=== PATIENT | male | born 1980 | race Caucasian/White ===

== ENCOUNTER 2017-07-23 09:06 | Inpatient (IN) | payer MEDICAID, OTHER ==
--- NOTE | 2017-07-23 09:44 | ED ---
Psych HPI - General Chief Complaint: Psychiatric Symptoms Stated Complaint: Mental Health Time Seen by Provider: 07/23/17 09:31 Source: patient, RN notes reviewed, old records reviewed Mode of arrival: ambulatory - History of Present Illness Initial Comments: Is a 36-year-old male presenting to the emergency department presenting for psychiatric disorder. He has been taking his medications however according to his feeling is been having weird behavior. Apparently he packed up all of his things in his room and grocery bags, as well as the kitchen. Patient is denying any physical complaints. Patient reports he has no suicidal or homicidal thoughts. Patient is very slow to respond when answering questions. - Related Data Home Medications Medication Instructions Recorded Confirmed Divalproex ER [Depakote ER] 1,500 mg PO HS 02/25/17 07/23/17 QUEtiapine [SEROquel] 100 mg PO HS 02/25/17 07/23/17 Terbinafine [LamISIL] 250 mg PO DAILY 02/25/17 07/23/17 Paliperidone IM [Invega Sustenna] 234 mg IM Q30D 07/23/17 07/23/17 Allergies Allergy/AdvReac Type Severity Reaction Status Date / Time No Known Allergies Allergy Verified 02/25/17 15:34 Review of Systems ROS Statement: Those systems with pertinent positive or pertinent negative responses have been documented in the HPI. ROS Other: All systems not noted in ROS Statement are negative. Past Medical History Additional Past Medical History / Comment(s): cyst foot, insomnia, possible COPD History of Any Multi-Drug Resistant Organisms: None Reported Additional Past Surgical History / Comment(s): ORIF of the ankle Past Psychological History: Anxiety, Bipolar, Depression, Schizophrenia Smoking Status: Current every day smoker Past Alcohol Use History: None Reported, Rare Past Drug Use History: Marijuana - Past Family History Father Family Medical History: Unable to Obtain (Father is 70 years old and is currently in rehab following surgery.) Mother Family Medical History: No Reported History (Mother is 57 years old and healthy. ) Additional Family Medical History / Comment(s): Patient has 3 brothers and one sister with no major medical problems. General Exam - General Exam Comments Initial Comments: 37-year-old male. Patient does not appear to be in any acute distress. Limitations: no limitations General appearance: alert, in no apparent distress Head exam: Present: atraumatic, normocephalic, normal inspection Eye exam: Present: normal appearance, PERRL, EOMI. Absent: scleral icterus, conjunctival injection, periorbital swelling ENT exam: Present: normal exam Neck exam: Present: normal inspection. Absent: tenderness, meningismus, lymphadenopathy Respiratory exam: Present: normal lung sounds bilaterally. Absent: respiratory distress, wheezes, rales, rhonchi, stridor Cardiovascular Exam: Present: regular rate, normal rhythm, normal heart sounds. Absent: systolic murmur, diastolic murmur, rubs, gallop, clicks GI/Abdominal exam: Present: soft, normal bowel sounds. Absent: distended, tenderness, guarding, rebound, rigid Extremities exam: Present: normal inspection, full ROM, normal capillary refill. Absent: tenderness, pedal edema, joint swelling, calf tenderness Back exam: Present: normal inspection Neurological exam: Present: alert, oriented X3, CN II-XII intact Psychiatric exam: Present: normal affect, normal mood, flat affect (Patient has a flat affect. Patient is slow to respond when answering questions. Patient's mother reports is typical of a schizophrenic episode for him.), other Skin exam: Present: warm, dry, intact, normal color. Absent: rash Course Vital Signs 07/23/17 09:12 Temperature 99.0 F Pulse Rate 119 H Respiratory 18 Rate Blood Pressure 109/69 O2 Sat by Pulse 97 Oximetry Medical Decision Making - Medical Decision Making 37-year-old male chief complaint of abnormal behaviors at home, per the mother. Patient packed up all of his belongings in garbage bags. He denies any persecutory thoughts, or suicidal or homicidal ideation. Mother reports has not been taking his psychiatric medication. He denies any suicidal or homicidal thoughts. Patient is very slow to respond and seems to be somewhat catatonic. Very flat affect. Patient is medically cleared to evaluate a be by EPS eczema. [facility] EPS evaluation patient stated they want him to go home. Patient psychiatrist appointment is going to be on the sixth. [facility] will go to his house and give him his medications eat tonight. Patient mother informed of this. Return parameters were discussed. Disposition Clinical Impression: Schizophrenia Disposition: HOME SELF-CARE Condition: Good Instructions: Schizophrenia (ED) Additional Instructions: CM will come to your house to ensure that you takes medications each night. Follow-up with her psychiatrist on the 6th. Return to the emergency department if any alarming signs or symptoms occur. Referrals: Lefty Lowe DO [Primary Care Provider] - 1-2 days Time of Disposition: 14:45
--- NOTE | 2017-07-23 16:55 | ED ---
Medical Decision Making - Medical Decision Making We EPS at [facility] should call his previous caseworkers he still uses usually the beginning of how he acts when he has a severe manic episode. In the past he has had episodes were he is bringing knives to public places including [facility]. He is also reportedly cut the head off of the live tick in. When the front of his history they felt that the patient actually does need to be admitted. I agree with this. Patient does agree to sign in. - Lab Data Lab Results 07/23/17 Range/Units 14:13 Urine Opiates Screen Not Detected (NotDetected) Ur Oxycodone Screen Not Detected (NotDetected) Urine Methadone Screen Not Detected (NotDetected) Ur Propoxyphene Screen Not Detected (NotDetected) Ur Barbiturates Screen Not Detected (NotDetected) U Tricyclic Antidepress Not Detected (NotDetected) Ur Phencyclidine Scrn Not Detected (NotDetected) Ur Amphetamines Screen Not Detected (NotDetected) U Methamphetamines Scrn Not Detected (NotDetected) U Benzodiazepines Scrn Not Detected (NotDetected) Urine Cocaine Screen Not Detected (NotDetected) U Marijuana (THC) Screen Not Detected (NotDetected) Disposition Clinical Impression: Schizophrenia Disposition: ADMITTED IP TO THIS HOSP Condition: Good
[2017-07-23] MEDS ORDERED: MAG HYDROX/AL HYDROX/SIMETH 30 ML CUP PO PRN (17:25)
[2017-07-23] MEDS ORDERED: LORazepam 1 MG TAB PO PRN (17:25)
[2017-07-23] MEDS ORDERED: MAGNESIUM HYDROXIDE 2,400 MG/10 ML CUP PO PRN (17:25)
[2017-07-23] MEDS ORDERED: ZIPRASIDONE 20 MG VIAL IM PRN (17:25)
[2017-07-23] MEDS ORDERED: ACETAMINOPHEN TAB 325 MG TAB PO PRN (17:25)
[2017-07-23] MEDS ORDERED: LORazepam 2 MG/ML SYRINGE IM PRN (17:37)
[2017-07-23] MEDS: DIVALPROEX ER 500 MG TAB.ER.24H PO SCH (21:22)
[2017-07-24 08:42] LABS: Basophils # (A) 0.1 k/uL (0-0.2); Basophils % (A) 1 %; CH 34.1; CHCM 33.1; Eosinophils # (A) 0.1 k/uL (0-0.7); Eosinophils % (A) 1 %; HCT 50.7 % (39.0-53.0); HDW 2.12; HGB 16.4 gm/dL (13.0-17.5); Luc % (Auto) 1; Lymphocytes # (A) 2.4 k/uL (1.0-4.8); Lymphocytes % (A) 26 %; MCH 33.5 pg (25.0-35.0); MCHC 32.4 g/dL (31.0-37.0); MCV 103.3 fL (80.0-100.0); Macrocytosis Slight; Mean Platelet Volume 7.6; Monocytes # (A) 0.4 k/uL (0-1.0); Monocytes % (A) 5 %; Neutrophils # (A) 6.1 k/uL (1.3-7.7); Neutrophils % (A) 67 %; RBC 4.91 m/uL (4.30-5.90); RDW 14.1 % (11.5-15.5); WBC 9.1 k/uL (3.8-10.6); WBC (Perox) 8.52
[2017-07-24 09:02] LABS: ALT 41 U/L (21-72); AST 19 U/L (17-59); Alkaline Phosphatase 69 U/L (38-126); Anion Gap 9 mmol/L; Blood Urea Nitrogen 13 mg/dL (9-20); Calcium 9.5 mg/dL (8.4-10.2); Carbon Dioxide 24 mmol/L (22-30); Chloride 107 mmol/L (98-107); Glucose 95 mg/dL (74-99); Non-African American GFR(MDRD) >60 (>60 ml/min/1.73 sqM); Potassium 4.8 mmol/L (3.5-5.1); Sodium 140 mmol/L (137-145); Total Bilirubin 0.4 mg/dL (0.2-1.3); Total Protein 6.7 g/dL (6.3-8.2)
[2017-07-24] MEDS ORDERED: diphenhydrAMINE 25 MG CAP PO PRN (13:21)
--- NOTE | 2017-07-24 13:23 | P.HP ---
Psychiatric H&P - . History & Physical: Allergies Allergy/AdvReac Type Severity Reaction Status Date / Time No Known Allergies Allergy Verified 02/25/17 15:34 Vital Signs Temp 98.2 F 07/24/17 06:47 Pulse 78 07/24/17 06:47 Resp 16 07/24/17 06:47 BP 131/60 07/24/17 06:47 Pulse Ox 97 07/23/17 16:58 Intake & Output 07/23/17 07/24/17 07/24/17 18:59 06:59 18:59 Weight 98.566 kg Laboratory Last Values WBC 9.1 k/uL (3.8-10.6) 07/24/17 08:14 RBC 4.91 m/uL (4.30-5.90) 07/24/17 08:14 Hgb 16.4 gm/dL (13.0-17.5) 07/24/17 08:14 Hct 50.7 % (39.0-53.0) 07/24/17 08:14 MCV 103.3 fL (80.0-100.0) H 07/24/17 08:14 MCH 33.5 pg (25.0-35.0) 07/24/17 08:14 MCHC 32.4 g/dL (31.0-37.0) 07/24/17 08:14 RDW 14.1 % (11.5-15.5) 07/24/17 08:14 Plt Count 246 k/uL (150-450) 07/24/17 08:14 Neutrophils % 67 % 07/24/17 08:14 Lymphocytes % 26 % 07/24/17 08:14 Monocytes % 5 % 07/24/17 08:14 Eosinophils % 1 % 07/24/17 08:14 Basophils % 1 % 07/24/17 08:14 Neutrophils # 6.1 k/uL (1.3-7.7) 07/24/17 08:14 Lymphocytes # 2.4 k/uL (1.0-4.8) 07/24/17 08:14 Monocytes # 0.4 k/uL (0-1.0) 07/24/17 08:14 Eosinophils # 0.1 k/uL (0-0.7) 07/24/17 08:14 Basophils # 0.1 k/uL (0-0.2) 07/24/17 08:14 Macrocytosis Slight 07/24/17 08:14 Sodium 140 mmol/L (137-145) 07/24/17 08:14 Potassium 4.8 mmol/L (3.5-5.1) 07/24/17 08:14 Chloride 107 mmol/L (98-107) 07/24/17 08:14 Carbon Dioxide 24 mmol/L (22-30) 07/24/17 08:14 Anion Gap 9 mmol/L 07/24/17 08:14 BUN 13 mg/dL (9-20) 07/24/17 08:14 Creatinine 0.90 mg/dL (0.66-1.25) 07/24/17 08:14 Est GFR (MDRD) Af Amer >60 (>60 ml/min/1.73 sqM) 07/24/17 08:14 Est GFR (MDRD) Non-Af >60 (>60 ml/min/1.73 sqM) 07/24/17 08:14 Glucose 95 mg/dL (74-99) 07/24/17 08:14 Calcium 9.5 mg/dL (8.4-10.2) 07/24/17 08:14 Total Bilirubin 0.4 mg/dL (0.2-1.3) 07/24/17 08:14 AST 19 U/L (17-59) 07/24/17 08:14 ALT 41 U/L (21-72) 07/24/17 08:14 Alkaline Phosphatase 69 U/L (38-126) 07/24/17 08:14 Total Protein 6.7 g/dL (6.3-8.2) 07/24/17 08:14 Albumin 4.0 g/dL (3.5-5.0) 07/24/17 08:14 TSH 2.680 mIU/L (0.465-4.680) 07/24/17 08:14 Urine Opiates Screen Not Detected (NotDetected) 07/23/17 14:13 Ur Oxycodone Screen Not Detected (NotDetected) 07/23/17 14:13 Urine Methadone Screen Not Detected (NotDetected) 07/23/17 14:13 Ur Propoxyphene Screen Not Detected (NotDetected) 07/23/17 14:13 Ur Barbiturates Screen Not Detected (NotDetected) 07/23/17 14:13 Valproic Acid 53.3 ug/mL 07/24/17 08:14 U Tricyclic Antidepress Not Detected (NotDetected) 07/23/17 14:13 Ur Phencyclidine Scrn Not Detected (NotDetected) 07/23/17 14:13 Ur Amphetamines Screen Not Detected (NotDetected) 07/23/17 14:13 U Methamphetamines Scrn Not Detected (NotDetected) 07/23/17 14:13 U Benzodiazepines Scrn Not Detected (NotDetected) 07/23/17 14:13 Urine Cocaine Screen Not Detected (NotDetected) 07/23/17 14:13 U Marijuana (THC) Screen Not Detected (NotDetected) 07/23/17 14:13 Identifying Information: Mr. Abraham Patricia is 37 year-old unemployed, never male, lives with his mother, with past psychiatric history of Schizophrenia. Chief complaint: "I don't know why I am here, but I was up all the night and hearing voices " History of Present Illness: The patient is not good historian and he presented today distant, not engaged. Patient has been brought to ED by his mother after he was up all night for 2 days straight and has been acting in bizarre way. According to assessment at time he came to the hospital the patient packed up all of his things in his room and grocery bags, as well as the kitchen. Today, patient admitted to the above behavior and reports he was cleaning the house. The patient admitted to hearing voices but he couldn't elaborate more about the voices and stated "I don 't remember." Patient reports still hearing the voices and only as family members talking to him. The patient reports feeling paranoid that somebody is after him but he feels safe in the hospital. Patient admitted for sometimes sees shadows but denies any other visual hallucinations. No delusions could be elicited but the patient was very distant and disengaged. The patient minimized feeling depressed and denies having suicidal or homicidal thoughts. He denies anxiety symptoms. Patient reports has very poor sleep and has been up for last 2 nights before coming to the hospital. He reports poor appetite but is relatively "getting better". He reports poor concentration. Patient was not fully oriented to time and place but was able to report correct time and place with some help. Past Psychiatric History: Hospitalizations: Patient has multiple prior psychiatric admissions. Last time at the same unit 01/2017. He had about 6-7 prior psychiatric admissions Medications Trials: Patient has been followed by [facility] and he is currently on Depakote 1500mg HS and Invega Sustaina 234mg / month with last injection given 2 days ago. Prior Suicidal attempts/ Thoughts: Denies Prior Self injurious behavior: He reports tried to cut himself 2 years ago by "just scratching" Substance use history: Alcohol: He reports continued to use alcohol and marijuana on regular basis about once weekly but couldn't give any more details. Opioid: History of heroin use, reports last time was November 2016. Cocaine: History of cocaine and methamphetamine use with last time November 2016. Nicotine: 1-2 PPD for past 10 years Prior SUDs Treatment including: Reports multiple prior [facility] in [place] and according to prior records patient has prior [facility] treatment in [place] Family history: Patient couldn't give information "I am not sure" Social History: Current living situation: Lives with his mother Employment: unemployed on SSD Education: 12th grade Recreational interest: watching movies Yazdanism/ spiritual orientation: not practicing orthodox Legal history: denies Past history of trauma (physical/psychological/sexual): Patient denies history of abuse, or any psychological trauma. Past medical history: Denies but prior records indicates history of COPD Allergies: Denies Mental status examination: Appearance: The patient appears older than his stated age, poorly groomed and disheveled, no specific features. Gait/posture: Normal arm was swinging: No abnormal movements. Attitude and behavior: Not engaged, not cooperative, poor eye contact. Motor activity: Increased psychomotor agitation Speech: Slow, not spontaneous Mood: "Fine" Affect: Blunted Thought form: thought blocking. Impoverished Thought content: denies suicidal thoughts, denies homicidal thoughts, denies intentions or plans. Paranoid ideation. Probably RIS Perception: Reports auditory hallucinations Attention: No obvious impairment. but not able to perform any testing Orientation: Patient was not fully oriented to time place person and situation. Insight: Patient has limited insight about his psychiatric disorder. Judgment: Patient has limited judgment about his psychiatric treatment. History of Violence to self/others:Patient denies any history of violence or aggression toward self or others in the past 6 months. Patient strengths: Housing Family support Patient weaknesses: Poor coping skills Limited social support Poor compliance with treatment [id number] formulation: Patient may have familial, and possibly genetic, predisposition to his mental illness. Predisposing psychological factors includes: Passive or dependent traits. Social predisposing factors include: poor compliance with treatment. Current biological precipitating factors include disruption of brain neurotransmitters and lack of mood stabilizing effect/ antidepressant effect, beside recent exposure to drugs. Precipitating psychological factors are depressive/ anxiety/ manic/ psychotic symptoms. Precipitating social factors include exposure to drugs. Assessment: Schizoaffective disorder, bipolar type. Cannabis use disorder Alcohol use disorder Treatment/ plan: Patient has been admitted to inpatient psychiatric level of care Check: as per unit routine Diet: Regular Lab ordered on admission: CMP, CBC, TSH - ordered and reviewed UDS on admission- ordered and reviewed Obtain Depakote level PSYCHIATRIC MEDICATIONS Continue Invega Sustaina 234mg im/ 4 weeks for psychotic symptoms Continue Depakote ER 1500mg at bedtime as mood stabilizer PRN medications: Benadryl PRN for insomnia Non-psychiatric medications: None Psychoeducation about: Nature of psychiatric illnesses Adherence to treatment Participation in groups/ individual therapy, and other activities Consent obtained to start new medication 07/24/17 12:44
--- NOTE | 2017-07-24 16:24 | P.CONS ---
History of Present Illness - Reason for Consult Consult date: 07/24/17 Advice regarding polysubstance abuse and other multiple medical issues - History of Present Illness This 37-year-old gentleman with a past medical history of psych care medical problems including schizoaffective disorder polysubstance abuse being followed by Dr. Lowe in the outpatient setting was admitted for psych evaluation. There is no history of shortness of breath chest pain palpitations the patient had history of ORIF of the ankle. Review of Systems REVIEW OF SYSTEMS: ENT: No diminished vision or hearing. CARDIOVASCULAR: Mentioned earlier. RESPIRATORY: As mentioned earlier. GI: No nauscea, vomiting or diarrhea. : No dysuria or retention. NERVOUS SYSTEM: No numbness or weakness. ALLERGY/IMMUNOLOGY: No asthma or hay fever. MUSCULOSKELETAL: As mentioned earlier. HEMATOLOGY/ONCOLOGY: No history of anemia. ENDOCRINE: No history of diabetes or hypothyroidism. CONSTITUTIONAL: As mentioned earlier. DERMATOLOGY: Negative. PSYCHIATRY: Mentioned earlier. RHEUMATOLOGY: Negative. Past Medical History Additional Past Medical History / Comment(s): cyst foot, insomnia, possible COPD History of Any Multi-Drug Resistant Organisms: None Reported Additional Past Surgical History / Comment(s): ORIF of the ankle Past Psychological History: Anxiety, Bipolar, Depression, Schizophrenia Smoking Status: Current every day smoker Past Alcohol Use History: None Reported, Rare Past Drug Use History: Marijuana - Past Family History Father Family Medical History: Unable to Obtain (Father is 70 years old and is currently in rehab following surgery.) Mother Family Medical History: No Reported History (Mother is 57 years old and healthy. ) Additional Family Medical History / Comment(s): Patient has 3 brothers and one sister with no major medical problems. Medications and Allergies Home Medications Medication Instructions Recorded Confirmed Type Divalproex ER [Depakote ER] 1,500 mg PO HS 02/25/17 07/23/17 History QUEtiapine [SEROquel] 100 mg PO HS 02/25/17 07/23/17 History Terbinafine [LamISIL] 250 mg PO DAILY 02/25/17 07/23/17 History Paliperidone IM [Invega Sustenna] 234 mg IM Q30D 07/23/17 07/23/17 History Allergies Allergy/AdvReac Type Severity Reaction Status Date / Time No Known Allergies Allergy Verified 02/25/17 15:34 Physical Exam Vitals: Vital Signs Temp Pulse Pulse Resp BP BP Pulse Ox 07/24/17 06:47 98.2 F 78 16 131/60 07/23/17 16:58 99.0 F 104 H 16 99/52 97 On exam, alert and oriented x3. HEENT: Conjunctivae normal. eyes normal. NECK: No JVD. No thyroid enlargement. No LNs CARDIOVASCULAR: S1, S2 muffled. No murmur RESPIRATION: Breath sounds diminished in the bases. No rhonchi or crackles. No bronchial breathing. ABDOMEN: Soft, nontender . No guarding. no masses palpable. No ascites, No hepatosplenomegaly.Bowel sounds heard. LEGS: No edema. no swelling NERVOUS SYSTEM: Cranial N 2-12 grossly normal. Moves all 4 limbs. No focal deficits. No sensory deficit. No signs of cerebellar dysfucntion. Skin: no ulcer no rash Joints: No active swelling. No inflammation. Lymphatic system. No LN neck axilla or groin. Results CBC & Chem 7: 07/24/17 08:14 07/24/17 08:14 Labs: Abnormal Lab Results - Last 24 Hours (Table) 07/24/17 Range/Units 08:14 MCV 103.3 H (80.0-100.0) fL Assessment and Plan Plan: Assessment 1. Schizoaffective disorder. 2. Polysubstance abuse 3. History of ankle ORIF Plan In this 37-year-old gentleman who was admitted with the psychiatric problems at this time the patient is medically stable. I would recommend to continue the home medications. Continue with the symptomatic treatment. Continue with the substance abuse counseling. Patient may be asked to follow-up with Dr. Lowe in the preceding. We'll follow the patient closely with you. Thank you for letting us participate in the care of this patient.
[2017-07-24] MEDS: NICOTINE 21MG/24HR PATCH TRANSDERM SCH (16:53)
[2017-07-24] MEDS: DIVALPROEX ER 500 MG TAB.ER.24H PO SCH (21:04)
[2017-07-25] MEDS: NICOTINE 21MG/24HR PATCH TRANSDERM SCH ×2 (09:42)
--- NOTE | 2017-07-25 10:38 | P.PN ---
Progress Note - Text Date of service: 07/25/2017 Chief complaint: "I am feeling OK" Subjective: The patient has been seen today as follow-up, chart reviewed, case discussed with the treatment team. Patient slept about 8 hours last night. Patient has been going to some groups and other unit activities. Patient reports good appetite problems. The patient minimized AH and attributed that to taking his medications. He minimized feeling paranoid. He reports his depression is much better and denies feeling hopeless or suicidal. Patient denies feeling agitation or having mood swings. Patient was very superficial and prompted to speak. The patient is compliant with his medications and denies any adverse reactions. Review of other systems: Patient denies any physical symptoms besides what has been mentioned above. No breathing problems, no chest pain reported today. Objective: Vitals has been reviewed. Mental status examination: Appearance: The patient appears older than his stated age, better groomed toady but still partially disheveled, no specific features. Gait/posture: Normal arm was swinging: No abnormal movements. Attitude and behavior: Not engaged, not cooperative, poor eye contact. Motor activity: no psychomotor agitation Speech: Slow, not spontaneous Mood: "OK" Affect: Blunted Thought form: thought blocking. Impoverished Thought content: denies suicidal thoughts, denies homicidal thoughts, denies intentions or plans. Paranoid ideation. Probably RIS Perception: Reports auditory hallucinations Attention: No obvious impairment. but not able to perform any testing Orientation: Patient was not fully oriented to time place person and situation. Insight: Patient has limited insight about his psychiatric disorder. Judgment: Patient has limited judgment about his psychiatric treatment. Assessment: Schizoaffective disorder, bipolar type. Cannabis use disorder Alcohol use disorder Plan: Continue with inpatient psychiatric hospitalization for monitoring and continue treatment. Continue group therapy and other unit activities. Continue psychiatric medications: Continue Invega Sustaina 234mg im/ 4 weeks for psychotic symptoms Continue Depakote ER 1500mg at bedtime as mood stabilizer Continue follow up
[2017-07-25] MEDS: DIVALPROEX ER 500 MG TAB.ER.24H PO SCH (20:34)
--- NOTE | 2017-07-26 20:14 | PN ---
DATE OF SERVICE: 07/26/2017 CHIEF COMPLAINT: The patient was admitted due to increasing problems with auditory hallucinations. He reported not sleeping for two days straight. He had paranoid thinking, believing someone was after him and he was not safe. INTERVAL HISTORY: The patient has been doing fair. He has attended groups sporadically though mostly did not get to groups. He slept well last night. He slept about six hours today. He has been up and about. When I reviewed history with the patient, it was difficult to get a clear picture of things. He gave vague information even to the point of my asking him who he lives with. He kept saying he does not know. I asked the question in a number of ways. I know each time he did not seem to understand the import of the question. Eventually he was able to indicate that at his home is his mother, cousin and an uncle. He was vague about the course of his current symptoms. He does say that he has been taking his medications regularly. He has not had change in his general health. He tolerates psychotropic medications. MENTAL STATUS: The patient gave fair eye contact. Psychomotor activity was a little restless. Speech was clear though he did not say a lot. He was not too spontaneous or interactive. His affect was somewhat anxious, his mood reserved. Difficult to say if he was significantly distress. ASSESSMENT: I will continue the current diagnosis and treatment plan. We will continue to engage the patient in individual and group therapeutic activities. I strongly encourage the patient to keep up with groups as an important intervention to help him deal with some of the issues that have caused him distress. He will continue on Invega Sustenna as reported in the history that he would have received his last injection approximately July 20 or of 234 mg IM. In addition, he will continue Depakote ER 1500 mg daily. His Depakote level on admission was 53. I will look for input from [facility] as far as any further medication adjustments. I did discuss with the patient that one option might be to increase his Depakote. At this point, we will continue to evaluate how he does. He does appear to have some degree of intellectual deficit in terms of recent and remote memory whether this relates to intellectual disability, I will look for guidance from [facility]. We will continue to focus on stabilization and discharge planning. MISTY
[2017-07-26] MEDS: DIVALPROEX ER 500 MG TAB.ER.24H PO SCH (20:40)
--- NOTE | 2017-07-27 15:24 | PN ---
DATE OF SERVICE: 07/27/2017 CHIEF COMPLAINT: The patient was admitted due to increasing problems with auditory hallucinations. He reported not sleeping for 2 days straight. He had paranoid thinking believing someone was after him and he was not safe. INTERVAL HISTORY: Patient has been doing fair. He had a quiet evening las night. He slept well today. He was in his room earlier in the morning. He did not identify any problems, issues or concerns. His thoughts seem to be clear. He was not describing any auditory hallucinations. I encouraged him to be up and about and make efforts to attend groups, he did get out of bed right way and came out in the shankar. He has attended some groups sporadically. He has a calm manner. He tends to keep to himself. He does no interact too much with others. He has not had change in his general health. He tolerates his psychotropic medications. He says that he likely had gone off medicines for a few days because he was running out, though then got refills on his medicines and got back on them within some days prior to coming into the hospital. MENTAL STATUS: Patient gave fair eye contact, psychomotor activity was slowed, speech was monotone, he did not say much. His responses were vague and somewhat disconnected. His affect blunted, his mood was quiet. He did not appear to be distressed. There was no indication of thought disorder. ASSESSMENT: I will continue the current diagnosis and treatment plan. Will continue psychotropic medications the same. Patient has not shown any significant problems with thought disorder or behavioral changes that would be concerning. I discussed discharged planning with the patient. We will aim to discharge the patient tomorrow. MISTY
[2017-07-27] MEDS: DIVALPROEX ER 500 MG TAB.ER.24H PO SCH (20:03)
[2017-07-28 07:21] VITALS: BP 113/57; PULSE 81; RESP 18; TEMP 98.3
== END 2017-07-28 16:22 | disposition home or self-care (01) | DRG 885 ==
LOC: EC 09:06 → 3MHU 16:50
PROVIDERS: ADMIT Psychiatry & Neurology Psychiatry; ATTEND Psychiatry & Neurology Psychiatry
DX: F25.0 Schizoaffective disorder, bipolar type (principal); F79 Unspecified intellectual disabilities; J44.9 Chronic obstructive pulmonary disease, unspecified; F12.90 Cannabis use, unspecified, uncomplicated; G47.00 Insomnia, unspecified; F17.200 Nicotine dependence, unspecified, uncomplicated; Z91.5 Personal history of self-harm; Z79.899 Other long term (current) drug therapy; Z87.898 Personal history of other specified conditions
CPT/HCPCS: 80053; 80164; 80306; 82075; 84443; 85025; 99285

== ENCOUNTER 2018-10-28 11:36 | Inpatient (IN) | payer MEDICAID, OTHER ==
[2018-10-28 12:35] LABS: Basophils % (A) 0 %; Eosinophils # (A) 0.1 k/uL (0-0.7); Eosinophils % (A) 1 %; HCT 46.9 % (39.0-53.0); HGB 16.2 gm/dL (13.0-17.5); Lymphocytes # (A) 2.1 k/uL (1.0-4.8); Lymphocytes % (A) 24 %; MCH 33.5 pg (25.0-35.0); MCHC 34.5 g/dL (31.0-37.0); MCV 97.2 fL (80.0-100.0); Mean Platelet Volume 7.4; Monocytes # (A) 0.3 k/uL (0-1.0); Monocytes % (A) 4 %; Neutrophils # (A) 6.1 k/uL (1.3-7.7); Neutrophils % (A) 69 %; Platelet Count 238 k/uL (150-450); RBC 4.82 m/uL (4.30-5.90); RDW 13.9 % (11.5-15.5); WBC 8.8 k/uL (3.8-10.6)
[2018-10-28 12:43] LABS: Acetaminophen <10.0 ug/mL; Anion Gap 13 mmol/L; Blood Urea Nitrogen 15 mg/dL (9-20); Calcium 9.2 mg/dL (8.4-10.2); Carbon Dioxide 20 mmol/L (22-30); Chloride 108 mmol/L (98-107); Glucose 156 mg/dL (74-99); Potassium 4.9 mmol/L (3.5-5.1); Salicylate <1.0 mg/dL; Sodium 141 mmol/L (137-145)
[2018-10-28 12:47] LABS: Amphetamine Screen,Urine Not Detected (NotDetected); Barbiturate Screen,Urine Not Detected (NotDetected); Benzodiazepines Screen,Urine Not Detected (NotDetected); Cocaine Screen,Urine Not Detected (NotDetected); Methadone Screen, Urine Not Detected (NotDetected); Opiate Screen,Urine Not Detected (NotDetected); Oxycodone Screen, Urine Not Detected (NotDetected); Phencyclidine Screen,Urine Not Detected (NotDetected); Tricyclic Antidepressant,Urine Not Detected (NotDetected); Urn Cannabinoid Scrn Detected (NotDetected)
[2018-10-28 12:53] LABS: Alcohol 177 mg/dL
[2018-10-28 12:56] LABS: Appearance,Urine Clear (Clear); Bilirubin,Urine Negative (Negative); Blood,Urine Negative (Negative); Color,Urine Light Yellow; Glucose,Urine (UA) Negative (Negative); Ketones,Urine Negative (Negative); Leukocyte Esterase,Urine Negative (Negative); Nitrite,Urine Negative (Negative); PH, Urine 5.5 (5.0-8.0); Protein,Urine Negative (Negative); Specific Gravity,Urine 1.011 (1.001-1.035); Urobilinogen,Urine <2.0 mg/dL (<2.0)
--- NOTE | 2018-10-28 13:15 | ED ---
Psych HPI - General Chief Complaint: Psychiatric Symptoms Stated Complaint: Petition Time Seen by Provider: 10/28/18 11:55 Source: patient Mode of arrival: ambulatory - History of Present Illness Initial Comments: This 38-year-old white male presents with a complaint of some psychiatric problems. He does have a history of schizoaffective disorder. He apparently has not been taking his medications for one week. He apparently drank alcohol/ wine this past evening. He apparently tore up the house per his mother. She states that he is having some bizarre thought processes. He denies any medical complaints but does seem to realize that he needs further psychiatric treatment. Upon questioning his alcohol use, he relates that he only had 2 glasses of fine wine from a box. He denies drinking daily. He does admit to utilizing marijuana but denies any other drug use. No other complaints or modifying factors. - Related Data Home Medications Medication Instructions Recorded Confirmed Paliperidone Palmitate [Invega 819 mg IM Q90D 10/28/18 10/28/18 Trinza] Previous Rx's Medication Instructions Recorded Divalproex ER [Depakote ER] 1,500 mg PO DAILY@2100 #90 tab 07/28/17 Allergies Allergy/AdvReac Type Severity Reaction Status Date / Time No Known Allergies Allergy Verified 10/28/18 12:26 Review of Systems ROS Statement: Those systems with pertinent positive or pertinent negative responses have been documented in the HPI. ROS Other: All systems not noted in ROS Statement are negative. Past Medical History Additional Past Medical History / Comment(s): cyst foot, insomnia, possible COPD History of Any Multi-Drug Resistant Organisms: None Reported Additional Past Surgical History / Comment(s): ORIF of the ankle Past Psychological History: Anxiety, Bipolar, Depression, Schizophrenia Smoking Status: Current every day smoker Past Alcohol Use History: None Reported, Rare Past Drug Use History: Marijuana - Past Family History Father Family Medical History: Unable to Obtain (Father is 70 years old and is currently in rehab following surgery.) Mother Family Medical History: No Reported History (Mother is 57 years old and healthy. ) Additional Family Medical History / Comment(s): Patient has 3 brothers and one sister with no major medical problems. General Exam - General Exam Comments Initial Comments: GENERAL: The patient is well nourished and well hydrated. VITAL SIGNS: Heart rate, blood pressure, respiratory rate reviewed as recorded in nurse's notes. EYES: Pupils are round and reactive. Extraocular movements are intact. No conjunctival / lid redness or swelling. ENT: No external evidence of injury, swelling, or ecchymosis. Airway is patent. Throat is clear. NECK: Nontender. No swelling or evidence of injury. No subcutaneous emphysema. Trachea is midline. No thyroid mass. HEART: Regular rate and rhythm. Good peripheral pulses. LUNGS/CHEST: Breath sounds clear and equal bilaterally. No rales, rhonchi, or wheezes. No ecchymosis, subcutaneous emphysema, or tenderness. ABDOMEN: Abdomen soft without tenderness. No palpable masses or organomegaly. No peritoneal signs. No abdominal wall swelling or ecchymosis. EXTREMITIES: No extremity tenderness. Normal muscle tone and function. No thoracolumbar tenderness. NEUROLOGIC: Sensation is grossly intact. Cranial nerve exam reveals face is symmetrical, tongue is midline, speech is clear. SKIN: No abrasions or ecchymosis is noted. No induration or masses noted. PSYCHIATRIC: Alert and oriented and cooperative. No acute significant psychiatric distress. Limitations: no limitations Course Vital Signs 10/28/18 10/28/18 11:41 17:34 Temperature 97.9 F 98 F Pulse Rate 119 H 108 H Respiratory 18 20 Rate Blood Pressure 112/81 124/73 O2 Sat by Pulse 97 96 Oximetry Medical Decision Making - Medical Decision Making The patient was seen and examined. All diagnostics are reviewed. His alcohol level is elevated and will wait until patient is sober for psychiatric evaluation. The marijuana was positive. Remainder labs essentially within normal limits. It was felt as though the patient is stable for further psychiatric treatment. The case is discussed with the psychiatric nurse and they would like to admit him to the hospital for further treatment. - Lab Data Result diagrams: 10/28/18 12:15 10/28/18 12:15 Lab Results 10/28/18 10/28/18 10/28/18 Range/Units 12:15 12:15 12:15 WBC 8.8 (3.8-10.6) k/uL RBC 4.82 (4.30-5.90) m/uL Hgb 16.2 (13.0-17.5) gm/dL Hct 46.9 (39.0-53.0) % MCV 97.2 (80.0-100.0) fL MCH 33.5 (25.0-35.0) pg MCHC 34.5 (31.0-37.0) g/dL RDW 13.9 (11.5-15.5) % Plt Count 238 (150-450) k/uL Neutrophils % 69 % Lymphocytes % 24 % Monocytes % 4 % Eosinophils % 1 % Basophils % 0 % Neutrophils # 6.1 (1.3-7.7) k/uL Lymphocytes # 2.1 (1.0-4.8) k/uL Monocytes # 0.3 (0-1.0) k/uL Eosinophils # 0.1 (0-0.7) k/uL Basophils # 0.0 (0-0.2) k/uL Sodium 141 (137-145) mmol/L Potassium 4.9 (3.5-5.1) mmol/L Chloride 108 H (98-107) mmol/L Carbon Dioxide 20 L (22-30) mmol/L Anion Gap 13 mmol/L BUN 15 (9-20) mg/dL Creatinine 0.76 (0.66-1.25) mg/dL Est GFR (CKD-EPI)AfAm >90 (>60 ml/min/1.73 sqM) Est GFR (CKD-EPI)NonAf >90 (>60 ml/min/1.73 sqM) Glucose 156 H (74-99) mg/dL Calcium 9.2 (8.4-10.2) mg/dL Urine Color Light Yellow Urine Appearance Clear (Clear) Urine pH 5.5 (5.0-8.0) Ur Specific [place] 1.011 (1.001-1.035) Urine Protein Negative (Negative) Urine Glucose (UA) Negative (Negative) Urine Ketones Negative (Negative) Urine Blood Negative (Negative) Urine Nitrite Negative (Negative) Urine Bilirubin Negative (Negative) Urine Urobilinogen <2.0 (<2.0) mg/dL Ur Leukocyte Esterase Negative (Negative) Salicylates <1.0 mg/dL Urine Opiates Screen Not Detected (NotDetected) Ur Oxycodone Screen Not Detected (NotDetected) Urine Methadone Screen Not Detected (NotDetected) Ur Propoxyphene Screen Not Detected (NotDetected) Acetaminophen <10.0 ug/mL Ur Barbiturates Screen Not Detected (NotDetected) Valproic Acid ug/mL U Tricyclic Antidepress Not Detected (NotDetected) Ur Phencyclidine Scrn Not Detected (NotDetected) Ur Amphetamines Screen Not Detected (NotDetected) U Methamphetamines Scrn Not Detected (NotDetected) U Benzodiazepines Scrn Not Detected (NotDetected) Urine Cocaine Screen Not Detected (NotDetected) U Marijuana (THC) Screen Detected H (NotDetected) Serum Alcohol 177 mg/dL 10/28/18 Range/Units 19:35 WBC (3.8-10.6) k/uL RBC (4.30-5.90) m/uL Hgb (13.0-17.5) gm/dL Hct (39.0-53.0) % MCV (80.0-100.0) fL MCH (25.0-35.0) pg MCHC (31.0-37.0) g/dL RDW (11.5-15.5) % Plt Count (150-450) k/uL Neutrophils % % Lymphocytes % % Monocytes % % Eosinophils % % Basophils % % Neutrophils # (1.3-7.7) k/uL Lymphocytes # (1.0-4.8) k/uL Monocytes # (0-1.0) k/uL Eosinophils # (0-0.7) k/uL Basophils # (0-0.2) k/uL Sodium (137-145) mmol/L Potassium (3.5-5.1) mmol/L Chloride (98-107) mmol/L Carbon Dioxide (22-30) mmol/L Anion Gap mmol/L BUN (9-20) mg/dL Creatinine (0.66-1.25) mg/dL Est GFR (CKD-EPI)AfAm (>60 ml/min/1.73 sqM) Est GFR (CKD-EPI)NonAf (>60 ml/min/1.73 sqM) Glucose (74-99) mg/dL Calcium (8.4-10.2) mg/dL Urine Color Urine Appearance (Clear) Urine pH (5.0-8.0) Ur Specific [place] (1.001-1.035) Urine Protein (Negative) Urine Glucose (UA) (Negative) Urine Ketones (Negative) Urine Blood (Negative) Urine Nitrite (Negative) Urine Bilirubin (Negative) Urine Urobilinogen (<2.0) mg/dL Ur Leukocyte Esterase (Negative) Salicylates mg/dL Urine Opiates Screen (NotDetected) Ur Oxycodone Screen (NotDetected) Urine Methadone Screen (NotDetected) Ur Propoxyphene Screen (NotDetected) Acetaminophen ug/mL Ur Barbiturates Screen (NotDetected) Valproic Acid <10.0 ug/mL U Tricyclic Antidepress (NotDetected) Ur Phencyclidine Scrn (NotDetected) Ur Amphetamines Screen (NotDetected) U Methamphetamines Scrn (NotDetected) U Benzodiazepines Scrn (NotDetected) Urine Cocaine Screen (NotDetected) U Marijuana (THC) Screen (NotDetected) Serum Alcohol mg/dL Disposition Clinical Impression: Schizoaffective disorder, Alcohol intoxication, Marijuana abuse, Medication noncompliance due to cognitive impairment Disposition: ADMITTED IP TO THIS [facility] Condition: Fair Time of Disposition: 20:52 Decision Date: 10/28/18 Decision Time: 20:52
[2018-10-28] MEDS ORDERED: MAGNESIUM HYDROXIDE 2,400 MG/10 ML CUP PO PRN (21:49)
[2018-10-28] MEDS ORDERED: ZIPRASIDONE 20 MG VIAL IM PRN (21:49)
[2018-10-28] MEDS ORDERED: LORazepam 1 MG TAB PO PRN (21:49)
[2018-10-28] MEDS ORDERED: ACETAMINOPHEN TAB 325 MG TAB PO PRN (21:49)
[2018-10-28] MEDS ORDERED: MAG HYDROX/AL HYDROX/SIMETH 30 ML CUP PO PRN (21:49)
[2018-10-28] MEDS ORDERED: DIVALPROEX ER 500 MG TAB.ER.24H PO STA (22:00)
[2018-10-29] MEDS: NICOTINE 21MG/24HR PATCH TRANSDERM SCH (08:24)
[2018-10-29 12:52] LABS: ALT 38 U/L (21-72); AST 24 U/L (17-59); Albumin 3.9 g/dL (3.5-5.0); Alkaline Phosphatase 68 U/L (38-126); Anion Gap 8 mmol/L; Blood Urea Nitrogen 18 mg/dL (9-20); Calcium 9.5 mg/dL (8.4-10.2); Carbon Dioxide 25 mmol/L (22-30); Chloride 105 mmol/L (98-107); Cholesterol 189 mg/dL (<200); Glucose 99 mg/dL (74-99); HDL Cholesterol 49 mg/dL (40-60); LDL Cholesterol,Calculated 105 mg/dL (0-99); Potassium 4.8 mmol/L (3.5-5.1); Sodium 138 mmol/L (137-145); Total Bilirubin 0.4 mg/dL (0.2-1.3); Triglycerides 175 mg/dL (<150)
--- NOTE | 2018-10-29 14:03 | P.HP ---
Psychiatric H&P - . H&P Date: 10/29/18 History & Physical: Allergies Allergy/AdvReac Type Severity Reaction Status Date / Time No Known Allergies Allergy Verified 10/28/18 12:26 Vital Signs Temp 98.1 F 10/29/18 06:18 Pulse 98 10/29/18 06:18 Resp 16 10/29/18 06:18 BP 125/72 10/29/18 06:18 Pulse Ox 95 10/28/18 21:30 Intake & Output 10/28/18 10/29/18 10/29/18 18:59 06:59 18:59 Weight 106.594 kg 106.6 kg Laboratory Last Values WBC 8.8 k/uL (3.8-10.6) 10/28/18 12:15 RBC 4.82 m/uL (4.30-5.90) 10/28/18 12:15 Hgb 16.2 gm/dL (13.0-17.5) 10/28/18 12:15 Hct 46.9 % (39.0-53.0) 10/28/18 12:15 MCV 97.2 fL (80.0-100.0) 10/28/18 12:15 MCH 33.5 pg (25.0-35.0) 10/28/18 12:15 MCHC 34.5 g/dL (31.0-37.0) 10/28/18 12:15 RDW 13.9 % (11.5-15.5) 10/28/18 12:15 Plt Count 238 k/uL (150-450) 10/28/18 12:15 Neutrophils % 69 % 10/28/18 12:15 Lymphocytes % 24 % 10/28/18 12:15 Monocytes % 4 % 10/28/18 12:15 Eosinophils % 1 % 10/28/18 12:15 Basophils % 0 % 10/28/18 12:15 Neutrophils # 6.1 k/uL (1.3-7.7) 10/28/18 12:15 Lymphocytes # 2.1 k/uL (1.0-4.8) 10/28/18 12:15 Monocytes # 0.3 k/uL (0-1.0) 10/28/18 12:15 Eosinophils # 0.1 k/uL (0-0.7) 10/28/18 12:15 Basophils # 0.0 k/uL (0-0.2) 10/28/18 12:15 Sodium 138 mmol/L (137-145) 10/29/18 11:45 Potassium 4.8 mmol/L (3.5-5.1) 10/29/18 11:45 Chloride 105 mmol/L (98-107) 10/29/18 11:45 Carbon Dioxide 25 mmol/L (22-30) 10/29/18 11:45 Anion Gap 8 mmol/L 10/29/18 11:45 BUN 18 mg/dL (9-20) 10/29/18 11:45 Creatinine 0.94 mg/dL (0.66-1.25) 10/29/18 11:45 Est GFR (CKD-EPI)AfAm >90 (>60 ml/min/1.73 sqM) 10/29/18 11:45 Est GFR (CKD-EPI)NonAf >90 (>60 ml/min/1.73 sqM) 10/29/18 11:45 Glucose 99 mg/dL (74-99) 10/29/18 11:45 Calcium 9.5 mg/dL (8.4-10.2) 10/29/18 11:45 Total Bilirubin 0.4 mg/dL (0.2-1.3) 10/29/18 11:45 AST 24 U/L (17-59) 10/29/18 11:45 ALT 38 U/L (21-72) 10/29/18 11:45 Alkaline Phosphatase 68 U/L (38-126) 10/29/18 11:45 Total Protein 7.0 g/dL (6.3-8.2) 10/29/18 11:45 Albumin 3.9 g/dL (3.5-5.0) 10/29/18 11:45 Triglycerides 175 mg/dL (<150) H 10/29/18 11:45 Cholesterol 189 mg/dL (<200) 10/29/18 11:45 LDL Cholesterol, Calc 105 mg/dL (0-99) H 10/29/18 11:45 HDL Cholesterol 49 mg/dL (40-60) 10/29/18 11:45 TSH 2.740 mIU/L (0.465-4.680) 10/29/18 11:45 Urine Color Light Yellow 10/28/18 12:15 Urine Appearance Clear (Clear) 10/28/18 12:15 Urine pH 5.5 (5.0-8.0) 10/28/18 12:15 Ur Specific [place] 1.011 (1.001-1.035) 10/28/18 12:15 Urine Protein Negative (Negative) 10/28/18 12:15 Urine Glucose (UA) Negative (Negative) 10/28/18 12:15 Urine Ketones Negative (Negative) 10/28/18 12:15 Urine Blood Negative (Negative) 10/28/18 12:15 Urine Nitrite Negative (Negative) 10/28/18 12:15 Urine Bilirubin Negative (Negative) 10/28/18 12:15 Urine Urobilinogen <2.0 mg/dL (<2.0) 10/28/18 12:15 Ur Leukocyte Esterase Negative (Negative) 10/28/18 12:15 Salicylates <1.0 mg/dL 10/28/18 12:15 Urine Opiates Screen Not Detected (NotDetected) 10/28/18 12:15 Ur Oxycodone Screen Not Detected (NotDetected) 10/28/18 12:15 Urine Methadone Screen Not Detected (NotDetected) 10/28/18 12:15 Ur Propoxyphene Screen Not Detected (NotDetected) 10/28/18 12:15 Acetaminophen <10.0 ug/mL 10/28/18 12:15 Ur Barbiturates Screen Not Detected (NotDetected) 10/28/18 12:15 Valproic Acid <10.0 ug/mL 10/28/18 19:35 U Tricyclic Antidepress Not Detected (NotDetected) 10/28/18 12:15 Ur Phencyclidine Scrn Not Detected (NotDetected) 10/28/18 12:15 Ur Amphetamines Screen Not Detected (NotDetected) 10/28/18 12:15 U Methamphetamines Scrn Not Detected (NotDetected) 10/28/18 12:15 U Benzodiazepines Scrn Not Detected (NotDetected) 10/28/18 12:15 Urine Cocaine Screen Not Detected (NotDetected) 10/28/18 12:15 U Marijuana (THC) Screen Detected (NotDetected) H 10/28/18 12:15 Serum Alcohol 177 mg/dL 10/28/18 12:15 10/29/18 14:03 Identifying Information: 38 year-old male, living with his mother for 10 years. Started on SSD 10 years ago. Chief complaint: "I drank wine and made mess at home. " History of Present Illness: Patients mother called 911 due to his bizarre behavior at home. Reportedly patient was irrational, not sleeping and watching the same movie over repeatedly and laughing at nothing in particular, attempting to sit in chair naked, throwing plants around. Patient reports he was heavy drug user, but claims to have slowed down ever since he moved to [place] from [place] 10 years ago. He reports drinking two cups of wine or 2 beers after he receives his social security check every month. He also reports smoking marijuana but unable to quantify it. He reports staying awake at night. He reports good appetite. He reports he listens to his mother and claims he pays rent, however gets into arguments every now and then. He currently reports feeling sorry about creating a mess at home and wants to return back home as soon as possible. He reports taking invega injections and depakote through [facility]. He claims to have missed taking only one dose of depakote. His depakote level at the time of admission was less than 10. Per medical records receives Invega trinza IM every three months, next one is due on 11/24/18. He did miss his appointment with [facility] on 10/26/18. His blood alcohol level in the ER was 177, his UDS was positive for marijuana and depakote level was <10. Patient reports hearing voices little bit. He claims he likes hearing those voices instead of his mind being Blank. He claims voices talk about what he is thinking. Denies command voices. He denies visual hallucinations. He denies paranoid ideations. He denies current suicidal or homicidal ideations. Past Psychiatric History: Hospitalizations: First hospitalization : around the age of 17 in [place] for two days. He says my aunt put me there. He reports being discharged with out any medications. From the age of 28 he repots being hospitalized multiple times due to smoking marijauana and drinking alcohol. He claims his last admission was an year ago. Medications Trials: He says every thing should be in the computer. Per medical records he follows up with [facility] and missed his last appointment. Prior Suicidal attempts/ Thoughts: Denies Substance use history: Alcohol and marijuana use from his teen years. Last use day before his admission. See HPI for details. He refuses to talk about other illicit drug use stating his drug of choice is marijuana and alcohol. He claims to have experimented other drugs , but states he does not want to talk about. Per medical records History of heroin use, reports last time was November 2016, History of cocaine and methamphetamine use with last time November 2016. Nicotine: 1-2 PPD Prior SUDs Treatment including: multiple prior [facility] in [place] and [place]. Past medical history: Except for broken ankle years ago, denies major medical problems. Per medical records history of COPD Allergies: Denies Family history: Denies Social History: He reports being born and raised in [place]. He reports being raised mostly by his mother. Denies history of abuse. He reports having two siblings. He claims to have moved to [place] ten years ago and has been living with his mother since then. Reports to have completed 12 th grade education. Not . Reports having two children ages 14 and 16 in [place]. Unemployed started on SSD 10 years ago. Mental status examination: Appearance: The patient appears older than his stated age. He is obese and in fair grooming and hygiene. No abnormal movements. He is superficially cooperative. Minimizing his problems. Focused on his discharge. Speech and thought process guarded. Denies current auditory or visual hallucinations. Denies paranoid delusions. He is alert and oriented x 4. He is alert and oriented x 4. His insight and judgement limited. Patient strengths: Housing Family support Patient weaknesses: Poor coping skills Poor compliance with treatment Assessment: Schizoaffective disorder, bipolar type. Cannabis use disorder Alcohol use disorder Treatment/ plan: Plan 38-year-old male with history of schizoaffective admitted for treatment non compliance, bizarre and destructive behaviors. He signed voluntary treatment consent. Routine history and physical exam by Medicine Psychosocial evaluation. Routine labs To be continued on his out patient medications Invega trinza IM every three months, next one is due on 11/24/18. Will start him on depakote 500mg po qhs and titrate the dose to his current out patient dose of 1500mg po qhs. Will start him on invega 3mg po qhs. Monitor for symptoms will receive milieu therapy group therapy individual therapy occupational therapy recreational therapy and medication education. Discharge with outpatient follow-up. Referral to out patient substance use program Treatment goals: Medication stabilization Insight improvement and encourage treatment adherence. development of better coping skills
--- NOTE | 2018-10-29 17:52 | P.CONS ---
History of Present Illness - Reason for Consult Medical clearance - History of Present Illness Patient is admitted to psychiatric floor for schizoaffective disorder, denied any fever chills nausea vomiting abdominal pain chest pain. Review of Systems REVIEW OF SYSTEMS: CONSTITUTIONAL: No fever, no malaise, no fatigue. HEENT: No recent visual problems or hearing problems. Denied any sore throat. CARDIOVASCULAR: No chest pain, orthopnea, PND, no palpitations, no syncope. PULMONARY: No shortness of breath, no cough, no hemoptysis. GASTROINTESTINAL: No diarrhea, no nausea, no vomiting, no abdominal pain. Normoactive bowel sounds. NEUROLOGICAL: No headaches, no weakness, no numbness. HEMATOLOGICAL: Denies any bleeding or petechiae. GENITOURINARY: Denies any burning micturition, frequency, or urgency. MUSCULOSKELETAL/RHEUMATOLOGICAL: Denies any joint pain, swelling, or any muscle pain. ENDOCRINE: Denies any polyuria or polydipsia. The rest of the 14-point review of systems is negative. Past Medical History Additional Past Medical History / Comment(s): cyst foot, insomnia, possible COPD History of Any Multi-Drug Resistant Organisms: None Reported Additional Past Surgical History / Comment(s): ORIF of the ankle Past Psychological History: Anxiety, Bipolar, Depression, Schizophrenia Smoking Status: Current every day smoker Past Alcohol Use History: None Reported, Rare Past Drug Use History: Marijuana - Past Family History Father Family Medical History: Unable to Obtain (Father is 70 years old and is currently in rehab following surgery.) Mother Family Medical History: No Reported History (Mother is 57 years old and healthy. ) Additional Family Medical History / Comment(s): Patient has 3 brothers and one sister with no major medical problems. Medications and Allergies Home Medications Medication Instructions Recorded Confirmed Type Divalproex ER [Depakote ER] 1,500 mg PO DAILY@2100 #90 tab 07/28/17 10/28/18 Rx Paliperidone Palmitate [Invega 819 mg IM Q90D 10/28/18 10/28/18 History Trinza] Allergies Allergy/AdvReac Type Severity Reaction Status Date / Time No Known Allergies Allergy Verified 10/28/18 12:26 Physical Exam Vitals: Vital Signs Temp Pulse Pulse Resp BP BP Pulse Ox 10/29/18 06:18 98.1 F 98 16 125/72 10/28/18 21:30 97.4 F L 111 H 16 116/57 95 10/28/18 21:04 98.1 F 120 H 18 103/60 96 PHYSICAL EXAMINATION: GENERAL: The patient is alert and oriented x3, not in any acute distress. Well developed, well nourished. HEENT: Pupils are round and equally reacting to light. EOMI. No scleral icterus. No conjunctival pallor. Normocephalic, atraumatic. No pharyngeal erythema. No thyromegaly. CARDIOVASCULAR: S1 and S2 present. No murmurs, rubs, or gallops. PULMONARY: Chest is clear to auscultation, no wheezing or crackles. ABDOMEN: Soft, nontender, nondistended, normoactive bowel sounds. No palpable organomegaly. MUSCULOSKELETAL: No joint swelling or deformity. EXTREMITIES: No cyanosis, clubbing, or pedal edema. NEUROLOGICAL: Gross neurological examination did not reveal any focal deficits. SKIN: No rashes. Results CBC & Chem 7: 10/28/18 12:15 10/29/18 11:45 Labs: Abnormal Lab Results - Last 24 Hours (Table) 10/29/18 Range/Units 11:45 Triglycerides 175 H (<150) mg/dL LDL Cholesterol, Calc 105 H (0-99) mg/dL Assessment and Plan Plan: -Schizoaffective disorder: Management as per primary service -Marijuana abuse -Alcoholic abuse -Nicotine abuse Extensive counseling regarding above-mentioned issues was provided
[2018-10-29] MEDS: PALIPERIDONE 3 MG TAB.ER.24 PO SCH (20:14)
[2018-10-29] MEDS ORDERED: DIVALPROEX ER 500 MG TAB.ER.24H PO ONE (21:00)
[2018-10-30] MEDS: DIVALPROEX ER 500 MG TAB.ER.24H PO SCH ×3 (08:18→20:27)
[2018-10-30] MEDS: NICOTINE 21MG/24HR PATCH TRANSDERM SCH (08:18)
--- NOTE | 2018-10-30 17:15 | P.PN ---
Progress Note - Text Progress Note Date: 10/30/18 IDENTIFICATION DATA: 38 year-old male was admitted due to his bizarre behaviors at home. He has history of Schizoaffective disorder and alcohol abuse. INTERVAL HISTORY: He says with his new medication voices no longer bother him. He reports seeing dots which doesnt bother him. He says he is ready to go home. He reports he has been writing everything to sort of get everything situated. He currently says he been watching movies as he feels he has done every thing he supposed to do and there is nothing much to do for him except watch movies. He reports good sleep and appetite. He denies medication side effects. MENTAL STATUS EXAMINATION: Appeared stated age. dressed casually.. Fair grooming and hygiene. No abnormal movements noted. mood is reported as BETTER, affect appropriate. speech and thought process were linear and goal directed. He reports ongoing hallucinations and visual hallucinations which does not bother him. Denies paranoia. is alert and oriented x 4. denies current suicidal or homicidal ideations. insight and judgement are improving. ASSESSMENT AND PLAN: Continue current treatment Monitor for symptoms
[2018-10-30] MEDS: PALIPERIDONE 3 MG TAB.ER.24 PO SCH (20:28)
[2018-10-31] MEDS: NICOTINE 14MG/24HR PATCH TRANSDERM SCH (08:20)
--- NOTE | 2018-10-31 10:58 | P.PN ---
Progress Note - Text Interval history: The patient is found in his room he follows me to an interview room. The patient has a history of schizophrenia and was admitted over the weekend for bizarre behavior. He is on Invega trinza and Depakote ER. His Depakote level upon admission was 0. He admits he was missing some doses of the Depakote prior to admission. Apparently he wasn't sleeping well. The patient states that he slept last night he reports he would like to be discharged as soon as possible. He acknowledges that he had some unusual behaviors before the admission but he feels that they are stabilized now. His last medication review note was reviewed from [facility] dated . He does have a history of cannabis use disorder. Mental status exam: The patient is a shorter statured overweight male he is dressed in his own clothing his jeans are oversized. Eye contact is appropriate speech is fluent and spontaneous nonpressured. He is somewhat perseverative asking the same questions throughout the interview. He reports his mood is fine. He is reporting no suicidal or homicidal ideation intent or plan. He endorses auditory hallucinations that sound like family members. He states that he catches bits of the conversation but there are no command auditory hallucinations. No visual hallucinations. He reports feeling safe at this time. He demonstrates no verbal or physical aggressiveness he demonstrates no involuntary repetitive movements. Insight and judgment limited. Plan: The patient will continue on his current psychotropic medication we will monitor him for safety. Vital signs reviewed. He is encouraged to participate fully in the milieu. We reviewed his psychotropic medications and his questions were answered.
[2018-10-31] MEDS: DIVALPROEX ER 500 MG TAB.ER.24H PO SCH (20:04)
[2018-10-31] MEDS: PALIPERIDONE 3 MG TAB.ER.24 PO SCH (20:04)
[2018-11-01 06:34] VITALS: RESP 18
[2018-11-01] MEDS: NICOTINE 14MG/24HR PATCH TRANSDERM SCH (08:21)
--- NOTE | 2018-11-01 10:03 | P.PN ---
Progress Note - Text Interval history: The patient is found in his room he follows me to an interview room. He states that he went to bed late but slept in this morning missing breakfast. He reports attending some groups but he does not find them interactive enough. He did have a brief phone call with his mother. He is looking forward to her dropping off candy for him. We reviewed his psychotropic medication he has no concerns regarding the medications. He does ask again when he can be discharged. We discussed that we are attempting to stabilize his mood and reestablish a therapeutic Depakote level. Mental status exam: The patient is an overweight male appearing his stated age. He seated calmly is dressed in his own clothing hygiene grooming appear adequate. Eye contact is good speech is fluent spontaneous nonpressured. He indicates his mood is good. Affect is constricted. He reports auditory hallucinations but states he's hearing nothing today. No command auditory hallucinations. He reports no paranoid or persecutory thinking. He demonstrates no verbal or physical aggressiveness he demonstrates no involuntary repetitive movements. He demonstrates no tangential thinking loose associations or flight of ideas. He is oriented to person place and date. Plan: The patient will continue on his current psychotropic medication. It appears that he is clinically stabilizing. I expect he'll be appropriate for discharge mid-to-late week. We will continue to monitor him for safety and encourage participation in the milieu. Vital signs reviewed.
[2018-11-01] MEDS: DIVALPROEX ER 500 MG TAB.ER.24H PO SCH (20:17)
[2018-11-01] MEDS: PALIPERIDONE 3 MG TAB.ER.24 PO SCH (20:18)
[2018-11-02] MEDS: NICOTINE 14MG/24HR PATCH TRANSDERM SCH (08:29)
--- NOTE | 2018-11-02 10:12 | P.PN ---
Progress Note - Text Interval history: The patient is found in group he follows me to an interview room. He reports that his mood is improving. He does continue to experience auditory hallucinations but states they are noncommanding. They're not derogatory. He feels safe here in the hospital. Social work has attempted to reach the patient's mother without success so far. The patient has been able to sleep at night. He is attending groups this morning. He has no questions or concerns regarding his medication. Mental status exam: The patient is an overweight male appearing his stated age. Eye contact is appropriate hygiene grooming adequate. He does have spontaneous speech he is verbose but nonpressured. He reports no acute suicidal or homicidal ideation intent or plan. He is reporting ongoing auditory hallucinations that seem quieter and less intrusive. No command auditory hallucinations reported. He demonstrates no verbal or physical aggressiveness. He demonstrates no loose associations or flight of ideas. He is circumstantial at times and briefly tangential. He maintains a constricted affect. He demonstrates no repetitive involuntary movements. Insight and judgment improving. Plan: The patient appears to be clinically stabilizing. We will draw a Depakote level in the morning. Social work will continue their effort to facilitate a support meeting involving his mother. He is encouraged to fully participate in groups vital signs reviewed. Anticipate discharge tomorrow.
[2018-11-02] MEDS: PALIPERIDONE 3 MG TAB.ER.24 PO SCH (20:08)
[2018-11-02] MEDS: DIVALPROEX ER 500 MG TAB.ER.24H PO SCH (20:08)
[2018-11-03 06:58] VITALS: BP 109/58; PULSE 106; TEMP 97.7
[2018-11-03] MEDS: NICOTINE 14MG/24HR PATCH TRANSDERM SCH (08:35)
--- NOTE | 2018-11-03 08:47 | P.DS ---
Providers Date of admission: 10/28/18 20:34 Expected date of discharge: 11/03/18 Attending physician: Bhavin Erwin Consults: 10/28/18 21:49 Consult Physician Routine Consulting Provider: Lefty Lowe Reason/Comments: H and P with medical follow up Do you want consulting provider notified?: Yes, Notify in am Primary care physician: Lefty Lowe - Discharge Diagnosis(es) (1) Schizophrenia Current Visit: No Status: Chronic Priority: High Hospital Course: Brief summary of admission note: This patient is a 38-year-old male who was admitted to the mental health unit through the emergency room. Reportedly the patient's mother called 911 due to the patient's bizarre behavior at home. He was described as being irrational not sleeping excessively laughing and throwing objects. He does have a history of schizophrenia. He has a history of marijuana and alcohol use. He receives outpatient care at [facility]. His Depakote level was less than 10 upon admission. Alcohol level was 177 in the emergency room urine drug screen was positive for marijuana. For full details please refer to the psychiatric evaluation note. Summary of hospital course: The patient was admitted to the mental health unit voluntarily. He was initially evaluated by the [facility] psychiatrist covering for the weekend. I assumed his care this past Wednesday. The patient has been demonstrating progressive improvement during the course of his admission. He's been compliant with groups he's been compliant with medication he is demonstrated no agitated behavior or bizarre behavior during the time that I have been meeting with him. He has no questions or concerns regarding his medication. He was seen by internal medicine for routine history and physical exam. Social work has met with him for a psychosocial assessment and to continue discharge planning throughout his stay. He feels that he is sufficiently stabilized and feel safe to return home. Social work is attempting to arrange a support meeting involving his mother. Mental status exam: The patient is an overweight male he seated calmly in the chair hygiene grooming are adequate. Speech is fluent spontaneous nonpressured. He reports no suicidal or homicidal ideation intent or plan. He is endorsing no hopelessness thinking. He describes auditory hallucinations that are noncommanding. He states they are not derogatory and not bothersome at this time. He demonstrates no tangential thinking loose associations or flight of ideas. He does not appear hypomanic or manic. Insight and judgment are improving. He demonstrates no verbal or physical aggressiveness. He demonstrates no involuntary repetitive movements. He is oriented to person place and date. Affect is constricted. Impressions: 1. Schizophrenia, cannabis use disorder, alcohol use disorder Plan: The patient will be discharged from mental health unit today to return residing with his mother. He will continue following up with [facility] upon discharge for outpatient care. He is not interested in pursuing inpatient chemical dependency treatment at this time. He will continue on Depakote ER 1500 mg at bedtime. A Depakote level as being drawn today. He will continue on Invega 3 mg at bedtime and he receives the invega Trinza injection every 3 months. His next injection is due later this month. He is instructed not to use any alcohol marijuana or any illicit drug as the substances can exacerbate his symptoms of psychosis and elevated safety risk. He is instructed to return to the hospital for any acute safety concerns. Patient Condition at Discharge: Stable Plan - Discharge Summary New Discharge Prescriptions: New Divalproex ER [Depakote ER] 1,500 mg PO HS #45 tab.er.24h Nicotine 14Mg/24Hr Patch [Habitrol] 1 patch TRANSDERM DAILY #10 patch Paliperidone [Invega] 3 mg PO HS #30 tab.er.24 Continue Paliperidone Palmitate [Invega Trinza] 819 mg IM Q90D Discontinued Divalproex ER [Depakote ER] 1,500 mg PO DAILY@2100 #90 tab Discharge Medication List Paliperidone Palmitate [Invega Trinza] 819 mg IM Q90D 10/28/18 [History] Divalproex ER [Depakote ER] 1,500 mg PO HS #45 tab.er.24h 11/03/18 [Rx] Nicotine 14Mg/24Hr Patch [Habitrol] 1 patch TRANSDERM DAILY #10 patch 11/03/18 [ Rx] Paliperidone [Invega] 3 mg PO HS #30 tab.er.24 11/03/18 [Rx] Follow up Appointment(s)/Referral(s): Lefty Lowe DO [Primary Care Provider] - 1-2 days
[2018-11-03 12:24] LABS: Valproic Acid (Depakene) 46.6 ug/mL
== END 2018-11-03 13:30 | disposition home or self-care (01) | DRG 885 ==
LOC: EC 11:36 → 3MHU 20:34
PROVIDERS: ADMIT Psychiatry & Neurology Psychiatry; ATTEND Psychiatry & Neurology Psychiatry
DX: F20.9 Schizophrenia, unspecified (principal); E66.3 Overweight; F12.10 Cannabis abuse, uncomplicated; F10.10 Alcohol abuse, uncomplicated; G47.00 Insomnia, unspecified; Y90.6 Blood alcohol level of 120-199 mg/100 ml; J44.9 Chronic obstructive pulmonary disease, unspecified; F11.11 Opioid abuse, in remission; F15.11 Other stimulant abuse, in remission; T42.6X6A Underdosing of other antiepileptic and sedative-hypnotic drugs, initial encounter; Z91.128 Patient's intentional underdosing of medication regimen for other reason; Z91.19 Patient's noncompliance with other medical treatment and regimen; F17.200 Nicotine dependence, unspecified, uncomplicated; Z71.6 Tobacco abuse counseling; Z79.899 Other long term (current) drug therapy
CPT/HCPCS: 36415; 80048; 80053; 80061; 80164; 80306; 80320; 81003; 82075; 83036; 83520; 84443; 84450; 84460; 85025; 99285

== ENCOUNTER → 2018-11-14 | Outpatient (CLI) | payer OTHER ==
[2018-11-14 10:07] LABS: Basophils # (A) 0.1 k/uL (0-0.2); Basophils % (A) 1 %; Eosinophils % (A) 1 %; HCT 48.4 % (39.0-53.0); HGB 15.8 gm/dL (13.0-17.5); Lymphocytes # (A) 1.9 k/uL (1.0-4.8); Lymphocytes % (A) 27 %; MCH 32.5 pg (25.0-35.0); MCHC 32.6 g/dL (31.0-37.0); MCV 99.5 fL (80.0-100.0); Mean Platelet Volume 7.5; Monocytes # (A) 0.4 k/uL (0-1.0); Monocytes % (A) 6 %; Neutrophils # (A) 4.6 k/uL (1.3-7.7); Neutrophils % (A) 65 %; Platelet Count 238 k/uL (150-450); RBC 4.86 m/uL (4.30-5.90); RDW 13.3 % (11.5-15.5)
[2018-11-14 16:40] LABS: Albumin 4.3 g/dL (3.80-4.90); Albumin/Globulin Ratio 2.15 (1.20-2.10); Anion Gap 6.7 mmol/L (4.00-12.00); Calcium 9.4 mg/dL (8.7-10.3); Carbon Dioxide 24.3 mmol/L (21.6-31.8); LDL Cholesterol,Calculated 99.2 mg/dL (0.0-131.0); Potassium 4.8 mmol/L (3.5-5.5); Total Bilirubin 0.2 mg/dL (0.3-1.2); Total Protein 6.3 g/dL (6.2-8.2); VLDL Calculation 25.8 mg/dL (5.00-40.00); Valproic Acid (Depakene) 42.4 ug/mL (50.0-100.0)
[2018-11-14 20:20] LABS: Hemoglobin A1C 6.1 % (4.0-6.0)
== END | disposition home or self-care (01) ==
LOC: LABWHC1 09:15
PROVIDERS: ATTEND Physician Assistant
DX: Z51.81 Encounter for therapeutic drug level monitoring (principal); Z79.899 Other long term (current) drug therapy
CPT/HCPCS: 36415; 80053; 80061; 80164; 83036; 85025

== ENCOUNTER → 2018-11-24 | Outpatient (CLI) | payer OTHER ==
[2018-11-24 14:49] LABS: Basophils % (A) 0 %; Eosinophils # (A) 0.1 k/uL (0-0.7); Eosinophils % (A) 1 %; HCT 47.4 % (39.0-53.0); HGB 15.7 gm/dL (13.0-17.5); Lymphocytes # (A) 2.1 k/uL (1.0-4.8); Lymphocytes % (A) 20 %; MCH 32.8 pg (25.0-35.0); MCHC 33.2 g/dL (31.0-37.0); MCV 98.8 fL (80.0-100.0); Mean Platelet Volume 7.5; Monocytes # (A) 0.5 k/uL (0-1.0); Monocytes % (A) 5 %; Neutrophils # (A) 7.6 k/uL (1.3-7.7); Neutrophils % (A) 73 %; Platelet Count 247 k/uL (150-450); RDW 13.3 % (11.5-15.5); WBC 10.3 k/uL (3.8-10.6)
[2018-11-24 19:24] LABS: Valproic Acid (Depakene) 34.7 ug/mL (50.0-100.0)
[2018-11-24 19:52] LABS: Albumin/Globulin Ratio 2.11 (1.20-2.10); Calcium 9.3 mg/dL (8.7-10.3); Globulin 1.9 g/dL (1.6-3.3); Potassium 4.4 mmol/L (3.5-5.5); Total Bilirubin 0.1 mg/dL (0.2-1.2); Total Protein 5.9 g/dL (6.2-8.2)
== END | disposition home or self-care (01) ==
LOC: LABWHC1 14:04
PROVIDERS: ATTEND Physician Assistant
DX: Z51.81 Encounter for therapeutic drug level monitoring (principal); Z79.899 Other long term (current) drug therapy
CPT/HCPCS: 36415; 80053; 80164; 85025

== ENCOUNTER → 2018-12-05 | Outpatient (CLI) | payer OTHER ==
[2018-12-05 08:26] LABS: Basophils % (A) 1 %; Eosinophils # (A) 0.1 k/uL (0-0.7); Eosinophils % (A) 1 %; HGB 15.3 gm/dL (13.0-17.5); Lymphocytes % (A) 24 %; MCH 31.8 pg (25.0-35.0); MCHC 31.9 g/dL (31.0-37.0); MCV 99.7 fL (80.0-100.0); Mean Platelet Volume 6.7; Monocytes # (A) 0.5 k/uL (0-1.0); Monocytes % (A) 6 %; Neutrophils # (A) 5.4 k/uL (1.3-7.7); Neutrophils % (A) 66 %; Platelet Count 277 k/uL (150-450); RBC 4.82 m/uL (4.30-5.90); RDW 13.5 % (11.5-15.5); WBC 8.1 k/uL (3.8-10.6)
[2018-12-05 17:59] LABS: Valproic Acid (Depakene) 37.9 ug/mL (50.0-100.0)
[2018-12-05 18:42] LABS: ALT 28 U/L (10-49); AST 20 U/L (14-35); Alkaline Phosphatase 61 U/L (41-126); Carbon Dioxide 25.8 mmol/L (21.6-31.8); Chloride 107 mmol/L (96-109); Cholesterol 174 mg/dL (0-200); Glucose 107 mg/dL (70-110); LDL Cholesterol,Calculated 106.6 mg/dL (0.0-131.0); Potassium 4.9 mmol/L (3.5-5.5); Sodium 142 mmol/L (135-145); Total Bilirubin <0.1 mg/dL (0.2-1.2)
[2018-12-05 22:37] LABS: Hemoglobin A1C 6.3 % (4.0-6.0)
== END | disposition home or self-care (01) ==
LOC: LABWHC1 07:28
PROVIDERS: ATTEND Physician Assistant
DX: Z51.81 Encounter for therapeutic drug level monitoring (principal); Z79.899 Other long term (current) drug therapy
CPT/HCPCS: 36415; 80053; 80061; 80164; 83036; 85025

== ENCOUNTER → 2018-12-20 | Outpatient (CLI) | payer OTHER ==
[2018-12-20 11:15] LABS: Anion Gap 8.6 mmol/L (4.00-12.00); Calcium 9.3 mg/dL (8.7-10.3); Carbon Dioxide 29.4 mmol/L (21.6-31.8); Lithium 0.6 mmol/L (1.0-1.2); Potassium 4.8 mmol/L (3.5-5.5)
== END | disposition home or self-care (01) ==
LOC: LABWHC1 07:02
PROVIDERS: ATTEND Physician Assistant
DX: Z51.81 Encounter for therapeutic drug level monitoring (principal); Z79.899 Other long term (current) drug therapy
CPT/HCPCS: 36415; 80048; 80178

== ENCOUNTER → 2019-02-01 | Outpatient (CLI) | payer OTHER ==
[2019-02-01 17:44] LABS: Anion Gap 6.3 mmol/L (4.00-12.00); Calcium 9.5 mg/dL (8.7-10.3); Carbon Dioxide 27.7 mmol/L (21.6-31.8); Lithium 0.5 mmol/L (1.0-1.2); Potassium 4.5 mmol/L (3.5-5.5)
== END | disposition home or self-care (01) ==
LOC: LABWHC1 10:51
PROVIDERS: ATTEND Physician Assistant
DX: Z51.81 Encounter for therapeutic drug level monitoring (principal); Z79.899 Other long term (current) drug therapy
CPT/HCPCS: 36415; 80048; 80178

== ENCOUNTER 2019-04-27 09:57 | Emergency (ER) | payer OTHER ==
[2019-04-27 10:04] VITALS: RESP 18
--- NOTE | 2019-04-27 10:49 | ED ---
Psych HPI - General Chief Complaint: Psychiatric Symptoms Stated Complaint: mental health Time Seen by Provider: 04/27/19 10:07 Source: patient, RN notes reviewed Mode of arrival: ambulatory Limitations: no limitations - History of Present Illness Initial Comments: This a 38-year-old male presents emergency department to complaint of psychiatric issues. Patient states that he needs his Depakote. Patient used to be on Depakote states that he hasn't had it recently. Patient states he is on multiple other medications for bipolar disorder. Patient states he is depressed no suicidal patient. He does admit to binge drinking but no recent no: Take denies any drug use. Patient states she also has been binging on food and coffee. Patient denies any physical complaints including chest pain, shortness breath, headache, dizziness, nausea, vomiting diarrhea constipation. - Related Data Home Medications Medication Instructions Recorded Confirmed Benztropine Mesylate [Cogentin] 1 mg PO BID 04/27/19 04/27/19 Calcium Carbonate [Calcium] 600 mg PO DAILY 04/27/19 04/27/19 Haloperidol [Haldol] 10 mg PO HS 04/27/19 04/27/19 [place] Carbonate 1,200 mg PO HS 04/27/19 04/27/19 [place] Carbonate 150 mg PO HS 04/27/19 04/27/19 Multivitamins, Thera [Multivitamin 1 tab PO DAILY 04/27/19 04/27/19 (formulary)] Terbinafine [LamISIL] 250 mg PO DAILY 04/27/19 04/27/19 Allergies Allergy/AdvReac Type Severity Reaction Status Date / Time No Known Allergies Allergy Verified 04/27/19 10:16 Review of Systems ROS Statement: Those systems with pertinent positive or pertinent negative responses have been documented in the HPI. ROS Other: All systems not noted in ROS Statement are negative. Past Medical History Additional Past Medical History / Comment(s): cyst foot, insomnia, possible COPD History of Any Multi-Drug Resistant Organisms: None Reported Additional Past Surgical History / Comment(s): ORIF of the ankle Past Psychological History: Anxiety, Bipolar, Depression, Schizophrenia Smoking Status: Current every day smoker Past Alcohol Use History: None Reported, Rare Past Drug Use History: Marijuana - Past Family History Father Family Medical History: Unable to Obtain (Father is 70 years old and is currently in rehab following surgery.) Mother Family Medical History: No Reported History (Mother is 57 years old and healthy.) Additional Family Medical History / Comment(s): Patient has 3 brothers and one sister with no major medical problems. General Exam Limitations: no limitations General appearance: alert, in no apparent distress Head exam: Present: atraumatic, normocephalic, normal inspection Eye exam: Present: normal appearance, PERRL, EOMI. Absent: scleral icterus, conjunctival injection, periorbital swelling ENT exam: Present: normal exam, normal oropharynx, mucous membranes moist Neck exam: Present: normal inspection. Absent: tenderness, meningismus, lymphadenopathy Respiratory exam: Present: normal lung sounds bilaterally. Absent: respiratory distress, wheezes, rales, rhonchi, stridor Cardiovascular Exam: Present: regular rate, normal rhythm, normal heart sounds. Absent: systolic murmur, diastolic murmur, rubs, gallop, clicks Back exam: Absent: CVA tenderness (R), CVA tenderness (L) Neurological exam: Present: alert, oriented X3, CN II-XII intact Psychiatric exam: Present: anxious Skin exam: Present: warm, dry, intact, normal color. Absent: rash Course Vital Signs 04/27/19 04/27/19 09:59 13:41 Temperature 98 F 97.8 F Pulse Rate 104 H 100 Respiratory 18 18 Rate Blood Pressure 111/64 118/90 O2 Sat by Pulse 97 100 Oximetry Medical Decision Making - Medical Decision Making 38-year-old male presented for psychiatric evaluation. Patient was evaluated by EPS case discussed with psychiatrist does not recommend inpatient treatment. Family is concerned about his behavior with new family stay in the house. Patient will be sent to the [facility] at this time. Patient is not suicidal. Patient is stable for discharge. - Lab Data Lab Results 04/27/19 04/27/19 Range/Units 10:45 12:53 Urine Opiates Screen Not Detected (NotDetected) Ur Oxycodone Screen Not Detected (NotDetected) Urine Methadone Screen Not Detected (NotDetected) Ur Propoxyphene Screen Not Detected (NotDetected) Ur Barbiturates Screen Not Detected (NotDetected) U Tricyclic Antidepress Not Detected (NotDetected) Ur Phencyclidine Scrn Not Detected (NotDetected) Ur Amphetamines Screen Not Detected (NotDetected) U Methamphetamines Scrn Not Detected (NotDetected) U Benzodiazepines Scrn Not Detected (NotDetected) Peral[place] 0.4 mmol/L Urine Cocaine Screen Not Detected (NotDetected) U Marijuana (THC) Screen Not Detected (NotDetected) Disposition Clinical Impression: Schizoaffective disorder, Bipolar disorder Disposition: HOME SELF-CARE Condition: Stable Instructions (If sedation given, give patient instructions): Bipolar Disorder (ED) Additional Instructions: Please return to the Emergency Department if symptoms worsen or any other concerns. Is patient prescribed a controlled substance at d/c from ED?: No Referrals: Lefty Lowe DO [Primary Care Provider] - 1-2 days Time of Disposition: 14:54
[2019-04-27 11:27] LABS: Amphetamine Screen,Urine Not Detected (NotDetected); Barbiturate Screen,Urine Not Detected (NotDetected); Benzodiazepines Screen,Urine Not Detected (NotDetected); Cocaine Screen,Urine Not Detected (NotDetected); Methadone Screen, Urine Not Detected (NotDetected); Opiate Screen,Urine Not Detected (NotDetected); Oxycodone Screen, Urine Not Detected (NotDetected); Phencyclidine Screen,Urine Not Detected (NotDetected); Tricyclic Antidepressant,Urine Not Detected (NotDetected); Urn Cannabinoid Scrn Not Detected (NotDetected)
[2019-04-27 14:59] VITALS: BP 130/73; PULSE 102; TEMP 97.5
== END 2019-04-27 15:08 | disposition home or self-care (01) ==
LOC: EC 09:57
DX: F31.9 Bipolar disorder, unspecified (principal); F20.9 Schizophrenia, unspecified; F17.200 Nicotine dependence, unspecified, uncomplicated; Z79.899 Other long term (current) drug therapy; Z87.2 Personal history of diseases of the skin and subcutaneous tissue
CPT/HCPCS: 36415; 80178; 80306; 82075; 99284

== ENCOUNTER 2019-08-19 11:50 | Emergency (ER) | payer OTHER ==
[2019-08-19 12:01] VITALS: TEMP 98.3
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
[2019-08-19 15:03] LABS: Amphetamine Screen,Urine Not Detected (NotDetected); Barbiturate Screen,Urine Not Detected (NotDetected); Benzodiazepines Screen,Urine Not Detected (NotDetected); Cocaine Screen,Urine Not Detected (NotDetected); Methadone Screen, Urine Not Detected (NotDetected); Opiate Screen,Urine Not Detected (NotDetected); Oxycodone Screen, Urine Not Detected (NotDetected); Phencyclidine Screen,Urine Not Detected (NotDetected); Tricyclic Antidepressant,Urine Not Detected (NotDetected); Urn Cannabinoid Scrn Detected (NotDetected)
[2019-08-19 15:42] VITALS: BP 140/78; PULSE 90; RESP 18
== END 2019-08-19 15:46 | disposition home or self-care (01) ==
LOC: EC 11:50
DX: F20.9 Schizophrenia, unspecified (principal); F17.200 Nicotine dependence, unspecified, uncomplicated; Z79.899 Other long term (current) drug therapy
CPT/HCPCS: 80306; 82075; 99284

== ENCOUNTER → 2020-05-22 | Outpatient (CLI) | payer OTHER ==
[2020-05-22 16:31] LABS: Lithium 0.5 mmol/L (0.5-1.2)
[2020-05-22 20:05] LABS: Hemoglobin A1C 7.8 % (4.0-6.0)
== END | disposition home or self-care (01) ==
LOC: LABWHC1 07:52
PROVIDERS: ATTEND Psychiatry & Neurology Psychiatry
DX: Z79.899 Other long term (current) drug therapy (principal)
CPT/HCPCS: 36415; 80178; 82947; 83036

== ENCOUNTER 2020-08-31 02:25 | Inpatient (IN) | payer OTHER ==
[2020-08-31 03:25] LABS: HGB 17.6 gm/dL (13.0-17.5); MCH 30.7 pg (25.0-35.0); MCHC 31.6 g/dL (31.0-37.0); Mean Platelet Volume 8.1; Platelet Count 282 k/uL (150-450); RBC 5.71 m/uL (4.30-5.90); RDW 13.7 % (11.5-15.5); WBC 12.3 k/uL (3.8-10.6)
[2020-08-31 03:26] LABS: HCT 55.6 % (39.0-53.0)
[2020-08-31 03:27] LABS: MCV 97.2 fL (80.0-100.0)
[2020-08-31 03:43] LABS: ALT 24 U/L (4-49); AST 28 U/L (17-59); African American GFR (CKD) 89 (>60 ml/min/1.73 sqM); Albumin 4.2 g/dL (3.5-5.0); Alcohol <10 mg/dL; Alkaline Phosphatase 94 U/L (38-126); Anion Gap 3 mmol/L; Blood Urea Nitrogen 11 mg/dL (9-20); Carbon Dioxide 30 mmol/L (22-30); Chloride 102 mmol/L (98-107); Glucose 118 mg/dL (74-99); Non-African American GFR(CKD) 77 (>60 ml/min/1.73 sqM); Potassium 5.6 mmol/L (3.5-5.1); Sodium 135 mmol/L (137-145); Total Bilirubin 0.4 mg/dL (0.2-1.3)
[2020-08-31] MEDS ORDERED: SODIUM CHLORIDE 0.9% 1,000 ML IV ONE ×2 (04:01→05:57)
[2020-08-31 04:34] LABS: Acetaminophen <10.0 ug/mL; Salicylate <1.0 mg/dL
--- NOTE | 2020-08-31 04:52 | CT ---
EXAMINATION TYPE: CT brain wo con DATE OF EXAM: 08/31/2020 COMPARISON: None HISTORY: AMS CT DLP: 1231.40 mGycm Automated exposure control for dose reduction was used. Ventricles have normal size. There is no mass effect nor midline shift. There is no sign of intracran ial hemorrhage. The calvarium is intact. I see no definite cerebral edema. IMPRESSION: Negative unenhanced head CT scan. Mild maxillary sinusitis noted with fluid levels.
--- NOTE | 2020-08-31 04:54 | XR ---
EXAMINATION TYPE: XR chest 1V portable DATE OF EXAM: 08/31/2020 COMPARISON: NONE HISTORY: Altered mental status TECHNIQUE: FINDINGS: There is pulmonary mild vascular congestion. There is poor inspiration. There is blunting o f the costophrenic angles. There are chest leads. IMPRESSION: Bilateral pleural effusions and basilar pulmonary infiltrates and atelectasis. Heart fail ure is possible.
[2020-08-31] MEDS ORDERED: ALBUTEROL NEBULIZED 2.5 MG/3 ML INHALATION STA (05:34)
[2020-08-31 06:31] LABS: VBG PH 7.36 (7.31-7.41)
[2020-08-31] MEDS ORDERED: ACETAMINOPHEN SUPPOSITORY 650 MG SUPP RECTAL PRN (07:10)
[2020-08-31] MEDS ORDERED: IPRATROPIUM-ALBUTEROL 3 ML NEB INHALATION PRN (07:10)
[2020-08-31] MEDS ORDERED: NALOXONE 0.4 MG/ML 1 ML VIAL IV PRN (07:10)
[2020-08-31] MEDS: SODIUM CHLORIDE 0.9% 1,000 ML IV SCH ×3 (07:26→22:29)
--- NOTE | 2020-08-31 07:26 | ED ---
General Adult HPI - General Chief complaint: Psychiatric Symptoms Stated complaint: ETOH Time Seen by Provider: 08/31/20 02:43 Source: patient, EMS Mode of arrival: EMS Limitations: altered mental status - History of Present Illness Initial comments: This patient is a 40-year-old man brought by ambulance to be evaluated for suspected intoxication. Family had gone out and when they returned found the patient lying face down with emesis covering his sweatshirt. Patient also had a bowel movement and his clothing. They were not able to wake him and they therefore called ambulance. They had suspected that he had been drinking. On arrival, the patient is not able to give any history. -: unknown Consistency: constant Improves with: none Worsens with: none Treatments Prior to Arrival: none - Related Data Home Medications Medication Instructions Recorded Confirmed Benztropine Mesylate [Cogentin] 1 mg PO BID 04/27/19 08/31/20 [place] Carbonate 1,200 mg PO HS 04/27/19 08/31/20 haloperidoL [Haldol] 10 mg PO HS 04/27/19 08/31/20 Paliperidone IM [Invega Sustenna] 234 mg IM Q28D 08/19/19 08/31/20 Albuterol Sulfate [Proair Hfa] 2 puff INHALATION RT-QID PRN 08/31/20 08/31/20 Levothyroxine Sodium 200 mcg PO DAILY 08/31/20 08/31/20 metFORMIN HCL [metFORMIN HCL ER] 500 mg PO BID 08/31/20 08/31/20 Allergies Allergy/AdvReac Type Severity Reaction Status Date / Time No Known Allergies Allergy Verified 08/31/20 08:12 Review of Systems ROS Statement: Those systems with pertinent positive or pertinent negative responses have been documented in the HPI. ROS Other: All systems not noted in ROS Statement are negative. Limitations: ROS unobtainable due to patients medical condition (Suspected intoxication) Past Medical History Past Medical History: Unable to Obtain Additional Past Medical History / Comment(s): cyst foot, insomnia, possible COPD History of Any Multi-Drug Resistant Organisms: None Reported Past Surgical History: Unable to Obtain Additional Past Surgical History / Comment(s): ORIF of the ankle Past Psychological History: Anxiety, Bipolar, Depression, Schizophrenia Past Alcohol Use History: None Reported, Rare Past Drug Use History: Marijuana - Past Family History Father Family Medical History: Unable to Obtain (Father is 70 years old and is currently in rehab following surgery.) Mother Family Medical History: No Reported History (Mother is 57 years old and healthy.) Additional Family Medical History / Comment(s): Patient has 3 brothers and one sister with no major medical problems. General Exam Limitations: altered mental status General appearance: obtunded Head exam: Present: atraumatic, normocephalic Eye exam: Present: PERRL. Absent: scleral icterus, conjunctival injection ENT exam: Present: mucous membranes moist Neck exam: Present: other (No palpable step-off or deformity). Absent: tenderness, meningismus Respiratory exam: Present: rales, rhonchi. Absent: wheezes, stridor, accessory muscle use, decreased breath sounds, prolonged expiratory Cardiovascular Exam: Present: normal rhythm, tachycardia, normal heart sounds. Absent: systolic murmur, diastolic murmur, rubs, gallop GI/Abdominal exam: Present: soft, hypoactive bowel sounds. Absent: distended, tenderness, guarding, rebound, rigid, mass, pulsatile mass, hernia exam: Present: normal inspection Extremities exam: Present: normal inspection, normal capillary refill. Absent: pedal edema, calf tenderness Back exam: Present: normal inspection. Absent: vertebral tenderness Neurological exam: Present: altered, reflexes normal Skin exam: Present: warm, dry, intact, normal color. Absent: rash Course Vital Signs 08/31/20 08/31/20 08/31/20 02:27 03:33 03:36 Temperature 97.7 F Pulse Rate 120 H 121 H Respiratory 20 18 Rate Blood Pressure 114/61 97/72 O2 Sat by Pulse 91 L 91 L 92 L Oximetry 08/31/20 08/31/20 08/31/20 03:40 03:50 04:00 Temperature Pulse Rate 128 H 128 H 128 H Respiratory Rate Blood Pressure 96/79 97/72 97/72 O2 Sat by Pulse 92 L 92 L Oximetry 08/31/20 08/31/20 08/31/20 04:03 04:10 04:40 Temperature Pulse Rate 128 H 128 H 121 H Respiratory 44 H Rate Blood Pressure 114/81 114/81 120/87 O2 Sat by Pulse 92 L 92 L 96 Oximetry 08/31/20 08/31/20 08/31/20 05:00 05:30 05:43 Temperature Pulse Rate 122 H 123 H 122 H Respiratory Rate Blood Pressure 109/59 O2 Sat by Pulse 96 Oximetry 08/31/20 08/31/20 08/31/20 05:52 06:00 06:30 Temperature Pulse Rate 121 H 123 H 125 H Respiratory Rate Blood Pressure 119/95 116/54 O2 Sat by Pulse 94 L 94 L Oximetry 08/31/20 08/31/20 08/31/20 07:00 07:07 07:30 Temperature 100.5 F H Pulse Rate 131 H 124 H 124 H Respiratory 40 H Rate Blood Pressure 113/100 123/83 147/97 O2 Sat by Pulse 93 L 94 L Oximetry 08/31/20 08/31/20 08/31/20 07:33 08:00 08:30 Temperature Pulse Rate 122 H 124 H 121 H Respiratory 44 H 38 H Rate Blood Pressure 147/97 146/98 138/97 O2 Sat by Pulse 95 95 96 Oximetry 08/31/20 08/31/20 08/31/20 09:00 09:02 09:30 Temperature 99.1 F Pulse Rate 122 H 118 H Respiratory 40 H 40 H Rate Blood Pressure 151/110 140/92 141/90 O2 Sat by Pulse 95 95 95 Oximetry 08/31/20 10:00 Temperature 99.6 F Pulse Rate 123 H Respiratory 29 H Rate Blood Pressure 152/92 O2 Sat by Pulse 92 L Oximetry EKG Findings - EKG Results: EKG: interpreted by ERMD, sinus rhythm, normal axis, normal QRS, normal ST/T, no acute changes EKG shows: tachycardia (Rate 127 bpm) Medical Decision Making - Medical Decision Making Patient is 40-year-old man brought by ambulance to be evaluated for altered mental status. Based on the initial history was suspected that he had been case of alcohol intoxication. The alcohol level did come back negative, and family subsequently arrived bringing the patient's recently filled a bottle of Cogent in. It had been filled on August 27 and was empty. It therefore appears patient has overdosed. Patient's case is discussed with hand baseball sewer on-call and his treatment recommendations are incorporated. Further searching of the patient's record reveals that he does take lithium and this level was added on as well and found to be elevated. Nephrology is paged to arrange dialysis. Paged vascular to arrange temporary dialysis access, Dr. Caceres states that he is en route to the hospital and can place the access. Repeat ECG does not reveal any change in the patient's intervals. - Lab Data Result diagrams: 09/01/20 04:30 09/01/20 04:30 Lab Results 08/31/20 08/31/20 08/31/20 Range/Units 03:09 03:09 03:09 WBC 12.3 H (3.8-10.6) k/uL RBC 5.71 (4.30-5.90) m/uL Hgb 17.6 H (13.0-17.5) gm/dL Hct 55.6 H (39.0-53.0) % MCV 97.2 D (80.0-100.0) fL MCH 30.7 (25.0-35.0) pg MCHC 31.6 (31.0-37.0) g/dL RDW 13.7 (11.5-15.5) % Plt Count 282 (150-450) k/uL VBG pH (7.31-7.41) VBG pCO2 (37-51) mmHg VBG HCO3 (24-28) mmol/L Sodium 135 L (137-145) mmol/L Potassium 5.6 H (3.5-5.1) mmol/L Chloride 102 (98-107) mmol/L Carbon Dioxide 30 (22-30) mmol/L Anion Gap 3 mmol/L BUN 11 (9-20) mg/dL Creatinine 1.18 (0.66-1.25) mg/dL Est GFR (CKD-EPI)AfAm 89 (>60 ml/min/1.73 sqM) Est GFR (CKD-EPI)NonAf 77 (>60 ml/min/1.73 sqM) Glucose 118 H (74-99) mg/dL Calcium 10.0 (8.4-10.2) mg/dL Total Bilirubin 0.4 (0.2-1.3) mg/dL AST 28 (17-59) U/L ALT 24 (4-49) U/L Alkaline Phosphatase 94 (38-126) U/L Total Protein 7.0 (6.3-8.2) g/dL Albumin 4.2 (3.5-5.0) g/dL Salicylates <1.0 mg/dL Acetaminophen <10.0 ug/mL [place] mmol/L Serum Alcohol <10 mg/dL Hep Bs Antigen (Non-Reactive) Hep Bs Antibody (Non-Reactive) Hep Bs Antibody, Quant mIU/mL Hep B Core Total Ab (Non-Reactive) 08/31/20 08/31/20 08/31/20 Range/Units 03:09 03:09 06:15 WBC (3.8-10.6) k/uL RBC (4.30-5.90) m/uL Hgb (13.0-17.5) gm/dL Hct (39.0-53.0) % MCV (80.0-100.0) fL MCH (25.0-35.0) pg MCHC (31.0-37.0) g/dL RDW (11.5-15.5) % Plt Count (150-450) k/uL VBG pH 7.36 (7.31-7.41) VBG pCO2 52 H (37-51) mmHg VBG HCO3 29 H (24-28) mmol/L Sodium (137-145) mmol/L Potassium (3.5-5.1) mmol/L Chloride (98-107) mmol/L Carbon Dioxide (22-30) mmol/L Anion Gap mmol/L BUN (9-20) mg/dL Creatinine (0.66-1.25) mg/dL Est GFR (CKD-EPI)AfAm (>60 ml/min/1.73 sqM) Est GFR (CKD-EPI)NonAf (>60 ml/min/1.73 sqM) Glucose (74-99) mg/dL Calcium (8.4-10.2) mg/dL Total Bilirubin (0.2-1.3) mg/dL AST (17-59) U/L ALT (4-49) U/L Alkaline Phosphatase (38-126) U/L Total Protein (6.3-8.2) g/dL Albumin (3.5-5.0) g/dL Salicylates mg/dL Acetaminophen ug/mL [place] 5.6 H* mmol/L Serum Alcohol mg/dL Hep Bs Antigen Non-Reactive (Non-Reactive) Hep Bs Antibody Reactive H (Non-Reactive) Hep Bs Antibody, Quant 13.5 mIU/mL Hep B Core Total Ab Equivocal H (Non-Reactive) - EKG Data -: EKG Interpreted by Pa Critical Care Time Critical Care Time: Yes (45 minutes) Disposition Clinical Impression: [place] overdose, Altered mental status Disposition: ADMITTED IP TO THIS HOSP Condition: Critical
[2020-08-31 07:44] LABS: ABG PH 7.35 (7.35-7.45); Allen Test Performed? Yes
[2020-08-31 07:45] LABS: ABG Base Excess 2.3 mmol/L; ABG HCO3 28 mmol/L (21-25); ABG PCO2 51 mmHg (35-45); ABG PO2 66 mmHg (83-108); ABG TCO2 30 mmol/L (19-24)
--- NOTE | 2020-08-31 09:44 | P.OP ---
Date of Procedure: 08/31/20 Preoperative Diagnosis: Acute renal failure secondary to overdose Postoperative Diagnosis: Same Procedure(s) Performed: Right common femoral vein temporary hemodialysis catheter placement under ultrasound guidance Anesthesia: local Surgeon: Stephen Caceres Estimated Blood Loss (ml): 5 Pathology: none sent Condition: stable Disposition: ICU Indications for Procedure: 40-year-old gentleman presented to the emergency department secondary to altered mental status upon evaluation he was noted that he had overdosed and has acute renal failure in need of hemodialysis. Description of Procedure: Procedure was performed in the emergency department on the emergent basis. The area of the right groin was prepped and draped in usual sterile fashion. Utilizing ultrasound the right common femoral vein was located and was patent and compressible without any evidence of thrombus. Utilizing a multipurpose needle the vein was accessed and dark nonpulsatile blood flow was visualized. Utilizing Seldinger technique a 19 cm [place] catheter was placed without complication. The ports were then assessed for patency injured flushed easily. They were both then hep-locked and the area was dressed. Patient all procedure well and was sent to ICU for hemodialysis.
[2020-08-31] MEDS ORDERED: MIDAZOLAM 1 MG/ML 5 ML VIAL IV STA (09:57)
[2020-08-31] MEDS ORDERED: SUCCINYLCHOLINE CHLORIDE VIAL 200 MG/10 ML VIAL IV STA (09:58)
--- NOTE | 2020-08-31 10:03 | ED ---
Medical Decision Making - Lab Data Result diagrams: 09/01/20 04:30 09/01/20 04:30 Lab Results 08/31/20 08/31/20 08/31/20 Range/Units 03:09 03:09 03:09 WBC 12.3 H (3.8-10.6) k/uL RBC 5.71 (4.30-5.90) m/uL Hgb 17.6 H (13.0-17.5) gm/dL Hct 55.6 H (39.0-53.0) % MCV 97.2 D (80.0-100.0) fL MCH 30.7 (25.0-35.0) pg MCHC 31.6 (31.0-37.0) g/dL RDW 13.7 (11.5-15.5) % Plt Count 282 (150-450) k/uL VBG pH (7.31-7.41) VBG pCO2 (37-51) mmHg VBG HCO3 (24-28) mmol/L Sodium 135 L (137-145) mmol/L Potassium 5.6 H (3.5-5.1) mmol/L Chloride 102 (98-107) mmol/L Carbon Dioxide 30 (22-30) mmol/L Anion Gap 3 mmol/L BUN 11 (9-20) mg/dL Creatinine 1.18 (0.66-1.25) mg/dL Est GFR (CKD-EPI)AfAm 89 (>60 ml/min/1.73 sqM) Est GFR (CKD-EPI)NonAf 77 (>60 ml/min/1.73 sqM) Glucose 118 H (74-99) mg/dL Calcium 10.0 (8.4-10.2) mg/dL Total Bilirubin 0.4 (0.2-1.3) mg/dL AST 28 (17-59) U/L ALT 24 (4-49) U/L Alkaline Phosphatase 94 (38-126) U/L Total Protein 7.0 (6.3-8.2) g/dL Albumin 4.2 (3.5-5.0) g/dL Salicylates <1.0 mg/dL Acetaminophen <10.0 ug/mL [place] mmol/L Serum Alcohol <10 mg/dL 08/31/20 08/31/20 Range/Units 03:09 06:15 WBC (3.8-10.6) k/uL RBC (4.30-5.90) m/uL Hgb (13.0-17.5) gm/dL Hct (39.0-53.0) % MCV (80.0-100.0) fL MCH (25.0-35.0) pg MCHC (31.0-37.0) g/dL RDW (11.5-15.5) % Plt Count (150-450) k/uL VBG pH 7.36 (7.31-7.41) VBG pCO2 52 H (37-51) mmHg VBG HCO3 29 H (24-28) mmol/L Sodium (137-145) mmol/L Potassium (3.5-5.1) mmol/L Chloride (98-107) mmol/L Carbon Dioxide (22-30) mmol/L Anion Gap mmol/L BUN (9-20) mg/dL Creatinine (0.66-1.25) mg/dL Est GFR (CKD-EPI)AfAm (>60 ml/min/1.73 sqM) Est GFR (CKD-EPI)NonAf (>60 ml/min/1.73 sqM) Glucose (74-99) mg/dL Calcium (8.4-10.2) mg/dL Total Bilirubin (0.2-1.3) mg/dL AST (17-59) U/L ALT (4-49) U/L Alkaline Phosphatase (38-126) U/L Total Protein (6.3-8.2) g/dL Albumin (3.5-5.0) g/dL Salicylates mg/dL Acetaminophen ug/mL [place] 5.6 H* mmol/L Serum Alcohol mg/dL Disposition Clinical Impression: [place] overdose, Altered mental status Disposition: ADMITTED IP TO THIS HOSP Condition: Critical Procedures - [place] Protocol (Time Out) Procedure Performed:: Insert of temporary hemodialysis catheter Performing Provider: Clarence Mijares Nurse: Ghazala Gaspar Patient Identification (2 identifiers required): Chart, Arm Band Patient/Legal Scout Leaser has Confirmed: Identity, Site, Procedure - Intubation Sedative: Versed Paralytic: Succinylcholine Laryngoscope: Hernández Size: 3 ET Tube Uncuffed: No Tube Secured Location: teeth Tube Placement Confirmation: visualized tube passing through cords, equal breath sounds bilaterally, no breath sounds over epigastrium, confirmation by capnometry Patient Tolerated Procedure: well Intubation Complications: none
[2020-08-31] MEDS ORDERED: propofoL 100 ML IV ONE (10:12)
--- NOTE | 2020-08-31 10:19 | XR ---
EXAMINATION TYPE: XR chest 1V portable DATE OF EXAM: 08/31/2020 COMPARISON: Prior chest x-ray same dated earlier time HISTORY: Status post intubation TECHNIQUE: Single frontal view of the chest is obtained. FINDINGS: There is been interval placement of an endotracheal tube which is overlying the tracheal a ir column in appropriate position. Lung volumes are low. Mediastinum is widened. Heart size is promin ent and stable. IMPRESSION: Status post intubation. Cardiomegaly, question mediastinal adenopathy. Follow-up recomme nded.
[2020-08-31] MEDS ORDERED: CISATRACURIUM 2 MG/ML 5 ML VIAL IV ONE ×2 (10:20→10:21)
--- NOTE | 2020-08-31 10:24 | P.NPCON ---
History of Present Illness - Reason for Consult acute renal failure - History of Present Illness reason for consultation: [place] toxicity History of present illness: Patient is a 40-year-old male seen in consultation for lithium toxicity. Patient presented to the hospital with altered mental status. he was brought to the hospital by the EMS after his family found him lying on the floor face down covered with emesis. patient is currently quite confused and obtunded. From the records it appears he took multiple tablets of Cogentin as well as lithium. lithium level was elevated at 5.6. Mueller catheter has been inserted. Nonoliguric. he did receive 2 L of normal saline and is now maintained on normal saline at 1 50 mL an hour. renal function is fairly stable. Creatinine 1.18. Potassium was slightly elevated at 5.6. blood pressure controlled. he also has history of diabetes mellitus and was maintained on metformin outpatient. No evidence of acidosis. Vital signs are stable. General: The patient appeared well nourished and normally developed. HEENT: Head exam is unremarkable. Neck is without jugular venous distension. LUNGS: Lungs are clear to auscultation and percussion. Breath sounds decreased. HEART: Rate and Rhythm are regular. ABDOMEN: soft, nontender. EXTREMITITES: No clubbing, cyanosis, or edema. Past Medical History Past Medical History: Unable to Obtain Additional Past Medical History / Comment(s): cyst foot, insomnia, possible COPD History of Any Multi-Drug Resistant Organisms: None Reported Past Surgical History: Unable to Obtain Additional Past Surgical History / Comment(s): ORIF of the ankle Past Psychological History: Anxiety, Bipolar, Depression, Schizophrenia Past Alcohol Use History: None Reported, Rare Past Drug Use History: Marijuana - Past Family History Father Family Medical History: Unable to Obtain (Father is 70 years old and is currently in rehab following surgery.) Mother Family Medical History: No Reported History (Mother is 57 years old and healthy.) Additional Family Medical History / Comment(s): Patient has 3 brothers and one sister with no major medical problems. Medications and Allergies Home Medications Medication Instructions Recorded Confirmed Type Benztropine Mesylate [Cogentin] 1 mg PO BID 04/27/19 08/31/20 History [place] Carbonate 1,200 mg PO HS 04/27/19 08/31/20 History haloperidoL [Haldol] 10 mg PO HS 04/27/19 08/31/20 History Paliperidone IM [Invega Sustenna] 234 mg IM Q28D 08/19/19 08/31/20 History Albuterol Sulfate [Proair Hfa] 2 puff INHALATION RT-QID PRN 08/31/20 08/31/20 History Levothyroxine Sodium 200 mcg PO DAILY 08/31/20 08/31/20 History metFORMIN HCL [metFORMIN HCL ER] 500 mg PO BID 08/31/20 08/31/20 History Allergies Allergy/AdvReac Type Severity Reaction Status Date / Time No Known Allergies Allergy Verified 08/31/20 08:12 Physical Exam Vitals: Vital Signs Temp Pulse Resp BP Pulse Ox 08/31/20 09:30 99.1 F 120 H 40 H 141/90 95 08/31/20 09:02 122 H 40 H 140/92 95 08/31/20 08:30 121 H 38 H 138/97 96 08/31/20 07:33 122 H 44 H 147/97 95 08/31/20 07:07 100.5 F H 124 H 40 H 123/83 93 L 08/31/20 05:52 121 H 08/31/20 05:43 122 H 08/31/20 04:40 121 H 120/87 96 08/31/20 04:10 128 H 114/81 92 L 08/31/20 04:03 128 H 44 H 114/81 92 L 08/31/20 04:00 128 H 97/72 92 L 08/31/20 03:50 128 H 97/72 08/31/20 03:40 128 H 96/79 92 L 08/31/20 03:36 92 L 08/31/20 03:33 121 H 18 97/72 91 L 08/31/20 02:27 97.7 F 120 H 20 114/61 91 L Intake and Output 08/30/20 08/31/20 08/31/20 22:59 06:59 14:59 Output Total 1999 Balance -1999 Output: Urine 2000 Uretheral (Mueller) 1000 Other: Weight 117.934 kg Results - Lab Results Most recent lab results ABG pH 7.35 (7.35-7.45) 08/31/20 07:15 ABG pCO2 51 mmHg (35-45) H 08/31/20 07:15 ABG pO2 66 mmHg (83-108) L 08/31/20 07:15 ABG HCO3 28 mmol/L (21-25) H 08/31/20 07:15 ABG O2 Saturation 94.0 % (94-97) 08/31/20 07:15 Calcium 10.0 mg/dL (8.4-10.2) 08/31/20 03:09 08/31/20 03:09 08/31/20 03:09 Assessment and Plan Plan: assessment: 1. [place] toxicity. 2. Diabetes mellitus. 3. Hyperkalemia secondary to acute kidney injury and urinary retention. 4. Mild acute kidney injury mostly prerenal. 5. Urinary retention. Mueller catheter placed. plan: Maintain normal saline at 1 50 mL an hour. Hemodialysis today. Repeat lithium level this evening and again tomorrow morning. Continue to monitor renal function and urine output. Thank you for the consultation. I will continue to follow the patient with you during his hospital stay.
[2020-08-31 11:33] LABS: ABG Base Excess 2.4 mmol/L; ABG HCO3 29 mmol/L (21-25); ABG Oxygen Saturation 98.9 % (94-97); ABG PCO2 56 mmHg (35-45); ABG PH 7.32 (7.35-7.45); ABG PO2 117 mmHg (83-108); ABG TCO2 30 mmol/L (19-24); Allen Test Performed? Yes
[2020-08-31] MEDS ORDERED: HYDROmorphone 1 MG/ML 1 ML SYRINGE IVP PRN (11:48)
--- NOTE | 2020-08-31 11:56 | PN ---
PROGRESS NOTE PULMONARY/CRITICAL CARE CONSULTATION: DATE OF CONSULTATION: 08/31/2020 This is a 40-year-old gentleman who apparently presented to the emergency room via EMS. He apparently was found to be intoxicated. Apparently his family had gone out and when they returned, the patient was lying face down with emesis covering his sweatshirt and also he had a bowel movement. There was some concern that there was an overdose of medications and in fact, it appears that he took a whole bottle of Cogentin recently and also overdosed on lithium. His lithium level was elevated at 5.4. The patient was brought into the emergency room. He was evaluated by Dr. Lincoln first and then subsequently by Dr. Dunaway. The patient was quite lethargic, but did arouse from time to time. The patient ended up in the emergency room and was going to be admitted to the ICU. I asked Dr. Dunaway to take a look at the patient because I thought maybe the patient needed to be intubated. This is because Dr. Caceres, who put a hemodialysis catheter in place for dialysis for the elevated lithium level and my nurse, [place], were down in the emergency room and thought the patient, who had snoring respirations, could not protect his airway. Dr. Dunaway did evaluate the patient for me and I appreciate that and he did intubate the patient prior to him coming up to the ICU. Currently, the patient is on the ventilator. Vent settings are the assist-control mode rate of 20, tidal volume 500, FiO2 100%, PEEP of 5. The patient is getting saline at 150 mL an hour. Propofol was started at 40 mcg/kg/minute. To safely place the central line and art line, he did receive 50 mg of Nimbex. The medications that he overdosed on apparently were lithium and Cogentin. The patient will need hemodialysis today. Nephrology has been called in. The hemodialysis catheter was placed. . HOME MEDICATIONS: Apparently include Cogentin, lithium, Haldol, Invega. He still is on Zyprexa. ALLERGIES: Denied. MEDICAL HISTORY: Unable to be obtained, but apparently he has a history of anxiety, bipolar disorder, depression, and schizophrenia. Other medical problems include insomnia, possible COPD, and a cyst on his foot. SURGICAL HISTORY: Includes open reduction and internal fixation of the ankle. SOCIAL HISTORY: Apparently positive for occasional alcohol use. I am not sure about tobacco use. He does apparently use marijuana. FAMILY HISTORY: Positive for father who is 70 and is rehabbing from surgery and mother who has a history of no major medical problems. He has 3 brothers and 1 sister without any major medical issues. REVIEW OF SYSTEMS: Cannot be obtained, the patient is currently intubated and sedated. PHYSICAL EXAMINATION: VITAL SIGNS: Current vital signs are reviewed. Temp 99.6, heart rate 123, respiratory rate 30, blood pressure 152/92, mean 12. The patient is currently on the ventilator. Saturations are 100%. Prior to being intubated, the patient had a respiratory rate of 40, had snoring respirations and could not protect his airway. HEENT: Examination is grossly unremarkable. There is an orally placed endotracheal tube and NG tube. NECK: Supple. Full range of motion. No adenopathy. Neck veins are flat. CARDIOVASCULAR: Examination reveals tachycardia. Heart rate 120. S1, S2 normal. LUNGS: Reveal coarse rhonchi. ABDOMEN: Obese. Bowel sounds are heard. EXTREMITIES: Intact. There is no edema. SKIN: Without rash. NEUROLOGIC: Examination could not be adequately assessed at this time. LABS: Reviewed. White count 12.3, hemoglobin 17.6, hematocrit 55.6, platelet count 282,000. Blood gases prior to intubation on a couple L show pO2 of 66, pCO2 of 51 and a pH of 7.35. Sodium 135, potassium 5.6, chloride 102, CO2 30, anion gap is 3. BUN and creatinine were 11 and 1.18. [place] level was 5.6. Salicylates were negative. Tylenol negative. Alcohol negative. The patient had a brain CT which was negative. A chest x-ray was also done. The chest x-ray showed small lung volumes, bilateral lower lobe infiltrates, atelectasis and bilateral effusions. This is pre-intubation. Post-intubation, the patient has a chest x-ray again that shows small lung volumes and diffuse bilateral infiltrates. CURRENT MEDICATIONS: Reviewed. He has Tylenol p.r.n., chlorhexidine, famotidine, updrafts q.4 around the clock, Narcan and propofol. The patient also got a dose of ceftriaxone in the emergency room. ASSESSMENT: 1. Apparent overdose/suicide attempt, with lithium and Cogentin, with subsequent respiratory failure, presumably secondary to aspiration pneumonia. 2. Inability to protect the airway, secondary to mental status changes, status post intubation on August 31. 3. Bilateral pneumonia, presumably aspiration. 4. Obesity. 5. History of anxiety. 6. History of bipolar disorder. 7. History of schizophrenia. 8. History of diabetes. 9. Hypothyroidism. 10.Possible underlying asthma/chronic obstructive pulmonary disease. PLAN: Currently, the patient is intubated. We placed a left subclavian triple-lumen catheter. Art line will be placed. The patient is on propofol. Additional recommendations and suggestions are forthcoming. We will add some Zosyn antibiotic. We will follow. The patient is on updrafts q.4h. We will also make sure the patient is on DVT and GI prophylaxis. MMODL / IJN: [id number] /
[2020-08-31] MEDS: FAMOTIDINE 20 MG/2 ML VIAL IV SCH ×2 (11:59→19:41)
[2020-08-31] MEDS: CLEVIDIPINE BUTYRATE 25 MG in EMPTY BAG 1 BAG IV SCH (12:00)
[2020-08-31 12:03] LABS: Glucose,Whole Blood 126 mg/dL (75-99)
--- NOTE | 2020-08-31 12:05 | XR ---
EXAMINATION TYPE: XR chest 1V portable DATE OF EXAM: 08/31/2020 COMPARISON: Prior chest x-ray same dated earlier time HISTORY: Post orogastric tube placement, subclavian central venous catheter placement TECHNIQUE: Single frontal view of the chest is obtained. FINDINGS: There is been interval placement of an orogastric tube which is coiled within the stomach, distal tip not included on exam. Left subclavian central venous catheter shows the distal tip overly ing the right atrium. No evident pneumothorax or pleural effusion. Endotracheal tube overlying approp riate position. IMPRESSION: No evident complication status post tube and line placement.
[2020-08-31] MEDS: IPRATROPIUM-ALBUTEROL 3 ML NEB INHALATION SCH ×4 (12:22→22:55)
[2020-08-31 12:42] VITALS: BMI 35.2
--- NOTE | 2020-08-31 13:14 | PCN ---
PROCEDURE NOTE PROCEDURE PERFORMED: Right radial art line. PAYMENT REP: Dr. Bañuelos and Dr. Miranda ARTERIAL LINE PLACEMENT: Indications: Hemodynamic monitoring. A time-out was completed verifying correct patient, procedure, site, positioning, and implant(s) or special equipment if applicable. Patrick's test was performed to ensure adequate perfusion. The patient's right wrist was prepped and draped in sterile fashion. 1% Lidocaine was used to anesthetize the area. An 18G Arrow arterial line was introduced into the radial artery. The catheter was threaded over the guide wire and the needle was removed with appropriate pulsatile blood return. Blood loss was minimal. The catheter was then sutured in place to the skin and a sterile dressing applied. Perfusion to the extremity distal to the point of catheter insertion was checked and found to be adequate. The patient tolerated the procedure well and there were no complications. There was good blood return and waveform. The catheter was sutured in place. There was no immediate complications. The patient tolerated the procedure well. MMODL / IJN: [id number] /
--- NOTE | 2020-08-31 13:14 | PCN ---
PROCEDURE NOTE PROCEDURE PERFORMED: Left subclavian triple-lumen catheter. PREOP DIAGNOSIS: Administration of fluids and pressors. POSTOP DIAGNOSIS: Administration of fluids and pressors. TRIPLE LUMEN CATHETER PLACEMENT: Indication: Hemodynamic monitoring/Intravenous access. A time-out was completed verifying correct patient, procedure, site, positioning, and implant(s) or special equipment if applicable. The patient was placed in a dependent position appropriate for triple lumen catheter placement based on the vein to be cannulated. The patient's left shoulder was prepped and draped in sterile fashion. 1% Lidocaine was used to anesthetize the surrounding skin area. A triple lumen 9F Cordis catheter was introduced into the subclavian vein using Seldinger technique. The catheter was threaded smoothly over the guide wire and appropriate blood return was obtained. Each lumen of the catheter was evacuated of air and flushed with sterile saline. The catheter was then sutured in place to the skin and a sterile dressing applied. Perfusion to the extremity distal to the point of catheter insertion was checked and found to be adequate. There was no immediate complications. There was good blood return from all 3 ports. The tip of the catheter was seen in the junction of superior vena cava right atrium. The catheter was sutured in place. Sterile dressing was applied by the nurse. MMODL / IJN: [id number] /
[2020-08-31] MEDS: PIPERACILLIN-TAZOBACTAM 3.375 GM in SODIUM CHLORIDE 0.9% 100 ML IVPB SCH ×2 (15:49→23:58)
[2020-08-31 17:33] LABS: Glucose,Whole Blood 141 mg/dL (75-99)
[2020-08-31 17:45] LABS: HCT 47.5 % (39.0-53.0); HGB 15.1 gm/dL (13.0-17.5); MCH 31.8 pg (25.0-35.0); MCHC 31.8 g/dL (31.0-37.0); MCV 100.1 fL (80.0-100.0); Macrocytosis Slight; Mean Platelet Volume 7.8; Platelet Count 196 k/uL (150-450); RBC 4.74 m/uL (4.30-5.90); RDW 14.1 % (11.5-15.5); WBC 14.7 k/uL (3.8-10.6)
[2020-08-31] MEDS: INSULIN ASPART (NovoLOG) 100 UNIT/ML VIAL SQ SCH (17:51)
[2020-08-31 17:56] LABS: Partial Thromboplastin Time 49.5 sec (22.0-30.0); Prothrombin Time 10.1 sec (9.0-12.0)
[2020-08-31 17:58] LABS: African American GFR (CKD) >90 (>60 ml/min/1.73 sqM); Anion Gap 1 mmol/L; Blood Urea Nitrogen 4 mg/dL (9-20); Calcium 8.3 mg/dL (8.4-10.2); Carbon Dioxide 28 mmol/L (22-30); Chloride 111 mmol/L (98-107); Glucose 160 mg/dL (74-99); Non-African American GFR(CKD) >90 (>60 ml/min/1.73 sqM); Potassium 3.5 mmol/L (3.5-5.1); Sodium 140 mmol/L (137-145)
[2020-08-31] MEDS ORDERED: Potassium Replacement Protocol 1 EACH MISC MISCELLANE PRN (18:04)
[2020-08-31] MEDS: POTASSIUM BICARBONATE/CIT AC 20 MEQ TABLET.EFF NG-TUBE SCH ×2 (18:15→19:42)
--- NOTE | 2020-08-31 18:26 | P.HPIM ---
History of Present Illness H&P Date: 08/31/20 Chief Complaint: Altered mental status This patient is a 40-year-old man brought by ambulance to be evaluated for suspected intoxication. Family had gone out and when they returned found the patient lying face down with emesis covering his sweatshirt. Patient also had a bowel movement and his clothing. They were not able to wake him and they therefore called ambulance. They had suspected that he had been drinking. On arrival, the patient is not able to give any history. There was concern that patient might have overdosed on medication, Cogentin which was recently filled and it appears patient has taken antibiotics left Cogentin and also overdosed on lithium; lithium level in ED was 5.4; patient was recommended intubation and admission to ICU; patient had hemodialysis catheter placed for dialysis for elevated lithium level Review of Systems ROS unobtainable: due to endotracheal tube Past Medical History Past Medical History: Unable to Obtain Additional Past Medical History / Comment(s): cyst foot, insomnia, possible COPD History of Any Multi-Drug Resistant Organisms: None Reported Past Surgical History: Unable to Obtain Additional Past Surgical History / Comment(s): ORIF of the ankle Past Psychological History: Anxiety, Bipolar, Depression, Schizophrenia Past Alcohol Use History: None Reported, Rare Past Drug Use History: Marijuana - Past Family History Father Family Medical History: Unable to Obtain (Father is 70 years old and is curre ntly in rehab following surgery.) Mother Family Medical History: No Reported History (Mother is 57 years old and healthy.) Additional Family Medical History / Comment(s): Patient has 3 brothers and one sister with no major medical problems. Medications and Allergies Home Medications Medication Instructions Recorded Confirmed Type Benztropine Mesylate [Cogentin] 1 mg PO BID 04/27/19 08/31/20 History [place] Carbonate 1,200 mg PO HS 04/27/19 08/31/20 History haloperidoL [Haldol] 10 mg PO HS 04/27/19 08/31/20 History Paliperidone IM [Invega Sustenna] 234 mg IM Q28D 08/19/19 08/31/20 History Albuterol Sulfate [Proair Hfa] 2 puff INHALATION RT-QID PRN 08/31/20 08/31/20 History Levothyroxine Sodium 200 mcg PO DAILY 10/03/20 10/03/20 History metFORMIN HCL [metFORMIN HCL ER] 500 mg PO BID 08/31/20 08/31/20 History Allergies Allergy/AdvReac Type Severity Reaction Status Date / Time No Known Allergies Allergy Verified 08/31/20 08:12 Physical Exam Vitals: Vital Signs Temp Pulse Resp BP Pulse Ox 08/31/20 11:00 109 H 20 137/99 100 08/31/20 10:30 116 H 20 125/85 100 08/31/20 10:00 99.6 F 123 H 29 H 152/92 92 L 08/31/20 09:30 99.1 F 118 H 40 H 141/90 95 08/31/20 09:02 122 H 40 H 140/92 95 08/31/20 09:00 151/110 95 08/31/20 08:30 121 H 38 H 138/97 96 08/31/20 08:00 124 H 146/98 95 08/31/20 07:33 122 H 44 H 147/97 95 08/31/20 07:30 124 H 147/97 94 L 08/31/20 07:07 100.5 F H 124 H 40 H 123/83 93 L 08/31/20 07:00 131 H 113/100 08/31/20 06:30 125 H 116/54 94 L 08/31/20 06:00 123 H 119/95 94 L 08/31/20 05:52 121 H 08/31/20 05:43 122 H 08/31/20 05:30 123 H 96 08/31/20 05:00 122 H 109/59 08/31/20 04:40 121 H 120/87 96 08/31/20 04:10 128 H 114/81 92 L 08/31/20 04:03 128 H 44 H 114/81 92 L 08/31/20 04:00 128 H 97/72 92 L 08/31/20 03:50 128 H 97/72 08/31/20 03:40 128 H 96/79 92 L 08/31/20 03:36 92 L 08/31/20 03:33 121 H 18 97/72 91 L 08/31/20 02:27 97.7 F 120 H 20 114/61 91 L Intake and Output 08/30/20 08/31/20 08/31/20 22:59 06:59 14:59 Intake Total 300 Output Total 2450 Balance -2150 Intake: Intake, IV Titration 300 Amount Sodium Chloride 0.9% 1, 300 000 ml @ 150 mls/hr IV . Q6H40M [facility] Rx#:[id number] Output: Urine 2450 Uretheral (Mueller) 1000 Other: Weight 117.934 kg ABP, PAP, CO, CI - Last 8 Hours Arterial Blood Pressure 143/79 PHYSICAL EXAMINATION: GENERAL: The patient is intubated and mechanically ventilated HEENT: Pupils are round and equally reacting to light. EOMI. No scleral icterus. No conjunctival pallor. Normocephalic, atraumatic. No pharyngeal erythema. No thyromegaly. CARDIOVASCULAR: S1 and S2 present. No murmurs, rubs, or gallops. PULMONARY: Chest is clear to auscultation, no wheezing or crackles. ABDOMEN: Soft, nontender, nondistended, normoactive bowel sounds. No palpable organomegaly. MUSCULOSKELETAL: No joint swelling or deformity. EXTREMITIES: No cyanosis, clubbing, or pedal edema. NEUROLOGICAL: Gross neurological examination did not reveal any focal deficits. SKIN: No rashes. Results CBC & Chem 7: 08/31/20 17:22 08/31/20 17:22 Labs: Abnormal Lab Results - Last 24 Hours (Table) 08/31/20 08/31/20 08/31/20 Range/Units 03:09 03:09 03:09 WBC 12.3 H (3.8-10.6) k/uL Hgb 17.6 H (13.0-17.5) gm/dL Hct 55.6 H (39.0-53.0) % ABG pCO2 (35-45) mmHg ABG pO2 (83-108) mmHg ABG HCO3 (21-25) mmol/L ABG Total CO2 (19-24) mmol/L VBG pCO2 (37-51) mmHg VBG HCO3 (24-28) mmol/L Sodium 135 L (137-145) mmol/L Potassium 5.6 H (3.5-5.1) mmol/L Glucose 118 H (74-99) mg/dL [place] 5.6 H* mmol/L 08/31/20 08/31/20 Range/Units 06:15 07:15 WBC (3.8-10.6) k/uL Hgb (13.0-17.5) gm/dL Hct (39.0-53.0) % ABG pCO2 51 H (35-45) mmHg ABG pO2 66 L (83-108) mmHg ABG HCO3 28 H (21-25) mmol/L ABG Total CO2 30 H (19-24) mmol/L VBG pCO2 52 H (37-51) mmHg VBG HCO3 29 H (24-28) mmol/L Sodium (137-145) mmol/L Potassium (3.5-5.1) mmol/L Glucose (74-99) mg/dL [place] mmol/L Assessment and Plan Assessment: 1. Suicidal attempt/overdose - Patient took lithium and Cogentin - Patient is intubated and mechanically ventilated for airway protection 2. Acute respiratory failure/aspiration pneumonia; patient is started on IV Zosyn for aspiration pneumonia along with nebulizer treatments every 4 hours 3. Hypothyroidism; takes levothyroxine 200 MCG daily at home; hasn't been placed on thyroid replacement yet 4. Diabetes mellitus; patient takes metformin at home; we will hold and monitor Accu-Cheks 4 times a day with insulin sliding scale 5. Possible underlying asthma/COPD; patient has been placed on nebulizer t reatments 6. History of bipolar disorder/schizophrenia DVT prophylaxis; subcu Lovenox CODE STATUS; full code
[2020-08-31] MEDS: CHLORHEXIDINE GLUCONATE 15 ML CUP MUCOUS MEM SCH (19:42)
[2020-08-31 22:35] LABS: Hepatitis B Surface AB- Quant 13.5 mIU/mL; Hepatitis B Surface Antibody Reactive (Non-Reactive); Hepatitis B Surface Antigen Non-Reactive (Non-Reactive)
[2020-08-31 23:59] LABS: Glucose,Whole Blood 143 mg/dL (75-99)
[2020-09-01] MEDS: INSULIN ASPART (NovoLOG) 100 UNIT/ML VIAL SQ SCH ×5 (00:26→23:08)
[2020-09-01] MEDS: HYDROmorphone 1 MG/ML 1 ML SYRINGE IVP PRN ×2 (02:11→05:23)
[2020-09-01] MEDS: IPRATROPIUM-ALBUTEROL 3 ML NEB INHALATION SCH ×5 (02:41→19:43)
[2020-09-01] MEDS: SODIUM CHLORIDE 0.9% 1,000 ML IV SCH ×3 (04:26→17:37)
[2020-09-01 04:46] LABS: Basophils # (A) 0.1 k/uL (0-0.2); Basophils % (A) 1 %; Eosinophils # (A) 0.3 k/uL (0-0.7); Eosinophils % (A) 3 %; HCT 45.4 % (39.0-53.0); Lymphocytes # (A) 1.4 k/uL (1.0-4.8); Lymphocytes % (A) 12 %; MCH 30.9 pg (25.0-35.0); MCHC 30.9 g/dL (31.0-37.0); MCV 99.7 fL (80.0-100.0); Mean Platelet Volume 7.9; Monocytes # (A) 0.6 k/uL (0-1.0); Monocytes % (A) 5 %; Neutrophils # (A) 9.3 k/uL (1.3-7.7); Neutrophils % (A) 79 %; Platelet Count 183 k/uL (150-450); RBC 4.55 m/uL (4.30-5.90); RDW 14.1 % (11.5-15.5); WBC 11.7 k/uL (3.8-10.6)
[2020-09-01 04:54] LABS: INR 0.9 (<1.2); Partial Thromboplastin Time 22.2 sec (22.0-30.0); Prothrombin Time 9.8 sec (9.0-12.0)
[2020-09-01 05:04] LABS: ALT 16 U/L (4-49); AST 23 U/L (17-59); African American GFR (CKD) >90 (>60 ml/min/1.73 sqM); Albumin 2.7 g/dL (3.5-5.0); Alkaline Phosphatase 70 U/L (38-126); Anion Gap 1 mmol/L; Blood Urea Nitrogen 7 mg/dL (9-20); Calcium 8.5 mg/dL (8.4-10.2); Carbon Dioxide 27 mmol/L (22-30); Chloride 109 mmol/L (98-107); Glucose 149 mg/dL (74-99); Lithium 1.7 mmol/L; Non-African American GFR(CKD) >90 (>60 ml/min/1.73 sqM); Potassium 3.3 mmol/L (3.5-5.1); Sodium 137 mmol/L (137-145); Total Bilirubin 0.2 mg/dL (0.2-1.3); Total Protein 4.9 g/dL (6.3-8.2)
[2020-09-01 05:27] LABS: Glucose,Whole Blood 138 mg/dL (75-99)
[2020-09-01 05:48] LABS: ABG Base Excess 2.8 mmol/L; ABG HCO3 28 mmol/L (21-25); ABG PCO2 45 mmHg (35-45); ABG PO2 112 mmHg (83-108); ABG TCO2 29 mmol/L (19-24); Allen Test Performed? Yes
[2020-09-01] MEDS: POTASSIUM BICARBONATE/CIT AC 20 MEQ TABLET.EFF NG-TUBE SCH ×2 (06:33→09:10)
--- NOTE | 2020-09-01 08:01 | XR ---
EXAMINATION TYPE: XR chest 1V portable DATE OF EXAM: 09/01/2020 COMPARISON: 08/31/2020 INDICATION: Tube placement TECHNIQUE: Single frontal view of the chest is obtained. FINDINGS: The heart size is enlarged. The pulmonary vasculature is normal. Mild infiltrate is at the left base increasing from comparison. Degree of inspiration is limited on this exam. Endotracheal tube tip is 1.8 cm above evie. Left central venous catheter is present with the tip in the right atrium. Nasogastric tube transverses the thorax the tip within the abdomen. IMPRESSION: 1. Mild left lower lobe infiltrate. 2. Lines and catheters discussed above.
[2020-09-01] MEDS: PIPERACILLIN-TAZOBACTAM 3.375 GM in SODIUM CHLORIDE 0.9% 100 ML IVPB SCH ×2 (08:32→15:43)
[2020-09-01] MEDS ORDERED: ENOXAPARIN 30 MG/0.3 ML SYRINGE SQ SCH (09:00)
[2020-09-01] MEDS: FAMOTIDINE 20 MG/2 ML VIAL IV SCH ×2 (09:09→19:50)
[2020-09-01] MEDS: CHLORHEXIDINE GLUCONATE 15 ML CUP MUCOUS MEM SCH (09:12)
--- NOTE | 2020-09-01 10:30 | P.PN ---
Subjective patient is seen in follow-up for lithium toxicity. he underwent hemodialysis on August 31. [place] level I.7 this morning. Currently intubated and sedated. Nonoliguric. Maintain on IV fluids. Vital signs are stable. General: The patient appeared well nourished and normally developed. intubated. HEENT: Head exam is unremarkable. Neck is without jugular venous distension. LUNGS: breath sounds decreased. HEART: Rate and Rhythm are regular. ABDOMEN: soft, obese. EXTREMITITES: No clubbing, cyanosis, or edema. Objective - Vital Signs Vital signs: Vital Signs Temp 99.7 F H 09/01/20 08:00 Pulse 84 09/01/20 09:00 Resp 20 09/01/20 09:00 BP 110/72 09/01/20 09:00 Pulse Ox 99 09/01/20 09:00 Intake & Output 08/31/20 09/01/20 09/01/20 18:59 06:59 18:59 Intake Total 2020.386 2737.101 1000.822 Output Total 3075 615 135 Balance -4169.488 7302.101 865.822 Weight 113.2 kg Intake: IV 36 72 18 0.9 NS flush 36 72 18 Intake, IV Titration 2624.621 8941.101 922.822 Amount Piperacillin-Tazobactam 3 100 100 100 .375 gm In Sodium Chloride 0.9% 100 ml @ 25 mls/hr IVPB Q8HR [facility] Rx# :[id number] Sodium Chloride 0.9% 1, 1350 1800 700 000 ml @ 150 mls/hr IV . Q6H40M [facility] Rx#:[id number] propofoL 1,000 mg In 404.386 545.101 122.822 Empty Bag 1 bag @ Titrate IV .Q0M [facility] Rx#: [id number] Tube Feeding 70 130 30 Other 60 90 30 Output: Gastric Drainage 100 Urine 2975 615 135 Uretheral (Mueller) 1000 Hemodialysis 0 Other: Voiding Method Indwelling Catheter Indwelling Catheter Indwelling Catheter ABP, PAP, CO, CI - Last Documented Arterial Blood Pressure 106/61 - Labs CBC & Chem 7: 09/01/20 04:30 09/01/20 04:30 Labs: Abnormal Lab Results - Last 24 Hours (Table) 08/31/20 08/31/20 08/31/20 Range/Units 03:09 11:31 11:59 WBC (3.8-10.6) k/uL MCV (80.0-100.0) fL MCHC (31.0-37.0) g/dL Neutrophils # (1.3-7.7) k/uL APTT (22.0-30.0) sec ABG pH 7.32 L (7.35-7.45) ABG pCO2 56 H (35-45) mmHg ABG pO2 117 H (83-108) mmHg ABG HCO3 29 H (21-25) mmol/L ABG Total CO2 30 H (19-24) mmol/L ABG O2 Saturation 98.9 H (94-97) % Potassium (3.5-5.1) mmol/L Chloride (98-107) mmol/L BUN (9-20) mg/dL Creatinine (0.66-1.25) mg/dL Glucose (74-99) mg/dL POC Glucose (mg/dL) 126 H (75-99) mg/dL Calcium (8.4-10.2) mg/dL Total Protein (6.3-8.2) g/dL Albumin (3.5-5.0) g/dL [place] mmol/L Hep Bs Antibody Reactive H (Non-Reactive) Hep B Core Total Ab Equivocal H (Non-Reactive) 08/31/20 08/31/20 08/31/20 Range/Units 17:22 17:22 17:22 WBC 14.7 H (3.8-10.6) k/uL MCV 100.1 H (80.0-100.0) fL MCHC (31.0-37.0) g/dL Neutrophils # (1.3-7.7) k/uL APTT 49.5 H (22.0-30.0) sec ABG pH (7.35-7.45) ABG pCO2 (35-45) mmHg ABG pO2 (83-108) mmHg ABG HCO3 (21-25) mmol/L ABG Total CO2 (19-24) mmol/L ABG O2 Saturation (94-97) % Potassium (3.5-5.1) mmol/L Chloride 111 H (98-107) mmol/L BUN 4 L (9-20) mg/dL Creatinine 0.61 L (0.66-1.25) mg/dL Glucose 160 H (74-99) mg/dL POC Glucose (mg/dL) (75-99) mg/dL Calcium 8.3 L (8.4-10.2) mg/dL Total Protein (6.3-8.2) g/dL Albumin (3.5-5.0) g/dL [place] mmol/L Hep Bs Antibody (Non-Reactive) Hep B Core Total Ab (Non-Reactive) 08/31/20 08/31/20 08/31/20 Range/Units 17:31 19:53 23:57 WBC (3.8-10.6) k/uL MCV (80.0-100.0) fL MCHC (31.0-37.0) g/dL Neutrophils # (1.3-7.7) k/uL APTT (22.0-30.0) sec ABG pH (7.35-7.45) ABG pCO2 (35-45) mmHg ABG pO2 (83-108) mmHg ABG HCO3 (21-25) mmol/L ABG Total CO2 (19-24) mmol/L ABG O2 Saturation (94-97) % Potassium (3.5-5.1) mmol/L Chloride (98-107) mmol/L BUN (9-20) mg/dL Creatinine (0.66-1.25) mg/dL Glucose (74-99) mg/dL POC Glucose (mg/dL) 141 H 143 H (75-99) mg/dL Calcium (8.4-10.2) mg/dL Total Protein (6.3-8.2) g/dL Albumin (3.5-5.0) g/dL [place] 1.9 H* mmol/L Hep Bs Antibody (Non-Reactive) Hep B Core Total Ab (Non-Reactive) 09/01/20 09/01/20 09/01/20 Range/Units 04:30 04:30 05:25 WBC 11.7 H (3.8-10.6) k/uL MCV (80.0-100.0) fL MCHC 30.9 L (31.0-37.0) g/dL Neutrophils # 9.3 H (1.3-7.7) k/uL APTT (22.0-30.0) sec ABG pH (7.35-7.45) ABG pCO2 (35-45) mmHg ABG pO2 (83-108) mmHg ABG HCO3 (21-25) mmol/L ABG Total CO2 (19-24) mmol/L ABG O2 Saturation (94-97) % Potassium 3.3 L (3.5-5.1) mmol/L Chloride 109 H (98-107) mmol/L BUN 7 L (9-20) mg/dL Creatinine (0.66-1.25) mg/dL Glucose 149 H (74-99) mg/dL POC Glucose (mg/dL) 138 H (75-99) mg/dL Calcium (8.4-10.2) mg/dL Total Protein 4.9 L (6.3-8.2) g/dL Albumin 2.7 L (3.5-5.0) g/dL [place] mmol/L Hep Bs Antibody (Non-Reactive) Hep B Core Total Ab (Non-Reactive) 09/01/20 Range/Units 05:45 WBC (3.8-10.6) k/uL MCV (80.0-100.0) fL MCHC (31.0-37.0) g/dL Neutrophils # (1.3-7.7) k/uL APTT (22.0-30.0) sec ABG pH (7.35-7.45) ABG pCO2 (35-45) mmHg ABG pO2 112 H (83-108) mmHg ABG HCO3 28 H (21-25) mmol/L ABG Total CO2 29 H (19-24) mmol/L ABG O2 Saturation 99.0 H (94-97) % Potassium (3.5-5.1) mmol/L Chloride (98-107) mmol/L BUN (9-20) mg/dL Creatinine (0.66-1.25) mg/dL Glucose (74-99) mg/dL POC Glucose (mg/dL) (75-99) mg/dL Calcium (8.4-10.2) mg/dL Total Protein (6.3-8.2) g/dL Albumin (3.5-5.0) g/dL [place] mmol/L Hep Bs Antibody (Non-Reactive) Hep B Core Total Ab (Non-Reactive) Microbiology - Last 24 Hours (Table) 08/31/20 12:30 Gram Stain - Preliminary Sputum Sputum Culture - Preliminary Assessment and Plan Plan: assessment: 1. [place] toxicity. status post hemodialysis August 31. [place] level I.7 this morning. 2. Diabetes mellitus. 3. Hyperkalemia secondary to acute kidney injury and urinary retention. resolved. Now hypokalemic. 4. Mild acute kidney injury mostly prerenal. resolved. 5. Urinary retention. Mueller catheter placed. plan: Maintain normal saline at 150 mL an hour. Repeat lithium level this evening and again tomorrow morning. Continue to monitor renal function and urine output. hold off on hemodialysis at this time. Potassium being replaced.
[2020-09-01] MEDS: CLEVIDIPINE BUTYRATE 25 MG in EMPTY BAG 1 BAG IV SCH (11:47)
[2020-09-01 11:48] LABS: Glucose,Whole Blood 153 mg/dL (75-99)
--- NOTE | 2020-09-01 11:51 | PN ---
PROGRESS NOTE PULMONARY/CRITICAL CARE PROGRESS NOTE: DATE OF SERVICE: 09/01/2020 Critical care time 34 minutes. This is a 40-year-old gentleman who apparently attempted suicide with an overdose of lithium and Cogentin. The patient was intubated in the emergency room by Dr. Dunaway. He was thought to have possible aspiration pneumonia. Anyway, the patient had been no ability to protect his airway which is one of the reasons why he was intubated on August 31. He had an attempt a daily interruption of sedation and spontaneous breathing trial today but failed. Currently, he is on the volume assist-control mode rate of 20, tidal volume 500, FiO2 50%, PEEP of 10 to be turned down to a PEEP of 5. Blood gases show pO2 of 112, pCO2 of 45 and a pH of 7.39. He is getting saline at 150 mL an hour, propofol at 50 mcg/kg per minute and Vital high-protein at 10. Again, he had a daily interruption of sedation today with an attempted spontaneous breathing trial on PSV 5, CPAP of 5 and according to the nurse, Sariah, the patient failed miserably. In addition, he has a history of bilateral pneumonia, likely related to aspiration, obesity, anxiety, bipolar disorder, schizophrenia, diabetes, hypothyroidism, and possible underlying asthma/COPD. PHYSICAL EXAMINATION: Current vital signs are reviewed. Temperature is 99.7, heart rate 84, respiratory rate 20, blood pressure 110/72, mean 84 saturations are 99%. CVP is 9. Appears in no acute distress. Currently sedated. HEENT: Examination is grossly unremarkable. There is an orally placed endotracheal tube and NG tube. NECK: Supple. Full range of motion. No adenopathy. Neck veins are flat. CARDIOVASCULAR: Examination reveals regular rhythm and rate. Heart rate mid 80s. S1, S2 normal. No S3, S4, or murmur. LUNGS: Reveal diffuse coarse bilateral rhonchi. ABDOMEN: Soft. Bowel sounds are heard. EXTREMITIES are intact. No cyanosis, clubbing, or edema. SKIN: Without rash. NEUROLOGIC: Examination could not be adequately assessed. LABS: Reviewed. White count 11.7, hemoglobin 14, hematocrit 45.4, platelet count 183,000. PT/INR PTT normal. Blood gases show a pO2 of 112, pCO2 45, and a pH of 7.40. Sodium 137, potassium 3.3, chloride 109, CO2 27, anion gap is 1. BUN and creatinine were 7 and 0.83. [place] level on followup was 1.9 and 1.7. His initial lithium level was 5.6 before dialysis. Currently, microbiology is pending or negative. A chest x-ray dated September 01 shows bibasilar infiltrates, left greater than right. CURRENT MEDICATIONS: Reviewed. Currently, he is on Tylenol suppositories, chlorhexidine, Cleviprex p.r.n., Lovenox 40 mg subcu daily, famotidine, Dilaudid p.r.n., insulin sliding scale, DuoNeb, Narcan p.r.n., Zosyn, potassium replacement therapy, propofol and saline IV. ASSESSMENT: 1. Hypoxemic respiratory failure requiring intubation and mechanical ventilation on August 31, 2020 for attempted suicide/overdose with lithium and Cogentin. 2. Presumed aspiration pneumonia. 3. Status post hemodialysis for toxic lithium level. 4. Mental status changes secondary to overdose. 5. Bilateral left greater than right pneumonia, likely secondary to aspiration. 6. Obesity. 7. History of anxiety. 8. History of bipolar disorder. 9. History of schizophrenia. 10.Diabetes mellitus. 11.Hypothyroidism. 12.Possible underlying asthma/chronic obstructive pulmonary disease. PLAN: The patient was lined yesterday. We did do a daily interruption of sedation and potentially a spontaneous breathing trial today on pressure support and CPAP. The patient failed. He was placed back on the ventilator and sedated. The PEEP levels dropped from 10 to 5. The patient's nutrition will be increased up to goal. Currently, he is on saline at 150 an hour and propofol at 50 mcg/kg per minute. Prognosis is guarded. He remains on Zosyn for possible aspiration pneumonia. He also remains on DVT and GI prophylaxis. We will continue to follow. Critical care time 34 minutes. MMODL / IJN: [id number] /
[2020-09-01 13:01] LABS: Hemoglobin A1C 7.4 % (4.0-6.0)
[2020-09-01] MEDS: HALOPERIDOL LACTATE 5 MG/ML 1 ML VIAL IVP PRN ×4 (14:52→22:37)
--- NOTE | 2020-09-01 15:41 | P.PN ---
Subjective Progress Note Date: 09/01/20 Principal diagnosis: [place] toxicity Acute respiratory failure/aspiration pneumonia Intubation/mechanical ventilation 40-year-old man brought by ambulance to be evaluated for suspected intoxication. Family had gone out and when they returned found the patient lying face down with emesis covering his sweatshirt. Patient also had a bowel movement and his clothing. They were not able to wake him and they therefore called ambulance. They had suspected that he had been drinking. On arrival, the patient is not able to give any history. There was concern that patient might have overdosed on medication, Cogentin which was recently filled and it appears patient has taken antibiotics left Cogentin and also overdosed on lithium; lithium level in ED was 5.4; patient was recommended intubation and admission to ICU; patient had hemodialysis catheter p laced for dialysis for elevated lithium level 09/01/2020 Patient remains in ICU and remains intubated and mechanically ventilated Underwent hemodialysis for lithium toxicity yesterday; lithium level of 1.7 this morning; nephrology is following and recommending to continue with IV fluids in form of normal saline at a rate of 1 50 mL per hour; repeat CT levels tonight and tomorrow morning; monitor strict FILIPPO's; potassium level is 3.1 this morning and supplement has been ordered; Objective - Vital Signs Vital signs: Vital Signs Temp 99.7 F H 09/01/20 08:00 Pulse 84 09/01/20 09:00 Resp 20 09/01/20 09:00 BP 110/72 09/01/20 09:00 Pulse Ox 99 09/01/20 09:00 Intake & Output 08/31/20 09/01/20 09/01/20 18:59 06:59 18:59 Intake Total 2019.386 2737.101 878 Output Total 3075 615 135 Balance -4716.879 3520.101 743 Weight 113.2 kg Intake: IV 36 72 18 0.9 NS flush 36 72 18 Intake, IV Titration 2749.268 9491.101 800 Amount Piperacillin-Tazobactam 3 100 100 100 .375 gm In Sodium Chloride 0.9% 100 ml @ 25 mls/hr IVPB Q8HR [facility] Rx# :[id number] Sodium Chloride 0.9% 1, 1350 1800 700 000 ml @ 150 mls/hr IV . Q6H40M [facility] Rx#:[id number] propofoL 1,000 mg In 404.386 545.101 Empty Bag 1 bag @ Titrate IV .Q0M [facility] Rx#: [id number] Tube Feeding 70 130 30 Other 60 90 30 Output: Gastric Drainage 100 Urine 2975 615 135 Uretheral (Mueller) 1000 Hemodialysis 0 Other: Voiding Method Indwelling Catheter Indwelling Catheter ABP, PAP, CO, CI - Last Documented Arterial Blood Pressure 106/61 - Exam GENERAL: The patient is intubated and mechanically ventilated HEENT: Pupils are round and equally reacting to light. No scleral icterus. No conjunctival pallor. Normocephalic, atraumatic. No pharyngeal erythema. No thyromegaly. CARDIOVASCULAR: S1 and S2 present. No murmurs, rubs, or gallops. PULMONARY: Chest is clear to auscultation, no wheezing or crackles. ABDOMEN: Soft, nontender, nondistended, normoactive bowel sounds. No palpable organomegaly. MUSCULOSKELETAL: No joint swelling or deformity. EXTREMITIES: No cyanosis, clubbing, or pedal edema. - Labs CBC & Chem 7: 09/01/20 04:30 09/01/20 04:30 Labs: Abnormal Lab Results - Last 24 Hours (Table) 08/31/20 08/31/20 08/31/20 Range/Units 03:09 11:31 11:59 WBC (3.8-10.6) k/uL MCV (80.0-100.0) fL MCHC (31.0-37.0) g/dL Neutrophils # (1.3-7.7) k/uL APTT (22.0-30.0) sec ABG pH 7.32 L (7.35-7.45) ABG pCO2 56 H (35-45) mmHg ABG pO2 117 H (83-108) mmHg ABG HCO3 29 H (21-25) mmol/L ABG Total CO2 30 H (19-24) mmol/L ABG O2 Saturation 98.9 H (94-97) % Potassium (3.5-5.1) mmol/L Chloride (98-107) mmol/L BUN (9-20) mg/dL Creatinine (0.66-1.25) mg/dL Glucose (74-99) mg/dL POC Glucose (mg/dL) 126 H (75-99) mg/dL Calcium (8.4-10.2) mg/dL Total Protein (6.3-8.2) g/dL Albumin (3.5-5.0) g/dL [place] mmol/L Hep Bs Antibody Reactive H (Non-Reactive) Hep B Core Total Ab Equivocal H (Non-Reactive) 08/31/20 08/31/20 08/31/20 Range/Units 17:22 17:22 17:22 WBC 14.7 H (3.8-10.6) k/uL MCV 100.1 H (80.0-100.0) fL MCHC (31.0-37.0) g/dL Neutrophils # (1.3-7.7) k/uL APTT 49.5 H (22.0-30.0) sec ABG pH (7.35-7.45) ABG pCO2 (35-45) mmHg ABG pO2 (83-108) mmHg ABG HCO3 (21-25) mmol/L ABG Total CO2 (19-24) mmol/L ABG O2 Saturation (94-97) % Potassium (3.5-5.1) mmol/L Chloride 111 H (98-107) mmol/L BUN 4 L (9-20) mg/dL Creatinine 0.61 L (0.66-1.25) mg/dL Glucose 160 H (74-99) mg/dL POC Glucose (mg/dL) (75-99) mg/dL Calcium 8.3 L (8.4-10.2) mg/dL Total Protein (6.3-8.2) g/dL Albumin (3.5-5.0) g/dL [place] mmol/L Hep Bs Antibody (Non-Reactive) Hep B Core Total Ab (Non-Reactive) 08/31/20 08/31/20 08/31/20 Range/Units 17:31 19:53 23:57 WBC (3.8-10.6) k/uL MCV (80.0-100.0) fL MCHC (31.0-37.0) g/dL Neutrophils # (1.3-7.7) k/uL APTT (22.0-30.0) sec ABG pH (7.35-7.45) ABG pCO2 (35-45) mmHg ABG pO2 (83-108) mmHg ABG HCO3 (21-25) mmol/L ABG Total CO2 (19-24) mmol/L ABG O2 Saturation (94-97) % Potassium (3.5-5.1) mmol/L Chloride (98-107) mmol/L BUN (9-20) mg/dL Creatinine (0.66-1.25) mg/dL Glucose (74-99) mg/dL POC Glucose (mg/dL) 141 H 143 H (75-99) mg/dL Calcium (8.4-10.2) mg/dL Total Protein (6.3-8.2) g/dL Albumin (3.5-5.0) g/dL [place] 1.9 H* mmol/L Hep Bs Antibody (Non-Reactive) Hep B Core Total Ab (Non-Reactive) 09/01/20 09/01/20 09/01/20 Range/Units 04:30 04:30 05:25 WBC 11.7 H (3.8-10.6) k/uL MCV (80.0-100.0) fL MCHC 30.9 L (31.0-37.0) g/dL Neutrophils # 9.3 H (1.3-7.7) k/uL APTT (22.0-30.0) sec ABG pH (7.35-7.45) ABG pCO2 (35-45) mmHg ABG pO2 (83-108) mmHg ABG HCO3 (21-25) mmol/L ABG Total CO2 (19-24) mmol/L ABG O2 Saturation (94-97) % Potassium 3.3 L (3.5-5.1) mmol/L Chloride 109 H (98-107) mmol/L BUN 7 L (9-20) mg/dL Creatinine (0.66-1.25) mg/dL Glucose 149 H (74-99) mg/dL POC Glucose (mg/dL) 138 H (75-99) mg/dL Calcium (8.4-10.2) mg/dL Total Protein 4.9 L (6.3-8.2) g/dL Albumin 2.7 L (3.5-5.0) g/dL [place] mmol/L Hep Bs Antibody (Non-Reactive) Hep B Core Total Ab (Non-Reactive) 09/01/20 Range/Units 05:45 WBC (3.8-10.6) k/uL MCV (80.0-100.0) fL MCHC (31.0-37.0) g/dL Neutrophils # (1.3-7.7) k/uL APTT (22.0-30.0) sec ABG pH (7.35-7.45) ABG pCO2 (35-45) mmHg ABG pO2 112 H (83-108) mmHg ABG HCO3 28 H (21-25) mmol/L ABG Total CO2 29 H (19-24) mmol/L ABG O2 Saturation 99.0 H (94-97) % Potassium (3.5-5.1) mmol/L Chloride (98-107) mmol/L BUN (9-20) mg/dL Creatinine (0.66-1.25) mg/dL Glucose (74-99) mg/dL POC Glucose (mg/dL) (75-99) mg/dL Calcium (8.4-10.2) mg/dL Total Protein (6.3-8.2) g/dL Albumin (3.5-5.0) g/dL [place] mmol/L Hep Bs Antibody (Non-Reactive) Hep B Core Total Ab (Non-Reactive) Microbiology - Last 24 Hours (Table) 08/31/20 12:30 Gram Stain - Preliminary Sputum Sputum Culture - Preliminary Assessment and Plan Assessment: 1. Suicidal attempt/overdose - Patient took lithium and Cogentin - Patient is intubated and mechanically ventilated for airway protection 2. Acute respiratory failure/aspiration pneumonia; patient is started on IV Zosyn for aspiration pneumonia along with nebulizer treatments every 4 hours 3. Hypothyroidism; takes levothyroxine 200 MCG daily at home; hasn't been placed on thyroid replacement yet 4. Diabetes mellitus; patient takes metformin at home; we will hold and monitor Accu-Cheks 4 times a day with insulin sliding scale 5. Possible underlying asthma/COPD; patient has been placed on nebulizer treatments 6. History of bipolar disorder/schizophrenia DVT prophylaxis; subcu Lovenox CODE STATUS; full code
[2020-09-01 17:36] LABS: Glucose,Whole Blood 120 mg/dL (75-99)
[2020-09-01] MEDS: NICOTINE 21MG/24HR PATCH TRANSDERM SCH (21:21)
[2020-09-01] MEDS ORDERED: MELATONIN 5 MG TABLET PO ONE (23:00)
[2020-09-01 23:07] LABS: Glucose,Whole Blood 141 mg/dL (75-99)
[2020-09-02] MEDS: PIPERACILLIN-TAZOBACTAM 3.375 GM in SODIUM CHLORIDE 0.9% 100 ML IVPB SCH (00:02)
[2020-09-02] MEDS: SODIUM CHLORIDE 0.9% 1,000 ML IV SCH ×3 (00:04→18:15)
[2020-09-02] MEDS: IPRATROPIUM-ALBUTEROL 3 ML NEB INHALATION SCH ×6 (00:35→18:06)
[2020-09-02 00:55] LABS: African American GFR (CKD) >90 (>60 ml/min/1.73 sqM); Anion Gap 2 mmol/L; Blood Urea Nitrogen 4 mg/dL (9-20); Calcium 8.8 mg/dL (8.4-10.2); Carbon Dioxide 28 mmol/L (22-30); Chloride 107 mmol/L (98-107); Glucose 156 mg/dL (74-99); Non-African American GFR(CKD) >90 (>60 ml/min/1.73 sqM); Potassium 3.3 mmol/L (3.5-5.1); Sodium 137 mmol/L (137-145)
[2020-09-02 01:06] LABS: Glucose,Whole Blood 137 mg/dL (75-99)
[2020-09-02] MEDS: INSULIN ASPART (NovoLOG) 100 UNIT/ML VIAL SQ SCH ×5 (01:37→20:42)
[2020-09-02] MEDS: POTASSIUM CHLORIDE 20 MEQ in WATER FOR INJECTION 1 100ML.BAG IVPB SCH ×2 (01:39→03:17)
[2020-09-02 06:11] LABS: Basophils # (A) 0.1 k/uL (0-0.2); Basophils % (A) 0 %; Eosinophils # (A) 0.2 k/uL (0-0.7); Eosinophils % (A) 1 %; HCT 43.6 % (39.0-53.0); HGB 13.7 gm/dL (13.0-17.5); Lymphocytes # (A) 1.4 k/uL (1.0-4.8); Lymphocytes % (A) 9 %; MCH 31.2 pg (25.0-35.0); MCHC 31.4 g/dL (31.0-37.0); MCV 99.3 fL (80.0-100.0); Mean Platelet Volume 7.9; Monocytes # (A) 0.6 k/uL (0-1.0); Monocytes % (A) 4 %; Neutrophils # (A) 13.7 k/uL (1.3-7.7); Neutrophils % (A) 85 %; Platelet Count 142 k/uL (150-450); RBC 4.39 m/uL (4.30-5.90); RDW 13.8 % (11.5-15.5); WBC 16.1 k/uL (3.8-10.6)
[2020-09-02 06:16] LABS: Lithium 0.7 mmol/L; Potassium 3.7 mmol/L (3.5-5.1)
[2020-09-02] MEDS ORDERED: POTASSIUM CHLORIDE 20 MEQ in WATER FOR INJECTION 1 100ML.BAG IVPB STA (06:25)
[2020-09-02 06:54] LABS: Glucose,Whole Blood 123 mg/dL (75-99)
--- NOTE | 2020-09-02 08:24 | XR ---
EXAMINATION TYPE: XR chest 1V portable DATE OF EXAM: 09/02/2020 COMPARISON: Prior chest x-ray 09/01/2020 HISTORY: Extubated, abnormal chest x-ray TECHNIQUE: Single frontal view of the chest is obtained. FINDINGS: There are improved lung volumes. Endotracheal tube and orogastric tube have been removed. L eft subclavian central venous catheter shows the tip near the cavoatrial junction level. There is no pneumothorax or pleural effusion. Patchy perihilar density is noted. Cardiomediastinal silhouette, pu lmonary vascularity and edmundo are within normal limits accounting for technique, rotation. IMPRESSION: Improved aeration. There may be a component of interstitial edema, difficult to exclude p neumonia or atelectasis. Consider volume overload.
[2020-09-02] MEDS: NICOTINE 21MG/24HR PATCH TRANSDERM SCH ×2 (08:31→20:41)
[2020-09-02 08:46] LABS: African American GFR (CKD) >90 (>60 ml/min/1.73 sqM); Anion Gap 2 mmol/L; Blood Urea Nitrogen 3 mg/dL (9-20); Calcium 8.7 mg/dL (8.4-10.2); Carbon Dioxide 29 mmol/L (22-30); Chloride 107 mmol/L (98-107); Glucose 124 mg/dL (74-99); Non-African American GFR(CKD) >90 (>60 ml/min/1.73 sqM); Sodium 138 mmol/L (137-145)
[2020-09-02] MEDS ORDERED: ENOXAPARIN 40 MG/0.4 ML SYRINGE SQ SCH (09:00)
[2020-09-02] MEDS: FAMOTIDINE 20 MG/2 ML VIAL IV SCH ×2 (09:41→20:41)
--- NOTE | 2020-09-02 09:53 | P.PN ---
Subjective patient is seen in follow-up for lithium toxicity. he underwent hemodialysis on August 31. [place] level 0.7 this morning. Extubated yesterday. Maintain on IV fluids. Awake and alert. Vital signs are stable. General: The patient appeared well nourished and normally developed. HEENT: Head exam is unremarkable. Neck is without jugular venous distension. LUNGS: breath sounds decreased. HEART: Rate and Rhythm are regular. ABDOMEN: soft, obese. EXTREMITITES: No clubbing, cyanosis, or edema. Objective - Vital Signs Vital signs: Vital Signs Temp 98 F 09/02/20 04:00 Pulse 96 09/02/20 08:12 Resp 12 09/02/20 07:00 BP 137/90 09/02/20 07:00 Pulse Ox 95 09/02/20 07:00 Intake & Output 09/01/20 09/02/20 09/02/20 18:59 06:59 18:59 Intake Total 6862.539 9302 156 Output Total 805 2915 325 Balance 305.482 547 -169 Weight 117.8 kg Intake: IV 72 72 6 0.9 NS flush 72 72 6 Intake, IV Titration 041.300 3970 150 Amount Piperacillin-Tazobactam 3 100 100 .375 gm In Sodium Chloride 0.9% 100 ml @ 25 mls/hr IVPB Q8HR [facility] Rx# :[id number] Potassium Chloride 20 meq 200 In Water For Injection 1 100ml.bag @ 50 mls/hr IVPB Q2H [facility] Rx#: [id number] Sodium Chloride 0.9% 1, 700 1650 150 000 ml @ 150 mls/hr IV . Q6H40M [facility] Rx#:[id number] propofoL 1,000 mg In 128.482 Empty Bag 1 bag @ Titrate IV .Q0M [facility] Rx#: [id number] Oral 1440 Tube Feeding 50 Other 60 Output: Urine 805 2915 325 Other: Voiding Method Indwelling Catheter Indwelling Catheter ABP, PAP, CO, CI - Last Documented Arterial Blood Pressure 129/74 - Labs CBC & Chem 7: 09/02/20 05:50 09/02/20 05:50 Labs: Abnormal Lab Results - Last 24 Hours (Table) 09/01/20 09/01/20 09/01/20 Range/Units 04:30 11:46 17:34 WBC (3.8-10.6) k/uL Plt Count (150-450) k/uL Neutrophils # (1.3-7.7) k/uL Potassium (3.5-5.1) mmol/L BUN (9-20) mg/dL Creatinine (0.66-1.25) mg/dL Glucose (74-99) mg/dL POC Glucose (mg/dL) 153 H 120 H (75-99) mg/dL Hemoglobin A1c 7.4 H (4.0-6.0) % 09/01/20 09/02/20 09/02/20 Range/Units 23:05 00:15 01:05 WBC (3.8-10.6) k/uL Plt Count (150-450) k/uL Neutrophils # (1.3-7.7) k/uL Potassium 3.3 L (3.5-5.1) mmol/L BUN 4 L (9-20) mg/dL Creatinine 0.64 L (0.66-1.25) mg/dL Glucose 156 H (74-99) mg/dL POC Glucose (mg/dL) 141 H 137 H (75-99) mg/dL Hemoglobin A1c (4.0-6.0) % 09/02/20 09/02/20 09/02/20 Range/Units 05:50 05:50 06:52 WBC 16.1 H (3.8-10.6) k/uL Plt Count 142 L (150-450) k/uL Neutrophils # 13.7 H (1.3-7.7) k/uL Potassium (3.5-5.1) mmol/L BUN 3 L (9-20) mg/dL Creatinine (0.66-1.25) mg/dL Glucose 124 H (74-99) mg/dL POC Glucose (mg/dL) 123 H (75-99) mg/dL Hemoglobin A1c (4.0-6.0) % Microbiology - Last 24 Hours (Table) 08/31/20 12:30 Gram Stain - Final Sputum Sputum Culture - Final Assessment and Plan Plan: assessment: 1. [place] toxicity. status post hemodialysis August 31. [place] level 0.7 this morning. 2. Diabetes mellitus. 3. Hyperkalemia secondary to acute kidney injury and urinary retention. resolved. 4. Mild acute kidney injury mostly prerenal. resolved. 5. Urinary retention. Mueller catheter placed. plan: decrease normal saline to 75 mL an hour. Repeat lithium level tomorrow morning. Continue to monitor renal function and urine output. hold off on hemodialysis at this time. Will plan to discontinue dialysis catheter tomorrow.
--- NOTE | 2020-09-02 11:35 | CDI ---
Documentation Clarification Form Date: 09/02/2020 10:57:17 AM From: Lucie Killian RN, CCDS Admit Date: 08/31/2020 07:10:00 AM Patient Name: Abraham Patricia Visit Number: [id number] ATTENTION: The Clinical Documentation Specialists (CDI) and [facility] Coding Staff appreciate your assistance in clarifying documentation. Please respond to the clarification below the line at the bottom and electronically sign. The CDI & [facility] Coding staff will review the response and follow-up if needed. Please note: Queries are made part of the Legal Health Record. If you have any questions, please contact the author of this message via ITS. Dr. Belcher Altered Mental Status was documented in the EC, H&P, and Consults and requires further specificity. History/Risk Factors: Anxiety, bipolar, depression, schizophrenia Clinical Indicators: 08/31 ED Note: "[place] overdose, altered mental status." 08/31 Procedure Note: "40-year-old gentleman presented to the emergency department secondary to altered mental status upon evaluation he was noted that he had overdosed and has acute renal failure in need of hemodialysis." 08/31 Nephrology Consult: "Patient presented to the hospital with altered mental status. He was brought to the hospital by the EMS after his family found him lying on the floor face down covered with emesis. Patient is currently quite confused and obtunded." 08/31 H&P: "Altered mental status." Labs: WBC 14.7/11.7/16.1. Hepatitis B antibody reactive, [place] Level 1.9 09/02/2020 CXR: "interstitial edema, difficult to exclude pneumonia or atelectasis. Consider volume overload." CT Brain: mild maxillary sinusitis Treatment: Ceftriaxone 1 gm IVPB x 1 08/31-09/22 IV Zosyn 3.375 gm IVPB Q 8 hrs 08/31-09/01 Clividipine Gtt 2 ml/hr x 24 hrs Haldol 5 mg IVP Q2hrs Dilaudid 1-2mg IVP PRN Pain IVF bolus 2L 0.9% NS In your professional opinion, please clarify the etiology of the Altered Mental Status, if known. Toxic Encephalopathy (specify Underlying Medical Illness) Metabolic Encephalopathy (specify Underlying Medical Illness) Other condition (please specify) Unable to determine (Last Revision: February 2018) Toxic metabolic encephalopathy sec to lithium overdose and toxicity MTDD
[2020-09-02 13:04] LABS: Glucose,Whole Blood 181 mg/dL (75-99)
--- NOTE | 2020-09-02 13:05 | P.CN ---
Psychiatric Consult - . Consult date: 09/02/20 Consult:: IDENTIFYING DATA: This patient is a 40-year-old male with significant history of schizophrenia, bipolar, depression admitted for intoxication and intentional overdose. HISTORY OF PRESENT ILLNESS: The patient presented to the hospital on 08/31/2020 for suspected intoxication. Patient was brought via ambulance after he was discovered by his family to be lying down with emesis covering his sweatshirt. Patient reports that he has been feeling "bored and depressed" for the last 1-2 weeks. He states that this overdose was intentional. He expressly reports that "I wanted to go to [facility] with my mom and my family." He is currently not endorsing any suicidal or homicidal ideation or intention at this time. He does report a history of auditory hallucinations and paranoia but states that this has been well controlled with his medications at home. He is not able to identify any acute stressors at this time. He does report some family conflict. Patient reports that this was not something that he had planned but something more impulsive. Patients admits to smoking one and a half packs per day of cigarettes. He reports that he has not used marijuana in over a year but smoked the other day. He has prior history of meth, crack, and cocaine use. He does endorse significant alcohol use stating that he drinks about 7-8 beers per day. PAST PSYCHIATRIC HISTORY: Patient has a a history of schizophrenia, bipolar, depression. Prior to this admission he was previously prescribed Haldol, lithium, and benztropine. Home medications also include Invega Sustenna 234 mg every 28 days. We will need to confirm when it was last given. He does report prior psychiatric admissions to this psychiatric unit on 3 W. He is currently open with [facility]. He denies any prior attempts at suicide. PAST MEDICAL HISTORY: COPD, hypothyroidism, diabetes mellitus. ALLERGIES: as per EMR. CHEMICAL DEPENDENCY HISTORY: as per HPI. FAMILY PSYCHIATRIC/SUBSTANCE USE HISTORY: Unable to obtain at this time. SOCIAL HISTORY: Patient was born in [place]. He was raised in [place]. He currently lives with his mother. He is on SSI. MENTAL STATUS EXAM: General Appearance: Patient appears to be stated age is alert, pleasant, and cooperative. Patient appears to have poor hygiene and grooming wearing hospital gown with fair eye contact. Behavior: Patient is calmly sitting in his chair upright without any agitated behavior. Speech: Patient's speech is fluent and nonpressured. Mood/Affect: Patient reports their mood is "depressed", affect is constricted in range but at times euthymic. Suicidality/Homicidality: Patient denies having any suicidal or homicidal ideation intent or plan. Perceptions: Patient denies any visual hallucinations and denies any auditory hallucinations currently Though content/process: There is no evidence of any delusional thought content and thought process is linear and goal-directed. Memory and concentration: AOX3, grossly intact for the purposes of this session. Can spell "WORLD" backwards Judgment and insight: poor IMPRESSIONS: Major depressive disorder Schizophrenia Tobacco use disorder Alcohol use disorder History of Polysubstance use PLAN: -At this time patient DOES meet criteria for inpatient psychiatric admission. -Would recommend the following medication changes/additions: No medication changes will be made at this time. We will continue to hold psychotropic medications. We will restart medications once medically clear and patient is supervised in the inpatient psychiatric setting. -Discontinue one-to-one sitter -Cannot leave AMA at this time. Patient will need a petition and certification if attempting to leave AMA. -When medically stable, patient is eligible for transfer to a psych bed when available. -Psychiatry will continue to follow. 09/02/20 12:56
[2020-09-02 15:02] VITALS: BP 141/95; RESP 16; TEMP 98.5
--- NOTE | 2020-09-02 15:02 | P.PN ---
Subjective Progress Note Date: 09/02/20 40-year-old male patient, postop attempted suicide with drug overdose with a combination of Cogentin and lithium. Patient came into the ED and the patient was intubated by emergency department physician. He was suspected to have aspiration pneumonia. Note that the patient was unable to protect his airway the time of admission. He was intubated on 08/31/2020. Note that the patient was initially intubated and placed on a mechanical ventilator. Aspiration pneumonia was suspected. The patient was ultimately weaned off the mechanical ventilator and the patient was extubated. The patient has developed bilateral pulmonary infiltrates possibly secondary aspiration pneumonia. He has stable hemodynamics. No pressors for now. No significant EKG changes. The renal function is stable for now. The patient had normal liver function tests. Lactic acid levels are not elevated. Salicylate levels were less than 1, Tylenol was negative, lithium level was at 1.9 is currently down to 1.1 and lat er on down to 0.7. Alcohol level was negative. The patient has normal coagulation profile. Antibiotic coverage is with IV Zosyn. In regards to the elevated blood pressure, the patient has been on Precedex drip for blood pressure control which ultimately got stabilized and the patient was taken off the Precedex drip. On today's evaluation the patient is only on 2 L of oxygen by nasal cannula. Slightly bronchospastic and wheezy. Bronchiolitis was initiated. No magistral distress at this point in time. No cough sputum production chest tightness or wheezing. Objective - Vital Signs Vital signs: Vital Signs Temp 99.4 F 09/02/20 08:00 Pulse 95 09/02/20 11:50 Resp 34 H 09/02/20 09:00 BP 139/95 09/02/20 09:00 Pulse Ox 92 L 09/02/20 09:00 Intake & Output 09/01/20 09/02/20 09/02/20 18:59 06:59 18:59 Intake Total 2444.344 7696 462 Output Total 805 2915 675 Balance 305.482 547 -213 Weight 117.8 kg Intake: IV 72 72 312 0.9 NS flush 72 72 12 Sodium Chloride 0.9% 1, 300 000 ml @ 75 mls/hr IV . [id number] [facility] Rx#:[id number] Intake, IV Titration 615.991 3097 150 Amount Piperacillin-Tazobactam 3 100 100 .375 gm In Sodium Chloride 0.9% 100 ml @ 25 mls/hr IVPB Q8HR [facility] Rx# :[id number] Potassium Chloride 20 meq 200 In Water For Injection 1 100ml.bag @ 50 mls/hr IVPB Q2H [facility] Rx#: [id number] Sodium Chloride 0.9% 1, 700 1650 150 000 ml @ 75 mls/hr IV . [id number] [facility] Rx#:[id number] propofoL 1,000 mg In 128.482 Empty Bag 1 bag @ Titrate IV .Q0M [facility] Rx#: [id number] Oral 1440 Tube Feeding 50 Other 60 Output: Urine 805 2915 675 Other: Voiding Method Indwelling Catheter Indwelling Catheter Indwelling Catheter ABP, PAP, CO, CI - Last Documented Arterial Blood Pressure 129/74 - Exam Gen. appearance, comfortable no acute distress obese with a BMI of 35.2 Head exam was generally normal. There was no scleral icterus or corneal arcus. Mucous membranes were moist. Neck was supple and without jugular venous distension, thyromegaly, or carotid bruits. Carotids were easily palpable bilaterally. There was no adenopathy. Mild hepatic S4 with significant crowding of the posterior oropharynx Cardiac exam revealed the PMI to be normally situated and sized. The rhythm was regular and no extrasystoles were noted during several minutes of auscultation. The first and second heart sounds were normal and physiologic splitting of the second heart sound was noted. There were no murmurs, rubs, clicks, or gallops. Lungs sounds are diminished and the patient has scattered expiratory wheezes throughout the lung his bilaterally Abdominal exam revealed normal bowel sounds. The abdomen was soft, non-tender, and without masses, organomegaly, or appreciable enlargement of the abdominal aorta. Examination of the extremities revealed easily palpable radial, femoral and pedal pulses. There was no cyanosis, clubbing or edema. Examination of the skin revealed no evidence of significant rashes, suspicious appearing nevi or other concerning lesions. Neurologically, the patient is awake and alert and the patient does not have any focal neurological deficit. Cranial nerves are essentially intact. - Labs CBC & Chem 7: 09/02/20 05:50 09/02/20 05:50 Labs: Abnormal Lab Results - Last 24 Hours (Table) 09/01/20 09/01/20 09/02/20 Range/Units 17:34 23:05 00:15 WBC (3.8-10.6) k/uL Plt Count (150-450) k/uL Neutrophils # (1.3-7.7) k/uL Potassium 3.3 L (3.5-5.1) mmol/L BUN 4 L (9-20) mg/dL Creatinine 0.64 L (0.66-1.25) mg/dL Glucose 156 H (74-99) mg/dL POC Glucose (mg/dL) 120 H 141 H (75-99) mg/dL 09/02/20 09/02/20 09/02/20 Range/Units 01:05 05:50 05:50 WBC 16.1 H (3.8-10.6) k/uL Plt Count 142 L (150-450) k/uL Neutrophils # 13.7 H (1.3-7.7) k/uL Potassium (3.5-5.1) mmol/L BUN 3 L (9-20) mg/dL Creatinine (0.66-1.25) mg/dL Glucose 124 H (74-99) mg/dL POC Glucose (mg/dL) 137 H (75-99) mg/dL 09/02/20 09/02/20 Range/Units 06:52 13:02 WBC (3.8-10.6) k/uL Plt Count (150-450) k/uL Neutrophils # (1.3-7.7) k/uL Potassium (3.5-5.1) mmol/L BUN (9-20) mg/dL Creatinine (0.66-1.25) mg/dL Glucose (74-99) mg/dL POC Glucose (mg/dL) 123 H 181 H (75-99) mg/dL Microbiology - Last 24 Hours (Table) 08/31/20 12:30 Gram Stain - Final Sputum Sputum Culture - Final Assessment and Plan Plan: 1 acute drug intoxication possibly secondary to a suicidal attempt. The patient is currently awake and alert and the patient has a sitter at the bedside. Second is also on the case. 2 acute intoxication with lithium and Cogentin The patient originally came into the hospital because of an altered mental status. The patient was seen by nephrology regarding the lithium toxicity. He underwent hemodialysis on 08/31/2020. Subsequent levels improved from a high level of 5.6 down to 1.1. 3 acute hypoxic respiratory failure. The patient was urgently intubated for airway protection. Subsequently the patient developed lower lobe either pulmonary infiltrates suspecting pneumonia. The patient was extubated without any major difficulties and currently is on 2 L about 2 by nasal cannula. The chest x-ray showing improvement in the aeration. There may be a component of interstitial edema still present. 4 mental status change secondary to above. 5 obesity with a BMI of 33.8 6 history of anxiety/bipolar disorder/schizophrenia 7 diabetes mellitus 8 hypothyroidism 9 Hypertension Plan Continue bronchodilators Discontinue IV Zosyn and switch the patient to oral Augmentin Nicotine patch IV fluids at 75 mL's an hour Lovenox for DVT prophylaxis Hold the psychiatric medication the patient will need a inpatient psychiatric evaluation as the patient clearly had a suicidal attempt with taking a combination of Cogentin and lithium and possibly some Haldol. No cardiac arrhythmias. The patient is extubated. He is awake and alert at this point in time. His communicating. Is tolerating his diet. Overall, his condition is stable and should be able to even to go to psychiatric unit today.
[2020-09-02 15:22] VITALS: PULSE 92
[2020-09-02 20:37] LABS: Glucose,Whole Blood 158 mg/dL (75-99)
[2020-09-02] MEDS ORDERED: AMOXIC-POT CLAV 875-125MG 1 EACH TAB PO SCH (21:00)
--- NOTE | 2020-09-03 10:48 | P.DS ---
Providers Date of admission: 08/31/20 07:10 Expected date of discharge: 09/02/20 Attending physician: Joe Miller Consults: 08/31/20 07:10 Consult Physician Routine Consulting Provider: James Alex Consult Reason/Comments: Overdose Do you want consulting provider notified?: Yes Consult Physician Stat Consulting Provider: Abraham Bañuelos Consult Reason/Comments: Intensive care Do you want consulting provider notified?: Already Contacted 08/31/20 15:05 Consult Physician Routine Consulting Provider: Zeyad Cohen Consult Reason/Comments: Hemodialysis Do you want consulting provider notified?: Yes Primary care physician: Stated None Hospital Course: Intubation/mechanical ventilation 40-year-old man brought by ambulance to be evaluated for suspected intoxication. Family had gone out and when they returned found the patient lying face down with emesis covering his sweatshirt. Patient also had a bowel movement and his clothing. They were not able to wake him and they therefore called ambulance. They had suspected that he had been drinking. On arrival, the patient is not able to give any history. There was concern that patient might have overdosed on medication, Cogentin which was recently filled and it appears patient has taken antibiotics left Cogentin and also overdosed on lithium; lithium level in ED was 5.4; patient was recommended intubation and admission to ICU; patient had hemodialysis catheter placed for dialysis for elevated lithium level 09/01/2020 Patient remains in ICU and remains intubated and mechanically ventilated Underwent hemodialysis for lithium toxicity yesterday; lithium level of 1.7 this morning; nephrology is following and recommending to continue with IV fluids in form of normal saline at a rate of 1 50 mL per hour; repeat CT levels tonight and tomorrow morning; monitor strict FILIPPO's; potassium level is 3.1 this morning and supplement has been ordered; 09/02/2020 Patient is medically stable to be discharged to psychiatric floor. Patient is medically stable. Patient is on Augmentin for possible aspiration pneumonia patient can continue this antibiotic for next or for 5 days and after that this antibody can be discontinued. PHYSICAL EXAMINATION: GENERAL: The patient is alert and oriented x3, not in any acute distress. Well developed, well nourished. HEENT: Pupils are round and equally reacting to light. EOMI. No scleral icterus. No conjunctival pallor. Normocephalic, atraumatic. No pharyngeal erythema. No thyromegaly. CARDIOVASCULAR: S1 and S2 present. No murmurs, rubs, or gallops. PULMONARY: Chest is clear to auscultation, no wheezing or crackles. ABDOMEN: Soft, nontender, nondistended, normoactive bowel sounds. No palpable organomegaly. MUSCULOSKELETAL: No joint swelling or deformity. EXTREMITIES: No cyanosis, clubbing, or pedal edema. NEUROLOGICAL: Gross neurological examination did not reveal any focal deficits. SKIN: No rashes. Assessment and Plan Assessment: 1. Suicidal attempt/overdose - Patient took lithium and Cogentin - Patient is intubated and mechanically ventilated for airway protection on admission was subsequently extubated clinically doing well today 2. Acute respiratory failure/aspiration pneumonia; can you Augmentin for next 4-5 days 3. Hypothyroidism; 4. Diabetes mellitus; 5. Possible underlying asthma/COPD; patient has been placed on nebulizer treatments 6. History of bipolar disorder/schizophrenia Patient Condition at Discharge: Critical Plan - Discharge Summary New Discharge Prescriptions: New Amoxic-Pot Clav 875-125Mg [Augmentin 875-125] 1 each PO Q12HR #10 tab Nicotine 21Mg/24Hr Patch [Habitrol] 1 patch TRANSDERM DAILY patch Continue haloperidoL [Haldol] 10 mg PO HS Benztropine Mesylate [Cogentin] 1 mg PO BID [place] Carbonate 1,200 mg PO HS Paliperidone IM [Invega Sustenna] 234 mg IM Q28D metFORMIN HCL [metFORMIN HCL ER] 500 mg PO BID Albuterol Sulfate [Proair Hfa] 2 puff INHALATION RT-QID PRN PRN Reason: Shortness Of Breath Levothyroxine Sodium 200 mcg PO DAILY Discharge Medication List Benztropine Mesylate [Cogentin] 1 mg PO BID 04/27/19 [History] [place] Carbonate 1,200 mg PO HS 04/27/19 [History] haloperidoL [Haldol] 10 mg PO HS 04/27/19 [History] Paliperidone IM [Invega Sustenna] 234 mg IM Q28D 08/19/19 [History] Albuterol Sulfate [Proair Hfa] 2 puff INHALATION RT-QID PRN 08/31/20 [History] Levothyroxine Sodium 200 mcg PO DAILY 08/31/20 [History] metFORMIN HCL [metFORMIN HCL ER] 500 mg PO BID 08/31/20 [History] Amoxic-Pot Clav 875-125Mg [Augmentin 875-125] 1 each PO Q12HR #10 tab 09/02/20 [Rx] Nicotine 21Mg/24Hr Patch [Habitrol] 1 patch TRANSDERM DAILY patch 09/02/20 [Rx] Follow up Appointment(s)/Referral(s): Lefty Lowe DO [Doctor of Osteopathic Medicine] - 1-2 Days Discharge Disposition: TRANSFER TO PSYCH HOSP/UNIT
== END 2020-09-02 23:02 | DRG 917 ==
LOC: EC 02:25 → 2SICU 07:10
PROVIDERS: ADMIT Internal Medicine; ATTEND Internal Medicine
PROC: 3E0G76Z Introduction of Nutritional Substance into Upper GI, Via Natural or Artificial Opening (ICD-10-PCS; principal; 2020-08-31)
PROC: 5A1945Z Respiratory Ventilation, 24-96 Consecutive Hours (ICD-10-PCS; principal; 2020-08-31)
PROC: 02H633Z Insertion of Infusion Device into Right Atrium, Percutaneous Approach (ICD-10-PCS; principal; 2020-08-31)
PROC: 4A133J1 Monitoring of Arterial Pulse, Peripheral, Percutaneous Approach (ICD-10-PCS; principal; 2020-08-31)
PROC: 0DH67UZ Insertion of Feeding Device into Stomach, Via Natural or Artificial Opening (ICD-10-PCS; principal; 2020-08-31)
PROC: 4A133B1 Monitoring of Arterial Pressure, Peripheral, Percutaneous Approach (ICD-10-PCS; principal; 2020-08-31)
PROC: 03HY32Z Insertion of Monitoring Device into Upper Artery, Percutaneous Approach (ICD-10-PCS; principal; 2020-08-31)
PROC: 0BH17EZ Insertion of Endotracheal Airway into Trachea, Via Natural or Artificial Opening (ICD-10-PCS; 2020-08-31)
PROC: 5A1D70Z Performance of Urinary Filtration, Intermittent, Less than 6 Hours Per Day (ICD-10-PCS; 2020-08-31)
PROC: 06HM33Z Insertion of Infusion Device into Right Femoral Vein, Percutaneous Approach (ICD-10-PCS; 2020-08-31)
DX: T43.592A Poisoning by other antipsychotics and neuroleptics, intentional self-harm, initial encounter (principal); G92 Toxic encephalopathy; R40.2122 Coma scale, eyes open, to pain, at arrival to emergency department; J96.01 Acute respiratory failure with hypoxia; J69.0 Pneumonitis due to inhalation of food and vomit; N17.9 Acute kidney failure, unspecified; J44.9 Chronic obstructive pulmonary disease, unspecified; F31.9 Bipolar disorder, unspecified; F20.9 Schizophrenia, unspecified; E11.9 Type 2 diabetes mellitus without complications; R40.2352 Coma scale, best motor response, localizes pain, at arrival to emergency department; R40.2242 Coma scale, best verbal response, confused conversation, at arrival to emergency department; R40.2131 Coma scale, eyes open, to sound, in the field [EMT or ambulance]; R40.2351 Coma scale, best motor response, localizes pain, in the field [EMT or ambulance]; R40.2241 Coma scale, best verbal response, confused conversation, in the field [EMT or ambulance]; G47.00 Insomnia, unspecified; F41.9 Anxiety disorder, unspecified; E03.9 Hypothyroidism, unspecified; E87.5 Hyperkalemia; R33.9 Retention of urine, unspecified; E87.6 Hypokalemia; E66.9 Obesity, unspecified; Z71.3 Dietary counseling and surveillance; Z68.35 Body mass index [BMI] 35.0-35.9, adult; Z79.899 Other long term (current) drug therapy; Z79.890 Hormone replacement therapy; Z79.84 Long term (current) use of oral hypoglycemic drugs
CPT/HCPCS: 31500; 36415; 36556; 36600; 70450; 71045; 80048; 80053; 80178; 80320; 80329; 82803; 82805; 83036; 83520; 83735; 85025; 85027; 85610; 85730; 86704; 86706; 87070; 87205; 87340; 90935; 93005; 94002; 94003; 94640; 96361; 96365; 96375; 99291

== ENCOUNTER 2020-09-02 22:27 | Inpatient (IN) | payer MEDICAID ==
[2020-09-02] MEDS ORDERED: ALBUTEROL HFA INHALER INHALATION PRN (23:07)
[2020-09-02] MEDS ORDERED: ZIPRASIDONE 20 MG VIAL IM PRN (23:08)
[2020-09-02] MEDS ORDERED: MAG HYDROX/AL HYDROX/SIMETH 30 ML CUP PO PRN (23:08)
[2020-09-02] MEDS ORDERED: MAGNESIUM HYDROXIDE 2,400 MG/10 ML CUP PO PRN (23:08)
[2020-09-02] MEDS ORDERED: LORazepam 2 MG/ML INJ IM PRN (23:09)
[2020-09-03] MEDS: ACETAMINOPHEN TAB 325 MG TAB PO PRN ×2 (00:09→19:57)
[2020-09-03] MEDS: LORazepam 1 MG TAB PO PRN ×2 (00:10→19:57)
[2020-09-03 04:46] VITALS: RESP 16
[2020-09-03] MEDS: LEVOTHYROXINE 100 MCG TAB PO SCH (07:02)
[2020-09-03] MEDS: metFORMIN 500 MG TAB PO SCH ×2 (08:00→19:56)
[2020-09-03] MEDS: NICOTINE 14MG/24HR PATCH TRANSDERM SCH (08:00)
[2020-09-03] MEDS ORDERED: PALIPERIDONE 3 MG TAB.ER.24 PO STA (09:34)
--- NOTE | 2020-09-03 09:51 | P.HP ---
Psychiatric H&P - . H&P Date: 09/03/20 History & Physical: Allergies Allergy/AdvReac Type Severity Reaction Status Date / Time No Known Allergies Allergy Verified 08/31/20 08:12 Vital Signs Temp 97.7 F 09/03/20 04:45 Pulse 72 09/03/20 04:45 Resp 16 09/03/20 04:45 BP 133/78 09/03/20 04:45 Pulse Ox 93 L 09/03/20 04:45 Intake & Output 09/02/20 09/03/20 09/03/20 18:59 06:59 18:59 Weight 117.934 kg 09/03/20 09:37 IDENTIFYING DATA: Patient is a 40-year-old male who currently lives with his mother and has a significant history of schizophrenia, bipolar, and depression was admitted for intentional overdose of lithium. HPI: Patient presented to the hospital on 08/31/2020 via ambulance after being discovered by his family to be lying down with emesis covering his shirt and a bowel movement in his clothing. He was unarousable and therefore EMS services were contacted. Patient states that he overdosed on lithium and possibly other medications after he was upset with his mother. Patient reported that for the last "1-2 weeks" he was feeling bored and depressed. He does admit that the overdose was intentional. He states that he attempted to overdose after being upset with his mother. He states he has been upset with his mother because she has been on his case regarding his heavy alcohol use. He is currently not endorsing any significant symptoms of depression except for low energy. He denies any anhedonia, crying episodes, hopelessness, helplessness, or any suicidal or homicidal ideation, intention, and/or plan today. He does have a significant history of schizophrenia which has been managed at home using Invega and Haldol. When exploring symptoms of psychosis, patient denies any auditory or visual hallucinations at this time. He reports no psychosis or delusions. He expresses that in the past he "listened to rap music" and was diagnosed with schizophrenia. He does endorse some years of reference in the past but is denying any other significant symptoms. After review of his chart, patient has had a history of odd behaviors and gross disorganization which is required multiple psychiatric inpatient admissions. In regards to bipolar disorder, he is not endorsing any racing thoughts, increased goal-directed behavior, impulsivity, grandiosity, or excessive energy. He does report a significant history of drug use. He has a prior history of marijuana, meth, crack cocaine, and powder cocaine use. He smokes 1-1/2 pack per day of cigarettes. He drinks significantly, including 7-8 beers per day. PAST PSYCHIATRIC HISTORY: Patient states that he is diagnosed with schizophrenia, bipolar, and depression. He is currently open with [facility]. Patient believes that he is due for his Invega Sustenna 234 mg IM injection. He was previous to prescribed Haldol, lithium, and benztropine prior to this admission. He has also had trials of Depakote and Seroquel. He has had prior inpatient psychiatric treatment here on 3 W four times prior to this admission. Prior to this overdose, patient denies any prior attempts at suicide. PMH:denies ALLERGIES: as per EMR CHEMICAL DEPENDENCY HISTORY: as per HPI FAMILY PSYCHIATRIC/SUBSTANCE USE HISTORY: denies SOCIAL HISTORY: Patient was born and raised in [place].. He currently lives with his mother. He is receiving SSI. He has completed 12th grade education. Not . Reports having 2 teenage children. He has 2 siblings. MENTAL STATUS EXAM: General Appearance: Patient appears to be stated age is alert, directable, and attempts to cooperate. Patient appears to have fair hygiene and grooming. Behavior: Patient is seated without any agitated behavior. Psychomotor activity is normal. Speech: Patient's speech is fluent and nonpressured. Mood/Affect: Patient reports their mood is "okay", affect is congruent and blunted. Suicidality/Homicidality: Patient denies having any homicidal ideation intent or plan. Denies any suicidal ideations intent or plan Perceptions: Patient denies any visual hallucinations and denies any auditory hallucinations Though content/process: There is no evidence of any delusional thought content and thought process is linear and goal-directed. Memory and concentration: AOX3, grossly intact for the purposes of this session. Can spell "WORLD" backwards Judgment and insight: poor STRENGTHS/WEAKNESSES: strength is that patient is has access to housing and family support. Weakness is that patient poor coping skills, poor compliance with treatment, and engages in heavy alcohol use. INTELLECT: average IMPRESSIONS: Schizoaffective disorder, bipolar type Alcohol use disorder Cannabis use disorder Tobacco use disorder PLAN: -Patient is admitted under voluntary status to [facility]HU for stabilization of psychiatric symptoms and safety. Patient signed adult voluntary form and medication consent and is placed in patient's chart. -Medications : Will start patient on Invega 3 mg by mouth daily Haldol 5 mg by mouth at bedtime We will hold on lithium at this time. We will need to confirm when he was last administered Invega Sustenna. -Will coordinate with [facility] and obtain outpatient psychiatric notes. -Ativan and Geodon PRN for agitation/aggression -Started thiamine, MVM for etoh use -CIWA protocol with Ativan PRN for ETOH withdrawal -Patient was counselled on substance abuse but is pre-contemplative at this time -Patient was informed of the risks, benefits and side effects of the medication and patient verbally consented to taking the medications. Patient signed med consent form and was placed in chart. -Internal Medicine consult to perform medical evaluation and physical. -NRT - nicotine patch -SW on board for discharge planning. Encourage patient to participate in groups to work on coping skills.
[2020-09-03] MEDS ORDERED: haloperidoL 5 MG TAB PO SCH (21:00)
[2020-09-04] MEDS: LEVOTHYROXINE 100 MCG TAB PO SCH (06:44)
[2020-09-04] MEDS: metFORMIN 500 MG TAB PO SCH ×2 (08:22→21:54)
[2020-09-04] MEDS: NICOTINE 14MG/24HR PATCH TRANSDERM SCH (08:22)
[2020-09-04] MEDS ORDERED: PALIPERIDONE 3 MG TAB.ER.24 PO SCH (09:00)
--- NOTE | 2020-09-04 10:17 | P.PN ---
Progress Note - Text Progress Note Date: 09/04/20 Interval History: Patient was seen resting in bed and was directable and agreeable to speak with fiction and nonfiction writer prose in the office. Patient reports that he is feeling good. He states that he has some auditory hallucinations but reports that they are "good ones." He is not endorsing any visual hallucinations or other psychotic symptoms. He denies any delusions at this time. In regards to mood, he is not reporting any significant symptoms of depression, anxiety, or bipolar disorder. He denies any racing thoughts or increased goal-directed activity. He has been adherent with his medications and denies any side effects currently. Patient is due to receive his next Invega Sustenna 234 mg IM on September 09. Patient has been mostly somnolent throughout the day. He expresses that he spoke with his counselor "Artem" at [facility] discussed a sober living community with him that he is i nterested in going to after discharge. Patient is not willing to start any alcohol cessation medications at this time. Mental Status Exam: General Appearance: Patient appears to be stated age is alert, directable, and cooperative. Behavior: Patient is calmly seated without any agitated behavior. Speech: Patient's speech is fluent and nonpressured. Mood/Affect: Mood is improving mildly, affect is congruent and constricted. Suicidality/Homicidality: Patient denies having any suicidal or homicidal ideation intent or plan. Perceptions: Patient denies any visual hallucinations he does endorse mild auditory hallucinations which she describes as "good ones." Though content/process: There is no evidence of any delusional thought content and thought process is linear and goal-directed. Memory and concentration: AOX3, grossly intact for the purposes of this session Judgment and insight: Improving mildly Assessment Schizoaffective disorder, bipolar type Alcohol use disorder Cannabis use disorder Tobacco use disorder Plan: -Patient continues to meet criteria for inpatient psychiatric admission for symptom stabilization and safety. Patient has signed adult voluntary form and medication consent and was placed in patient's chart. -Medications: Discontinue oral Invega as patient is due for his next 234 mg IM invega sustenna on September 09 Increase Haldol to 7.5 mg with the goal to return to his home dose of 10 mg at bedtime. Due to the nature of the overdose with lithium, we will start Depakote instead. Upon review of the patient's medication history, patient has been on Depakote for at least 6 years prior to this admission. Patient's liver enzymes are within normal limit. -When necessary Ativan and Geodon for agitation/aggression. -NRT - nicotine patch -SW on board for discharge planning. Encouraged the patient to participate in milieu.
[2020-09-04] MEDS ORDERED: THIAMINE 100 MG TAB PO SCH (11:30)
[2020-09-04] MEDS ORDERED: NICOTINE 21MG/24HR PATCH TRANSDERM SCH (11:30)
[2020-09-04] MEDS ORDERED: FOLIC ACID 1 MG TAB PO SCH (11:30)
--- NOTE | 2020-09-04 11:42 | P.CONS ---
History of Present Illness - Reason for Consult Consult date: 09/04/20 Medical management diabetes mellitus, hypothyroidism Requesting physician: James Alex - Chief Complaint Overdose - History of Present Illness This is a 40-year-old gentleman with history of schizophrenia, bipolar, depression, polysubstance abuse including marijuana, meth, cocaine, nicotine and alcohol abuse ,admitted to the mental health unit with intentional overdose of lithium. Currently denies any suicidal or homicidal ideation, reports feeling better. Afebrile, vital signs stable, maintaining O2 sats in the 90s on room air. Maintained on CIWA protocol. No DTs. Denies chest pain, palpitations or shortness of breath. Denies lightheadedness, dizziness or focal deficits. Review of Systems Constitutional: Denied any fatigue denied any fever. Cardio vascular: denied any chest pain, palpitations Gastrointestinal denied any nausea vomiting Pulmonary: Denied any shortness of breath cough Neurologic denied any new focal deficits ROS Statement: Those systems with pertinent positive or pertinent negative responses have been documented in the HPI. ROS Other: All systems not noted in ROS Statement are negative. Past Medical History Past Medical History: Unable to Obtain Additional Past Medical History / Comment(s): cyst foot, insomnia, possible COPD History of Any Multi-Drug Resistant Organisms: None Reported Past Surgical History: Unable to Obtain Additional Past Surgical History / Comment(s): ORIF of the ankle Past Psychological History: Anxiety, Bipolar, Depression, Schizophrenia Past Alcohol Use History: None Reported, Rare Past Drug Use History: Marijuana - Past Family History Father Family Medical History: Unable to Obtain (Father is 70 years old and is currently in rehab following surgery.) Mother Family Medical History: No Reported History (Mother is 57 years old and healthy.) Additional Family Medical History / Comment(s): Patient has 3 brothers and one sister with no major medical problems. Medications and Allergies Home Medications Medication Instructions Recorded Confirmed Type Benztropine Mesylate [Cogentin] 1 mg PO BID 04/27/19 09/02/20 History [place] Carbonate 1,200 mg PO HS 04/27/19 09/02/20 History haloperidoL [Haldol] 10 mg PO HS 04/27/19 09/02/20 History Paliperidone IM [Invega Sustenna] 234 mg IM Q28D 08/19/19 09/03/20 History Albuterol Sulfate [Proair Hfa] 2 puff INHALATION RT-QID PRN 08/31/20 09/02/20 History Levothyroxine Sodium 200 mcg PO DAILY 08/31/20 09/02/20 History metFORMIN HCL [metFORMIN HCL ER] 500 mg PO BID 08/31/20 09/02/20 History Amoxic-Pot Clav 875-125Mg 1 each PO Q12HR #10 tab 09/02/20 09/02/20 Rx [Augmentin 875-125] Nicotine 21Mg/24Hr Patch [Habitrol] 1 patch TRANSDERM DAILY patch 09/02/20 09/02/20 Rx Allergies Allergy/AdvReac Type Severity Reaction Status Date / Time No Known Allergies Allergy Verified 08/31/20 08:12 Physical Exam PHYSICAL EXAMINATION: GENERAL: The patient is alert and oriented x3, NAD,well developed, well nourished. HEENT: Pupils are round and equally reacting to light. EOMI. No scleral icterus. No conjunctival pallor. Normocephalic, atraumatic. No pharyngeal erythema. No thyromegaly. CARDIOVASCULAR: S1 and S2 present. No murmurs, rubs, or gallops. PULMONARY: Chest is clear to auscultation, no rhonchi, crackles or wheezing. ABDOMEN: Soft, nontender, nondistended, normoactive bowel sounds. No palpable organomegaly. EXTREMITIES: No cyanosis, clubbing, or pedal edema. NEUROLOGICAL: Gross neurological examination did not reveal any focal deficits. SKIN: Warm and dry, No rashes. Assessment and Plan Assessment: Suicide attempt, overdose Hypothyroidism Diabetes mellitus COPD, stable Bipolar disorder Schizophrenia Depression Polysubstance abuse including nicotine dependence, alcohol abuse, methamphetamines, marijuana, history of cocaine use Plan: Continue on current medication regime ,monitoring and symptomatic treatment. Labs ordered and pending. Maintain CIWA protocol with multivitamin, thiamine, folic acid, PPI added to med regimen. Home meds have been reviewed and resumed accordingly. NovoLog Sliding scale admitted to med regimen. Thank you for the consult. Please don't hesitate to call with any further concerns. The impression and plan of care has been dictated as directed. : I performed a history and examination of this patient, discussed the same with the dictator. I agree with the dictator's note ,documented as a scribe. Any additional findings or plans will be noted.
[2020-09-04 12:17] LABS: Basophils # (A) 0.1 k/uL (0-0.2); Basophils % (A) 1 %; Eosinophils # (A) 0.1 k/uL (0-0.7); Eosinophils % (A) 1 %; HCT 48.7 % (39.0-53.0); HGB 15.3 gm/dL (13.0-17.5); Lymphocytes # (A) 1.7 k/uL (1.0-4.8); Lymphocytes % (A) 18 %; MCH 31.8 pg (25.0-35.0); MCHC 31.3 g/dL (31.0-37.0); MCV 101.6 fL (80.0-100.0); Macrocytosis Slight; Mean Platelet Volume 8.2; Monocytes # (A) 0.5 k/uL (0-1.0); Monocytes % (A) 5 %; Neutrophils # (A) 7.1 k/uL (1.3-7.7); Neutrophils % (A) 74 %; Platelet Count 188 k/uL (150-450); RBC 4.79 m/uL (4.30-5.90); RDW 13.7 % (11.5-15.5); WBC 9.6 k/uL (3.8-10.6)
[2020-09-04] MEDS: MULTIVITAMINS, THERA 1 EACH TAB PO SCH (12:22)
[2020-09-04] MEDS: FOLIC ACID 1 MG TAB PO SCH (12:22)
[2020-09-04] MEDS: THIAMINE 100 MG TAB PO SCH (12:22)
[2020-09-04] MEDS: PANTOPRAZOLE 40 MG TABLET PO SCH (12:22)
[2020-09-04 13:03] LABS: Glucose,Whole Blood 101 mg/dL (75-99)
[2020-09-04] MEDS: INSULIN ASPART (NovoLOG) 100 UNIT/ML VIAL SQ SCH ×3 (13:04→20:45)
[2020-09-04 17:43] LABS: Glucose,Whole Blood 98 mg/dL (75-99)
[2020-09-04 20:43] LABS: Glucose,Whole Blood 188 mg/dL (75-99)
[2020-09-04] MEDS ORDERED: DIVALPROEX ER 250 MG TAB.ER.24H PO SCH (21:00)
[2020-09-04] MEDS ORDERED: haloperidoL 5 MG TAB PO SCH (21:00)
[2020-09-04 21:33] LABS: Hemoglobin A1C 7.5 % (4.0-6.0)
[2020-09-04] MEDS: ACETAMINOPHEN TAB 325 MG TAB PO PRN (21:56)
[2020-09-04] MEDS: LORazepam 1 MG TAB PO PRN (21:56)
[2020-09-05] MEDS: LEVOTHYROXINE 100 MCG TAB PO SCH (06:18)
[2020-09-05 07:49] LABS: Glucose,Whole Blood 125 mg/dL (75-99)
[2020-09-05 08:10] LABS: ALT 38 U/L (4-49); AST 34 U/L (17-59); African American GFR (CKD) >90 (>60 ml/min/1.73 sqM); Albumin 3.3 g/dL (3.5-5.0); Alkaline Phosphatase 76 U/L (38-126); Anion Gap 7 mmol/L; Blood Urea Nitrogen 8 mg/dL (9-20); Calcium 8.7 mg/dL (8.4-10.2); Carbon Dioxide 26 mmol/L (22-30); Chloride 106 mmol/L (98-107); Glucose 132 mg/dL (74-99); Non-African American GFR(CKD) >90 (>60 ml/min/1.73 sqM); Potassium 4.8 mmol/L (3.5-5.1); Sodium 139 mmol/L (137-145); Total Bilirubin 0.6 mg/dL (0.2-1.3); Total Protein 5.9 g/dL (6.3-8.2)
[2020-09-05] MEDS: INSULIN ASPART (NovoLOG) 100 UNIT/ML VIAL SQ SCH ×4 (08:10→20:07)
--- NOTE | 2020-09-05 08:57 | P.PN ---
Progress Note - Text Progress Note Date: 09/05/20 Interval History: Patient was seen wandering the hallways and was directable and agreeable to speak with engineering writer in the office. Patient reports that he is feeling "alright." He is not endorsing any auditory or visual hallucinations at this time. He denies any paranoia or delusions. At this time patient denies any suicidal or homicidal ideations, intent or plan. Patient denies any side effects from the medications and has been compliant with meds. He is very interested in going to the sober living community upon discharge. He is agreeable to starting naltrexone to decrease alcohol cravings. Mental Status Exam: General Appearance: Patient appears to be stated age is alert, directable, and cooperative. Behavior: Patient is calmly seated without any agitated behavior. Speech: Patient's speech is fluent and nonpressured. Mood/Affect: Mood is improving mildly, affect is congruent and constricted. Suicidality/Homicidality: Patient denies having any suicidal or homicidal ideation intent or plan. Perceptions: Patient denies any visual hallucinations and denies any auditory hallucinations Though content/process: There is no evidence of any delusional thought content and thought process is linear and goal-directed. Memory and concentration: AOX3, grossly intact for the purposes of this session Judgment and insight: Improving mildly Assessment Schizoaffective disorder, bipolar type Alcohol use disorder Cannabis use disorder Tobacco use disorder Plan: -Patient continues to meet criteria for inpatient psychiatric admission for symptom stabilization and safety. Patient has signed adult voluntary form and medication consent and was placed in patient's chart. -Medications: -234 mg IM invega sustenna due on September 09 Increase Haldol to 10 mg with the goal to return to his home dose of 10 mg at bedtime. Increase Depakote ER 500 mg by mouth at bedtime for mood stabilization Start naltrexone 50 mg for alcohol cravings. -When necessary Ativan and Geodon for agitation/aggression. -NRT - nicotine patch -SW on board for discharge planning. Encouraged the patient to participate in milieu.
[2020-09-05] MEDS: metFORMIN 500 MG TAB PO SCH ×2 (08:58→20:09)
[2020-09-05] MEDS: PANTOPRAZOLE 40 MG TABLET PO SCH (08:58)
[2020-09-05] MEDS: NALTREXONE HCL 50 MG TAB PO SCH (08:59)
[2020-09-05] MEDS: NICOTINE 14MG/24HR PATCH TRANSDERM SCH (09:44)
[2020-09-05 12:34] LABS: Glucose,Whole Blood 131 mg/dL (75-99)
[2020-09-05] MEDS: FOLIC ACID 1 MG TAB PO SCH (12:49)
[2020-09-05] MEDS: THIAMINE 100 MG TAB PO SCH (12:49)
[2020-09-05] MEDS: MULTIVITAMINS, THERA 1 EACH TAB PO SCH (12:49)
[2020-09-05 17:31] LABS: Glucose,Whole Blood 97 mg/dL (75-99)
[2020-09-05 20:06] LABS: Glucose,Whole Blood 180 mg/dL (75-99)
[2020-09-05] MEDS ORDERED: DIVALPROEX ER 500 MG TAB.ER.24H PO SCH (21:00)
[2020-09-05] MEDS ORDERED: haloperidoL 5 MG TAB PO SCH (21:00)
[2020-09-05] MEDS: LORazepam 1 MG TAB PO PRN (23:13)
[2020-09-06] MEDS: LEVOTHYROXINE 100 MCG TAB PO SCH (06:26)
[2020-09-06 06:46] VITALS: BP 135/67; PULSE 94; TEMP 98.6
[2020-09-06] MEDS: NICOTINE 14MG/24HR PATCH TRANSDERM SCH (07:55)
[2020-09-06] MEDS: metFORMIN 500 MG TAB PO SCH (07:55)
[2020-09-06] MEDS: PANTOPRAZOLE 40 MG TABLET PO SCH (07:55)
[2020-09-06] MEDS: INSULIN ASPART (NovoLOG) 100 UNIT/ML VIAL SQ SCH ×2 (07:55→12:43)
[2020-09-06] MEDS: NALTREXONE HCL 50 MG TAB PO SCH (07:56)
[2020-09-06 07:59] LABS: Glucose,Whole Blood 131 mg/dL (75-99)
--- NOTE | 2020-09-06 09:24 | P.DS ---
Providers Date of admission: 09/02/20 22:48 Expected date of discharge: 09/06/20 Attending physician: James Alex MD Consults: 09/02/20 23:36 Consult Physician Routine Consulting Provider: Lefty Lowe Consult Reason/Comments: Medical H and P Do you want consulting provider notified?: Yes, Notify in am Primary care physician: Lefty Lowe - Discharge Diagnosis(es) (1) Schizoaffective disorder Current Visit: No Status: Acute Priority: High (2) Marijuana abuse Current Visit: No Status: Chronic Priority: Medium (3) Alcohol abuse Current Visit: Yes Status: Chronic Priority: Medium (4) Tobacco use Current Visit: Yes Status: Chronic Priority: Medium Hospital Course: Admission HPI: Patient is a 40-year-old male who currently lives with his mother and has a significant history of schizophrenia, bipolar, and depression was admitted for intentional overdose of lithium. Patient presented to the hospital on 08/31/2020 via ambulance after being discovered by his family to be lying down with emesis covering his shirt and a bowel movement in his clothing. He was unarousable and therefore EMS services were contacted. Patient states that he overdosed on lithium and possibly other medications after he was upset with his mother. Patient reported that for the last "1-2 weeks" he was feeling bored and depressed. He does admit that the overdose was intentional. He states that he attempted to overdose after being upset with his mother. He states he has been upset with his mother because she has been on his case regarding his heavy alcohol use. He is currently not endorsing any significant symptoms of depression except for low energy. He denies any anhedonia, crying episodes, hopelessness, helplessness, or any suicidal or homicidal ideation, intention, and/or plan today. He does have a significant history of schizophrenia which has been managed at home using Invega and Haldol. When exploring symptoms of psychosis, patient denies any auditory or visual hallucinations at this time. He reports no psychosis or delusions. He expresses that in the past he "listened to rap music" and was diagnosed with schizophrenia. He does endorse some years of reference in the past but is denying any other significant symptoms. After review of his chart, patient has had a history of odd behaviors and gross disorganization which is required multiple psychiatric inpatient admissions. In regards to bipolar disorder, he is not endorsing any racing thoughts, increased goal-directed behavior, impulsivity, grandiosity, or excessive energy. He does report a significant history of drug use. He has a prior history of marijuana, meth, crack cocaine, and powder cocaine use. He smokes 1-1/2 pack per day of cigarettes. He drinks significantly, including 7-8 beers per day. Hospital course: Upon admission to the unit patient was initially cooperative and pleasant. Patient was directable and agreeable to commence treatment. Patient got along well with other patients on the unit and followed unit protocol. Patient was compliant with the medications and denied any side effects throughout hospital course. Patient was started on Depakote and Invega as patient has recently overdosed on his home lithium and has done well with Depakote in the past. We're uncertain of when his last Invega cisterna was given so he was started on oral Invega to bridge. Haldol was also started on a later date and titrated up to his normal home dose. Patient spoke of [his] stressors and engaged in therapy both group and individual. Patient was also seen by medical team for history and physical exam. Once we confirmed when his next Invega Sustenna was due, we discontinued his oral Invega medication. Throughout the course of the hospitalization patient gradually improved with regards to mood, anxiety, suicidal ideation, and sleep and became future oriented with improved insight and judgment. He was agreeable to starting naltrexone for alcohol cessation. On the day of discharge patient denied any suicidal or homicidal ideations intent or plan denied any auditory or visual hallucinations. Patient endorsed wanting to live for [his health and family.] He expresses strong desire to move to a sober living community. The patient denied any access to guns or weapons. Patient denied any paranoia and did not endorse any delusions. Patient does hav e a significant history of substance abuse [however] was counseled on abstaining from all substances including alcohol and marijuana. [Patient was offered however declined inpatient substance-abuse rehab.] Patient was also counseled on the medications and need for regular compliance and was encouraged to follow-up with their outpatient appointment for mental health and also for primary care. [Prior to discharge a family meeting will be arranged by transition social worker to answer any questions and ensure safety upon discharge.] Mental status exam: General Appearance: [Patient appears to be stated age is alert, pleasant, and cooperative. Patient is in no acute distress and has fair hygiene and grooming] Behavior: [Patient is calmly seated without any agitated behavior.] Speech: Patient's speech is fluent and nonpressured. Mood/Affect: Patient reports their mood is "[much better]", affect is congruent and euthymic. Suicidality/Homicidality: Patient denies having any suicidal or homicidal id eation intent or plan. Perceptions: Patient denies any auditory or visual hallucinations. Though content/process: There is no evidence of any delusional thought content and thought process is linear and goal-directed. [more future oriented] Memory and concentration: AOX3, grossly intact for the purposes of this session. Can spell "WORLD" backwards correctly. Judgment and insight: Improved [with guarded prognosis] Impression: Schizoaffective disorder, bipolar type Alcohol use disorder Cannabis use disorder Tobacco use disorder Plan: -Continue with discharge today as patient has improved and stabilized psychiatrically and is not currently an imminent threat to [himself] and/or others. [Patient will remain at chronically elevated risk for harm to self and/or others due to his impulsivity and polysubstance abuse.] -Continue medications: Invega Sustenna 234 mg IM to be administered on 09/09/2020. Haldol 10 mg by mouth at bedtime for psychosis Depakote ER 500 mg by mouth at bedtime Benztropine when necessary -Patient was counseled on the need for medication compliance and appropriate follow-up at mental health and also primary care for medical issues. Patient verbalized understanding and agreed. -Social work to [arrange for and conduct family meeting to ensure safety upon discharge and answer any questions/concerns.] Social work also to arrange for patients follow up appointments [with [facility]] for psychiatric care along with follow up with primary care provider. -Patient counseled on abstaining from recreational drugs and marijuana and alcohol. Was informed/educated on the adverse effects on their physical and mental health. [Patient verbally agreed and understood]. [Patient was offered substance abuse treatment however declined at this time.] -Patient was instructed to return to the hospital or seek immediate medical care if their psychiatric or medical symptoms do worsen or reoccur. Vital Signs Temp 98.6 F 09/06/20 06:46 Pulse 94 09/06/20 06:46 Resp 16 09/06/20 06:46 BP 135/67 09/06/20 06:46 Pulse Ox 94 L 09/06/20 06:46 Laboratory Results WBC 9.6 k/uL (3.8-10.6) 09/04/20 12:02 RBC 4.79 m/uL (4.30-5.90) 09/04/20 12:02 Hgb 15.3 gm/dL (13.0-17.5) 09/04/20 12:02 Hct 48.7 % (39.0-53.0) 09/04/20 12:02 MCV 101.6 fL (80.0-100.0) H 09/04/20 12:02 MCH 31.8 pg (25.0-35.0) 09/04/20 12:02 MCHC 31.3 g/dL (31.0-37.0) 09/04/20 12:02 RDW 13.7 % (11.5-15.5) 09/04/20 12:02 Plt Count 188 k/uL (150-450) 09/04/20 12:02 Neutrophils % 74 % 09/04/20 12:02 Lymphocytes % 18 % 09/04/20 12:02 Monocytes % 5 % 09/04/20 12:02 Eosinophils % 1 % 09/04/20 12:02 Basophils % 1 % 09/04/20 12:02 Neutrophils # 7.1 k/uL (1.3-7.7) 09/04/20 12:02 Lymphocytes # 1.7 k/uL (1.0-4.8) 09/04/20 12:02 Monocytes # 0.5 k/uL (0-1.0) 09/04/20 12:02 Eosinophils # 0.1 k/uL (0-0.7) 09/04/20 12:02 Basophils # 0.1 k/uL (0-0.2) 09/04/20 12:02 Macrocytosis Slight 09/04/20 12:02 Sodium 139 mmol/L (137-145) 09/05/20 06:54 Potassium 4.8 mmol/L (3.5-5.1) 09/05/20 06:54 Chloride 106 mmol/L (98-107) 09/05/20 06:54 Carbon Dioxide 26 mmol/L (22-30) 09/05/20 06:54 Anion Gap 7 mmol/L 09/05/20 06:54 BUN 8 mg/dL (9-20) L 09/05/20 06:54 Creatinine 0.81 mg/dL (0.66-1.25) 09/05/20 06:54 Est GFR (CKD-EPI)AfAm >90 (>60 ml/min/1.73 sqM) 09/05/20 06:54 Est GFR (CKD-EPI)NonAf >90 (>60 ml/min/1.73 sqM) 09/05/20 06:54 Glucose 132 mg/dL (74-99) H 09/05/20 06:54 POC Glucose (mg/dL) 131 mg/dL (75-99) H 09/06/20 07:47 POC Glu Psychologist Research Assistant EDGAR Wen Akins 09/06/20 07:[address] Glu mg/dL 169 09/04/20 12:02 Hemoglobin A1c 7.5 % (4.0-6.0) H 09/04/20 12:02 Calcium 8.7 mg/dL (8.4-10.2) 09/05/20 06:54 Total Bilirubin 0.6 mg/dL (0.2-1.3) 09/05/20 06:54 AST 34 U/L (17-59) 09/05/20 06:54 ALT 38 U/L (4-49) 09/05/20 06:54 Alkaline Phosphatase 76 U/L (38-126) 09/05/20 06:54 Total Protein 5.9 g/dL (6.3-8.2) L 09/05/20 06:54 Albumin 3.3 g/dL (3.5-5.0) L 09/05/20 06:54 Allergies Allergy/AdvReac Type Severity Reaction Status Date / Time No Known Allergies Allergy Verified 08/31/20 08:12 Patient Condition at Discharge: Stable Plan - Discharge Summary New Discharge Prescriptions: New Divalproex ER [Depakote ER] 500 mg PO HS 30 Days tab.er.24h Nicotine 14Mg/24Hr Patch [Habitrol] 1 patch TRANSDERM DAILY 30 Days patch Naltrexone HCl [Revia] 50 mg PO DAILY 30 Days tab Continue Benztropine Mesylate [Cogentin] 1 mg PO BID 30 Days tab haloperidoL [Haldol] 10 mg PO HS 30 Days tab Paliperidone IM [Invega Sustenna] 234 mg IM Q28D #1 ml Levothyroxine Sodium 200 mcg PO DAILY 30 Days tab metFORMIN HCL [metFORMIN HCL ER] 500 mg PO BID 30 Days tab Discontinued [place] Carbonate 1,200 mg PO HS Albuterol Sulfate [Proair Hfa] 2 puff INHALATION RT-QID PRN PRN Reason: Shortness Of Breath Amoxic-Pot Clav 875-125Mg [Augmentin 875-125] 1 each PO Q12HR #10 tab Nicotine 21Mg/24Hr Patch [Habitrol] 1 patch TRANSDERM DAILY patch Discharge Medication List Benztropine Mesylate [Cogentin] 1 mg PO BID 30 Days tab 09/06/20 [Rx] Divalproex ER [Depakote ER] 500 mg PO HS 30 Days tab.er.24h 09/06/20 [Rx] Levothyroxine Sodium 200 mcg PO DAILY 30 Days tab 09/06/20 [Rx] Naltrexone HCl [Revia] 50 mg PO DAILY 30 Days tab 09/06/20 [Rx] Nicotine 14Mg/24Hr Patch [Habitrol] 1 patch TRANSDERM DAILY 30 Days patch 09/06/20 [Rx] Paliperidone IM [Invega Sustenna] 234 mg IM Q28D #1 ml 09/06/20 [Rx] haloperidoL [Haldol] 10 mg PO HS 30 Days tab 09/06/20 [Rx] metFORMIN HCL [metFORMIN HCL ER] 500 mg PO BID 30 Days tab 09/06/20 [Rx] Activity/Diet/Wound Care/Special Instructions: Activity and diet as tolerated. Avoid the use of street drugs and alcohol. Take all medications as prescribed. When you are in need of refills on your medications please contact your medical provider and/or outpatient psychiatrist to have this done. Please go to scheduled outpatient appointment for aftercare treatment. If symptoms return or become worse, call the crisis line at and/or go to the nearest emergency room for evaluation.
[2020-09-06] MEDS: FOLIC ACID 1 MG TAB PO SCH (12:43)
[2020-09-06] MEDS: MULTIVITAMINS, THERA 1 EACH TAB PO SCH (12:43)
[2020-09-06] MEDS: THIAMINE 100 MG TAB PO SCH (12:43)
[2020-09-06 12:51] LABS: Glucose,Whole Blood 95 mg/dL (75-99)
== END 2020-09-06 15:19 | disposition home or self-care (01) | DRG 885 ==
LOC: 3MHU 22:48
PROVIDERS: ADMIT Psychiatry & Neurology Psychiatry; ATTEND Psychiatry & Neurology Psychiatry
DX: F25.0 Schizoaffective disorder, bipolar type (principal); E11.9 Type 2 diabetes mellitus without complications; Z91.19 Patient's noncompliance with other medical treatment and regimen; T43.592A Poisoning by other antipsychotics and neuroleptics, intentional self-harm, initial encounter; F14.10 Cocaine abuse, uncomplicated; J44.9 Chronic obstructive pulmonary disease, unspecified; F10.10 Alcohol abuse, uncomplicated; F12.10 Cannabis abuse, uncomplicated; F17.210 Nicotine dependence, cigarettes, uncomplicated; E03.9 Hypothyroidism, unspecified; G47.00 Insomnia, unspecified; F41.9 Anxiety disorder, unspecified; Z98.890 Other specified postprocedural states; R45.87 Impulsiveness; Z79.890 Hormone replacement therapy; Z79.84 Long term (current) use of oral hypoglycemic drugs; Z79.899 Other long term (current) drug therapy; Z81.8 Family history of other mental and behavioral disorders
CPT/HCPCS: 80053; 83036; 85025

== ENCOUNTER 2023-12-10 13:33 | Inpatient (IN) | payer MEDICAID ==
[2023-12-10] MEDS ORDERED: MAG HYDROX/AL HYDROX/SIMETH 30 ML CUP PO PRN (13:42)
[2023-12-10] MEDS ORDERED: MAGNESIUM HYDROXIDE 2,400 MG/30 ML CUP PO PRN (13:42)
[2023-12-10] MEDS: DIVALPROEX ER 500 MG TAB.ER.24H PO SCH (20:45)
[2023-12-10] MEDS: CEPHALEXIN 500 MG CAP PO SCH (20:45)
[2023-12-10] MEDS: haloperidoL 5 MG TAB PO SCH (20:45)
[2023-12-10] MEDS: VENLAFAXINE HCL 37.5 MG TAB PO SCH ×2 (20:46→20:49)
--- NOTE | 2023-12-10 21:39 | US ---
EXAMINATION TYPE: US venous doppler duplex UE RT DATE OF EXAM: 12/10/2023 Exam done portable in MHU COMPARISON: NONE CLINICAL INDICATION: Male, 43 years old with history of R/O blood clot; Right arm pain, swelling and redness SIDE PERFORMED: Right Right Arm: Appears negative for DVT Thrombus seen within cephalic vein IMPRESSION: 1. Right upper extremity deep venous ultrasound negative for deep venous thrombosis. 2. Note is made of thrombus within the superficial cephalic vein.
[2023-12-11] MEDS: ACETAMINOPHEN TAB 325 MG TAB PO PRN ×2 (08:15→20:33)
[2023-12-11] MEDS: NICOTINE 21MG/24HR PATCH TRANSDERM SCH (08:16)
[2023-12-11] MEDS: PANTOPRAZOLE 40 MG TABLET PO SCH (08:16)
[2023-12-11] MEDS: CEPHALEXIN 500 MG CAP PO SCH ×3 (08:16→20:30)
[2023-12-11] MEDS: NALTREXONE HCL 50 MG TAB PO SCH (08:16)
[2023-12-11] MEDS: VENLAFAXINE HCL 37.5 MG TAB PO SCH ×2 (08:16→15:22)
[2023-12-11] MEDS: BENZTROPINE MESYLATE 1 MG TAB PO SCH (08:16)
[2023-12-11 16:28] LABS: Basophils % (A) 0 %; Eosinophils # (A) 0.1 k/uL (0-0.7); Eosinophils % (A) 1 %; HCT 42.7 % (39.0-53.0); HGB 14.7 gm/dL (13.0-17.5); Lymphocytes # (A) 1.1 k/uL (1.0-4.8); Lymphocytes % (A) 11 %; MCH 34.6 pg (25.0-35.0); MCHC 34.4 g/dL (31.0-37.0); MCV 100.7 fL (80.0-100.0); Mean Platelet Volume 8.1; Monocytes # (A) 0.8 k/uL (0-1.0); Monocytes % (A) 8 %; Neutrophils # (A) 7.8 k/uL (1.3-7.7); Neutrophils % (A) 79 %; Platelet Count 187 k/uL (150-450); RBC 4.24 m/uL (4.30-5.90); RDW 12.7 % (11.5-15.5); WBC 9.9 k/uL (3.8-10.6)
[2023-12-11 16:45] LABS: ALT 24 U/L (4-49); AST 21 U/L (17-59); African American GFR (CKD) >90 (>60 ml/min/1.73 sqM); Albumin 3.2 g/dL (3.5-5.0); Alkaline Phosphatase 66 U/L (38-126); Anion Gap 9 mmol/L; Blood Urea Nitrogen 9 mg/dL (9-20); C Reactive Protein 7.3 mg/dL (<1.0); Calcium 8.8 mg/dL (8.4-10.2); Carbon Dioxide 25 mmol/L (22-30); Chloride 103 mmol/L (98-107); Glucose 143 mg/dL (74-99); Non-African American GFR(CKD) >90 (>60 ml/min/1.73 sqM); Potassium 4.2 mmol/L (3.5-5.1); Sodium 137 mmol/L (137-145); Total Bilirubin 0.4 mg/dL (0.2-1.3); Total Protein 5.8 g/dL (6.3-8.2)
[2023-12-11] MEDS ORDERED: guaiFENesin-DM 100-10MG/5ML 10 ML CUP PO PRN (18:18)
--- NOTE | 2023-12-11 18:51 | P.HP ---
Psychiatric H&P - . H&P Date: 12/11/23 History & Physical: Allergies Allergy/AdvReac Type Severity Reaction Status Date / Time No Known Allergies Allergy Verified 12/10/23 15:58 Vital Signs Temp 98.1 F 12/11/23 08:22 Pulse 144 H 12/11/23 08:22 Resp 16 12/11/23 08:22 BP 105/66 12/11/23 08:22 Pulse Ox 93 L 12/11/23 06:15 FiO2 Intake & Output 12/10/23 12/11/23 12/11/23 18:59 06:59 18:59 Weight 110.677 kg 12/11/23 09:31 IDENTIFYING DATA: Patient is a single, 43-year-old male who is presenting with suicidal attempt HPI: Patient was medically hospitalized at [facility] after overdosing on numerous psychiatric medications in a suicide attempt. EKG on 12/10/23 showed QTc of 414 (it was 499 on 12/08/23). Abraham says that he overdosed on Haldol, Depakote and "whatever I could get my hands on" because he is feeling depressed. He endorses that it was a suicide attempt. He repeatedly states that it was due to "day-to-day stuff was getting stressful " and is unable to elaborate further. Patient is quite concrete in his thinking and says that he had not been planning this suicide attempt. He reports having taken what was left in the bottles of medications he could get his hands on. He is unable to recall names of all of his medications. He says in a childlike manner "I'll never do it again". Regarding substance use, he reports drinking 6 pack wine coolers beer every week and smoking 3 joints daily. He says he has been feeling more depressed over the past 1 month. He otherwise reports doing well including having good appetite, good sleep, good energy levels. 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 He says, nonchalantly, that his mother must have found him when he overdosed because the bottles were left on the counter. Patient denies suicidal ideation currently. He also denies homicidal ideation. He endorses auditory hallucinations that are negative at times. He denies visual hallucinations. He denies paranoia. He denies recent symptoms consistent with bipolar disorder, but admits that he is often impulsive. PAST PSYCHIATRIC HISTORY: Per chart- Patient states that he is diagnosed with schizophrenia, bipolar, and depression. He was previously prescribed Invega, Haldol, lithium, and benztropine. He has also had trials of Depakote and Seroquel. He has had prior inpatient psychiatric treatment here on 3 W 5 times prior to this admission. He was last admitted to our unit at [facility] in August 2020 due to intentional overdose of lithium. At the time, he was discharged on Invega Sustenna, Haldol 10 mg at bedtime, Depakote 500 mg at bedtime, and benztropine as needed. He is currently open with [facility] and sees Dr. Lynne. He is currently on benztropine 1 mg, Depakote ER 5 mg, Haldol 10 mg, Invega sustenna 234 mg, naltrexone 50 mg, and Pristiq 50 mg. PMH:denies ALLERGIES: as per EMR CHEMICAL DEPENDENCY HISTORY: He does report a significant history of drug use. He has a prior history of marijuana, meth, crack cocaine, and powder cocaine use. He smokes 1-1/2 pack per day of cigarettes. He drinks 6 pas in a week, but hx of drinking more. FAMILY PSYCHIATRIC/SUBSTANCE USE HISTORY: denies SOCIAL HISTORY: Patient was born and raised in [place]. He currently lives with his mother and helps his mother who is on dialysis. He is receiving SSI. He has completed 12th grade education. Reports having 2 teenage children. He has 2 siblings. Never MENTAL STATUS EXAM: General Appearance: Patient appears to be older than stated age is alert, directable, and attempts to cooperate. Patient appears to have poor hygiene and grooming. Malodorous Behavior: Patient is seated without any agitated behavior. Speech: Patient's speech is fluent and nonpressured. Mood/Affect: Patient reports their mood is "depressed I guess", affect is constricted. Suicidality/Homicidality: Patient denies having any homicidal ideation intent or plan. Denies any current suicidal ideation intent or plan Perceptions: Patient denies any visual hallucinations and denies any recent auditory hallucinations Though content/process: There is no evidence of any delusional thought content and thought process is linear and goal-directed. [place] Memory and concentration: AOX3, grossly intact for the purposes of this session. Judgment and insight: Poor, impulsive STRENGTHS/WEAKNESSES: Family support is a strength. Substance use is a weakness INTELLECT: below average IMPRESSIONS: Schizoaffective disorder, bipolar type Alcohol use disorder Intellectual disability, mild Cannabis use disorder Tobacco use disorder PLAN: -Patient is admitted under voluntary status to MHU for stabilization of psychiatric symptoms and safety. Patient signed adult voluntary form and medication consent and is placed in patient's chart. -Medications : Haldol 10 mg qHS Depakote 500 mg qHS Naltrexone 50 mg daily Change Effexor to 75 mg daily Invega Sustenna 234 mg q28d last received 12/02/23, next due 12/30/23 - NRT - Repeat EKG for tachycardia reveals sinus tachy with QTc 397 - ID & Medicine on board for cellulitis -Patient was counselled on substance abuse and desired to cut back on use. Motivational interviewing. -Patient was informed of the risks, benefits and side effects of the medication and patient verbally consented to taking the medications. Patient signed med consent form and was placed in chart. -Internal Medicine consult to perform medical evaluation and physical. -SW on board for discharge planning. Encourage patient to participate in groups to work on coping skills. 12/11/23 17:40 12/11/23 18:49
[2023-12-11] MEDS: DIVALPROEX ER 500 MG TAB.ER.24H PO SCH (20:30)
[2023-12-11] MEDS: haloperidoL 5 MG TAB PO SCH (20:31)
--- NOTE | 2023-12-11 22:37 | P.CONS ---
History of Present Illness - Reason for Consult Consult date: 12/11/23 - History of Present Illness Patient is a 43-year-old male with a past medical history significant for COPD insomnia, admitted to the mental health unit after having the patient overdosed on Haldol and Depakote as suicide attempt, the patient mention did today. Was getting stressful patient was also noticed to have swelling and redness to the right antecubital. With the patient tells me that he was admitted to the hospital and there was an IV at that site there was subsequently moved and he did have developed swelling or redness however he is not very clear which days he was admitted to the hospital and when specifically he has developed the swelling and redness patient has been complaining of pain to the area to be more of a throbbing to dull aching moderate intensity without any radiation with associated swelling redness and no drainage on presentation to the hospital he did have low-grade fever 100.1 F, patient was tachycardic, the patient was started on oral Keflex infectious disease was consulted for further management of antibiotic therapy for the right lower extremity cellulitis Past Medical History Past Medical History: Unable to Obtain Additional Past Medical History / Comment(s): cyst foot, insomnia, possible COPD, overdose History of Any Multi-Drug Resistant Organisms: None Reported Past Surgical History: Unable to Obtain Additional Past Surgical History / Comment(s): ORIF of the ankle Past Anesthesia/Blood Transfusion Reactions: No Reported Reaction Smoking Status: Current every day smoker - Past Family History Father Family Medical History: Unable to Obtain (Father is 70 years old and is currently in rehab following surgery.) Mother Family Medical History: No Reported History (Mother is 57 years old and healthy.) Additional Family Medical History / Comment(s): Patient has 3 brothers and one sister with no major medical problems. Medications and Allergies Home Medications Medication Instructions Recorded Confirmed Type Benztropine Mesylate [Cogentin] 1 mg PO BID 30 Days tab 09/06/20 Rx Divalproex ER [Depakote ER] 500 mg PO HS 30 Days tab.er.24h 09/06/20 Rx Levothyroxine Sodium 200 mcg PO DAILY 30 Days tab 09/06/20 Rx Naltrexone HCl [Revia] 50 mg PO DAILY 30 Days tab 09/06/20 Rx Nicotine 14Mg/24Hr Patch [Habitrol] 1 patch TRANSDERM DAILY 30 Days 09/06/20 Rx patch Paliperidone IM [Invega Sustenna] 234 mg IM Q28D #1 ml 09/06/20 Rx haloperidoL [Haldol] 10 mg PO HS 30 Days tab 09/06/20 Rx metFORMIN HCL [metFORMIN HCL ER] 500 mg PO BID 30 Days tab 09/06/20 Rx Allergies Allergy/AdvReac Type Severity Reaction Status Date / Time No Known Allergies Allergy Verified 12/10/23 15:58 Physical Exam Vitals: Vital Signs Temp Pulse Pulse Resp BP Pulse Ox 12/11/23 11:15 98.2 F 98 16 120/59 12/11/23 08:22 98.1 F 144 H 16 105/66 12/11/23 06:15 99.1 F 122 H 20 118/67 93 L 12/10/23 23:51 100.1 F H 12/10/23 18:58 97.9 F 100 20 120/77 Results CBC & Chem 7: 12/11/23 16:08 12/11/23 16:08 Assessment and Plan Plan: 1patient admitted to the mental health unit for suicidal and this patient also noticed to have a extensive cellulitis to the right upper extremity more likely started with an IV to the right antecubital. However is not very clear where and what the patient was admitted and evaluated the cellulitis started 2-we will obtain blood cultures to make sure the patient not bacteremic check a CRP CBC and a CMP 3-marked area of redness, nursing staff has been advised if any worsening redness to notify me right away as the patient will likely need admitted by therapy at that point 4-we will increase the dose of Keflex to 500 mg p.o. every 6 hours We will follow on clinical condition and cultures to further adjust medication if needed Thank you for this consultation we will follow the patient along with you Dictation was produced using [employer] dictation software. please excuse any grammatical, word or spelling errors. Time with Patient: Greater than 30
[2023-12-12] MEDS: ACETAMINOPHEN TAB 325 MG TAB PO PRN (02:42)
[2023-12-12] MEDS: CEPHALEXIN 500 MG CAP PO SCH ×2 (03:00→08:57)
[2023-12-12 05:47] VITALS: BP 126/62; PULSE 86; RESP 16; TEMP 98.6
--- NOTE | 2023-12-12 06:28 | P.CONS ---
History of Present Illness - History of Present Illness This is a pleasant 43 years old male with past medical history of schizoaffec tive disorder Patient was in the care of [facility] 12/07-12/10. He admitted therefore and he was found unresponsive at home, for empty bottles of medication were at patient side. Patient was diagnosed with polysubstance overdose in an attempt to commit suicide with suicidal ideation. He was treated temporarily in the ICU for acute hypoxic respiratory failure on mechanical ventilation, he was extubated on 12/08/23. And then patient was transferred to this facility for psychiatric treatment Review of Systems Review of systems CONSTITUTIONAL: No fever, no malaise, no fatigue. HEENT: No recent visual problems or hearing problems. Denied any sore throat. CARDIOVASCULAR: No orthopnea, PND, no palpitations, no syncope. PULMONARY: No shortness of breath, no cough, no hemoptysis. GASTROINTESTINAL: No diarrhea, no nausea, no vomiting, no abdominal pain. Normoactive bowel sounds. NEUROLOGICAL: No headaches, no weakness, no numbness. HEMATOLOGICAL: Denies any bleeding or petechiae. GENITOURINARY: Denies any burning micturition, frequency, or urgency. MUSCULOSKELETAL/RHEUMATOLOGICAL: Denies any joint pain, swelling, or any muscle pain. ENDOCRINE: Denies any polyuria or polydipsia. Past Medical History Past Medical History: Unable to Obtain Additional Past Medical History / Comment(s): cyst foot, insomnia, possible COPD, overdose History of Any Multi-Drug Resistant Organisms: None Reported Past Surgical History: Unable to Obtain Additional Past Surgical History / Comment(s): ORIF of the ankle Smoking Status: Current every day smoker - Past Family History Father Family Medical History: Unable to Obtain (Father is 70 years old and is currently in rehab following surgery.) Mother Family Medical History: No Reported History (Mother is 57 years old and healthy.) Additional Family Medical History / Comment(s): Patient has 3 brothers and one sister with no major medical problems. Medications and Allergies Home Medications Medication Instructions Recorded Confirmed Type RX: Benztropine Mesylate [Cogentin] 1 mg PO BID 30 Days tab 09/06/20 Rx RX: Divalproex ER [Depakote ER] 500 mg PO HS 30 Days tab.er.24h 09/06/20 Rx RX: Levothyroxine Sodium 200 mcg PO DAILY 30 Days tab 09/06/20 Rx RX: Naltrexone HCl [Revia] 50 mg PO DAILY 30 Days tab 09/06/20 Rx RX: Nicotine 14Mg/24Hr Patch 1 patch TRANSDERM DAILY 30 Days 09/06/20 Rx [Habitrol] patch RX: Paliperidone IM [Invega 234 mg IM Q28D #1 ml 09/06/20 Rx Sustenna] RX: haloperidoL [Haldol] 10 mg PO HS 30 Days tab 09/06/20 Rx RX: metFORMIN HCL [metFORMIN HCL 500 mg PO BID 30 Days tab 09/06/20 Rx ER] Allergies Allergy/AdvReac Type Severity Reaction Status Date / Time No Known Allergies Allergy Verified 12/10/23 15:58 Physical Exam Vitals: Vital Signs Temp Pulse Resp BP Pulse Ox 12/11/23 06:15 99.1 F 122 H 20 118/67 93 L 12/10/23 23:51 100.1 F H 12/10/23 18:58 97.9 F 100 20 120/77 Intake and Output 12/10/23 12/11/23 12/11/23 22:59 06:59 14:59 Other: Weight 110.677 kg GENERAL: The patient is alert and oriented x3, not in any acute distress. Well developed, well nourished. HEENT: Pupils are round and equally reacting to light. EOMI. No scleral icterus. No conjunctival pallor. Normocephalic, atraumatic. No pharyngeal erythema. No thyromegaly. CARDIOVASCULAR: S1 and S2 present. No murmurs, rubs, or gallops. PULMONARY: Chest is clear to auscultation, no wheezing , no crackles. ABDOMEN: Soft, nontender, nondistended, normoactive bowel sounds. No palpable organomegaly. MUSCULOSKELETAL: No joint swelling or deformity. -EXTREMITIES: No cyanosis, clubbing, or pedal edema. Redness swelling and tenderness in the right upper extremity and the right cubital fossa extending into the distal arm anteriorly NEUROLOGICAL: Gross neurological examination did not reveal any focal deficits. SKIN: No rashes. no petechiae. Results CBC & Chem 7: 12/11/23 16:08 12/11/23 16:08 Assessment and Plan Assessment: schizoaffective disorder Cellulitis of the right upper extremity Recent history of respiratory failure status post brief period of mechanical ventilation, currently on room air. Obesity with BMI of 38.2 Plan: Continue with Keflex Infectious disease consult Psychiatric team primary team following the patient closely DVT prophylaxis: Patient is mobile We recommend patient follow up with PCP in one week after discharge Thank you for consulting us
[2023-12-12] MEDS: NICOTINE 21MG/24HR PATCH TRANSDERM SCH (08:57)
[2023-12-12] MEDS: BENZTROPINE MESYLATE 1 MG TAB PO SCH (08:57)
[2023-12-12] MEDS: PANTOPRAZOLE 40 MG TABLET PO SCH (08:57)
[2023-12-12] MEDS: NALTREXONE HCL 50 MG TAB PO SCH (08:57)
[2023-12-12] MEDS ORDERED: VENLAFAXINE HCL ER 75 MG CAP PO SCH (09:00)
[2023-12-12] MEDS ORDERED: NICOTINE 14MG/24HR PATCH TRANSDERM SCH (09:15)
--- NOTE | 2023-12-12 17:37 | P.DS ---
Providers Date of admission: 12/10/23 18:45 Attending physician: Jarek Wynn MD Consults: 12/10/23 13:42 Consult Physician Routine Consulting Provider: Mekhi Muñoz Consult Reason/Comments: H & P w/medication and medical management Do you want consulting provider notified?: Yes 12/11/23 14:59 Consult Physician Routine Consulting Provider: Joana Cole Consult Reason/Comments: right upper ext cellulitis Do you want consulting provider notified?: Already Contacted Primary care physician: Lefty Lowe - Discharge Diagnosis(es) (1) Schizoaffective disorder Status: Chronic Priority: High Hospital Course: Admission HPI: Admission note was completed by this typewriters functional tester yesterday: "Patient was medically hospitalized at [facility] after overdosing on numerous psychiatric medications in a suicide attempt. EKG on 12/10/23 showed QTc of 414 (it was 499 on 12/08/23). Abraham says that he overdosed on Haldol, Depakote and "whatever I could get my hands on" because he is feeling depressed. He endorses that it was a suicide attempt. He repeatedly states that it was due to "day-to-day stuff was getting stressful " and is unable to elaborate further. Patient is quite concrete in his thinking and says that he had not been planning this suicide attempt. He reports having taken what was left in the bottles of medications he could get his hands on. He is unable to recall names of all of his medications. He says in a childlike manner "I'll never do it again". Regarding substance use, he reports drinking 6 pack wine coolers beer every week and smoking 3 joints daily. He says he has been feeling more depressed over the past 1 month. He otherwise reports doing well including having good appetite, good sleep, good energy levels. 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 He says, nonchalantly, that his mother must have found him when he overdosed because the bottles were left on the counter. Patient denies suicidal ideation currently. He also denies homicidal ideation. He endorses auditory hallucinations that are negative at times. He denies visual hallucinations. He denies paranoia. He denies recent symptoms consistent with bipolar disorder, but admits that he is often impulsive." Hospital course: Upon admission to the unit patient was directable and agreeable to commence treatment and signed adult voluntary form. Patient got along well with other patients on the unit and followed unit protocol. Patient was compliant with the medications and denied any side effects throughout hospital course. Patient was resumed on home medication including Haldol 10 mg at bedtime, Depakote 5 mg at bedtime, naltrexone 50 g daily, and Effexor was changed to 75 mg daily. He also last received Invega Sustenna 234 mg on 12/02/23 and it is due on 12/30/23 per [facility] records. Patient was also seen by medical team for history and physical exam. Patient was given oral Keflex for right extremity infection. However, infectious diseases evaluated the patient and deemed him necessary for transfer to the medical floor for IV antibiotics for cellulitis. On the day of discharge patient denied any suicidal or homicidal ideations intent or plan denied any auditory or visual hallucinations. Patient endorsed wanting to live for his mother and to be able to see her again. The patient denied any access to guns or weapons. Patient denied any paranoia and did not endorse any delusions. Patient has a history of polysubstance use and currently uses tobacco products and alcohol. He was counseled on abstaining from all substances including alcohol and marijuana. Patient was also counseled on the medications and need for regular compliance and was encouraged to follow-up with their outpatient appointment for mental health and also for primary care. Patient will be transferred to the medical floor and may be consulted for psychiatry at that point for further mental health stabilization as deemed necessary or appropriate. Mental status exam: General Appearance: Patient appears to be stated age is alert, pleasant, and cooperative. Patient is in no acute distress and has improved hygiene and grooming Behavior: Patient is calmly seated without any agitated behavior. Speech: Patient's speech is fluent and nonpressured. Mood/Affect: Patient reports their mood is "doing okay", affect is congruent and euthymic. Suicidality/Homicidality: Patient denies having any suicidal or homicidal ideation intent or plan. "I won't hurt myself again" Perceptions: Patient denies any auditory or visual hallucinations. Though content/process: There is no evidence of any delusional thought content and thought process is linear and goal-directed. Memory and concentration: AOX3, grossly intact for the purposes of this session. Judgment and insight: chronically poor Impression: Schizoaffective disorder, bipolar type Alcohol use disorder Intellectual disability, mild Cannabis use disorder Nicotine dependence Plan: -Continue with transfer today due to medical necessity. Patient will remain at chronically elevated risk for harm to self and/or others due to his impulsivity and polysubstance abuse. Strongly recommend for psychiatry to be consulted given patient's recent suicide attempt via overdose -Continue medications: Haldol 10 mg qHS Depakote 500 mg qHS Naltrexone 50 mg daily Effexor 75 mg daily Invega Sustenna 234 mg q28d last received 12/02/23, next due 12/30/23 -Patient was counseled on the need for medication compliance and appropriate follow-up at mental health and also primary care for medical issues. Patient verbalized understanding and agreed. -Patient counseled on abstaining from recreational drugs and marijuana and alcohol. Was informed/educated on the adverse effects on their physical and mental health. Patient verbally agreed and understood. -Patient was instructed to return to the hospital or seek immediate medical care if their psychiatric or medical symptoms do worsen or reoccur. Health Concerns: Cellulitis Patient Condition at Discharge: Fair Plan - Discharge Summary Discharge Rx Participant: No New Discharge Prescriptions: New Venlafaxine HCl ER [Effexor Xr] 75 mg PO DAILY 30 Days #30 cap Continue Divalproex ER [Depakote ER] 500 mg PO HS 30 Days tab.er.24h Naltrexone HCl [Revia] 50 mg PO DAILY 30 Days tab haloperidoL [Haldol] 10 mg PO HS 30 Days tab Paliperidone IM [Invega Sustenna] 234 mg IM Q28D #1 ml Benztropine Mesylate [Cogentin] 1 mg PO DAILY Discontinued Desvenlafaxine Succinate [Pristiq ER] 50 mg PO DAILY Discharge Medication List Divalproex ER [Depakote ER] 500 mg PO HS 30 Days tab.er.24h 09/06/20 [Rx] Naltrexone HCl [Revia] 50 mg PO DAILY 30 Days tab 09/06/20 [Rx] Paliperidone IM [Invega Sustenna] 234 mg IM Q28D #1 ml 09/06/20 [Rx] haloperidoL [Haldol] 10 mg PO HS 30 Days tab 09/06/20 [Rx] Benztropine Mesylate [Cogentin] 1 mg PO DAILY 01/14/24 [History] Venlafaxine HCl ER [Effexor Xr] 75 mg PO DAILY 30 Days #30 cap 12/12/23 [Rx] Follow up Appointment(s)/Referral(s): Lefty Lowe DO [Primary Care Provider] - 1 Week (Follow up with PCP within one week post hospitalization) Patient Instructions/Handouts: How to Stop Smoking (DC), Depression (DC) Discharge/Stand Alone Forms: AA Meetings [place] Discharge Disposition: OTHER INSTITUTION NOT DEFINED Plan of Treatment: 12/12/23 12:42 PM [facility] [phone] From: Sary RE: Abraham Belem 1980 Patient [place] [facility] [place] RM: 302-2 hospital manager just wanted it documented and confirmed that this pt does not require a industrial safety and health manager while transferred to the medical floor as discussed while you were on the unit and per the covering Psychiatrist, Dr. Roberts. Burlap Roll Coverer also assessed pt and he denies SI and admits that he overdosed "because I was drinking too much coffee and didn't sleep for one week." Pt regretful and acknowledges he has no thoughts or plans to attempt self harm. No industrial safety and health manager needed for transfer on the medical unit. Thanks.
== END 2023-12-12 15:06 | disposition short-term general hospital (02) | DRG 750 ==
LOC: 3MHU 18:45
PROVIDERS: ADMIT Psychiatry & Neurology Psychiatry; ATTEND Psychiatry & Neurology Psychiatry
DX: F25.0 Schizoaffective disorder, bipolar type (principal); F10.10 Alcohol abuse, uncomplicated; F12.90 Cannabis use, unspecified, uncomplicated; F70 Mild intellectual disabilities; F17.210 Nicotine dependence, cigarettes, uncomplicated; E66.9 Obesity, unspecified; Z68.38 Body mass index [BMI] 38.0-38.9, adult; J44.9 Chronic obstructive pulmonary disease, unspecified; L03.113 Cellulitis of right upper limb; R45.851 Suicidal ideations; T43.4X1A Poisoning by butyrophenone and thiothixene neuroleptics, accidental (unintentional), initial encounter; Z79.84 Long term (current) use of oral hypoglycemic drugs; Z79.890 Hormone replacement therapy; Z79.899 Other long term (current) drug therapy; Z91.51 Personal history of suicidal behavior
CPT/HCPCS: 80053; 85025; 86140; 87040

== ENCOUNTER 2023-12-10 15:52 | Emergency (ER) | payer OTHER ==
[2023-12-10 16:16] VITALS: BP 105/65; PULSE 104; RESP 22; TEMP 98
== END 2023-12-10 17:59 | disposition other institution (70) ==
LOC: EC 15:52
DX: Z53.9 Procedure and treatment not carried out, unspecified reason (principal)
CPT/HCPCS: 80306; 99499

== ENCOUNTER 2023-12-12 11:46 | Inpatient (IN) | payer OTHER ==
[2023-12-12] MEDS ORDERED: VANCOMYCIN IV PER PHARMACY 1 EACH MISC MISCELLANE PRN (16:20)
--- NOTE | 2023-12-12 16:40 | P.HPIM ---
History of Present Illness This is a pleasant 43 years old male with past medical history of schizoaffective disorder Patient was seen yesterday by me as a medical consult in the psych unit. Initially Patient was admitted to [facility] 12/07-12/10. He admitted ther because he was found unresponsive at home, with four empty bottles of medication were at patient side. Patient was diagnosed with polysubstance overdose in an attempt to commit suicide He was treated temporarily in the ICU for acute hypoxic respiratory failure on mechanical ventilation, he was extubated on 12/08/23. Patient patient was transferred [facility]/psych unit and 3 W.And then patient was transferred to this facility for psychiatric treatment I saw him for the consult and he had cellulitis on the right upper extremity, in the right antecubital fossa extending proximally to the distal arm and distally to the forearm. Infectious disease consult was obtained as well. He was treated with oral Keflex 500 mg however patient cellulitis was worsening today. As per discussions with ID team recommended IV antibiotic therefore patient was transferred today to the general medical floor. Patient was awake alert walking in the hallway with no problem He has extensive cellulitis in the right antecubital fossa extending into the right distal arm and the proximal right forearm with some area of induration. Condition is hemodynamically stable As per psych team patient can be transferred to the general medical floor, he does not need sitter or suicidal pre-cautions Review of Systems Review of systems CONSTITUTIONAL: No fever, no malaise, no fatigue. HEENT: No recent visual problems or hearing problems. Denied any sore throat. CARDIOVASCULAR: No orthopnea, PND, no palpitations, no syncope. PULMONARY: No shortness of breath, no cough, no hemoptysis. GASTROINTESTINAL: No diarrhea, no nausea, no vomiting, no abdominal pain. Normoactive bowel sounds. NEUROLOGICAL: No headaches, no weakness, no numbness. HEMATOLOGICAL: Denies any bleeding or petechiae. GENITOURINARY: Denies any burning micturition, frequency, or urgency. MUSCULOSKELETAL/RHEUMATOLOGICAL: Denies any joint pain, swelling, or any muscle pain. ENDOCRINE: Denies any polyuria or polydipsia. Past Medical History Past Medical History: Unable to Obtain Additional Past Medical History / Comment(s): cyst foot, insomnia, possible COPD, overdose History of Any Multi-Drug Resistant Organisms: None Reported Past Surgical History: Unable to Obtain Additional Past Surgical History / Comment(s): ORIF of the ankle Past Anesthesia/Blood Transfusion Reactions: No Reported Reaction Smoking Status: Current every day smoker - Past Family History Father Family Medical History: Unable to Obtain (Father is 70 years old and is currently in rehab following surgery.) Mother Family Medical History: No Reported History (Mother is 57 years old and healthy.) Additional Family Medical History / Comment(s): Patient has 3 brothers and one sister with no major medical problems. Medications and Allergies Home Medications Medication Instructions Recorded Confirmed Type Benztropine Mesylate [Cogentin] 1 mg PO BID 30 Days tab 09/06/20 Rx Divalproex ER [Depakote ER] 500 mg PO HS 30 Days tab.er.24h 09/06/20 Rx Levothyroxine Sodium 200 mcg PO DAILY 30 Days tab 09/06/20 Rx Naltrexone HCl [Revia] 50 mg PO DAILY 30 Days tab 09/06/20 Rx Nicotine 14Mg/24Hr Patch [Habitrol] 1 patch TRANSDERM DAILY 30 Days 09/06/20 Rx patch Paliperidone IM [Invega Sustenna] 234 mg IM Q28D #1 ml 09/06/20 Rx haloperidoL [Haldol] 10 mg PO HS 30 Days tab 09/06/20 Rx metFORMIN HCL [metFORMIN HCL ER] 500 mg PO BID 30 Days tab 09/06/20 Rx Allergies Allergy/AdvReac Type Severity Reaction Status Date / Time No Known Allergies Allergy Verified 12/10/23 15:58 Physical Exam Vitals: Intake and Output 12/12/23 12/12/23 12/12/23 06:59 14:59 22:59 Other: Weight 106.594 kg GENERAL: The patient is alert and oriented x3, not in any acute distress. Well developed, well nourished. HEENT: Pupils are round and equally reacting to light. EOMI. No scleral icterus. No conjunctival pallor. Normocephalic, atraumatic. No pharyngeal erythema. No thyromegaly. CARDIOVASCULAR: S1 and S2 present. No murmurs, rubs, or gallops. PULMONARY: Chest is clear to auscultation, no wheezing , no crackles. ABDOMEN: Soft, nontender, nondistended, normoactive bowel sounds. No palpable organomegaly. MUSCULOSKELETAL: No joint swelling or deformity. -EXTREMITIES: No cyanosis, clubbing, or pedal edema. Redness swelling and tenderness of the right antecubital fossa, distal right arm and proximal right forearm ventrally NEUROLOGICAL: Gross neurological examination did not reveal any focal deficits. SKIN: No rashes. no petechiae. Assessment and Plan Assessment: Cellulitis of the right upper extremity, rule out DVT or thromboses schizoaffective disorder, who was recently discharged from the hospital for suicidal ideation and attempt with drug overdose Recent history of respiratory failure status post brief period of mechanical ventilation, currently on room air. Obesity with BMI of 38.2 Plan: Start IV vancomycin with pharmacy to dose Gentle hydration with normal saline Check venous Doppler to rule out DVT Infectious disease consult Psychiatric consult Labs and medication were reviewed.. Continue same treatment. Continue with symptomatic treatment. Resume home medication. Monitor labs and vitals. DVT and GI prophylaxis. Further recommendations as per clinical course of the patient DVT prophylaxis: Subcutaneous heparin GI Prophylaxis: Pepcid Prognosis is guarded
[2023-12-12] MEDS: HYDROcodone/APAP 5-325MG 1 EACH TAB PO PRN ×2 (17:31→23:28)
[2023-12-12] MEDS: SODIUM CHLORIDE 0.9% 1,000 ML IV SCH (17:51)
[2023-12-12] MEDS: VANCOMYCIN 1,750 MG in SODIUM CHLORIDE 0.9% 500 ML 500 ML IVPB SCH (17:52)
[2023-12-12] MEDS: HEPARIN SODIUM,PORCINE 5,000 UNIT/ML 1 ML VIAL SQ SCH (20:35)
[2023-12-12] MEDS: FAMOTIDINE 20 MG/2 ML VIAL IV SCH (20:35)
[2023-12-12] MEDS: DIVALPROEX ER 500 MG TAB.ER.24H PO SCH (20:39)
[2023-12-12] MEDS: NICOTINE 14MG/24HR PATCH TRANSDERM SCH (20:40)
[2023-12-12] MEDS: haloperidoL 5 MG TAB PO SCH (20:40)
[2023-12-12] MEDS: ACETAMINOPHEN TAB 325 MG TAB PO PRN (20:46)
[2023-12-13] MEDS: ACETAMINOPHEN TAB 325 MG TAB PO PRN ×3 (02:34→19:16)
[2023-12-13] MEDS: VANCOMYCIN 1,750 MG in SODIUM CHLORIDE 0.9% 500 ML 500 ML IVPB SCH ×2 (05:28→17:41)
[2023-12-13] MEDS: HYDROcodone/APAP 5-325MG 1 EACH TAB PO PRN ×4 (05:30→23:55)
[2023-12-13 07:39] LABS: INR 0.9 (<1.2); Partial Thromboplastin Time 25.2 sec (22.0-30.0); Prothrombin Time 10.5 sec (10.0-12.5)
--- NOTE | 2023-12-13 07:47 | P.CONS ---
History of Present Illness - Reason for Consult Consult date: 12/12/23 Left upper extremity cellulitis Requesting physician: Chepe E Sheet - Chief Complaint Increasing swelling and redness to the left upper extremity x few days - History of Present Illness Patient is a 43-year-old male who was recently admitted at [facility] with suicidal ingestion of multiple drugs patient was briefly intubated at that facility and did have an IV to the right antecubital. There was discontinued the day the patient was discharged from that facility the patient however has developed significant cellulitis to the right upper ext remity around his IV site patient was initially admitted to the psych floor and started on oral Keflex however did receive a call from the nurse taking care of him at the mental health unit concerning for worsening cellulitis as the patient was sent to the medical floor for treatment with IV antibiotic therapy. At the time my evaluation this afternoon patient denies high-grade fever or any chills has been complaining of pain to the left upper extremity to be mostly sharp to throbbing about 7 out of 10 without any radiation with associated swelling and redness but no drainage patient denies having any chest pain shortness of breath or cough no nausea vomiting no abdominal pain and no diarrhea Review of Systems Positive point and negatives has been mentioned in the HPI, complete review of systems was performed and all other systems are negative Past Medical History Past Medical History: Unable to Obtain Additional Past Medical History / Comment(s): cyst foot, insomnia, possible COPD, overdose History of Any Multi-Drug Resistant Organisms: None Reported Past Surgical History: Unable to Obtain Additional Past Surgical History / Comment(s): ORIF of the ankle Past Anesthesia/Blood Transfusion Reactions: No Reported Reaction Smoking Status: Current every day smoker - Past Family History Father Family Medical History: Unable to Obtain (Father is 70 years old and is currently in rehab following surgery.) Mother Family Medical History: No Reported History (Mother is 57 years old and healthy.) Additional Family Medical History / Comment(s): Patient has 3 brothers and one sister with no major medical problems. Medications and Allergies Home Medications Medication Instructions Recorded Confirmed Type Divalproex ER [Depakote ER] 500 mg PO HS 30 Days tab.er.24h 09/06/20 12/12/23 Rx Naltrexone HCl [Revia] 50 mg PO DAILY 30 Days tab 09/06/20 12/12/23 Rx Paliperidone IM [Invega Sustenna] 234 mg IM Q28D #1 ml 09/06/20 12/12/23 Rx haloperidoL [Haldol] 10 mg PO HS 30 Days tab 09/06/20 12/12/23 Rx Benztropine Mesylate [Cogentin] 1 mg PO DAILY 12/12/23 12/12/23 History Venlafaxine HCl ER [Effexor Xr] 75 mg PO DAILY 30 Days #30 cap 12/12/23 Rx Allergies Allergy/AdvReac Type Severity Reaction Status Date / Time No Known Allergies Allergy Verified 12/10/23 15:58 Physical Exam Vitals: Intake and Output 12/12/23 12/12/23 12/12/23 06:59 14:59 22:59 Other: Weight 106.594 kg GENERAL DESCRIPTION: Middle-aged male lying in bed, no distress. No tachypnea or accessory muscle of respiration use. HEENT: Shows Pallor , no scleral icterus. Oral mucous membrane is dry. No pharyngeal erythema or thrush NECK: Trachea central, no thyromegaly. LUNGS: Unlabored breathing. Clear to auscultation anteriorly. No wheeze or crackle. HEART: S1, S2, regular rate and rhythm. No loud murmur ABDOMEN: Soft, no tenderness , guarding or rigidity, no organomegaly EXTREMITIES: Left upper extremity especially the left antecubital fossa did have significant swelling redness did have a pus point but no purulent drainage SKIN: No rash, no masses palpable. NEUROLOGICAL: The patient is awake, alert, oriented x3, mood and affect normal. Assessment and Plan (1) Left arm cellulitis Current Visit: Yes Status: Acute Code(s): L03.114 - CELLULITIS OF LEFT UPPER LIMB SNOMED Code(s): 46523071290540297 (2) Leukocytosis Current Visit: Yes Status: Acute Code(s): D72.829 - ELEVATED WHITE BLOOD CELL COUNT, UNSPECIFIED SNOMED Code(s): 716388430 Plan: 1patient with left upper extremity cellulitis site of an IV that was placed at the [facility] when he initially presented with the drug overdose does seem to have not responded well to the oral Keflex concerning for more resistant gram-positive such as MRSA 2-blood culture has been obtained results will be followed 3-marked the area of the redness 4-vancomycin pharmacy to dose target trough of 15 while watching kidney function and Vanco trough closely We will follow on clinical condition and cultures to further adjust medication if needed Thank you for this consultation we will follow the patient along with you Dictation was produced using [employer] dictation software. please excuse any grammatical, word or spelling errors. Time with Patient: Greater than 30
[2023-12-13] MEDS: BENZTROPINE MESYLATE 1 MG TAB PO SCH (08:36)
[2023-12-13] MEDS: DESVENLAFAXINE SUCCINATE 50 MG TAB.ER.24H PO SCH (08:36)
[2023-12-13] MEDS: FAMOTIDINE 20 MG/2 ML VIAL IV SCH ×2 (08:36→20:09)
[2023-12-13] MEDS: NALTREXONE HCL 50 MG TAB PO SCH (08:36)
[2023-12-13] MEDS: HEPARIN SODIUM,PORCINE 5,000 UNIT/ML 1 ML VIAL SQ SCH ×2 (08:37→20:09)
[2023-12-13] MEDS: NICOTINE 14MG/24HR PATCH TRANSDERM SCH ×2 (08:37→10:23)
[2023-12-13 11:11] LABS: HCT 43.9 % (39.6-50.0); HGB 14.3 g/dL (13.0-17.0); MCH 32.9 pg (27.0-32.0); MCHC 32.6 g/dL (32.0-37.0); MCV 100.9 FL (80.0-97.0); NRBC Per 100 WBC 0 X 10*3/uL (0.00-0.01); Platelet Count 207 X 10*3/uL (140-440); RBC 4.35 X 10*6/uL (4.40-5.60); RDW 13.2 % (11.5-14.5); WBC 11.87 X 10*3/uL (4.50-10.00)
[2023-12-13 11:21] LABS: BUN/Creat Ratio 9.67 Ratio (12.00-20.00); Blood Urea Nitrogen 8.7 mg/dL (9.0-27.0); Chloride 102 mmol/L (96-109); Glucose 107 mg/dL (70-110); Potassium 4.4 mmol/L (3.5-5.5); Sodium 140 mmol/L (135-145)
[2023-12-13 11:22] LABS: ALT 34 U/L (10-49); AST 22 U/L (14-35); Albumin 3.7 g/dL (3.8-4.9); Albumin/Globulin Ratio 1.48 Ratio (1.60-3.17); Alkaline Phosphatase 74 U/L (41-126); Carbon Dioxide 26.3 mmol/L (21.6-31.8); Globulin 2.5 g/dL (1.6-3.3); Total Bilirubin 0.3 mg/dL (0.3-1.2); Total Protein 6.2 g/dL (6.2-8.2)
[2023-12-13] MEDS: SODIUM CHLORIDE 0.9% 1,000 ML IV SCH (11:40)
[2023-12-13] MEDS: DIVALPROEX ER 500 MG TAB.ER.24H PO SCH (20:10)
[2023-12-13] MEDS: haloperidoL 5 MG TAB PO SCH (20:10)
--- NOTE | 2023-12-14 01:25 | P.PN ---
Subjective This is a pleasant 43 years old male with past medical history of schizoaffective disorder Patient was seen yesterday by me as a medical consult in the psych unit. Initially Patient was admitted to [facility] 12/07-12/10. He admitted ther because he was found unresponsive at home, with four empty bottles of medication were at patient side. Patient was diagnosed with polysubstance overdose in an attempt to commit suicide He was treated temporarily in the ICU for acute hypoxic respiratory failure on mechanical ventilation, he was extubated on 12/08/23. Patient patient was transferred [facility]/psych unit and 3 W.And then patient was transferred to this facility for psychiatric treatment I saw him for the consult and he had cellulitis on the right upper extremity, in the right antecubital fossa extending proximally to the distal arm and distally to the forearm. Infectious disease consult was obtained as well. He was treated with oral Keflex 500 mg however patient cellulitis was worsening today. As per adria fallon with ID team recommended IV antibiotic therefore patient was transferred today to the general medical floor. Patient was awake alert walking in the hallway with no problem He has extensive cellulitis in the right antecubital fossa extending into the right distal arm and the proximal right forearm with some area of induration. Condition is hemodynamically stable As per psych team patient can be transferred to the general medical floor, he does not need sitter or suicidal pre-cautions 12/13/2022 Patient afebrile Cellulitis of her right upper extremity improvement Continue with IV vancomycin Repeat labs in the morning Objective - Vital Signs Vital signs: Vital Signs Temp 97.8 F 12/13/23 12:37 Pulse 93 12/13/23 12:37 Resp 18 12/13/23 12:37 BP 113/78 12/13/23 12:37 Pulse Ox 98 12/13/23 12:37 FiO2 Intake & Output 12/12/23 12/13/23 12/13/23 18:59 06:59 18:59 Intake Total 600 1700 Balance 600 1700 Weight 106.594 kg Intake: Intake, IV Titration 1100 Amount Sodium Chloride 0.9% 1, 600 000 ml @ 50 mls/hr IV . Q20H DIDI Rx#:[id number] Vancomycin 1,750 mg In 500 Sodium Chloride 0.9% 500 ml 500 ml @ 167 mls/hr IVPB Q12H DIDI Rx#: [id number] Oral 600 600 Other: Voiding Method Toilet Toilet # Voids 3 1 - Exam GENERAL: The patient is alert and oriented x3, not in any acute distress. Well developed, well nourished. HEENT: Pupils are round and equally reacting to light. EOMI. No scleral icterus. No conjunctival pallor. Normocephalic, atraumatic. No pharyngeal erythema. No thyromegaly. CARDIOVASCULAR: S1 and S2 present. No murmurs, rubs, or gallops. PULMONARY: Chest is clear to auscultation, no wheezing , no crackles. ABDOMEN: Soft, nontender, nondistended, normoactive bowel sounds. No palpable organomegaly. MUSCULOSKELETAL: No joint swelling or deformity. -EXTREMITIES: No cyanosis, clubbing, or pedal edema. Right upper extremity cellulitis around the antecubital fossa, improving with less redness swelling and tenderness NEUROLOGICAL: Gross neurological examination did not reveal any focal deficits. SKIN: No rashes. no petechiae. - Labs CBC & Chem 7: 12/13/23 06:44 12/13/23 06:44 Labs: Abnormal Lab Results - Last 24 Hours (Table) 12/13/23 12/13/23 Range/Units 06:44 06:44 WBC 11.87 H (4.50-10.00) X 10*3/uL RBC 4.35 L (4.40-5.60) X 10*6/uL MCV 100.9 H (80.0-97.0) FL MCH 32.9 H (27.0-32.0) pg BUN 8.7 L (9.0-27.0) mg/dL BUN/Creatinine Ratio 9.67 L (12.00-20.00) Ratio Albumin 3.7 L (3.8-4.9) g/dL Albumin/Globulin Ratio 1.48 L (1.60-3.17) Ratio Assessment and Plan Assessment: Cellulitis of the right upper extremity, rule out DVT or thromboses schizoaffective disorder, who was recently discharged from the hospital for s uicidal ideation and attempt with drug overdose Recent history of respiratory failure status post brief period of mechanical ventilation, currently on room air. Obesity with BMI of 38.2 Plan: Start IV vancomycin with pharmacy to dose Gentle hydration with normal saline Check venous Doppler to rule out DVT Infectious disease consult Psychiatric consult Labs and medication were reviewed.. Continue same treatment. Continue with symptomatic treatment. Resume home medication. Monitor labs and vitals. DVT and GI prophylaxis. Further recommendations as per clinical course of the patient DVT prophylaxis: Subcutaneous heparin GI Prophylaxis: Pepcid Prognosis is guarded
[2023-12-14] MEDS: VANCOMYCIN 1,750 MG in SODIUM CHLORIDE 0.9% 500 ML 500 ML IVPB SCH ×2 (05:42→17:40)
[2023-12-14] MEDS: SODIUM CHLORIDE 0.9% 1,000 ML IV SCH (05:42)
[2023-12-14] MEDS: HYDROcodone/APAP 5-325MG 1 EACH TAB PO PRN ×3 (05:53→19:51)
[2023-12-14 07:13] LABS: African American GFR (CKD) >90 (>60 ml/min/1.73 sqM); Non-African American GFR(CKD) >90 (>60 ml/min/1.73 sqM)
[2023-12-14] MEDS: NICOTINE 14MG/24HR PATCH TRANSDERM SCH (07:44)
[2023-12-14] MEDS: DESVENLAFAXINE SUCCINATE 50 MG TAB.ER.24H PO SCH (08:52)
[2023-12-14] MEDS: ACETAMINOPHEN TAB 325 MG TAB PO PRN ×2 (08:52→17:42)
[2023-12-14] MEDS: NALTREXONE HCL 50 MG TAB PO SCH (08:52)
[2023-12-14] MEDS: FAMOTIDINE 20 MG/2 ML VIAL IV SCH ×2 (08:52→19:51)
[2023-12-14] MEDS: HEPARIN SODIUM,PORCINE 5,000 UNIT/ML 1 ML VIAL SQ SCH ×2 (08:52→19:51)
[2023-12-14] MEDS: BENZTROPINE MESYLATE 1 MG TAB PO SCH (08:52)
--- NOTE | 2023-12-14 13:08 | P.PN ---
Subjective Progress Note Date: 12/13/23 Principal diagnosis: Right upper extremity cellulitis Patient is a 43-year-old male who was recently admitted at [facility] with suicidal ingestion of multiple drugs patient was briefly intubated at that facility and did have an IV to the right antecubital. There was discontinued the day the patient was discharged from that facility the patient however has developed significant cellulitis to the right upper extremity around his IV site for the patient has been admitted to the medical floor for IV antibiotic therapy. On today's evaluation that is 12/13/2023, the patient continues to be afebrile patient is breathing comfortably on room air without need for supplemental oxygen the patient denies chest pain did have occasional cough no sputum produ ction patient denies abdominal pain no nausea no vomiting and no diarrhea, the patient pain and swelling to the right upper extremity slightly decreased. Patient white count of 11.87 as of yesterday creatinine 0.65 blood culture 12/11/2023 so far negative Objective - Vital Signs Vital signs: Vital Signs Temp 97.8 F 12/13/23 12:37 Pulse 93 12/13/23 12:37 Resp 18 12/13/23 12:37 BP 113/78 12/13/23 12:37 Pulse Ox 98 12/13/23 12:37 FiO2 Intake & Output 12/12/23 12/13/23 12/13/23 18:59 06:59 18:59 Intake Total 600 1700 Balance 600 1700 Weight 106.594 kg Intake: Intake, IV Titration 1100 Amount Sodium Chloride 0.9% 1, 600 000 ml @ 50 mls/hr IV . Q20H DIDI Rx#:[id number] Vancomycin 1,750 mg In 500 Sodium Chloride 0.9% 500 ml 500 ml @ 167 mls/hr IVPB Q12H DIDI Rx#: [id number] Oral 600 600 Other: Voiding Method Toilet Toilet # Voids 3 1 - Exam GENERAL DESCRIPTION: middle-age male lying in bed in no distress RESPIRATORY SYSTEM: Unlabored breathing , decreased breath sounds at bases HEART: S1 S2 regular rate and rhythm , ABDOMEN: Soft , no tenderness EXTREMITIES: Right antecubital fossa and upper extremity did have significant swelling and redness no drainage - Labs CBC & Chem 7: 12/13/23 06:44 12/14/23 05:28 Labs: Abnormal Lab Results - Last 24 Hours (Table) 12/13/23 12/13/23 Range/Units 06:44 06:44 WBC 11.87 H (4.50-10.00) X 10*3/uL RBC 4.35 L (4.40-5.60) X 10*6/uL MCV 100.9 H (80.0-97.0) FL MCH 32.9 H (27.0-32.0) pg BUN 8.7 L (9.0-27.0) mg/dL BUN/Creatinine Ratio 9.67 L (12.00-20.00) Ratio Albumin 3.7 L (3.8-4.9) g/dL Albumin/Globulin Ratio 1.48 L (1.60-3.17) Ratio Assessment and Plan (1) Left arm cellulitis Current Visit: Yes Status: Acute Code(s): L03.114 - CELLULITIS OF LEFT UPPER LIMB SNOMED Code(s): 43660404252264012 (2) Leukocytosis Current Visit: Yes Status: Acute Code(s): D72.829 - ELEVATED WHITE BLOOD CELL COUNT, UNSPECIFIED SNOMED Code(s): 244727759 Plan: 1patient with left upper extremity cellulitis site of an IV that was placed at the [facility] when he initially presented with the drug overdose does seem to have not responded well to the oral Keflex concerning for more resistant gram-positive such as MRSA 2-blood culture has been obtained and so far pending 3-patient to continue-vancomycin pharmacy to dose target trough of 15 while watching kidney function and Vanco trough closely Dictation was produced using [employer] dictation software. please excuse any grammatical, word or spelling errors. Time with Patient: Less than 30
--- NOTE | 2023-12-14 13:09 | P.PN ---
Subjective Progress Note Date: 12/14/23 Principal diagnosis: Right upper extremity cellulitis Patient is a 43-year-old male who was recently admitted at [facility] with suicidal ingestion of multiple drugs patient was briefly intubated at that facility and did have an IV to the right antecubital. There was discontinued the day the patient was discharged from that facility the patient however has developed significant cellulitis to the right upper extremity around his IV site for the patient has been admitted to the medical floor for IV antibiotic therapy. On today's evaluation that is 12/14/2023, the patient remains to be afebrile patient is breathing comfortably on room air, the patient denies chest pain did have occasional cough no sputum production patient denies abdominal pain no nausea no vomiting and no diarrhea, the patient pain and swelling to the right upper extremity slightly decreased at this no drainage. Patient white count of 11.87 as of 12/13/2023 and creatinine 0.65 blood culture 12/11/2023 so far negative Objective - Vital Signs Vital signs: Vital Signs Temp 98.3 F 12/14/23 11:43 Pulse 83 12/14/23 11:43 Resp 16 12/14/23 11:43 BP 98/62 12/14/23 11:43 Pulse Ox 98 12/14/23 11:43 FiO2 Intake & Output 12/13/23 12/14/23 12/14/23 18:59 06:59 18:59 Intake Total 2100 Balance 2100 Intake: Intake, IV Titration 1100 Amount Sodium Chloride 0.9% 1, 600 000 ml @ 50 mls/hr IV . Q20H DIDI Rx#:[id number] Vancomycin 1,750 mg In 500 Sodium Chloride 0.9% 500 ml 500 ml @ 167 mls/hr IVPB Q12H DIDI Rx#: [id number] Oral 1000 Other: Voiding Method Toilet Toilet # Voids 1 4 - Exam GENERAL DESCRIPTION: middle-age male lying in bed in no distress RESPIRATORY SYSTEM: Unlabored breathing , decreased breath sounds at bases HEART: S1 S2 regular rate and rhythm , ABDOMEN: Soft , no tenderness EXTREMITIES: Right antecubital fossa and upper extremity did have significant swelling and redness no drainage - Labs CBC & Chem 7: 12/13/23 06:44 12/14/23 05:28 Labs: Abnormal Lab Results - Last 24 Hours (Table) 12/14/23 Range/Units 05:28 Creatinine 0.65 L (0.66-1.25) mg/dL Assessment and Plan (1) Left arm cellulitis Current Visit: Yes Status: Acute Code(s): L03.114 - CELLULITIS OF LEFT UPPER LIMB SNOMED Code(s): 56678477984748251 (2) Leukocytosis Current Visit: Yes Status: Acute Code(s): D72.829 - ELEVATED WHITE BLOOD CELL COUNT, UNSPECIFIED SNOMED Code(s): 601359309 Plan: 1patient with left upper extremity cellulitis site of an IV that was placed at the [facility] when he initially presented with the drug overdose does seem to have not responded well to the oral Keflex concerning for more resistant gram-positive such as MRSA 2-blood culture has been obtained and so far pending 3-patient still have extensive cellulitis and induration to the area we will check a CT to make sure no evidence of any abscess that may need to be drained 4for now patient will continue-vancomycin pharmacy to dose target trough of 15 while watching kidney function and Vanco trough closely Dictation was produced using [employer] dictation software. please excuse any grammatical, word or spelling errors. Time with Patient: Less than 30
--- NOTE | 2023-12-14 14:46 | CT ---
EXAMINATION TYPE: CT upper extremity RT w con DATE OF EXAM: 12/14/2023 COMPARISON: Ultrasound 12/10/2023 HISTORY: 43-year-old male Right antecubital fossa/arm abscess TECHNIQUE: Contiguous axial scanning of the right upper extremity performed with IV Contrast, patient injected with 100 ml mL of Isovue 300. Coronal/sagittal reconstructions performed. CT DLP: 589.3 mGycm Automated exposure control for dose reduction was used. FINDINGS: There is generalized subcutaneous soft tissue swelling. There is some edema which extends along the a ntecubital fossa and brachial neurovascular bundle is well. There is thrombosis of the superficial vein in the volar aspect of the upper forearm, a tributary whi ch extends down to the brachial neurovascular bundle, cephalic vein, and basilic vein. Peripheral wal l enhancement is noted up to approximately the lower third arm No discrete abscess is identified. No joint effusion. Edematous changes fairly severe at the proximal forearm and elbow. But also involv es the remainder of the upper cavity. No periostitis or osteolysis. IMPRESSION: 1. SEVERE CELLULITIS ESPECIALLY ALONG THE ANTECUBITAL FOSSA AND UPPER THIRD FOREARM. 2. ASSOCIATED THROMBOPHLEBITIS OF THE CEPHALIC VEIN DOWN INTO THE PROXIMAL THIRD FOREARM. A TRIBUTARY THAT JOINS THE CEPHALIC VEIN FROM THE REGION OF THE BRACHIAL NEUROVASCULAR BUNDLE ALSO APPEARS TO BE THROMBOSED. THROMBOPHLEBITIS EXTENDING UP TO INVOLVE BOTH THE CEPHALIC AND BASILIC VEINS TO THE LOWE R THIRD ARM. 3. NO CONVINCING ABSCESS IS IDENTIFIED AT THIS TIME. GIVEN THE DEGREE OF EDEMA AND CELLULITIS AT THE ANTECUBITAL FOSSA, IF THERE IS PERSISTENT CONCERN, SHORT INTERVAL FOLLOW-UP CAN BE PERFORMED.
--- NOTE | 2023-12-14 16:01 | P.CN ---
Psychiatric Consult - . Consult date: 12/14/23 Consult:: 12/14/23 Patient is a 43-year-old male who was recently admitted at [facility] with suicidal ingestion of multiple drugs patient was briefly intubated at that facility and did have an IV to the right antecubital. There was discontinued the day the patient was discharged from that facility the patient however has developed significant cellulitis to the right upper extremity around his IV site the patient has been admitted to the medical floor for IV antibiotic therapy. today, the patient remains to be afebrile patient is breathing comfortably on room air, the patient denies chest pain did have occasional cough no sputum production patient denies abdominal pain no nausea no vomiting and no diarrhea, the patient pain and swelling to the right upper extremity slightly decreased no drainage. Patient white count of 11.87 as of 12/13/2023 and creatinine 0.65 blood culture 12/11/2023 so far negative A psychiatric assessment was requested with his long history of previous psychiatric hospitalizations at the third floor patient reports that he the overdose because he had been quite depressed over his mother needing dialysis treatment daily but she hooks herself to the machine every evening he reports that is sad and simply see her go through the difficulties he reports that he has been hospitalized on the psychiatric unit multiple times he states that he still feels depressed and feels that he needs a safer place to be at he states that he still has some suicidal thoughts but that he plans not to hurt himself and wants to be there for his mother and get better Mental status examination: Reveals a middle-aged male who comes across is somewhat childlike patient is alert and oriented to place and person thinking is simple and concrete patient denies any specific suicidal ideations or plans he exhibits dependency features thought processes are goal-directed sequential and logical but simple and concrete patient denies any auditory or visual ideations formal and operational judgment and insight remains simple and concrete problem solving skills are impaired cognitively he appears to be below average Plan: the patient is appropriate candidate for transferred to the Psychiatric unit after medical stabilization would recommend CONTINUATION of this current home medications at the time of transfer patient also its long acting report form off paliperidone which is due next month will follow this patient along with you Patient does not have any acute suicidal ideations or plans but with his impulsivity and dependency features would maintain supervision and supportive care thank you very much for your kind referral and please feel free to contact me if you have any further questions Cisco Sutton MD 12/14/2023
[2023-12-14] MEDS: DIVALPROEX ER 500 MG TAB.ER.24H PO SCH (19:51)
[2023-12-14] MEDS: haloperidoL 5 MG TAB PO SCH (19:51)
[2023-12-15] MEDS: SODIUM CHLORIDE 0.9% 1,000 ML IV SCH (04:46)
--- NOTE | 2023-12-15 04:57 | P.PN ---
Subjective Progress Note Date: 12/14/23 This is a pleasant 43 years old male with past medical history of schizoaffective disorder Patient was seen yesterday by me as a medical consult in the psych unit. Initially Patient was admitted to [facility] 12/07-12/10. He admitted ther because he was found unresponsive at home, with four empty bottles of medication were at patient side. Patient was diagnosed with polysubstance overdose in an attempt to commit suicide He was treated temporarily in the ICU for acute hypoxic respiratory failure on mechanical ventilation, he was extubated on 12/08/23. Patient patient was transferred [facility]/psych unit and 3 W[address]And then patient was transferred to this facility for psychiatric treatment I saw him for the consult and he had cellulitis on the right upper extremity, in the right antecubital fossa extending proximally to the distal arm and distally to the forearm. Infectious disease consult was obtained as well. He was treated with oral Keflex 500 mg however patient cellulitis was worsening today. As per discussions with ID team recommended IV antibiotic therefore patient was transferred today to the general medical floor. Patient was awake alert walking in the hallway with no problem He has extensive cellulitis in the right antecubital fossa extending into the right distal arm and the proximal right forearm with some area of induration. Condition is hemodynamically stable As per psych team patient can be transferred to the general medical floor, he does not need sitter or suicidal pre-cautions 12/13/2022 Patient afebrile Cellulitis of her right upper extremity improvement Continue with IV vancomycin Repeat labs in the morning 12/14/2023 Patient seen and evaluated in follow-up this morning maintained on IV antibiotics with infectious disease following 4 significant cellulitis noted in the right antecubital area status post IV site. Patient with continued induration and erythema and pain noted undergoing CT of the right upper extremity to evaluate if there is an abscess that needs to be drained. Patient is continued on vancomycin with pharmacy to dose and will follow-up and repeat labs. Patient is afebrile and denies chest pain or shortness of breath. Patient has been up and walking around and denies any nausea or vomiting and tolerating diet. Psychiatry also consulted as patient was recently hospitalized on the psychiatric unit with significant mental health history. Review of systems: Constitutional: No reports of fatigue, fever, or chills Cardiovascular: No reports of chest pain or palpitations Respiratory: No reports of shortness of breath or cough GI: No reports of nausea, vomiting, or diarrhea : No reports of dysuria or retention Neurovascular: No reports of weakness or numbness All medications have been reviewed Physical exam: GENERAL: The patient is alert and oriented x3, not in any acute distress. Well developed, well nourished. HEENT: Pupils are round and equally reacting to light. EOMI. No scleral icterus. No conjunctival pallor. Normocephalic, atraumatic. No pharyngeal erythema. No thyromegaly. CARDIOVASCULAR: S1 and S2 present. No murmurs, rubs, or gallops. PULMONARY: Chest is clear to auscultation, no wheezing , no crackles. ABDOMEN: Soft, nontender, nondistended, normoactive bowel sounds. No palpable organomegaly. MUSCULOSKELETAL: No joint swelling or deformity. EXTREMITIES: No cyanosis, clubbing, or pedal edema. Right upper extremity cellulitis around the antecubital fossa, improving with less redness swelling and tenderness NEUROLOGICAL: Gross neurological examination did not reveal any focal deficits. SKIN: No rashes. no petechiae. Assessment: Cellulitis of the right upper extremity, rule out DVT or thromboses schizoaffective disorder, who was recently discharged from the hospital for suicidal ideation and attempt with drug overdose Recent history of respiratory failure status post brief period of mechanical ventilation, currently on room air. Obesity with BMI of 38.2 GI prophylaxis DVT prophylaxis Plan: Patient is continued on IV vancomycin with pharmacy to dose with infectious disease following CT of the right upper extremity ordered to rule out abscess is patient continues with redness and induration Follow-up on repeat labs in a.m. Gentle hydration with normal saline Check venous Doppler to rule out DVT Psychiatry consulted and pending at this time Encouraged increased activity as tolerated The impression and plan of care has been dictated by Amy Summers, Nurse Practitioner as directed. Dr. Rell MD I have performed a history and examination and MDM of this patient, discussed the same with the dictator, and agree with the dictator's assessment and plan as written ,documented as a scribe. Based on total visit time, I have performed more than 50% of the visit. Objective - Vital Signs Vital signs: Vital Signs Temp 98.0 F 12/14/23 07:11 Pulse 92 12/14/23 07:11 Resp 16 12/14/23 07:11 BP 99/65 12/14/23 07:11 Pulse Ox 97 12/14/23 07:11 FiO2 Intake & Output 12/13/23 12/14/23 12/14/23 18:59 06:59 18:59 Intake Total 2100 Balance 2100 Intake: Intake, IV Titration 1100 Amount Sodium Chloride 0.9% 1, 600 000 ml @ 50 mls/hr IV . Q20H [facility] Rx#:[id number] Vancomycin 1,750 mg In 500 Sodium Chloride 0.9% 500 ml 500 ml @ 167 mls/hr IVPB Q12H [facility] Rx#: [id number] Oral 1000 Other: Voiding Method Toilet Toilet # Voids 1 4 - Labs CBC & Chem 7: 12/13/23 06:44 12/14/23 05:28 Labs: Abnormal Lab Results - Last 24 Hours (Table) 12/13/23 12/13/23 12/14/23 Range/Units 06:44 06:44 05:28 WBC 11.87 H (4.50-10.00) X 10*3/uL RBC 4.35 L (4.40-5.60) X 10*6/uL MCV 100.9 H (80.0-97.0) FL MCH 32.9 H (27.0-32.0) pg BUN 8.7 L (9.0-27.0) mg/dL Creatinine 0.65 L (0.66-1.25) mg/dL BUN/Creatinine Ratio 9.67 L (12.00-20.00) Ratio Albumin 3.7 L (3.8-4.9) g/dL Albumin/Globulin Ratio 1.48 L (1.60-3.17) Ratio
[2023-12-15] MEDS ORDERED: VANCOMYCIN TROUGH DUE 1 EACH MISC MISCELLANE ONE (05:00)
[2023-12-15] MEDS: HYDROcodone/APAP 5-325MG 1 EACH TAB PO PRN ×3 (05:46→20:19)
[2023-12-15] MEDS: VANCOMYCIN 1,750 MG in SODIUM CHLORIDE 0.9% 500 ML 500 ML IVPB SCH ×3 (05:47→21:50)
[2023-12-15 08:10] LABS: ALT 29 U/L (4-49); AST 18 U/L (17-59); African American GFR (CKD) >90 (>60 ml/min/1.73 sqM); Albumin 3.1 g/dL (3.5-5.0); Albumin/Globulin Ratio 1.2; Alkaline Phosphatase 72 U/L (38-126); Anion Gap 5 mmol/L; Blood Urea Nitrogen 9 mg/dL (9-20); Calcium 8.9 mg/dL (8.4-10.2); Carbon Dioxide 26 mmol/L (22-30); Chloride 109 mmol/L (98-107); Globulin 2.6 g/dL; Glucose 109 mg/dL (74-99); Non-African American GFR(CKD) >90 (>60 ml/min/1.73 sqM); Potassium 4.4 mmol/L (3.5-5.1); Sodium 140 mmol/L (137-145); Total Bilirubin 0.3 mg/dL (0.2-1.3); Total Protein 5.7 g/dL (6.3-8.2)
[2023-12-15 08:22] LABS: C Reactive Protein 15.7 mg/dL (<1.0)
[2023-12-15] MEDS: FAMOTIDINE 20 MG/2 ML VIAL IV SCH ×2 (09:13→20:19)
[2023-12-15] MEDS: NICOTINE 14MG/24HR PATCH TRANSDERM SCH (09:13)
[2023-12-15] MEDS: NALTREXONE HCL 50 MG TAB PO SCH (09:13)
[2023-12-15] MEDS: HEPARIN SODIUM,PORCINE 5,000 UNIT/ML 1 ML VIAL SQ SCH (09:13)
[2023-12-15] MEDS: BENZTROPINE MESYLATE 1 MG TAB PO SCH (09:13)
[2023-12-15] MEDS: DESVENLAFAXINE SUCCINATE 50 MG TAB.ER.24H PO SCH (09:13)
[2023-12-15 11:03] LABS: Basophils # (A) 0.05 X 10*3/uL (0.00-0.10); Basophils % (A) 0.6 %; Eosinophils % (A) 1.1 %; HCT 41.8 % (39.6-50.0); HGB 13.4 g/dL (13.0-17.0); Lymphocytes # (A) 2.75 X 10*3/uL (0.90-5.00); Lymphocytes % (A) 31.2 %; MCH 32.8 pg (27.0-32.0); MCHC 32.1 g/dL (32.0-37.0); MCV 102.5 FL (80.0-97.0); Mean Platelet Volume 10.9 FL (9.5-12.2); Monocytes # (A) 1.09 X 10*3/uL (0.20-1.00); Monocytes % (A) 12.4 %; NRBC Per 100 WBC 0 X 10*3/uL (0.00-0.01); Neutrophils % (A) 54.5 %; Platelet Count 255 X 10*3/uL (140-440); RBC 4.08 X 10*6/uL (4.40-5.60); RDW 13.4 % (11.5-14.5); WBC 8.81 X 10*3/uL (4.50-10.00)
--- NOTE | 2023-12-15 17:28 | P.PN ---
Subjective Progress Note Date: 12/15/23 Principal diagnosis: Right upper extremity cellulitis Patient is a 43-year-old male who was recently admitted at [facility] with suicidal ingestion of multiple drugs patient was briefly intubated at that facility and did have an IV to the right antecubital. There was discontinued the day the patient was discharged from that facility the patient however has developed significant cellulitis to the right upper extremity around his IV site for the patient has been admitted to the medical floor for IV antibiotic therapy. On today's evaluation that is 12/15/2023, the patient continues to be afebrile patient is breathing comfortably on room air, no need for supplemental oxygen, patient denies any chest pain or cough no nausea no vomiting and no diarrhea has been reported, the patient still complaining of pain and redness to the right upper extremity which has decreased however did have more swelling to the right upper extremity no drainage Patient white count of 8.81, creatinine 0.74 blood culture 12/11/2023 so far negative Objective - Vital Signs Vital signs: Vital Signs Temp 97.6 F 12/15/23 07:05 Pulse 88 12/15/23 07:05 Resp 18 12/15/23 07:05 BP 96/61 12/15/23 07:05 Pulse Ox 95 12/15/23 07:05 FiO2 Intake & Output 12/14/23 12/15/23 12/15/23 18:59 06:59 18:59 Intake Total 600 240 Balance 600 240 Intake: Intake, IV Titration 600 Amount Sodium Chloride 0.9% 1, 600 000 ml @ 50 mls/hr IV . Q20H [facility] Rx#:[id number] Oral 240 Other: Voiding Method Toilet # Voids 6 3 - Exam GENERAL DESCRIPTION: middle-age male lying in bed in no distress RESPIRATORY SYSTEM: Unlabored breathing , decreased breath sounds at bases HEART: S1 S2 regular rate and rhythm , ABDOMEN: Soft , no tenderness EXTREMITIES: Right antecubital fossa and upper extremity did have significant swelling and redness no drainage - Labs CBC & Chem 7: 12/15/23 05:30 12/15/23 05:30 Labs: Abnormal Lab Results - Last 24 Hours (Table) 12/15/23 Range/Units 05:30 Chloride 109 H (98-107) mmol/L Glucose 109 H (74-99) mg/dL C-Reactive Protein 15.7 H (<1.0) mg/dL Total Protein 5.7 L (6.3-8.2) g/dL Albumin 3.1 L (3.5-5.0) g/dL Assessment and Plan (1) Left arm cellulitis Current Visit: Yes Status: Acute Code(s): L03.114 - CELLULITIS OF LEFT UPPER LIMB SNOMED Code(s): 04228647618696480 (2) Leukocytosis Current Visit: Yes Status: Acute Code(s): D72.829 - ELEVATED WHITE BLOOD CELL COUNT, UNSPECIFIED SNOMED Code(s): 583459566 Plan: 1patient with left upper extremity cellulitis site of an IV that was placed at the [facility] when he initially presented with the drug overdose does seem to have not responded well to the oral Keflex concerning for more resistant gram-positive such as MRSA 2-blood culture has been obtained and so far pending 3-patient still have extensive cellulitis and induration to the area, CT did not show any abscess there is concern for possible venous thrombosis 4patient did have extensive swelling I will Hep-Lock his IV fluid advised to keep his arm elevated Eliquis has been started by admitting team and I will continue patient on vancomycin and monitor clinical course closely Dictation was produced using [employer] dictation software. please excuse any grammatical, word or spelling errors. Time with Patient: Less than 30
[2023-12-15] MEDS: haloperidoL 5 MG TAB PO SCH (20:19)
[2023-12-15] MEDS: APIXABAN 5 MG TAB PO SCH (20:19)
[2023-12-15] MEDS: DIVALPROEX ER 500 MG TAB.ER.24H PO SCH (20:19)
[2023-12-16] MEDS: ACETAMINOPHEN TAB 325 MG TAB PO PRN (00:12)
[2023-12-16] MEDS: HYDROcodone/APAP 5-325MG 1 EACH TAB PO PRN ×4 (03:28→21:52)
[2023-12-16] MEDS ORDERED: VANCOMYCIN TROUGH DUE 1 EACH MISC MISCELLANE ONE (05:00)
[2023-12-16] MEDS: VANCOMYCIN 1,750 MG in SODIUM CHLORIDE 0.9% 500 ML 500 ML IVPB SCH ×3 (05:42→21:36)
[2023-12-16 06:44] LABS: African American GFR (CKD) >90 (>60 ml/min/1.73 sqM); Anion Gap 5 mmol/L; Blood Urea Nitrogen 7 mg/dL (9-20); Calcium 8.6 mg/dL (8.4-10.2); Carbon Dioxide 26 mmol/L (22-30); Chloride 110 mmol/L (98-107); Glucose 95 mg/dL (74-99); Non-African American GFR(CKD) >90 (>60 ml/min/1.73 sqM); Potassium 4.3 mmol/L (3.5-5.1); Sodium 141 mmol/L (137-145)
--- NOTE | 2023-12-16 06:44 | P.PN ---
Subjective Progress Note Date: 12/15/23 This is a pleasant 43 years old male with past medical history of schizoaffective disorder Patient was seen yesterday by me as a medical consult in the psych unit. Initially Patient was admitted to [facility] 12/07-12/10. He admitted ther because he was found unresponsive at home, with four empty bottles of medication were at patient side. Patient was diagnosed with polysubstance overdose in an attempt to commit suicide He was treated temporarily in the ICU for acute hypoxic respiratory failure on mechanical ventilation, he was extubated on 12/08/23. Patient patient was transferred [facility]/psych unit and 3 [address]And then patient was transferred to this facility for psychiatric treatment I saw him for the consult and he had cellulitis on the right upper extremity, in the right antecubital fossa extending proximally to the distal arm and distally to the forearm. Infectious disease consult was obtained as well. He was treated with oral Keflex 500 mg however patient cellulitis was worsening today. As per discussions with ID team recommended IV antibiotic therefore patient was transferred today to the general medical floor. Patient was awake alert walking in the hallway with no problem He has extensive cellulitis in the right antecubital fossa extending into the right distal arm and the proximal right forearm with some area of induration. Condition is hemodynamically stable As per psych team patient can be transferred to the general medical floor, he does not need sitter or suicidal pre-cautions 12/13/2022 Patient afebrile Cellulitis of her right upper extremity improvement Continue with IV vancomycin Repeat labs in the morning 12/14/2023 Patient seen and evaluated in follow-up this morning maintained on IV antibiotics with infectious disease following 4 significant cellulitis noted in the right antecubital area status post IV site. Patient with continued induration and erythema and pain noted undergoing CT of the right upper extremity to evaluate if there is an abscess that needs to be drained. Patient is continued on vancomycin with pharmacy to dose and will follow-up and repeat labs. Patient is afebrile and denies chest pain or shortness of breath. Patient has been up and walking around and denies any nausea or vomiting and tolerating diet. Psychiatry also consulted as patient was recently hospitalized on the psychiatric unit with significant mental health history. Ruiz 2023 Patient is seen in follow-up today continued on IV antibiotics in the form of vancomycin with infectious disease following. Patient with significant thrombosed areas of the antecubital area on the right upper extremity with continued redness on the redness slightly improved and induration. Patient continues to have significant swelling of the right upper extremity and patient has been encouraged to elevate extremity throughout most of the day to alleviate some of the swelling. We'll discontinue IV fluids as patient is eating and drinking with no difficulties. Patient is afebrile and will continue on IV antibiotics for the next few days per ID recommendations. Will also initiate anticoagulation with concerns of risk for DVT in that right upper extremity. Review of systems: Constitutional: No reports of fatigue, fever, or chills Cardiovascular: No reports of chest pain or palpitations Respiratory: No reports of shortness of breath or cough GI: No reports of nausea, vomiting, or diarrhea : No reports of dysuria or retention Neurovascular: No reports of weakness or numbness All medications have been reviewed Physical exam: GENERAL: The patient is alert and oriented x3, not in any acute distress. Well developed, well nourished. HEENT: Pupils are round and equally reacting to light. EOMI. No scleral icterus. No conjunctival pallor. Normocephalic, atraumatic. No pharyngeal erythema. No thyromegaly. CARDIOVASCULAR: S1 and S2 present. No murmurs, rubs, or gallops. PULMONARY: Chest is clear to auscultation, no wheezing , no crackles. ABDOMEN: Soft, nontender, nondistended, normoactive bowel sounds. No palpable o rganomegaly. MUSCULOSKELETAL: No joint swelling or deformity. EXTREMITIES: No cyanosis, clubbing, or pedal edema. Right upper extremity cellulitis around the antecubital fossa, improving with less redness swelling and tenderness NEUROLOGICAL: Gross neurological examination did not reveal any focal deficits. SKIN: No rashes. no petechiae. Assessment: Cellulitis of the right upper extremity antecubital fossa area secondary to previous IV site at [facility] well in their ICU on mechanical ventilation, with extensive cellulitis and thrombophlebitis of the cephalic vein noted on CT schizoaffective disorder, who was recently discharged from the hospital for suicidal ideation and attempt with drug overdose Recent history of respiratory failure status post brief period of mechanical ventilation, currently on room air. Obesity with BMI of 38.2 GI prophylaxis DVT prophylaxis Plan: Patient is continued on IV vancomycin with pharmacy to dose with infectious disease following CT of the right upper extremity ordered and ruled out abscess is patient continues with redness and induration. CT of the arm shows associated thrombophlebitis of the cephalic vein down into the proximal third forearm, the cephalic vein from the region of the brachial neurovascular bundle also appears to be thrombosed with thrombophlebitis extending up to involve both the cephalic and basilic veins in the lower third arm with no convincing abscess. Extensive cellulitis noted in the surrounding tissue. We'll place the patient on eliquis twice daily with concerns of multiple thrombosed areas being risk for DVT Follow-up on repeat labs in a.m. Patient also was some generalized swelling noted of the right upper extremity, encourage the patient to continue to elevate while at rest Per infectious disease, patient will require a few days of IV antibiotics prior to transferring to psychiatric unit Psychiatry consulted and following recommending transfer to inpatient psychiatric unit once medically stable. Will discuss with infectious disease and discharge planning Encouraged increased activity as tolerated The impression and plan of care has been dictated by Amy Summers, Nurse Practitioner as directed. Dr. Rell MD I have performed a history and examination and MDM of this patient, discussed the same with the dictator, and agree with the dictator's assessment and plan as written ,documented as a scribe. Based on total visit time, I have performed more than 50% of the visit. Objective - Vital Signs Vital signs: Vital Signs Temp 97.6 F 12/15/23 07:05 Pulse 88 12/15/23 07:05 Resp 18 12/15/23 07:05 BP 96/61 12/15/23 07:05 Pulse Ox 95 12/15/23 07:05 FiO2 Intake & Output 12/14/23 12/15/23 12/15/23 18:59 06:59 18:59 Intake Total 600 240 Balance 600 240 Intake: Intake, IV Titration 600 Amount Sodium Chloride 0.9% 1, 600 000 ml @ 50 mls/hr IV . Q20H [facility] Rx#:[id number] Oral 240 Other: Voiding Method Toilet # Voids 6 3 - Labs CBC & Chem 7: 12/15/23 05:30 12/15/23 05:30 Labs: Abnormal Lab Results - Last 24 Hours (Table) 01/17/24 Range/Units 05:30 Chloride 109 H (98-107) mmol/L Glucose 109 H (74-99) mg/dL C-Reactive Protein 15.7 H (<1.0) mg/dL Total Protein 5.7 L (6.3-8.2) g/dL Albumin 3.1 L (3.5-5.0) g/dL
[2023-12-16] MEDS: FAMOTIDINE 20 MG/2 ML VIAL IV SCH ×2 (09:17→20:15)
[2023-12-16] MEDS: NALTREXONE HCL 50 MG TAB PO SCH (09:17)
[2023-12-16] MEDS: BENZTROPINE MESYLATE 1 MG TAB PO SCH (09:17)
[2023-12-16] MEDS: APIXABAN 5 MG TAB PO SCH ×2 (09:17→20:15)
[2023-12-16] MEDS: DESVENLAFAXINE SUCCINATE 50 MG TAB.ER.24H PO SCH (09:17)
[2023-12-16] MEDS: NICOTINE 14MG/24HR PATCH TRANSDERM SCH (10:25)
--- NOTE | 2023-12-16 15:49 | P.PN ---
Subjective Progress Note Date: 12/16/23 Principal diagnosis: Right upper extremity cellulitis Patient is a 43-year-old male who was recently admitted at [facility] with suicidal ingestion of multiple drugs patient was briefly intubated at that facility and did have an IV to the right antecubital. There was discontinued the day the patient was discharged from that facility the patient however has developed significant cellulitis to the right upper extremity around his IV site for the patient has been admitted to the medical floor for IV antibiotic therapy. On today's evaluation that is 12/16/2023 the patient denies having any fever or any chills, the patient is breathing comfortably on room air, patient denies chest pain cough, the patient denies having any abdominal pain no nausea vo miting and no diarrhea patient pain and swelling to the right upper extremity has decreased patient was noted to have some drainage which has been cultured Patient white count of 8.81 as of yesterday, creatinine is 0.6 Objective - Vital Signs Vital signs: Vital Signs Temp 97.8 F 12/16/23 13:04 Pulse 89 12/16/23 13:04 Resp 18 12/16/23 13:04 BP 143/90 12/16/23 13:04 Pulse Ox 95 12/16/23 13:04 FiO2 Intake & Output 12/15/23 12/16/23 12/16/23 18:59 06:59 18:59 Intake Total 500 1440 Balance 500 1440 Intake: Intake, IV Titration 500 Amount Vancomycin 1,750 mg In 500 Sodium Chloride 0.9% 500 ml 500 ml @ 167 mls/hr IVPB Q8H [facility] Rx#: [id number] Oral 1440 Other: Voiding Method Toilet # Voids 2 - Exam GENERAL DESCRIPTION: middle-age male lying in bed in no distress RESPIRATORY SYSTEM: Unlabored breathing , decreased breath sounds at bases HEART: S1 S2 regular rate and rhythm , ABDOMEN: Soft , no tenderness EXTREMITIES: Right antecubital fossa and upper extremity did have significant swelling and redness no drainage - Labs CBC & Chem 7: 12/15/23 05:30 12/16/23 05:28 Labs: Abnormal Lab Results - Last 24 Hours (Table) 12/16/23 Range/Units 05:28 Chloride 110 H (98-107) mmol/L BUN 7 L (9-20) mg/dL Assessment and Plan (1) Left arm cellulitis Current Visit: Yes Status: Acute Code(s): L03.114 - CELLULITIS OF LEFT UPPER LIMB SNOMED Code(s): 86087930747663068 (2) Leukocytosis Current Visit: Yes Status: Acute Code(s): D72.829 - ELEVATED WHITE BLOOD CELL COUNT, UNSPECIFIED SNOMED Code(s): 181075475 Plan: 1patient with left upper extremity cellulitis site of an IV that was placed at the [facility] when he initially presented with the drug overdose does seem to have not responded well to the oral Keflex concerning for more resistant gram-positive such as MRSA 2-blood culture has been obtained and so far pending 3-patient did have extensive cellulitis and induration to the area, CT did not show any abscess there is concern for possible venous thrombosis 4patient noticed to have some purulent drainage which has been cultured follow- up continue with the vancomycin and just antibiotic on the basis of culture report Dictation was produced using [employer] dictation software. please excuse any grammatical, word or spelling errors. Time with Patient: Less than 30
--- NOTE | 2023-12-16 15:55 | P.PN ---
Subjective Progress Note Date: 12/16/23 This is a pleasant 43 years old male with past medical history of schizoaffective disorder Patient was seen yesterday by me as a medical consult in the psych unit. Initially Patient was admitted to [facility] 12/07-12/10. He admitted ther because he was found unresponsive at home, with four empty bottles of medication were at patient side. Patient was diagnosed with polysubstance overdose in an attempt to commit suicide He was treated temporarily in the ICU for acute hypoxic respiratory failure on mechanical ventilation, he was extubated on 12/08/23. Patient patient was transferred [facility]/psych unit and 3 W.And then patient was transferred to this facility for psychiatric treatment I saw him for the consult and he had cellulitis on the right upper extremity, in the right antecubital fossa extending proximally to the distal arm and distally to the forearm. Infectious disease consult was obtained as well. He was treated with oral Keflex 500 mg however patient cellulitis was worsening today. As per discussions with ID team recommended IV antibiotic therefore patient was transferred today to the general medical floor. Patient was awake alert walking in the hallway with no problem He has extensive cellulitis in the right antecubital fossa extending into the right distal arm and the proximal right forearm with some area of induration. Condition is hemodynamically stable As per psych team patient can be transferred to the general medical floor, he does not need sitter or suicidal pre-cautions 12/13/2022 Patient afebrile Cellulitis of her right upper extremity improvement Continue with IV vancomycin Repeat labs in the morning 12/14/2023 Patient seen and evaluated in follow-up this morning maintained on IV antibiotics with infectious disease following 4 significant cellulitis noted in the right antecubital area status post IV site. Patient with continued induration and erythema and pain noted undergoing CT of the right upper extremity to evaluate if there is an abscess that needs to be drained. Patient is continued on vancomycin with pharmacy to dose and will follow-up and repeat labs. Patient is afebrile and denies chest pain or shortness of breath. Patient has been up and walking around and denies any nausea or vomiting and tolerating diet. Psychiatry also consulted as patient was recently hospitalized on the psychiatric unit with significant mental health history. Ruiz 2023 Patient is seen in follow-up today continued on IV antibiotics in the form of vancomycin with infectious disease following. Patient with significant thrombosed areas of the antecubital area on the right upper extremity with continued redness on the redness slightly improved and induration. Patient continues to have significant swelling of the right upper extremity and patient has been encouraged to elevate extremity throughout most of the day to alleviate some of the swelling. We'll discontinue IV fluids as patient is eating and drinking with no difficulties. Patient is afebrile and will continue on IV antibiotics for the next few days per ID recommendations. Will also initiate anticoagulation with concerns of risk for DVT in that right upper extremity. December 16, 2023 Patient is seen in follow-up today continued on IV antibiotics with infectious disease following. Patient will continue on vancomycin and was noted to have some improvement in swelling of the right upper extremity although noted to have purulent drainage noted at the site and culture is being sent and will await cultures. Patient is currently afebrile with no reports of chest pain or shortness of breath. Patient also being followed by psychiatry recommending transferring to inpatient psychiatric unit once medically stable. Patient has been encouraged and instructed to continue elevating right upper extremity while at rest to help minimize in the swelling. Patient has been up and walking and denies any significant pain. Patient reports pain is managed on current regimen. Review of systems: Constitutional: No reports of fatigue, fever, or chills Cardiovascular: No reports of chest pain or palpitations Respiratory: No reports of shortness of breath or cough GI: No reports of nausea, vomiting, or diarrhea : No reports of dysuria or retention Neurovascular: No reports of weakness or numbness All medications have been reviewed Physical exam: GENERAL: The patient is alert and oriented x3, not in any acute distress. Well developed, well nourished. HEENT: Pupils are round and equally reacting to light. EOMI. No scleral icterus. No conjunctival pallor. Normocephalic, atraumatic. No pharyngeal erythema. No thyromegaly. CARDIOVASCULAR: S1 and S2 present. No murmurs, rubs, or gallops. PULMONARY: Chest is clear to auscultation, no wheezing , no crackles. ABDOMEN: Soft, nontender, nondistended, normoactive bowel sounds. No palpable organomegaly. MUSCULOSKELETAL: No joint swelling or deformity. EXTREMITIES: No cyanosis, clubbing, or pedal edema. Right upper extremity cellulitis around the antecubital fossa, improving with less redness swelling and tenderness, some purulent drainage noted which was cultured today NEUROLOGICAL: Gross neurological examination did not reveal any focal deficits. SKIN: No rashes. no petechiae. Assessment: Cellulitis of the right upper extremity antecubital fossa area secondary to previous IV site at [facility] while in their ICU on mechanical ventilation, with extensive cellulitis and thrombophlebitis of the cephalic vein noted on CT schizoaffective disorder, who was recently discharged from the hospital for suicidal ideation and attempt with drug overdose Recent history of respiratory failure status post brief period of mechanical ventilation, currently on room air. Obesity with BMI of 38.2 GI prophylaxis DVT prophylaxis Plan: Patient is continued on IV vancomycin with pharmacy to dose with infectious disease following CT of the right upper extremity ordered and ruled out abscess is patient continues with redness and induration. CT of the arm shows associated thrombophlebitis of the cephalic vein down into the proximal third forearm, the cephalic vein from the region of the brachial neurovascular bundle also appears to be thrombosed with thrombophlebitis extending up to involve both the cephalic and basilic veins in the lower third arm with no convincing abscess. Extensive cellulitis noted in the surrounding tissue. Continue on eliquis twice daily with concerns of multiple thrombosed areas being risk for DVT Follow-up on repeat labs in a.m. and monitor kidney functions while on vancomycin Patient was noted to have some drainage that was purulent at the site and was swabbed and culture was sent Patient generalized swelling is improving of the right upper extremity, encourage the patient to continue to elevate while at rest Per infectious disease, patient will require a few days of IV antibiotics prior to transferring to psychiatric unit Psychiatry following recommending transfer to inpatient psychiatric unit once medically stable. Will discuss with infectious disease and discharge planning Encouraged increased activity as tolerated The impression and plan of care has been dictated by Amy Summers, Nurse Practitioner as directed. Dr. Rell MD I have performed a history and examination and MDM of this patient, discussed the same with the dictator, and agree with the dictator's assessment and plan as written ,documented as a scribe. Based on total visit time, I have performed more than 50% of the visit. Objective - Vital Signs Vital signs: Vital Signs Temp 97.8 F 12/16/23 13:04 Pulse 89 12/16/23 13:04 Resp 18 12/16/23 13:04 BP 143/90 12/16/23 13:04 Pulse Ox 95 12/16/23 13:04 FiO2 Intake & Output 12/15/23 12/16/23 12/16/23 18:59 06:59 18:59 Intake Total 500 1440 Balance 500 1440 Intake: Intake, IV Titration 500 Amount Vancomycin 1,750 mg In 500 Sodium Chloride 0.9% 500 ml 500 ml @ 167 mls/hr IVPB Q8H [facility] Rx#: [id number] Oral 1440 Other: Voiding Method Toilet # Voids 2 - Labs CBC & Chem 7: 12/15/23 05:30 12/16/23 05:28 Labs: Abnormal Lab Results - Last 24 Hours (Table) 12/16/23 Range/Units 05:28 Chloride 110 H (98-107) mmol/L BUN 7 L (9-20) mg/dL
[2023-12-16] MEDS: DIVALPROEX ER 500 MG TAB.ER.24H PO SCH (20:15)
[2023-12-16] MEDS: haloperidoL 5 MG TAB PO SCH (20:15)
[2023-12-17] MEDS: VANCOMYCIN 1,750 MG in SODIUM CHLORIDE 0.9% 500 ML 500 ML IVPB SCH ×3 (05:10→21:40)
[2023-12-17 07:25] LABS: African American GFR (CKD) >90 (>60 ml/min/1.73 sqM); Non-African American GFR(CKD) >90 (>60 ml/min/1.73 sqM)
[2023-12-17] MEDS: DESVENLAFAXINE SUCCINATE 50 MG TAB.ER.24H PO SCH (09:35)
[2023-12-17] MEDS: APIXABAN 5 MG TAB PO SCH ×2 (09:35→20:00)
[2023-12-17] MEDS: NICOTINE 14MG/24HR PATCH TRANSDERM SCH (09:36)
[2023-12-17] MEDS: FAMOTIDINE 20 MG/2 ML VIAL IV SCH ×2 (09:36→20:01)
[2023-12-17] MEDS: BENZTROPINE MESYLATE 1 MG TAB PO SCH (09:36)
[2023-12-17] MEDS: NALTREXONE HCL 50 MG TAB PO SCH (09:36)
[2023-12-17 12:32] VITALS: BMI 36.8
[2023-12-17] MEDS: HYDROcodone/APAP 5-325MG 1 EACH TAB PO PRN ×2 (13:13→19:25)
--- NOTE | 2023-12-17 15:30 | P.PN ---
Subjective Progress Note Date: 12/17/23 Principal diagnosis: Right upper extremity cellulitis Patient is a 43-year-old male who was recently admitted at [facility] with suicidal ingestion of multiple drugs patient was briefly intubated at that facility and did have an IV to the right antecubital. There was discontinued the day the patient was discharged from that facility the patient however has developed significant cellulitis to the right upper extremity around his IV site for the patient has been admitted to the medical floor for IV antibiotic therapy. On today's evaluation that is 12/17/2023, the patient remains to be afebrile, the patient is breathing comfortably on room air, the patient denies any chest pain shortness of breath or cough patient denies having any nausea no vomiting did not have any abdominal pain no diarrhea has been reported, the patient right upper extremity swelling and redness has decreased mention he did have some drainage yesterday Patient white count of 8.81 as of 12/15/2023, creatinine is 0.68 Objective - Vital Signs Vital signs: Vital Signs Temp 98.3 F 12/17/23 07:51 Pulse 81 12/17/23 07:51 Resp 17 12/17/23 07:51 BP 124/82 12/17/23 07:51 Pulse Ox 97 12/17/23 07:51 FiO2 Intake & Output 12/16/23 12/17/23 12/17/23 18:59 06:59 18:59 Intake Total 1860 590 Balance 1860 590 Intake: Oral 1860 590 Other: Voiding Method Toilet # Voids 3 2 - Exam GENERAL DESCRIPTION: middle-age male lying in bed in no distress RESPIRATORY SYSTEM: Unlabored breathing , decreased breath sounds at bases HEART: S1 S2 regular rate and rhythm , ABDOMEN: Soft , no tenderness EXTREMITIES: Right antecubital fossa and upper extremity did have significant swelling and redness no drainage - Labs CBC & Chem 7: 12/15/23 05:30 12/17/23 06:25 Labs: Microbiology - Last 24 Hours (Table) 12/16/23 09:20 Gram Stain - Preliminary Arm - Right 12/16/23 11:59 Gram Stain - Preliminary Arm - Right Assessment and Plan (1) Left arm cellulitis Current Visit: Yes Status: Acute Code(s): L03.114 - CELLULITIS OF LEFT UPPER LIMB SNOMED Code(s): 32800637175071204 (2) Leukocytosis Current Visit: Yes Status: Acute Code(s): D72.829 - ELEVATED WHITE BLOOD CELL COUNT, UNSPECIFIED SNOMED Code(s): 019896131 Plan: 1patient with left upper extremity cellulitis site of an IV that was placed at the [facility] when he initially presented with the drug overdose does seem to have not responded well to the oral Keflex concerning for more resistant gram-positive such as MRSA 2-blood culture has been obtained and so far pending 3-patient did have extensive cellulitis and induration to the area, CT did not show any abscess there is concern for possible venous thrombosis 4patient noticed to have some purulent drainage which culture yesterday results will be followed we will continue with empiric vancomycin waiting for the cult ure to finalize to determine discharge antibiotics Dictation was produced using [employer] dictation software. please excuse any grammatical, word or spelling errors. Time with Patient: Less than 30
--- NOTE | 2023-12-17 17:03 | P.PN ---
Progress Note - Text Progress Note Date: 12/17/23 Interval History: Patient was seen today for psychiatric follow-up. patient was sitting at the si de of his bed. he was fairly concrete, appeared to have very limited insight and judgment. states that he did attempt suicide before coming into the hosptial. he vaguely mentioned some stressors at home however did not appear to give further details. he was somewhat vague and evasive. states that he is feeling depressed an anxnious still. claims his sleep is on/off, appetite is fair. this time pat ient denies any current suicidal or homical ideations, intent or plan. Patient denies any auditory, visual hallucinations and denies any paranoia or delusions. Patient denies any side effects from the medications and has been compliant with meds. Mental Status Exam: General Appearance: [Patient appears to be mildly overweight, stated age is alert, directable, and attempts to be cooperative.] Behavior: [Patient is calmly seated without any agitated behavior.] concrete. vague, evasive. Speech: Patient's speech is fluent and nonpressured. concrete. Mood/Affect: Mood is improving mildly, affect is congruent and constricted. Suicidality/Homicidality: Patient denies having any suicidal or homicidal ideation intent or plan. Perceptions: Patient denies any visual hallucinations [and denies any auditory hallucinations] Though content/process: [There is no evidence of any delusional thought content and thought process is linear and goal-directed.] concrete. superficial. Memory and concentration: AOX3, grossly intact for the purposes of this session Judgment and insight: poor/impulsive. Assessment suicide attempt by medication overdose Schizoaffective disorder Plan: -The patient continues to be meet criteria for inpatient psychiatric hospitalization once he is medically stable and cleared. would recommend CONTINUATION of this current home medications at the time of transfer patient also its long acting report form off paliperidone which is due next month as he has been given this by [facility]. at this time psychiatry will sign off. -resume 1:1 sitter due to patients recent suicide attempt and needing transfer back to [facility]. thank you very much, please feel free to contact [facility] if you have any further questions
[2023-12-17] MEDS: DIVALPROEX ER 500 MG TAB.ER.24H PO SCH (20:00)
[2023-12-17] MEDS: haloperidoL 5 MG TAB PO SCH (20:01)
[2023-12-18] MEDS: HYDROcodone/APAP 5-325MG 1 EACH TAB PO PRN ×2 (02:32→17:10)
[2023-12-18] MEDS ORDERED: VANCOMYCIN TROUGH DUE 1 EACH MISC MISCELLANE ONE (05:00)
[2023-12-18] MEDS: VANCOMYCIN 1,750 MG in SODIUM CHLORIDE 0.9% 500 ML 500 ML IVPB SCH ×3 (06:04→21:40)
[2023-12-18 07:27] LABS: African American GFR (CKD) >90 (>60 ml/min/1.73 sqM); Non-African American GFR(CKD) >90 (>60 ml/min/1.73 sqM)
[2023-12-18] MEDS: NICOTINE 14MG/24HR PATCH TRANSDERM SCH (08:33)
--- NOTE | 2023-12-18 09:21 | P.PN ---
Subjective Progress Note Date: 12/17/23 This is a pleasant 43 years old male with past medical history of schizoaffective disorder Patient was seen yesterday by me as a medical consult in the psych unit. Initially Patient was admitted to [facility] 12/07-12/10. He admitted ther because he was found unresponsive at home, with four empty bottles of medication were at patient side. Patient was diagnosed with polysubstance overdose in an attempt to commit suicide He was treated temporarily in the ICU for acute hypoxic respiratory failure on mechanical ventilation, he was extubated on 12/08/23. Patient patient was transferred [facility]/psych unit and 3 W.And then patient was transferred to this facility for psychiatric treatment I saw him for the consult and he had cellulitis on the right upper extremity, in the right antecubital fossa extending proximally to the distal arm and distally to the forearm. Infectious disease consult was obtained as well. He was treated with oral Keflex 500 mg however patient cellulitis was worsening today. As per discussions with ID team recommended IV antibiotic therefore patient was transferred today to the general medical floor. Patient was awake alert walking in the hallway with no problem He has extensive cellulitis in the right antecubital fossa extending into the right distal arm and the proximal right forearm with some area of induration. Condition is hemodynamically stable As per psych team patient can be transferred to the general medical floor, he does not need sitter or suicidal pre-cautions 12/13/2022 Patient afebrile Cellulitis of her right upper extremity improvement Continue with IV vancomycin Repeat labs in the morning 12/14/2023 Patient seen and evaluated in follow-up this morning maintained on IV antibiotics with infectious disease following 4 significant cellulitis noted in the right antecubital area status post IV site. Patient with continued induration and erythema and pain noted undergoing CT of the right upper extremity to evaluate if there is an abscess that needs to be drained. Patient is continued on vancomycin with pharmacy to dose and will follow-up and repeat labs. Patient is afebrile and denies chest pain or shortness of breath. Patient has been up and walking around and denies any nausea or vomiting and tolerating diet. Psychiatry also consulted as patient was recently hospitalized on the psychiatric unit with significant mental health history. 12/15/2023 Patient is seen in follow-up today continued on IV antibiotics in the form of vancomycin with infectious disease following. Patient with significant thrombosed areas of the antecubital area on the right upper extremity with continued redness on the redness slightly improved and induration. Patient continues to have significant swelling of the right upper extremity and patient has been encouraged to elevate extremity throughout most of the day to alleviate some of the swelling. We'll discontinue IV fluids as patient is eating and drinking with no difficulties. Patient is afebrile and will continue on IV antibiotics for the next few days per ID recommendations. Will also initiate anticoagulation with concerns of risk for DVT in that right upper extremity. December 16, 2023 Patient is seen in follow-up today continued on IV antibiotics with infectious disease following. Patient will continue on vancomycin and was noted to have some improvement in swelling of the right upper extremity although noted to have purulent drainage noted at the site and culture is being sent and will await cultures. Patient is currently afebrile with no reports of chest pain or shortness of breath. Patient also being followed by psychiatry recommending transferring to inpatient psychiatric unit once medically stable. Patient has been encouraged and instructed to continue elevating right upper extremity while at rest to help minimize in the swelling. Patient has been up and walking and denies any significant pain. Patient reports pain is managed on current regimen. 12/17/2023 Patient is seen in follow-up continued on vancomycin with infectious disease following while awaiting cultures as there was some drainage noted at the right antecubital site. Patient also to be reevaluated by psychiatry as patient reports he does not feel suicidal and denies any suicidal or homicidal ideations although had been sent here from [facility] for the psychiatry unit secondary to this. Will reconsult psychiatry. Patient is afebrile with no reported chest pain or shortness of breath. Patient tolerating diet with no reported nausea or vomiting. Review of systems: Constitutional: No reports of fatigue, fever, or chills Cardiovascular: No reports of chest pain or palpitations Respiratory: No reports of shortness of breath or cough GI: No reports of nausea, vomiting, or diarrhea : No reports of dysuria or retention Neurovascular: No reports of weakness or numbness All medications have been reviewed Physical exam: GENERAL: The patient is alert and oriented x3, not in any acute distress. Well developed, well nourished. HEENT: Pupils are round and equally reacting to light. EOMI. No scleral icterus. No conjunctival pallor. Normocephalic, atraumatic. No pharyngeal erythema. No thyromegaly. CARDIOVASCULAR: S1 and S2 present. No murmurs, rubs, or gallops. PULMONARY: Chest is clear to auscultation, no wheezing , no crackles. ABDOMEN: Soft, nontender, nondistended, normoactive bowel sounds. No palpable organomegaly. MUSCULOSKELETAL: No joint swelling or deformity. EXTREMITIES: No cyanosis, clubbing, or pedal edema. Right upper extremity cellulitis around the antecubital fossa, improving with less redness swelling and tenderness, no further drainage noted and there continues to be some improvement in the swelling although continues with induration around the site. NEUROLOGICAL: Gross neurological examination did not reveal any focal deficits. SKIN: No rashes. no petechiae. Assessment: Cellulitis of the right upper extremity antecubital fossa area secondary to previous IV site at [facility] while in their ICU on mechanical ventilation, with extensive cellulitis and thrombophlebitis of the cephalic vein noted on CT schizoaffective disorder, who was recently discharged from the hospital for suicidal ideation and attempt with drug overdose Recent history of respiratory failure status post brief period of mechanical ventilation, secondary to drug overdose, currently on room air. Obesity with BMI of 38.2 GI prophylaxis DVT prophylaxis Plan: Patient is continued on IV vancomycin with pharmacy to dose with infectious disease following CT of the right upper extremity ordered and ruled out abscess is patient continues with redness and induration. CT of the arm shows associated thrombophlebitis of the cephalic vein down into the proximal third forearm, the cephalic vein from the region of the brachial neurovascular bundle also appears to be thrombosed with thrombophlebitis extending up to involve both the cephalic and basilic veins in the lower third arm with no convincing abscess. Extensive cellulitis noted in the surrounding tissue. Continue on eliquis twice daily with concerns of multiple thrombosed areas being risk for DVT Follow-up on repeat labs in a.m. and monitor kidney functions while on vancomycin Patient antecubital area cultures obtained and pending and awaiting finalized cultures. Infectious disease recommending continuing on IV antibiotics for now. Instructed patient to continue to elevate while at rest. Some swelling has gone down including the right hand. Per infectious disease, patient will require a few days of IV antibiotics prior to transferring to psychiatric unit Psychiatry following recommending transfer to inpatient psychiatric unit once medically stable. Patient reported no suicidal ideations of harming himself or others. Psych to re-eval. Will discuss with infectious disease and discharge planning Encouraged increased activity as tolerated The impression and plan of care has been dictated by Amy Summers, Nurse Practitioner as directed. Dr. Rell MD I have performed a history and examination and MDM of this patient, discussed the same with the dictator, and agree with the dictator's assessment and plan as written ,documented as a scribe. Based on total visit time, I have performed more than 50% of the visit. Objective - Vital Signs Vital signs: Vital Signs Temp 98.3 F 12/17/23 07:51 Pulse 81 12/17/23 07:51 Resp 17 12/17/23 07:51 BP 124/82 12/17/23 07:51 Pulse Ox 97 12/17/23 07:51 FiO2 Intake & Output 12/16/23 12/17/23 12/17/23 18:59 06:59 18:59 Intake Total 1860 590 Balance 1860 590 Intake: Oral 1860 590 Other: Voiding Method Toilet # Voids 3 2 - Labs CBC & Chem 7: 12/15/23 05:30 12/18/23 06:11 Labs: Microbiology - Last 24 Hours (Table) 12/16/23 09:20 Gram Stain - Preliminary Arm - Right 12/16/23 11:59 Gram Stain - Preliminary Arm - Right
[2023-12-18] MEDS: APIXABAN 5 MG TAB PO SCH ×2 (09:38→20:02)
[2023-12-18] MEDS: DESVENLAFAXINE SUCCINATE 50 MG TAB.ER.24H PO SCH (09:39)
[2023-12-18] MEDS: FAMOTIDINE 20 MG/2 ML VIAL IV SCH ×2 (09:39→20:03)
[2023-12-18] MEDS: NALTREXONE HCL 50 MG TAB PO SCH (09:40)
[2023-12-18] MEDS: BENZTROPINE MESYLATE 1 MG TAB PO SCH (09:40)
--- NOTE | 2023-12-18 13:28 | P.PN ---
Subjective Progress Note Date: 12/18/23 This is a pleasant 43 years old male with past medical history of schizoaffective disorder Patient was seen yesterday by me as a medical consult in the psych unit. Initially Patient was admitted to [facility] 12/07-12/10. He admitted ther because he was found unresponsive at home, with four empty bottles of medication were at patient side. Patient was diagnosed with polysubstance overdose in an attempt to commit suicide He was treated temporarily in the ICU for acute hypoxic respiratory failure on mechanical ventilation, he was extubated on 12/08/23. Patient patient was transferred [facility]/psych unit and 3 W.And then patient was transferred to this facility for psychiatric treatment I saw him for the consult and he had cellulitis on the right upper extremity, in the right antecubital fossa extending proximally to the distal arm and distally to the forearm. Infectious disease consult was obtained as well. He was treated with oral Keflex 500 mg however patient cellulitis was worsening today. As per discussions with ID team recommended IV antibiotic therefore patient was transferred today to the general medical floor. Patient was awake alert walking in the hallway with no problem He has extensive cellulitis in the right antecubital fossa extending into the r ight distal arm and the proximal right forearm with some area of induration. Condition is hemodynamically stable As per psych team patient can be transferred to the general medical floor, he does not need sitter or suicidal pre-cautions 12/13/2022 Patient afebrile Cellulitis of her right upper extremity improvement Continue with IV vancomycin Repeat labs in the morning 12/14/2023 Patient seen and evaluated in follow-up this morning maintained on IV antibiotics with infectious disease following 4 significant cellulitis noted in the right antecubital area status post IV site. Patient with continued induration and erythema and pain noted undergoing CT of the right upper extremity to evaluate if there is an abscess that needs to be drained. Patient is continued on vancomycin with pharmacy to dose and will follow-up and repeat labs. Patient is afebrile and denies chest pain or shortness of breath. Patient has been up and walking around and denies any nausea or vomiting and tolerating diet. Psychiatry also consulted as patient was recently hospitalized on the psychiatric unit with significant mental health history. 12/15/2023 Patient is seen in follow-up today continued on IV antibiotics in the form of vancomycin with infectious disease following. Patient with significant th rombosed areas of the antecubital area on the right upper extremity with continued redness on the redness slightly improved and induration. Patient continues to have significant swelling of the right upper extremity and patient has been encouraged to elevate extremity throughout most of the day to alleviate some of the swelling. We'll discontinue IV fluids as patient is eating and drinking with no difficulties. Patient is afebrile and will continue on IV antibiotics for the next few days per ID recommendations. Will also initiate anticoagulation with concerns of risk for DVT in that right upper extremity. December 16, 2023 Patient is seen in follow-up today continued on IV antibiotics with infectious disease following. Patient will continue on vancomycin and was noted to have some improvement in swelling of the right upper extremity although noted to have purulent drainage noted at the site and culture is being sent and will await cultures. Patient is currently afebrile with no reports of chest pain or shortness of breath. Patient also being followed by psychiatry recommending transferring to inpatient psychiatric unit once medically stable. Patient has been encouraged and instructed to continue elevating right upper extremity while at rest to help minimize in the swelling. Patient has been up and walking and denies any significant pain. Patient reports pain is managed on current regimen. 12/17/2023 Patient is seen in follow-up continued on vancomycin with infectious disease following while awaiting cultures as there was some drainage noted at the right antecubital site. Patient also to be reevaluated by psychiatry as patient reports he does not feel suicidal and denies any suicidal or homicidal ideations although had been sent here from [facility] for the psychiatry unit secondary to this. Will reconsult psychiatry. Patient is afebrile with no reported chest pain or shortness of breath. Patient tolerating diet with no reported nausea or vomiting. 12/18. Patient seen and examined. Ambulate in the hallways. Sitter in place. Vital signs stable REVIEW OF SYSTEMS: CONSTITUTIONAL: No fever, no malaise,. CARDIOVASCULAR: No chest pain, no palpitations, no syncope. PULMONARY: No shortness of breath, no cough, GASTROINTESTINAL: No diarrhea, no nausea, no vomiting, no abdominal pain. NEUROLOGICAL: No headaches, no weakness, PHYSICAL EXAMINATION: GENERAL: The patient is alert and oriented x3, not in any acute distress. Well developed, well nourished. HEENT: Pupils are round and equally reacting to light. EOMI. No scleral icterus. No conjunctival pallor. Normocephalic, atraumatic. No pharyngeal erythema. No thyromegaly. CARDIOVASCULAR: S1 and S2 present. No murmurs, rubs, or gallops. PULMONARY: Chest is clear to auscultation, no wheezing or crackles. ABDOMEN: Soft, nontender, nondistended, normoactive bowel sounds. No palpable organomegaly. MUSCULOSKELETAL: No joint swelling or deformity. EXTREMITIES: No cyanosis, clubbing, or pedal edema. NEUROLOGICAL: Gross neurological examination did not reveal any focal deficits. SKIN: No rashes. Assessment and plan Cellulitis of the right upper extremity antecubital fossa area secondary to previous IV site at [facility] while in their ICU on mechanical ventilation, with extensive cellulitis and thrombophlebitis of the cephalic vein noted on CT schizoaffective disorder, who was recently discharged from the hospital for suicidal ideation and attempt with drug overdose Recent history of respiratory failure status post brief period of mechanical ventilation, secondary to drug overdose, currently on room air. Obesity with BMI of 38.2 Plan: Monitor vital signs Monitor CBC Monitor CMP Continue pharmacy dose vancomycin CT of the right upper extremity ordered and ruled out abscess is patient continues with redness and induration. CT of the arm shows associated thrombophlebitis of the cephalic vein down into the proximal third forearm, the cephalic vein from the region of the brachial neurovascular bundle also appears to be thrombosed with thrombophlebitis extending up to involve both the cephalic and basilic veins in the lower third arm with no convincing abscess. Extensive cellulitis noted in the surrounding tissue. Continue on eliquis twice daily with concerns of multiple thrombosed areas being risk for DVT Infectious disease following,Per infectious disease, patient will require a few days of IV antibiotics prior to transferring to psychiatric unit Psychiatry following recommending transfer to inpatient psychiatric unit once medically stable. Labs and medication were reviewed.. Continue same treatment. Continue with symptomatic treatment. Resume home medication. Monitor labs and vitals. DVT and GI prophylaxis. Further recommendations as per clinical course of the patient Dictation was produced using [employer] dictation software. please excuse any grammatical, word or spelling errors. Objective - Vital Signs Vital signs: Vital Signs Temp 97.5 F L 12/18/23 07:06 Pulse 88 12/18/23 07:06 Resp 18 12/18/23 07:06 BP 109/77 12/18/23 07:06 Pulse Ox 97 12/18/23 07:06 FiO2 Intake & Output 12/17/23 12/18/23 12/18/23 18:59 06:59 18:59 Intake Total 2079 1929 Balance 2079 1929 Weight 106.594 kg Intake: Intake, IV Titration 1000 500 Amount Vancomycin 1,750 mg In 1000 500 Sodium Chloride 0.9% 500 ml 500 ml @ 167 mls/hr IVPB Q8H [facility] Rx#: [id number] Oral 1080 1430 Other: Voiding Method Toilet Toilet # Voids 3 3 - Labs CBC & Chem 7: 12/15/23 05:30 12/18/23 06:11 Labs: Microbiology - Last 24 Hours (Table) 12/16/23 09:20 Gram Stain - Preliminary Arm - Right Wound Culture - Preliminary Presumptive MRSA 12/16/23 11:59 Gram Stain - Preliminary Arm - Right Wound Culture - Preliminary Presumptive MRSA
[2023-12-18] MEDS: DIVALPROEX ER 500 MG TAB.ER.24H PO SCH (20:02)
[2023-12-18] MEDS: haloperidoL 5 MG TAB PO SCH (20:03)
[2023-12-19] MEDS: HYDROcodone/APAP 5-325MG 1 EACH TAB PO PRN ×3 (00:54→18:52)
--- NOTE | 2023-12-19 03:35 | P.PN ---
Subjective Progress Note Date: 12/18/23 Principal diagnosis: Right upper extremity cellulitis This is a telehealth visit Patient is a 43-year-old male who was recently admitted at [facility] with suicidal ingestion of multiple drugs patient was briefly intubated at that facility and did have an IV to the right antecubital. There was discontinued the day the patient was discharged from that facility the patient however has developed significant cellulitis to the right upper extremity around his IV site for the patient has been admitted to the medical floor for IV antibiotic therapy. On today's evaluation that is 12/18/2023 the patient remains to be afebrile, the patient is breathing comfortably currently on room air, the patient denies having any chest pain shortness of breath or cough no nausea no vomiting no abdominal pain and no diarrhea, right upper extremity swelling redness has decreased and no further drainage. The patient did have white count of 8.81 as of 12/15/2023 creatinine 0.66 culture has been finalized with MRSA sensitivities pending blood culture negative Objective - Vital Signs Vital signs: Vital Signs Temp 97.8 F 12/18/23 11:50 Pulse 87 12/18/23 11:50 Resp 19 12/18/23 11:50 BP 128/75 12/18/23 11:50 Pulse Ox 97 12/18/23 11:50 FiO2 Intake & Output 12/17/23 12/18/23 12/18/23 18:59 06:59 18:59 Intake Total 2079 1929 Balance 2079 1929 Weight 106.594 kg Intake: Intake, IV Titration 1000 500 Amount Vancomycin 1,750 mg In 1000 500 Sodium Chloride 0.9% 500 ml 500 ml @ 167 mls/hr IVPB Q8H [facility] Rx#: [id number] Oral 1080 1430 Other: Voiding Method Toilet Toilet # Voids 3 3 - Exam Middle-age male lying in bed in no distress Right upper extremity swelling or redness has decreased and no drainage was noticed - Labs CBC & Chem 7: 12/15/23 05:30 12/18/23 06:11 Labs: Microbiology - Last 24 Hours (Table) 12/16/23 09:20 Anaerobic Culture - Preliminary Arm - Right 12/16/23 09:20 Gram Stain - Preliminary Arm - Right Wound Culture - Preliminary Presumptive MRSA 12/16/23 11:59 Gram Stain - Preliminary Arm - Right Wound Culture - Preliminary Presumptive MRSA Assessment and Plan (1) Left arm cellulitis Current Visit: Yes Status: Acute Code(s): L03.114 - CELLULITIS OF LEFT UPPER LIMB SNOMED Code(s): 18378058883307953 (2) Leukocytosis Current Visit: Yes Status: Acute Code(s): D72.829 - ELEVATED WHITE BLOOD CELL COUNT, UNSPECIFIED SNOMED Code(s): 718327953 Plan: 1patient with left upper extremity cellulitis site of an IV that was placed at the [facility] when he initially presented with the drug overdose does seem to have not responded well to the oral Keflex concerning for more resistant gram-positive such as MRSA 2-blood culture has been negative 3-patient did have extensive cellulitis and induration to the area, CT did not show any abscess there is concern for possible venous thrombosis 4patient noticed to have some purulent drainage with a culture currently growing MRSA sensitivities pending 5- we will continue with empiric vancomycin waiting for the culture to finalize to determine discharge antibiotics Dictation was produced using [employer] dictation software. please excuse any grammatical, word or spelling errors. Time with Patient: Less than 30
[2023-12-19] MEDS: VANCOMYCIN 1,750 MG in SODIUM CHLORIDE 0.9% 500 ML 500 ML IVPB SCH ×3 (05:42→22:03)
[2023-12-19 06:43] LABS: ALT 35 U/L (4-49); AST 21 U/L (17-59); African American GFR (CKD) >90 (>60 ml/min/1.73 sqM); Albumin 2.8 g/dL (3.5-5.0); Albumin/Globulin Ratio 1.1; Alkaline Phosphatase 59 U/L (38-126); Anion Gap 5 mmol/L; Blood Urea Nitrogen 13 mg/dL (9-20); Calcium 8.7 mg/dL (8.4-10.2); Carbon Dioxide 24 mmol/L (22-30); Chloride 110 mmol/L (98-107); Globulin 2.6 g/dL; Glucose 112 mg/dL (74-99); Non-African American GFR(CKD) >90 (>60 ml/min/1.73 sqM); Potassium 4.5 mmol/L (3.5-5.1); Sodium 139 mmol/L (137-145); Total Bilirubin 0.2 mg/dL (0.2-1.3); Total Protein 5.4 g/dL (6.3-8.2)
[2023-12-19] MEDS: APIXABAN 5 MG TAB PO SCH ×2 (08:51→20:10)
[2023-12-19] MEDS: FAMOTIDINE 20 MG/2 ML VIAL IV SCH ×2 (08:51→20:10)
[2023-12-19] MEDS: NALTREXONE HCL 50 MG TAB PO SCH (08:52)
[2023-12-19] MEDS: NICOTINE 14MG/24HR PATCH TRANSDERM SCH (08:52)
[2023-12-19] MEDS: DESVENLAFAXINE SUCCINATE 50 MG TAB.ER.24H PO SCH (08:52)
[2023-12-19] MEDS: BENZTROPINE MESYLATE 1 MG TAB PO SCH (08:52)
[2023-12-19 09:51] LABS: HCT 41.6 % (39.6-50.0); HGB 13.5 g/dL (13.0-17.0); MCH 32.8 pg (27.0-32.0); MCHC 32.5 g/dL (32.0-37.0); MCV 101.2 FL (80.0-97.0); Mean Platelet Volume 10.6 FL (9.5-12.2); NRBC Per 100 WBC 0 X 10*3/uL (0.00-0.01); Platelet Count 351 X 10*3/uL (140-440); RBC 4.11 X 10*6/uL (4.40-5.60); RDW 13.1 % (11.5-14.5); WBC 8.96 X 10*3/uL (4.50-10.00)
--- NOTE | 2023-12-19 13:13 | P.PN ---
Subjective Progress Note Date: 12/19/23 This is a pleasant 43 years old male with past medical history of schizoaffective disorder Patient was seen yesterday by me as a medical consult in the psych unit. Initially Patient was admitted to [facility] 12/07-12/10. He admitted ther because he was found unresponsive at home, with four empty bottles of medication were at patient side. Patient was diagnosed with polysubstance overdose in an attempt to commit suicide He was treated temporarily in the ICU for acute hypoxic respiratory failure on mechanical ventilation, he was extubated on 12/08/23. Patient patient was transferred [facility]/psych unit and [address] W.And then patient was transferred to this facility for psychiatric treatment I saw him for the consult and he had cellulitis on the right upper extremity, in the right antecubital fossa extending proximally to the distal arm and distally to the forearm. Infectious disease consult was obtained as well. He was treated with oral Keflex 500 mg however patient cellulitis was worsening today. As per discussions with ID team recommended IV antibiotic therefore patient was transferred today to the general medical floor. Patient was awake alert walking in the hallway with no problem He has extensive cellulitis in the right antecubital fossa extending into the r ight distal arm and the proximal right forearm with some area of induration. Condition is hemodynamically stable As per psych team patient can be transferred to the general medical floor, he does not need sitter or suicidal pre-cautions 12/13/2022 Patient afebrile Cellulitis of her right upper extremity improvement Continue with IV vancomycin Repeat labs in the morning 12/14/2023 Patient seen and evaluated in follow-up this morning maintained on IV antibiotics with infectious disease following 4 significant cellulitis noted in the right antecubital area status post IV site. Patient with continued induration and erythema and pain noted undergoing CT of the right upper extremity to evaluate if there is an abscess that needs to be drained. Patient is continued on vancomycin with pharmacy to dose and will follow-up and repeat labs. Patient is afebrile and denies chest pain or shortness of breath. Patient has been up and walking around and denies any nausea or vomiting and tolerating diet. Psychiatry also consulted as patient was recently hospitalized on the psychiatric unit with significant mental health history. 12/15/2023 Patient is seen in follow-up today continued on IV antibiotics in the form of vancomycin with infectious disease following. Patient with significant th rombosed areas of the antecubital area on the right upper extremity with continued redness on the redness slightly improved and induration. Patient continues to have significant swelling of the right upper extremity and patient has been encouraged to elevate extremity throughout most of the day to alleviate some of the swelling. We'll discontinue IV fluids as patient is eating and drinking with no difficulties. Patient is afebrile and will continue on IV antibiotics for the next few days per ID recommendations. Will also initiate anticoagulation with concerns of risk for DVT in that right upper extremity. December 16, 2023 Patient is seen in follow-up today continued on IV antibiotics with infectious disease following. Patient will continue on vancomycin and was noted to have some improvement in swelling of the right upper extremity although noted to have purulent drainage noted at the site and culture is being sent and will await cultures. Patient is currently afebrile with no reports of chest pain or shortness of breath. Patient also being followed by psychiatry recommending transferring to inpatient psychiatric unit once medically stable. Patient has been encouraged and instructed to continue elevating right upper extremity while at rest to help minimize in the swelling. Patient has been up and walking and denies any significant pain. Patient reports pain is managed on current regimen. 12/17/2023 Patient is seen in follow-up continued on vancomycin with infectious disease following while awaiting cultures as there was some drainage noted at the right antecubital site. Patient also to be reevaluated by psychiatry as patient reports he does not feel suicidal and denies any suicidal or homicidal ideations although had been sent here from [facility] for the psychiatry unit secondary to this. Will reconsult psychiatry. Patient is afebrile with no reported chest pain or shortness of breath. Patient tolerating diet with no reported nausea or vomiting. 12/18. Patient seen and examined. Ambulate in the hallways. Sitter in place. Vital signs stable 12/19. Patient seen and examined. Denies any pain. Patient continues to be afebrile. Denies any lightheadedness or dizziness. Sitter in place REVIEW OF SYSTEMS: CONSTITUTIONAL: No fever, no malaise,. CARDIOVASCULAR: No chest pain, no palpitations, no syncope. PULMONARY: No shortness of breath, no cough, GASTROINTESTINAL: No diarrhea, no nausea, no vomiting, no abdominal pain. NEUROLOGICAL: No headaches, no weakness, PHYSICAL EXAMINATION: GENERAL: The patient is alert and oriented x3, not in any acute distress. Well developed, well nourished. HEENT: Pupils are round and equally reacting to light. EOMI. No scleral icterus. No conjunctival pallor. Normocephalic, atraumatic. No pharyngeal erythema. No thyromegaly. CARDIOVASCULAR: S1 and S2 present. No murmurs, rubs, or gallops. PULMONARY: Chest is clear to auscultation, no wheezing or crackles. ABDOMEN: Soft, nontender, nondistended, normoactive bowel sounds. No palpable organomegaly. MUSCULOSKELETAL: No joint swelling or deformity. EXTREMITIES: No cyanosis, clubbing, or pedal edema. NEUROLOGICAL: Gross neurological examination did not reveal any focal deficits. SKIN: No rashes. Assessment and plan Cellulitis of the right upper extremity antecubital fossa area secondary to previous IV site at [facility] while in their ICU on mechanical ventilation, with extensive cellulitis and thrombophlebitis of the cephalic vein noted on CT schizoaffective disorder, who was recently discharged from the hospital for suicidal ideation and attempt with drug overdose Recent history of respiratory failure status post brief period of mechanical ventilation, secondary to drug overdose, currently on room air. Obesity with BMI of 38.2 Plan: Monitor vital signs Monitor CBC Monitor CMP Continue pharmacy dose vancomycin CT of the right upper extremity ordered and ruled out abscess is patient continues with redness and induration. CT of the arm shows associated thrombophlebitis of the cephalic vein down into the proximal third forearm, the cephalic vein from the region of the brachial neurovascular bundle also appears to be thrombosed with thrombophlebitis extending up to involve both the cephalic and basilic veins in the lower third arm with no convincing abscess. Extensive cellulitis noted in the surrounding tissue. Continue on eliquis twice daily with concerns of multiple thrombosed areas being risk for DVT Infectious disease following,Per infectious disease, patient will require a few days of IV antibiotics prior to transferring to psychiatric unit Psychiatry following recommending transfer to inpatient psychiatric unit once medically stable. Labs and medication were reviewed.. Continue same treatment. Continue with symptomatic treatment. Resume home medication. Monitor labs and vitals. DVT and GI prophylaxis. Further recommendations as per clinical course of the patient Dictation was produced using [employer] dictation software. please excuse any grammatical, word or spelling errors. Objective - Vital Signs Vital signs: Vital Signs Temp 97.6 F 12/19/23 07:17 Pulse 76 12/19/23 07:17 Resp 18 12/19/23 07:17 BP 106/96 12/19/23 07:17 Pulse Ox 95 12/19/23 07:17 FiO2 Intake & Output 12/18/23 12/19/23 12/19/23 18:59 06:59 18:59 Other: Voiding Method Toilet Toilet # Voids 1 2 - Labs CBC & Chem 7: 12/15/23 05:30 12/19/23 06:06 Labs: Abnormal Lab Results - Last 24 Hours (Table) 12/19/23 Range/Units 06:06 Chloride 110 H (98-107) mmol/L Glucose 112 H (74-99) mg/dL Total Protein 5.4 L (6.3-8.2) g/dL Albumin 2.8 L (3.5-5.0) g/dL Microbiology - Last 24 Hours (Table) 12/16/23 09:20 Anaerobic Culture - Preliminary Arm - Right 12/16/23 09:20 Gram Stain - Preliminary Arm - Right Wound Culture - Preliminary Presumptive MRSA 12/16/23 11:59 Gram Stain - Preliminary Arm - Right Wound Culture - Preliminary Presumptive MRSA
[2023-12-19] MEDS: haloperidoL 5 MG TAB PO SCH (20:10)
[2023-12-19] MEDS: DIVALPROEX ER 500 MG TAB.ER.24H PO SCH (20:10)
[2023-12-20] MEDS: HYDROcodone/APAP 5-325MG 1 EACH TAB PO PRN ×4 (01:27→21:15)
--- NOTE | 2023-12-20 01:56 | P.PN ---
Subjective Progress Note Date: 12/19/23 Principal diagnosis: Right upper extremity cellulitis This is a telehealth visit Patient is a 43-year-old male who was recently admitted at [facility] with suicidal ingestion of multiple drugs patient was briefly intubated at that facility and did have an IV to the right antecubital. There was discontinued the day the patient was discharged from that facility the patient however has developed significant cellulitis to the right upper extremity around his IV site for the patient has been admitted to the medical floor for IV antibiotic therapy. On today's evaluation that is 12/19/2023 the patient continues to be afebrile, the patient is breathing comfortably on room air patient denies having any chest pain occasional cough no sputum production, the pt denies nausea vomiting no abdominal pain no diarrhea, the patient pain and swelling to the right upper extremity has decreased in intensity. Patient white count of 8.96, creatinine 0.77 cultures with MRSA that is sensitive to Bactrim Objective - Vital Signs Vital signs: Vital Signs Temp 97.6 F 12/19/23 07:17 Pulse 76 12/19/23 07:17 Resp 18 12/19/23 07:17 BP 106/96 12/19/23 07:17 Pulse Ox 95 12/19/23 07:17 FiO2 Intake & Output 12/18/23 12/19/23 12/19/23 18:59 06:59 18:59 Other: Voiding Method Toilet Toilet Toilet # Voids 1 2 - Exam Middle-age male lying in bed in no distress Right upper extremity swelling or redness has decreased and no drainage was noticed - Labs CBC & Chem 7: 12/19/23 06:06 12/19/23 06:06 Labs: Abnormal Lab Results - Last 24 Hours (Table) 12/19/23 12/19/23 Range/Units 06:06 06:06 RBC 4.11 L (4.40-5.60) X 10*6/uL MCV 101.2 H (80.0-97.0) FL MCH 32.8 H (27.0-32.0) pg Chloride 110 H (98-107) mmol/L Glucose 112 H (74-99) mg/dL Total Protein 5.4 L (6.3-8.2) g/dL Albumin 2.8 L (3.5-5.0) g/dL Microbiology - Last 24 Hours (Table) 12/16/23 09:20 Anaerobic Culture - Preliminary Arm - Right 12/16/23 09:20 Gram Stain - Preliminary Arm - Right Wound Culture - Preliminary Presumptive MRSA 12/16/23 11:59 Gram Stain - Preliminary Arm - Right Wound Culture - Preliminary Presumptive MRSA Assessment and Plan (1) Left arm cellulitis Current Visit: Yes Status: Acute Code(s): L03.114 - CELLULITIS OF LEFT UPPER LIMB SNOMED Code(s): 77679045103124100 (2) Leukocytosis Current Visit: Yes Status: Acute Code(s): D72.829 - ELEVATED WHITE BLOOD CELL COUNT, UNSPECIFIED SNOMED Code(s): 279999336 Plan: 1patient with left upper extremity cellulitis site of an IV that was placed at the [facility] when he initially presented with the drug overdose does seem to have not responded well to the oral Keflex concerning for more resistant gram-positive such as MRSA 2-blood culture has been negative 3-patient did have extensive cellulitis and induration to the area, CT did not show any abscess there is concern for possible venous thrombosis 4patient noticed to have some purulent drainage with a culture currently growing MRSA that is sensitive to Bactrim and doxycycline 5-patient to continue the vancomycin while inpatient however the patient will be able to finish therapy with oral Bactrim DS x 10 days on discharge Dictation was produced using [employer] dictation software. please excuse any grammatical, word or spelling errors. Time with Patient: Less than 30
[2023-12-20] MEDS ORDERED: VANCOMYCIN TROUGH DUE 1 EACH MISC MISCELLANE ONE (05:00)
[2023-12-20] MEDS: VANCOMYCIN 1,750 MG in SODIUM CHLORIDE 0.9% 500 ML 500 ML IVPB SCH (05:39)
[2023-12-20 06:09] LABS: African American GFR (CKD) >90 (>60 ml/min/1.73 sqM); Non-African American GFR(CKD) >90 (>60 ml/min/1.73 sqM)
[2023-12-20] MEDS: FAMOTIDINE 20 MG/2 ML VIAL IV SCH ×2 (08:34→20:05)
[2023-12-20] MEDS: DESVENLAFAXINE SUCCINATE 50 MG TAB.ER.24H PO SCH (08:35)
[2023-12-20] MEDS: BENZTROPINE MESYLATE 1 MG TAB PO SCH (08:35)
[2023-12-20] MEDS: APIXABAN 5 MG TAB PO SCH ×2 (08:35→20:06)
[2023-12-20] MEDS: NICOTINE 14MG/24HR PATCH TRANSDERM SCH (08:40)
[2023-12-20] MEDS: NALTREXONE HCL 50 MG TAB PO SCH (09:17)
--- NOTE | 2023-12-20 14:17 | P.DS ---
Providers Date of admission: 12/12/23 14:46 Attending physician: Chepe Nuno MD Consults: 12/12/23 16:09 Consult Physician Routine Consulting Provider: Joana Cole Consult Reason/Comments: cellulitis rt arm Do you want consulting provider notified?: Already Contacted Placement Type Exists?: Yes 12/17/23 11:27 Consult Physician Routine Consulting Provider: Jarek Wynn Consult Reason/Comments: schizoaffective disorder , recent psych admission, re-eval Do you want consulting provider notified?: Yes Primary care physician: Stated None Hospital Course: Final Diagnosis Cellulitis of the right upper extremity antecubital fossa area secondary to previous IV site at [facility] while in their ICU on mechanical ventilation, with extensive cellulitis and thrombophlebitis of the cephalic vein noted on CT schizoaffective disorder, who was recently discharged from the hospital for suicidal ideation and attempt with drug overdose Recent history of respiratory failure status post brief period of mechanical ventilation, secondary to drug overdose, currently on room air. Obesity with BMI of 38.2 Discharge Disposition Patient is stable for discharge to mental health unit. Psychiatry recommending for patient to continue with inpatient psychiatric hospitalization and he is now medically clear. Patient will be continued on Bactrim double strength twice a day for the next 10 days as recommended by Dr. Cole. We will plan for him to follow-up in the office within 1 to 2 weeks. Patient to continue on Eliquis for DVT prophylaxis due to the extensive thrombophlebitis of the right upper extremity as noted on the CT scan. We would recommend to follow-up with vascular services outpatient for additional recommendations. Hospital course This is a pleasant 43 years old male with past medical history of schizoaffective disorder. Patient was recently admitted to [facility] from December 07 to December 10 due to polysubstance overdose patient was found unresponsive at home with 4 empty bottles of his medication at his bedside. This was an attempt to commit suicide he was admitted to the ICU for acute hypoxic respiratory failure and placed on the mechanical ventilator. Subsequently he was extubated on December 08, 2023. Patient was then transferred from [facility] to the [facility] psychiatric unit on 3 W. for evaluation. Patient there was noted to have cellulitis of the right upper extremity in the right antecubital fossa extending proximally to the distal arm and distally to the forearm. ID was consulted and the wound was cultured. Patient was initially treated with oral Keflex without response and he was recommended to transfer to the medical floor where he was placed on IV vancomycin. There was some induration noted. He had a CT of the right upper extremity done on the that shows severe cellulitis specifically along the antecubital fossa and upper third forearm. There is associated thrombophlebitis of the cephalic vein down into the proximal third forearm. A tributary that joins the cephalic vein from the region of the brachial neurovascular bundle also appears to be thrombosed. Thrombophlebitis extending up to involve both of the cephalic and basilar veins to the lower third arm. There is no commencing abscess identified given the degree of edema and cellulitis at the antecubital fossa. If there is persistent concerns short interval follow-up can be performed. Patient did improve on IV antibiotic therapy and his right AC is not red any longer there is no drainage and the wound appears to be healed. He does continue on Eliquis twice a day and would recommend to follow-up with vascular outpatient to discuss continuation of this medication. His white blood cell count is normal at 8.96, his renal function remains normal. Hemodynamically he is stable. Please see medication reconciliation for list of current medications. Thank you for allowing us participate in care of this patient. The impression and plan of care has been dictated by Rox Barnett, Nurse Practitioner as directed. Dr. Rell MD I have performed a history and physical examination and medical decision making of this patient, discussed the same with the dictator, and agree with the dictators assessment and plan as written, documented as a scribe. Based on total visit time, I have performed more than 50% of this visit. Patient Condition at Discharge: Fair Plan - Discharge Summary New Discharge Prescriptions: New Apixaban [Eliquis] 5 mg PO BID tab Nicotine 14Mg/24Hr Patch [Habitrol] 1 patch TRANSDERM DAILY patch Famotidine [Pepcid] 20 mg PO DAILY #30 tablet Desvenlafaxine Succinate [Pristiq ER] 50 mg PO DAILY tab Sulfamethox-Tmp 800-160Mg [Bactrim DS 800-160 mg] 1 tab PO Q12HR 10 Days #20 tab Continue Divalproex ER [Depakote ER] 500 mg PO HS 30 Days tab.er.24h Naltrexone HCl [Revia] 50 mg PO DAILY 30 Days tab haloperidoL [Haldol] 10 mg PO HS 30 Days tab Paliperidone IM [Invega Sustenna] 234 mg IM Q28D #1 ml Benztropine Mesylate [Cogentin] 1 mg PO DAILY Venlafaxine HCl ER [Effexor XR] 75 mg PO DAILY 30 Days #30 cap Discharge Medication List Divalproex ER [Depakote ER] 500 mg PO HS 30 Days tab.er.24h 09/06/20 [Rx] Naltrexone HCl [Revia] 50 mg PO DAILY 30 Days tab 09/06/20 [Rx] Paliperidone IM [Invega Sustenna] 234 mg IM Q28D #1 ml 09/06/20 [Rx] haloperidoL [Haldol] 10 mg PO HS 30 Days tab 09/06/20 [Rx] Benztropine Mesylate [Cogentin] 1 mg PO DAILY 12/12/23 [History] Venlafaxine HCl ER [Effexor XR] 75 mg PO DAILY 30 Days #30 cap 12/12/23 [Rx] Apixaban [Eliquis] 5 mg PO BID tab 12/20/23 [Rx] Desvenlafaxine Succinate [Pristiq ER] 50 mg PO DAILY tab 12/20/23 [Rx] Famotidine [Pepcid] 20 mg PO DAILY #30 tablet 12/20/23 [Rx] Nicotine 14Mg/24Hr Patch [Habitrol] 1 patch TRANSDERM DAILY patch 12/20/23 [Rx] Sulfamethox-Tmp 800-160Mg [Bactrim DS 800-160 mg] 1 tab PO Q12HR 10 Days #20 tab 12/20/23 [Rx] Follow up Appointment(s)/Referral(s): Lefty Lowe DO [Doctor of Osteopathic Medicine] - 1 Week Stephen Caceres DO [STAFF PHYSICIAN] - 1 Week Activity/Diet/Wound Care/Special Instructions: Medically patient is stable for transfer to mental health
[2023-12-20] MEDS: VANCOMYCIN 1,500 MG in SODIUM CHLORIDE 0.9% 500 ML 500 ML IVPB SCH ×2 (16:32→23:46)
[2023-12-20] MEDS: DIVALPROEX ER 500 MG TAB.ER.24H PO SCH (20:05)
[2023-12-20] MEDS: haloperidoL 5 MG TAB PO SCH (20:06)
--- NOTE | 2023-12-20 23:04 | P.PN ---
Subjective Progress Note Date: 12/20/23 Principal diagnosis: Right upper extremity cellulitis This is a telehealth visit Patient is a 43-year-old male who was recently admitted at [facility] with suicidal ingestion of multiple drugs patient was briefly intubated at that facility and did have an IV to the right antecubital. There was discontinued the day the patient was discharged from that facility the patient however has developed significant cellulitis to the right upper extremity around his IV site for the patient has been admitted to the medical floor for IV antibiotic therapy. On today's evaluation that is 12/20/2023 the patient remains to be afebrile, patient is breathing comfortably on room air without need for supplemental oxygen, the patient denies having any chest pain no significant cough or sputum production no nausea vomiting no abdominal pain and no diarrhea, the patient pain to the right upper extremity has decreased in intensity. Patient did have a creatinine 0.74 no CBC was done today local culture with MRSA Objective - Vital Signs Vital signs: Vital Signs Temp 97.6 F 12/20/23 07:10 Pulse 66 12/20/23 07:10 Resp 18 12/20/23 07:10 BP 108/70 12/20/23 07:10 Pulse Ox 96 12/20/23 07:10 FiO2 Intake & Output 12/19/23 12/20/23 12/20/23 18:59 06:59 18:59 Intake Total 1000 1080 Balance 1000 1080 Intake: Intake, IV Titration 1000 Amount Vancomycin 1,750 mg In 1000 Sodium Chloride 0.9% 500 ml 500 ml @ 167 mls/hr IVPB Q8H DIDI Rx#: [id number] Oral 1080 Other: Voiding Method Toilet Toilet # Voids 2 - Exam Middle-age male lying in bed in no distress Right upper extremity swelling or redness has decreased and no drainage was noticed - Labs CBC & Chem 7: 12/19/23 06:06 12/20/23 05:26 Labs: Abnormal Lab Results - Last 24 Hours (Table) 12/19/23 Range/Units 06:06 RBC 4.11 L (4.40-5.60) X 10*6/uL MCV 101.2 H (80.0-97.0) FL MCH 32.8 H (27.0-32.0) pg Microbiology - Last 24 Hours (Table) 12/16/23 09:20 Gram Stain - Final Arm - Right Wound Culture - Final Methicillin resist S. aureus 12/16/23 11:59 Gram Stain - Final Arm - Right Wound Culture - Final Methicillin resist S. aureus Assessment and Plan (1) Left arm cellulitis Current Visit: Yes Status: Acute Code(s): L03.114 - CELLULITIS OF LEFT UPPER LIMB SNOMED Code(s): 82017117348224141 (2) Leukocytosis Current Visit: Yes Status: Acute Code(s): D72.829 - ELEVATED WHITE BLOOD CELL COUNT, UNSPECIFIED SNOMED Code(s): 485789280 Plan: 1patient with left upper extremity cellulitis site of an IV that was placed at the [facility] when he initially presented with the drug overdose does seem to have not responded well to the oral Keflex concerning for more resistant gram-positive such as MRSA 2-blood culture has been negative 3-patient did have extensive cellulitis and induration to the area, CT did not show any abscess there is concern for possible venous thrombosis 4patient noticed to have some purulent drainage with a culture currently growing MRSA that is sensitive to Bactrim and doxycycline 5-patient has shown clinical improvement and will continue the vancomycin while inpatient and plan to finish therapy with oral Bactrim DS x 10 days on discharge Dictation was produced using [employer] dictation software. please excuse any gramm atical, word or spelling errors. Time with Patient: Less than 30
[2023-12-21 08:15] VITALS: RESP 18
[2023-12-21] MEDS: VANCOMYCIN 1,500 MG in SODIUM CHLORIDE 0.9% 500 ML 500 ML IVPB SCH (08:49)
[2023-12-21] MEDS: FAMOTIDINE 20 MG/2 ML VIAL IV SCH (08:51)
[2023-12-21] MEDS: DESVENLAFAXINE SUCCINATE 50 MG TAB.ER.24H PO SCH (09:13)
[2023-12-21] MEDS: NICOTINE 14MG/24HR PATCH TRANSDERM SCH (09:13)
[2023-12-21] MEDS: BENZTROPINE MESYLATE 1 MG TAB PO SCH (09:13)
[2023-12-21] MEDS: APIXABAN 5 MG TAB PO SCH (09:13)
[2023-12-21] MEDS: NALTREXONE HCL 50 MG TAB PO SCH (09:13)
[2023-12-21] MEDS: HYDROcodone/APAP 5-325MG 1 EACH TAB PO PRN (11:01)
[2023-12-21 12:31] VITALS: BP 103/68; PULSE 78; TEMP 97.7
--- NOTE | 2023-12-21 14:32 | P.PN ---
Subjective Progress Note Date: 12/21/23 This is a pleasant 43 years old male with past medical history of schizoaffective disorder. Patient was recently admitted to [facility] from December 07 to December 10 due to polysubstance overdose patient was found unresponsive at home with 4 empty bottles of his medication at his bedside. This was an attempt to commit suicide he was admitted to the ICU for acute hypoxic respiratory failure and placed on the mechanical ventilator. Subsequently he was extubated on December 08, 2023. Patient was then transferred from [facility] to the [facility] psychiatric unit on 3 [address]. for evaluation. Patient there was noted to have cellulitis of the right upper extremity in the right antecubital fossa extending proximally to the distal arm and distally to the forearm. ID was consulted and the wound was cultured. Patient was initially treated with oral Keflex without response and he was recommended to transfer to the medical floor where he was placed on IV vancomycin. There was some induration noted. He had a CT of the right upper extremity done on the that shows severe cellulitis specifically along the antecubital fossa and upper third forearm. There is associated thrombophlebitis of the cephalic vein down into the proximal third forearm. A tributary that joins the cephalic vein from the region of the brachial neurovascular bundle also appears to be thrombosed. Thrombophlebitis extending up to involve both of the cephalic and basilar veins to the lower third arm. There is no commencing abscess identified given the degree of edema and cellulitis at the antecubital fossa. If there is persistent concerns short interval follow-up can be performed. Patient did improve on IV antibiotic therapy and his right AC is not red any longer there is no drainage and the wound appears to be healed. He does continue on Eliquis twice a day and would recommend to follow-up with vascular outpatient to discuss continuation of this medication. His white blood cell count is normal at 8.96, his renal function remains normal. Hemodynamically he is stable. 12/21/2023 Patient is evaluated today sitting up in the chair he is pending transfer to the 3 W. psychiatric unit. His right AC continues to be healing there is not any redness or drainage. Cultures grew MRSA and he will continue on 10 days of Bactrim. Additionally the Eliquis can be discontinued after 1 month of therapy. Review of Systems Constitutional: Denied any fatigue denied any fever. Cardio vascular: denied any chest pain, palpitations Gastrointestinal: denied any nausea, vomiting, diarrhea Pulmonary: Denied any shortness of breath cough Neurologic denied any new focal deficits All inpatient medications were reviewed and appropriate changes in these medications as dictated in the interval history and assessment and plan. PHYSICAL EXAMINATION: GENERAL: The patient is alert and oriented x3, not in any acute distress. Well developed, well nourished. HEENT: Pupils are round and equally reacting to light. EOMI. No scleral icterus. No conjunctival pallor. Normocephalic, atraumatic. No pharyngeal erythema. No thyromegaly. CARDIOVASCULAR: S1 and S2 present. No murmurs, rubs, or gallops. PULMONARY: Chest is clear to auscultation, no wheezing or crackles. ABDOMEN: Soft, nontender, nondistended, normoactive bowel sounds. No palpable organomegaly. MUSCULOSKELETAL: No joint swelling or deformity. EXTREMITIES: No cyanosis, clubbing, or pedal edema. NEUROLOGICAL: Gross neurological examination did not reveal any focal deficits. SKIN: No rashes. Assessment and plan Cellulitis of the right upper extremity antecubital fossa area secondary to previous IV site at [facility] while in their ICU on mechanical ventilation, with extensive cellulitis and thrombophlebitis of the cephalic vein noted on CT schizoaffective disorder, who was recently discharged from the hospital for suicidal ideation and attempt with drug overdose Recent history of respiratory failure status post brief period of mechanical ventilation, secondary to drug overdose, currently on room air. Obesity with BMI of 38.2 GI prophylaxis DVT prophylaxis patient is on Eliquis due to significant thromboembolism noted on the CT scan. This can be discontinued after 1 month of therapy. Patient is medically stable and pending transfer to the psychiatric unit. To follow-up with Dr. Lefty Lowe who is his usual PCP. The impression and plan of care has been dictated by Nurse Nina Lantigua as directed. Dr. Rell MD I have performed a history and physical examination and medical decision making of this patient, discussed the same with the dictator, and agree with the dict ators assessment and plan as written, documented as a scribe. Based on total visit time, I have performed more than 50% of this visit. Objective - Vital Signs Vital signs: Vital Signs Temp 97.7 F 12/21/23 11:55 Pulse 78 12/21/23 11:55 Resp 18 12/21/23 11:55 BP 103/68 12/21/23 11:55 Pulse Ox 95 12/21/23 11:55 FiO2 Intake & Output 12/20/23 12/21/23 12/21/23 18:59 06:59 18:59 Intake Total 740 120 Balance 740 120 Intake: Intake, IV Titration 500 Amount Vancomycin 1,750 mg In 500 Sodium Chloride 0.9% 500 ml 500 ml @ 167 mls/hr IVPB Q8H COUNT INCLUDES THE [facility] Rx#: [id number] Oral 240 120 Other: Voiding Method Toilet Toilet - Labs CBC & Chem 7: 12/19/23 06:06 12/20/23 05:26 Labs: Microbiology - Last 24 Hours (Table) 12/16/23 09:20 Anaerobic Culture - Final Arm - Right Assessment and Plan Time with Patient: Less than 30
[2023-12-22] MEDS ORDERED: VANCOMYCIN TROUGH DUE 1 EACH MISC MISCELLANE ONE (07:00)
[2023-12-30] MEDS ORDERED: PALIPERIDONE IM 234 MG/1.5 ML SYG IM SCH (09:00)
== END 2023-12-21 15:17 | disposition home or self-care (01) | DRG 721 ==
LOC: 5NMEDONC 14:46
PROVIDERS: ADMIT Internal Medicine; ATTEND Internal Medicine
DX: T80.29XA Infection following other infusion, transfusion and therapeutic injection, initial encounter (principal); L03.113 Cellulitis of right upper limb; B95.62 Methicillin resistant Staphylococcus aureus infection as the cause of diseases classified elsewhere; E66.9 Obesity, unspecified; F17.200 Nicotine dependence, unspecified, uncomplicated; F25.9 Schizoaffective disorder, unspecified; I80.8 Phlebitis and thrombophlebitis of other sites; L03.114 Cellulitis of left upper limb; Z68.38 Body mass index [BMI] 38.0-38.9, adult; T50.912D Poisoning by multiple unspecified drugs, medicaments and biological substances, intentional self-harm, subsequent encounter; Z79.890 Hormone replacement therapy; Z79.84 Long term (current) use of oral hypoglycemic drugs; Z79.01 Long term (current) use of anticoagulants; Z79.899 Other long term (current) drug therapy; D72.829 Elevated white blood cell count, unspecified; J44.9 Chronic obstructive pulmonary disease, unspecified; G47.00 Insomnia, unspecified
CPT/HCPCS: 80048; 80053; 80202; 82565; 85025; 85027; 85610; 85730; 86140; 87070; 87075; 87077; 87186; 87205

== ENCOUNTER 2023-12-21 14:18 | Inpatient (IN) | payer MEDICAID ==
[2023-12-21] MEDS ORDERED: MAG HYDROX/AL HYDROX/SIMETH 30 ML CUP PO PRN (14:29)
[2023-12-21] MEDS ORDERED: MAGNESIUM HYDROXIDE 2,400 MG/30 ML CUP PO PRN (14:29)
[2023-12-21] MEDS ORDERED: LORazepam 2 MG/ML INJ IM PRN (14:29)
[2023-12-21] MEDS ORDERED: haloperidoL 5 MG TAB PO PRN (14:29)
[2023-12-21] MEDS ORDERED: LORazepam 1 MG TAB PO PRN (14:29)
[2023-12-21] MEDS ORDERED: HALOPERIDOL LACTATE 5 MG/ML 1 ML VIAL IM PRN (14:29)
[2023-12-21] MEDS: ACETAMINOPHEN TAB 325 MG TAB PO PRN (20:19)
[2023-12-21] MEDS: haloperidoL 5 MG TAB PO SCH (20:19)
[2023-12-21] MEDS: SULFAMETHOX-TMP 800-160MG 1 EACH TAB PO SCH (20:19)
[2023-12-21] MEDS: APIXABAN 5 MG TAB PO SCH (20:19)
[2023-12-21] MEDS: DIVALPROEX ER 500 MG TAB.ER.24H PO SCH (20:19)
[2023-12-22] MEDS: NICOTINE 21MG/24HR PATCH TRANSDERM SCH ×2 (08:51→08:53)
[2023-12-22] MEDS: BENZTROPINE MESYLATE 1 MG TAB PO SCH (08:52)
[2023-12-22] MEDS: DESVENLAFAXINE SUCCINATE 50 MG TAB.ER.24H PO SCH (08:52)
[2023-12-22] MEDS: SULFAMETHOX-TMP 800-160MG 1 EACH TAB PO SCH (08:52)
[2023-12-22] MEDS: NALTREXONE HCL 50 MG TAB PO SCH (08:52)
[2023-12-22] MEDS: APIXABAN 5 MG TAB PO SCH ×2 (08:52→19:56)
[2023-12-22] MEDS ORDERED: VENLAFAXINE HCL ER 75 MG CAP PO SCH (09:00)
--- NOTE | 2023-12-22 12:43 | P.HP ---
Psychiatric H&P - . H&P Date: 12/22/23 History & Physical: Allergies Allergy/AdvReac Type Severity Reaction Status Date / Time No Known Allergies Allergy Verified 12/21/23 17:13 Vital Signs Temp 97.2 F L 12/22/23 06:59 Pulse 101 H 12/22/23 06:59 Resp 16 12/22/23 06:59 BP 114/67 12/22/23 06:59 Pulse Ox 95 12/21/23 15:56 FiO2 Intake & Output 12/21/23 12/22/23 12/22/23 18:59 06:59 18:59 Weight 113.398 kg 12/22/23 12:39 IDENTIFYING DATA: Patient is a single, 43-year-old male who is presenting with suicidal attempt, currently lives at home with his mother. HPI: Patient was seen initially by Dr Roberts and as per her admission note "patient was medically hospitalized at [facility] after overdosing on numerous psychiatric medications in a suicide attempt. EKG on 12/10/23 showed QTc of 414 (it was 499 on 12/08/23). Abraham says that he overdosed on Haldol, Depakote and "whatever I could get my hands on" because he is feeling depressed. He endorses that it was a suicide attempt. He repeatedly states that it was due to "day-to-day stuff was getting stressful " and is unable to elaborate further. Patient is quite concrete in his thinking and says that he had not been planning this suicide attempt. He reports having taken what was left in the bottles of medications he could get his hands on. He is unable to recall names of all of his medications. He says in a childlike manner "I'll never do it again". Regarding substance use, he reports drinking 6 pack wine coolers beer every week and smoking 3 joints daily. He says he has been feeling more depressed over the past 1 month. He otherwise reports doing well including having good appetite, good sleep, good energy levels. 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 He says, nonchalantly, that his mother must have found him when he overdosed because the bottles were left on the counter. Patient denies suicidal ideation currently. He also denies homicidal ideation. He endorses auditory hallucinations that are negative at times. He denies visual hallucinations. He denies paranoia. He denies recent symptoms consistent with bipolar disorder, but admits that he is often impulsive." Patient was admitted to the mental health unit on 12/10 and transferred directly to the medical floors on 12/12 due to right upper extremity cellulitis. Patient was treated on the medical floors until 21 December with antibiotics IV and followed by infectious disease. Patient was transferred back to the unit last night. He was agreeable to speak with selling underwriter today. He remains in contact cautions. He states that his mood is gradually improving, denies any depression today. He continues to be somewhat superficial about his overdose. States that he is sleeping a bit better since being on the medications, denies any anxiety at this time. Denying any auditory or visual hallucinations. States that he is not having any suicidal homicidal ideations intent or plan. PAST PSYCHIATRIC HISTORY: Patient states that he is diagnosed with schizophrenia, bipolar, and depression. He was previously prescribed Invega, Haldol, lithium, and benztropine. He has also had trials of Depakote and Seroquel. He has had prior inpatient psychiatric treatment here on 3 W 5 times prior to this admission. He was last admitted to our unit at [facility] in August 2020 due to intentional overdose of lithium. At the time, he was discharged on Invega Sustenna, Haldol 10 mg at bedtime, Depakote 500 mg at bedtime, and benztropine as needed. He is currently open with [facility] and sees Dr. Lynne. He is currently on benztropine 1 mg, Depakote ER 5 mg, Haldol 10 mg, Invega sustenna 234 mg, naltrexone 50 mg, and Pristiq 50 mg. PMH: As per medical H&P ALLERGIES: as per EMR CHEMICAL DEPENDENCY HISTORY: He does report a significant history of drug use. He has a prior history of marijuana, meth, crack cocaine, and powder cocaine use. He smokes 1-1/2 pack per day of cigarettes. He drinks 6 pas in a week, but hx of drinking more. FAMILY PSYCHIATRIC/SUBSTANCE USE HISTORY: denies SOCIAL HISTORY: Patient was born and raised in [place]. He currently lives with his mother and helps his mother who is on dialysis. He is receiving SSI. He has completed 12th grade education. Reports having 2 teenage children. He has 2 siblings. Never MENTAL STATUS EXAM: General Appearance: Patient appears to be mildly overweight, older than stated age is alert, directable, and attempts to cooperate. Patient appears to have poor hygiene and grooming. No agitation. Speech: Patient's speech is fluent and nonpressured. [place] Mood/Affect: Patient reports their mood is "a bit better", affect is constricted. Suicidality/Homicidality: Patient denies having any homicidal ideation intent or plan. Denies any current suicidal ideation intent or plan Perceptions: Patient denies any visual hallucinations and denies any recent auditory hallucinations Though content/process: There is no evidence of any delusional thought content and thought process is linear and goal-directed. [place] Memory and concentration: AOX3, grossly intact for the purposes of this session. Judgment and insight: Poor, improving mildly STRENGTHS/WEAKNESSES: Family support is a strength. Substance use is a weakness INTELLECT: below average IMPRESSIONS: Schizoaffective disorder, bipolar type Alcohol use disorder Intellectual disability, mild Cannabis use disorder Nicotine dependence PLAN: -Patient is admitted under voluntary status to MHU for stabilization of psychiatric symptoms and safety. Patient signed adult voluntary form and medication consent and is placed in patient's chart. -Medications : Haldol 10 mg qHS Depakote 500 mg qHS Naltrexone 50 mg daily Effexor 75 mg daily Invega Sustenna 234 mg q28d last received 12/02/23, next due 12/30/23 - NRT -patient is still receiving bactrim PO for 10 days for cellulitis -Patient was counselled on substance abuse and desired to cut back on use. -Patient was informed of the risks, benefits and side effects of the medication -Internal Medicine consult to perform medical evaluation and physical. -SW on board for discharge planning. Encourage patient to participate in groups to work on coping skills. likely discharge in 1-2 days back home if patient is improving. Sw to contact mother and arrange for d/c planning.
--- NOTE | 2023-12-22 13:43 | P.CONS ---
History of Present Illness - Reason for Consult Consult date: 12/22/23 - History of Present Illness This is a pleasant 43 years old male with past medical history of schizoaffective disorder. Patient was recently admitted to [facility] from December 07 to December 10 due to polysubstance overdose patient was found unresponsive at home with 4 empty bottles of his medication at his bedside. This was an attempt to commit suicide he was admitted to the ICU for acute hypoxic respiratory failure and placed on the mechanical ventilator. Subsequently he was extubated on December 08, 2023. Patient was then transferred from [facility] to the [facility] psychiatric unit on 3 W. for evaluation. Patient there was noted to have cellulitis of the right upper extremity in the right antecubital fossa extending proximally to the distal arm and distally to the forearm. ID was consulted and the wound was cultured. Patient was initially treated with oral Keflex without response and he was recommended to transfer to the medical floor where he was placed on IV vancomy jose. There was some induration noted. He had a CT of the right upper extremity done on the that shows severe cellulitis specifically along the antecubital fossa and upper third forearm. There is associated thrombophlebitis of the cephalic vein down into the proximal third forearm. A tributary that joins the cephalic vein from the region of the brachial neurovascular bundle also appears to be thrombosed. Thrombophlebitis extending up to involve both of the cephalic and basilar veins to the lower third arm. There is no commencing abscess identified given the degree of edema and cellulitis at the antecubital fossa. Patient did improve on IV antibiotic therapy and his right AC is not red any longer there is no drainage and the wound appears to be healing. He was cleared with bactrim for 10 days and [facility]. REVIEW OF SYSTEMS: CONSTITUTIONAL: No fever, no malaise, no fatigue. HEENT: No recent visual problems or hearing problems. Denied any sore throat. CARDIOVASCULAR: No chest pain, orthopnea, PND, no palpitations, no syncope. PULMONARY: No shortness of breath, no cough, no hemoptysis. GASTROINTESTINAL: No diarrhea, no nausea, no vomiting, no abdominal pain. NEUROLOGICAL: No headaches, no weakness, no numbness. HEMATOLOGICAL: Denies any bleeding or petechiae. GENITOURINARY: Denies any burning micturition, frequency, or urgency. MUSCULOSKELETAL/RHEUMATOLOGICAL: Denies any joint pain, swelling, or any muscle pain. ENDOCRINE: Denies any polyuria or polydipsia. The rest of the 14-point review of systems is negative. PHYSICAL EXAMINATION: GENERAL: The patient is alert and oriented x3, not in any acute distress. Well developed, well nourished. HEENT: Pupils are round and equally reacting to light. EOMI. No scleral icterus. No conjunctival pallor. Normocephalic, atraumatic. No pharyngeal erythema. No thyromegaly. CARDIOVASCULAR: S1 and S2 present. No murmurs, rubs, or gallops. PULMONARY: Chest is clear to auscultation, no wheezing or crackles. ABDOMEN: Soft, nontender, nondistended, normoactive bowel sounds. No palpable organomegaly. MUSCULOSKELETAL: No joint swelling or deformity. EXTREMITIES: No cyanosis, clubbing, or pedal edema. NEUROLOGICAL: Gross neurological examination did not reveal any focal deficits. SKIN: No rashes. Assessment and Plan -Cellulitis of the right upper extremity antecubital fossa area secondary to previous IV site with extensive cellulitis and thrombophlebitis of the cephalic vein noted on CT patient was treated with course of antibiotics culture grew MRSA and patient was recommended to continue on oral Bactrim for a 10-day course of antibiotic therapy and follow-up with Dr. Cole on discharge. -schizoaffective disorder, who was recently discharged from the hospital for suicidal ideation and attempt with drug overdose -Recent history of respiratory failure status post brief period of mechanical ventilation, secondary to drug overdose, currently on room air. -Obesity with BMI of 38.2 -History of polysubstance abuse -Chronic and ongoing nicotine use GI prophylaxis DVT prophylaxis patient continues on Eliquis would recommend to continue this for 1 month duration and recommend discontinuation date of the Eliquis; date January 16, 2024 The impression and plan of care has been dictated by Nurse Grzegorz Practitioner as directed. Dr. Rell MD I have performed a history and physical examination and medical decision making of this patient, discussed the same with the dictator, and agree with the dictators assessment and plan as written, documented as a scribe. Based on total visit time, I have performed more than 50% of this visit. Past Medical History Past Medical History: Unable to Obtain Additional Past Medical History / Comment(s): treated cellulitis right foot, cyst foot, insomnia, possible COPD, overdose x 2. History of Any Multi-Drug Resistant Organisms: MRSA Year Discovered:: 12/16/23 MDRO Source:: Right Arm Past Surgical History: Unable to Obtain Additional Past Surgical History / Comment(s): ORIF of the ankle Past Anesthesia/Blood Transfusion Reactions: No Reported Reaction Past Psychological History: Anxiety, Bipolar, Depression, Schizophrenia Smoking Status: Current every day smoker Past Alcohol Use History: None Reported, Rare Additional Past Alcohol Use History / Comment(s): Patient states he smokes at least 1-1/2 packs of cigarettes per day. States he only drinks approx. 1-6pac k/week. Denies history of abuse or treatment. Past Drug Use History: Cocaine, Marijuana Additional Drug Use History / Comment(s): Admits to being sober from ICE and cocaine for 15 mos. Does smoke 2-3 joints of MJ per day. - Past Family History Father Family Medical History: Unable to Obtain Mother Family Medical History: No Reported History Additional Family Medical History / Comment(s): Patient has 3 brothers and one sister with no major medical problems. Medications and Allergies Home Medications Medication Instructions Recorded Confirmed Type Divalproex ER [Depakote ER] 500 mg PO HS 30 Days tab.er.24h 09/06/20 12/21/23 Rx Naltrexone HCl [Revia] 50 mg PO DAILY 30 Days tab 09/06/20 12/21/23 Rx Paliperidone IM [Invega Sustenna] 234 mg IM Q28D #1 ml 09/06/20 12/21/23 Rx haloperidoL [Haldol] 10 mg PO HS 30 Days tab 09/06/20 12/21/23 Rx Benztropine Mesylate [Cogentin] 1 mg PO DAILY 12/12/23 12/21/23 History Venlafaxine HCl ER [Effexor XR] 75 mg PO DAILY 30 Days #30 cap 12/12/23 12/21/23 Rx Apixaban [Eliquis] 5 mg PO BID tab 12/20/23 12/21/23 Rx Desvenlafaxine Succinate [Pristiq 50 mg PO DAILY tab 12/20/23 12/21/23 Rx ER] Famotidine [Pepcid] 20 mg PO DAILY #30 tablet 12/20/23 12/21/23 Rx Nicotine 14Mg/24Hr Patch [Habitrol] 1 patch TRANSDERM DAILY patch 12/20/23 12/21/23 Rx Sulfamethox-Tmp 800-160Mg [Bactrim 1 tab PO Q12HR 10 Days #20 tab 12/20/23 12/21/23 Rx DS 800-160 mg] Allergies Allergy/AdvReac Type Severity Reaction Status Date / Time No Known Allergies Allergy Verified 12/21/23 17:13 Physical Exam Vitals: Vital Signs Temp Pulse Resp BP Pulse Ox 12/22/23 06:59 97.2 F L 101 H 16 114/67 12/21/23 15:56 97.4 F L 79 20 124/58 95 Intake and Output 12/21/23 12/22/23 12/22/23 22:59 06:59 14:59 Other: Weight 113.398 kg Assessment and Plan Time with Patient: Less than 30
[2023-12-22] MEDS ORDERED: diphenhydrAMINE 50 MG CAP PO STA (18:34)
[2023-12-22] MEDS ORDERED: CALAMINE/ZINC OXIDE LOTION 177 ML BTL TOPICAL PRN (18:57)
[2023-12-22] MEDS: diphenhydrAMINE 25 MG CAP PO PRN (19:56)
[2023-12-22] MEDS: haloperidoL 5 MG TAB PO SCH (19:56)
[2023-12-22] MEDS: DIVALPROEX ER 500 MG TAB.ER.24H PO SCH (19:57)
[2023-12-22] MEDS: ACETAMINOPHEN TAB 325 MG TAB PO PRN (19:58)
[2023-12-23] MEDS: NICOTINE 21MG/24HR PATCH TRANSDERM SCH (08:08)
[2023-12-23] MEDS: APIXABAN 5 MG TAB PO SCH ×2 (08:08→20:22)
[2023-12-23] MEDS: DESVENLAFAXINE SUCCINATE 50 MG TAB.ER.24H PO SCH (08:08)
[2023-12-23] MEDS: ACETAMINOPHEN TAB 325 MG TAB PO PRN ×2 (08:09→20:23)
[2023-12-23] MEDS: BENZTROPINE MESYLATE 1 MG TAB PO SCH ×2 (08:09→20:22)
[2023-12-23] MEDS: NALTREXONE HCL 50 MG TAB PO SCH (08:09)
[2023-12-23] MEDS: diphenhydrAMINE 25 MG CAP PO PRN ×3 (08:10→20:22)
[2023-12-23 08:20] VITALS: RESP 16
--- NOTE | 2023-12-23 10:19 | P.PN ---
Progress Note - Text Progress Note Date: 12/23/23 Interval history: Patient was seen today for psychiatric follow up. he was seen taking part in yenifer kaufman today. Patient appears to be more cooperative today, directable during conversation. States that his anxiety movement not mildly improving. States that the voices have "gone away". He states that he is trying to keep busy on the unit. He states that he does feel regret about the overdose. He did state that he was able to sleep fairly last night. He was more able to speak about his medication regimen and following up at [facility]. He is denying any suicidal homicidal ideations intent or plan. Denying any auditory visualizations. He did claim that he is off of the Bactrim at this time due to having a rash on his arm, he is taking Benadryl for it and it is mildly improving. MENTAL STATUS EXAM: General Appearance: Patient appears to be mildly overweight, older than stated age is alert, directable, and attempts to cooperate. Patient appears to have poor hygiene and grooming. No agitation. Speech: Patient's speech is fluent and nonpressured. [place] Mood/Affect: Patient reports their mood is "better", affect is constricted, improving. Suicidality/Homicidality: Patient denies having any homicidal ideation intent or plan. Denies any current suicidal ideation intent or plan Perceptions: Patient denies any visual hallucinations and denies any recent auditory hallucinations Though content/process: There is no evidence of any delusional thought content and thought process is linear and goal-directed. [place], improving Memory and concentration: AOX3, grossly intact for the purposes of this session. Judgment and insight: improving mildly IMPRESSIONS: Schizoaffective disorder, bipolar type Alcohol use disorder Intellectual disability, mild Cannabis use disorder Nicotine dependence PLAN: -Patient is admitted under voluntary status to MHU for stabilization of psych iatric symptoms and safety. Patient signed adult voluntary form and medication consent and is placed in patient's chart. -Medications : Haldol 10 mg qHS Depakote 500 mg qHS Naltrexone 50 mg daily Pristiq 50 mg daily Cogentin 1 mg qhs for EPS prophylaxis. Invega Sustenna 234 mg q28d last received 12/02/23, next due 12/30/23 at [facility] - NRT -Patient's Bactrim was discontinued yesterday due to possible rash associated with it. Currently on Benadryl as needed for allergy symptoms. Will reach out to infectious disease to see about replacement of antibiotic. -SW on board for discharge planning. Encourage patient to participate in groups to work on coping skills. likely discharge back home either tomorrow versus Wednesday if patient is improving and patient's antibiotic is a replaced. Sw to contact mother and arrange for d/c planning.
[2023-12-23] MEDS: DOXYCYCLINE 100 MG CAP PO SCH ×2 (11:17→20:23)
--- NOTE | 2023-12-23 14:19 | P.PN ---
Progress Note - Text Progress Note Date: 12/23/23 Patient was discharged from the medical floor with infectious disease following on Bactrim as cultures of the right antecubital cellulitis drainage finalized with MRSA. Per nursing staff on 3 W. patient started developing a rash generalized and Bactrim was placed on hold and given Benadryl. On physical exam patient has a diffuse rash that appears allergic in nature on the upper extremities, chest, torso, and face. Patient denies any shortness of breath or difficulty breathing or any throat swelling and reports the rash is itchy but is being relieved by Benadryl. Calamine lotion ordered as needed as well. After evaluation and discussion with infectious disease patient will transition to doxycycline 100 mg twice daily for the next 1 week. Orders were placed. Review of systems: Constitutional: No reports of fatigue, fever, or chills Cardiovascular: No reports of chest pain or palpitations Respiratory: No reports of shortness of breath or cough GI: No reports of nausea, vomiting, or diarrhea : No reports of dysuria or retention Neurovascular: No reports of weakness or numbness All medications have been reviewed Physical exam: Gen: This is a 43-year-old male who is awake, alert and oriented x 3, well- developed, well-nourished, obese HEENT: Head is atraumatic, normocephalic. Pupils equal, round. Sclerae is anicteric. NECK: Supple. No JVD. No lymphadenopathy. No thyromegaly. LUNGS: Clear to auscultation. No wheezes or rhonchi. No intercostal retractions. HEART: Regular rate and rhythm. No murmur. ABDOMEN: Soft. Bowel sounds are present. No masses. No tenderness. EXTREMITIES: No pedal edema. No calf tenderness. Right upper extremity site antecubital area appears to be improving with no significant redness and swelling is tremendously improved NEUROLOGICAL: Patient is awake, alert and oriented x3. Cranial nerves 2 through 12 are grossly intact. Skin: Diffuse rash noted bilaterally upper extremities including trunk area, and face Assessment: -Cellulitis of the right upper extremity antecubital fossa area secondary to previous IV site with extensive cellulitis and thrombophlebitis of the cephalic vein noted on CT patient was treated with course of antibiotics culture grew MRSA -Allergic reaction, secondary to Bactrim which was discontinued and patient will be started on doxycycline. Continue Benadryl as needed as well as calamine lotion as needed -schizoaffective disorder, who was recently discharged from the hospital for suicidal ideation and attempt with drug overdose -Recent history of respiratory failure status post brief period of mechanical ventilation, secondary to drug overdose, currently on room air. -Obesity with BMI of 38.2 -History of polysubstance abuse -Chronic and ongoing nicotine use The impression and plan of care has been dictated by Amy Summers, Nurse Practitioner as directed. Dr. Angela MD I have performed a history and examination and MDM of this patient, discussed the same with the dictator, and agree with the dictator's assessment and plan as written ,documented as a scribe. Based on total visit time, I have performed more than 50% of the visit.
[2023-12-23] MEDS: DIVALPROEX ER 500 MG TAB.ER.24H PO SCH (20:22)
[2023-12-23] MEDS: haloperidoL 5 MG TAB PO SCH (20:22)
[2023-12-24] MEDS: DESVENLAFAXINE SUCCINATE 50 MG TAB.ER.24H PO SCH (08:49)
[2023-12-24] MEDS: DOXYCYCLINE 100 MG CAP PO SCH ×2 (08:49→20:49)
[2023-12-24] MEDS: APIXABAN 5 MG TAB PO SCH ×2 (08:49→20:50)
[2023-12-24] MEDS: NICOTINE 21MG/24HR PATCH TRANSDERM SCH (08:49)
[2023-12-24] MEDS: NALTREXONE HCL 50 MG TAB PO SCH (08:49)
--- NOTE | 2023-12-24 11:26 | P.PN ---
Progress Note - Text Progress Note Date: 12/24/23 Interval history: Patient was seen today for psychiatric follow up. he was sleeping this morning and was awoken by fiction and nonfiction writer prose. Patient appears to be more cooperative today, directable during conversation. States that his anxiety and depression are mildly improving. claims that his arm is improving and is on a new abx today. He did state that he was able to sleep fairly last night. He was more able to speak about his medication regimen and following up at [facility]. He is denying any suicidal homicidal ideations intent or plan. Denying any auditory visualizations. He is not reporting any side effects at this time. MENTAL STATUS EXAM: General Appearance: Patient appears to be mildly overweight, older than stated age is alert, directable, and attempts to cooperate. Patient appears to have poor hygiene and grooming. No agitation. Speech: Patient's speech is fluent and nonpressured. [place], improving Mood/Affect: Patient reports their mood is "ok", affect is constricted, improving. Suicidality/Homicidality: Patient denies having any homicidal ideation intent or plan. Denies any current suicidal ideation intent or plan Perceptions: Patient denies any visual hallucinations and denies any recent auditory hallucinations Though content/process: There is no evidence of any delusional thought content and thought process is linear and goal-directed. [place], improving Memory and concentration: AOX3, grossly intact for the purposes of this session. Judgment and insight: improving mildly IMPRESSIONS: Schizoaffective disorder, bipolar type Alcohol use disorder Intellectual disability, mild Cannabis use disorder Nicotine dependence PLAN: -Patient is admitted under voluntary status to MHU for stabilization of psychiatric symptoms and safety. Patient signed adult voluntary form and medication consent and is placed in patient's chart. -Medications : Haldol 10 mg qHS Depakote 500 mg qHS Naltrexone 50 mg daily Pristiq 50 mg daily Cogentin 1 mg qhs for EPS prophylaxis. Invega Sustenna 234 mg q28d last received 12/02/23, next due 12/30/23 at [facility] -Patient is on doxycycline now, we will continue to monitor for any allergic reactions or side effects. - NRT -Patient's Bactrim was discontinued yesterday due to possible rash associated with it. Encourage patient to participate in groups to work on coping skills. likely discharge back home Wednesday if patient is improving. Sw to contact mother and arrange for d/c planning.
[2023-12-24] MEDS: diphenhydrAMINE 25 MG CAP PO PRN (14:30)
[2023-12-24] MEDS: DIVALPROEX ER 500 MG TAB.ER.24H PO SCH (20:49)
[2023-12-24] MEDS: haloperidoL 5 MG TAB PO SCH (20:50)
[2023-12-24] MEDS: BENZTROPINE MESYLATE 1 MG TAB PO SCH (20:50)
[2023-12-25] MEDS: DESVENLAFAXINE SUCCINATE 50 MG TAB.ER.24H PO SCH (08:46)
[2023-12-25] MEDS: DOXYCYCLINE 100 MG CAP PO SCH ×2 (08:46→20:03)
[2023-12-25] MEDS: NALTREXONE HCL 50 MG TAB PO SCH (08:46)
[2023-12-25] MEDS: NICOTINE 21MG/24HR PATCH TRANSDERM SCH (08:46)
[2023-12-25] MEDS: APIXABAN 5 MG TAB PO SCH ×2 (08:46→20:03)
[2023-12-25] MEDS: diphenhydrAMINE 25 MG CAP PO PRN ×2 (08:47→16:41)
[2023-12-25] MEDS: NICOTINE 14MG/24HR PATCH TRANSDERM SCH (08:55)
--- NOTE | 2023-12-25 11:28 | P.PN ---
Progress Note - Text Interval history: Patient was seen in his room and was directable and agreeable to speak with creative services writer. At this time patient denies any suicidal or homicidal ideations intent or plan. Denies any Auditory or visual hallucinations. Patient denies any side effects from the medications and has been compliant with meds. Mental status exam: General Appearance: [Patient appears to be older than stated age is alert, directable, and cooperative.] Behavior: [No agitated behavior. Patient is calm and directable] Speech: Patient's speech is fluent and nonpressured. Mood/Affect: Mood is improving mildly, affect is congruent and constricted. Suicidality/Homicidality: Patient denies having any suicidal or homicidal i deation intent or plan. Perceptions: Patient denies any auditory or visual hallucinations. Though content/process: [There is no evidence of any delusional thought content and thought process is linear and goal-directed.] Memory and concentration: AOX3, grossly intact for the purposes of this session Judgment and insight: improving mildly Assessment/Plan: Continue with current diagnosis. Patient continues to meet criteria for inpatient psychiatric admission for symptom stabilization and safety.[Patient will be maintained on current psychotropic medication regimen.] Monitor for medication compliance and for any psychotropic medication side effects. Will continue to monitor ongoing response to treatment. Encouraged participation in milieu.
[2023-12-25] MEDS: DIVALPROEX ER 500 MG TAB.ER.24H PO SCH (20:03)
[2023-12-25] MEDS: BENZTROPINE MESYLATE 1 MG TAB PO SCH (20:03)
[2023-12-25] MEDS: haloperidoL 5 MG TAB PO SCH (20:03)
[2023-12-26] MEDS: NICOTINE 14MG/24HR PATCH TRANSDERM SCH (08:28)
[2023-12-26] MEDS: NALTREXONE HCL 50 MG TAB PO SCH (08:29)
[2023-12-26] MEDS: DOXYCYCLINE 100 MG CAP PO SCH ×2 (08:29→20:39)
[2023-12-26] MEDS: APIXABAN 5 MG TAB PO SCH ×2 (08:29→20:39)
[2023-12-26] MEDS: DESVENLAFAXINE SUCCINATE 50 MG TAB.ER.24H PO SCH (08:29)
--- NOTE | 2023-12-26 09:51 | P.PN ---
Progress Note - Text Interval history: Patient was seen [wandering the hallways] and was directable and agreeable to speak with health science writer. Denies impulsivity. States that depression has significantly improved.. At this time patient denies any suicidal or homicidal ideations intent or plan. Denies any Auditory or visual hallucinations. Patient denies any side effects from the medications and has been compliant with meds. Mental status exam: General Appearance: [Patient appears to be stated age is alert, directable, and cooperative.] Behavior: [No agitated behavior. Patient is calm and directable] Speech: Patient's speech is fluent and nonpressured. Mood/Affect: Mood is improving mildly, affect is congruent and constricted. Suicidality/Homicidality: Patient denies having any suicidal or homicidal ideation intent or plan. Perceptions: Patient denies any auditory or visual hallucinations. Though content/process: [There is no evidence of any delusional thought content and thought process is linear and goal-directed.] Memory and concentration: AOX3, grossly intact for the purposes of this session Judgment and insight: improving mildly Assessment/Plan: Continue with current diagnosis. Patient continues to meet criteria for inpatient psychiatric admission for symptom stabilization and safety.[Patient will be maintained on current psychotropic medication regimen.] Monitor for medication compliance and for any psychotropic medication side effects. Will continue to monitor ongoing response to treatment. Encouraged participation in milieu.
[2023-12-26] MEDS: diphenhydrAMINE 25 MG CAP PO PRN (16:45)
[2023-12-26] MEDS: haloperidoL 5 MG TAB PO SCH (20:39)
[2023-12-26] MEDS: DIVALPROEX ER 500 MG TAB.ER.24H PO SCH (20:39)
[2023-12-26] MEDS: BENZTROPINE MESYLATE 1 MG TAB PO SCH (20:39)
[2023-12-27 07:17] VITALS: BP 84/52; PULSE 67; TEMP 97.5
[2023-12-27] MEDS: NICOTINE 14MG/24HR PATCH TRANSDERM SCH (08:48)
[2023-12-27] MEDS: DESVENLAFAXINE SUCCINATE 50 MG TAB.ER.24H PO SCH (08:49)
[2023-12-27] MEDS: APIXABAN 5 MG TAB PO SCH (08:49)
[2023-12-27] MEDS: DOXYCYCLINE 100 MG CAP PO SCH (08:50)
[2023-12-27] MEDS: NALTREXONE HCL 50 MG TAB PO SCH (08:50)
--- NOTE | 2023-12-27 09:59 | P.DS ---
Providers Date of admission: 12/21/23 15:08 Expected date of discharge: 12/27/23 Attending physician: Jarek Wynn MD Consults: 12/21/23 14:29 Consult Physician Routine Consulting Provider: [facility] Consult Reason/Comments: H & P WITH MEDICAL MANAGEMENT Do you want consulting provider notified?: Yes Primary care physician: Jarek Wynn MD - Discharge Diagnosis(es) (1) Schizoaffective disorder, bipolar type Current Visit: Yes Status: Acute (2) Alcohol use disorder Current Visit: Yes Status: Acute Priority: Medium (3) Intellectual disability Current Visit: Yes Status: Acute Priority: Medium (4) Cannabis use disorder Current Visit: Yes Status: Acute Priority: Medium (5) Nicotine dependence Current Visit: Yes Status: Acute Priority: Low Hospital Course: Admission HPI: Admission note was completed by movie writer "Patient is a single, 43-year-old male who is presenting with suicidal attempt, currently lives at home with his mother. Patient was seen initially by Dr Roberts and as per her admission note "patient was medically hospitalized at [facility] after overdosing on numerous psychiatric medications in a suicide attempt. EKG on 12/10/23 showed QTc of 414 (it was 499 on 12/08/23). Abraham says that he overdosed on Haldol, Depakote and "whatever I could get my hands on" because he is feeling depressed. He endorses that it was a suicide attempt. He repeatedly states that it was due to "day-to-day stuff was getting stressful " and is unable to elaborate further. Patient is quite concrete in his thinking and says that he had not been planning this suicide attempt. He reports having taken what was left in the bottles of medications he could get his hands on. He is unable to recall names of all of his medications. He says in a childlike manner "I'll never do it again". Regarding substance use, he reports drinking 6 pack wine coolers beer every week and smoking 3 joints daily. He says he has been feeling more depressed over the past 1 month. He otherwise reports doing well including having good appetite, good sleep, good energy levels. 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 He says, nonchalantly, that his mother must have found him when he overdosed because the bottles were left on the counter. Patient denies suicidal ideation currently. He also denies homicidal ideation. He endorses auditory hallucinations that are negative at times. He denies visual hallucinations. He denies paranoia. He denies recent symptoms consistent with bipolar disorder, but admits that he is often impulsive." Patient was admitted to the mental health unit on 12/10 and transferred directly to the medical floors on 12/12 due to right upper extremity cellulitis. Patient was treated on the medical floors until 21 December with antibiotics IV and followed by infectious disease. Patient was transferred back to the unit last night. He was agreeable to speak with movie writer today. He remains in contact cautions. He states that his mood is gradually improving, denies any depression today. He continues to be somewhat superficial about his overdose. States that he is sleeping a bit better since being on the medications, denies any anxiety at this time. Denying any auditory or visual hallucinations. States that he is not having any suicidal homicidal ideations intent or plan." Hospital course: Upon admission to the unit patient was directable and agreeable to commence treatment and signed adult voluntary form. Patient mainly kept to himself however with time and treatment he eventually got along well with other patients on the unit and followed unit protocol. Patient was compliant with the medications throughout hospital course. Patient was started on vancomycin on the medical floors and then transitioned onto Bactrim once transferred to the mental health unit. Patient developed a rash and was treated with Benadryl, medicine changed patient onto doxycycline for upper extremity cellulitis. With regards to psychiatric medications patient was started on haloperidol p.o. 10 mg nightly which was his home dose, Depakote 500 mg nightly for mood stabilization, naltrexone 50 mg p.o. daily for alcohol cravings, Pristiq 50 mg daily for mood/anxiety, Cogentin 1 mg nightly for EPS prophylaxis, patient is currently on Invega Sustenna 234 mg q. monthly last received dose at [facility] on 12/02, next dose will be due at [facility] on 12/30. Patient spoke of his stressors and engaged in therapy both group and individual. Patient was also seen by medical team for history and physical exam. Patient will continue on with both Eliquis and also antibiotic doxycycline, expiry date is on 12/29. Throughout the course of the hospitalization patient gradually improved with regards to mood, anxiety, suicidal thoughts, hallucinations, sleep and returned back to their baseline level of functioning. On the day of discharge patient denied any suicidal or homicidal ideations intent or plan denied any auditory or visual hallucinations. Patient endorsed wanting to live for their health and family. The patient denied any access to guns or weapons. Patient denied any paranoia and did not endorse any delusions. Patient does have a significant history of substance abuse and was counseled on abstaining from all substances including alcohol and marijuana. Patient was offered however declined inpatient substance-abuse rehab. Patient elected to do outpatient substance use treatment program through their outpatient provider.. Patient was also counseled on the medications and need for regular compliance and was encouraged to follow-up with their outpatient appointment for mental health and also for primary care. Prior to discharge a family meeting will be arranged by secondary social studies teacher to answer any questions and ensure safety upon discharge incuding making sure that guns/weapons are either removed from the home or locked away. Mental status exam: General Appearance: Patient appears to be mildly overweight, stated age is alert, pleasant, and cooperative. Patient is in no acute distress and has improved hygiene and grooming Behavior: Patient is calmly seated without any agitated behavior. Speech: Patient's speech is fluent and nonpressured. Mood/Affect: Patient reports their mood is "better", affect is congruent and euthymic. Suicidality/Homicidality: Patient denies having any suicidal or homicidal ideation intent or plan. Perceptions: Patient denies any auditory or visual hallucinations. Though content/process: There is no evidence of any delusional thought content and thought process is linear and goal-directed. [place] Memory and concentration: AOX3, grossly intact for the purposes of this session. Can spell "WORLD" backwards correctly. Judgment and insight: Chronically poor, however has improved with guarded prognosis Impression: Schizoaffective disorder bipolar type Alcohol use disorder Intellectual disability Cannabis use disorder Nicotine dependence Plan: -Continue with discharge today as patient has improved and stabilized psychiatrically and is not currently an imminent threat to themself and/or others. Patient will remain at chronically elevated risk for harm to self and/or others due to their impulsivity and chronic mental illness. -Continue medications: Haldol p.o. 10 mg nightly for psychosis adjunct, Depakote 500 mg nightly for mood stabilization, naltrexone 50 mg p.o. daily for alcohol cravings, Pristiq 50 mg daily for mood/anxiety, Cogentin 1 mg nightly for EPS prophylaxis, Invega Sustenna 234 mg IM q. 28 days, last dose received on 12/02, next dose will be due at [facility] on 12/30. -Patient was counseled on the need for medication compliance and appropriate follow-up at mental health and also primary care for medical issues. Patient verbalized understanding and agreed. -Social work to arrange for and conduct family meeting to ensure safety upon discharge and answer any questions/concerns and also to ensure safe home environment that guns/weapons are either removed from the home or locked away. Social work also to arrange for patients follow up appointments with [facility] for psychiatric care along with follow up with primary care provider. -Patient counseled on abstaining from recreational drugs and marijuana and alcohol. Was informed/educated on the adverse effects on their physical and mental health. Patient verbally agreed and understood. Patient was offered substance abuse treatment however declined at this time. -Patient was instructed to return to the hospital or seek immediate medical care if their psychiatric or medical symptoms do worsen or reoccur. Allergies Allergy/AdvReac Type Severity Reaction Status Date / Time No Known Allergies Allergy Verified 12/21/23 17:13 Vital Signs Temp 97.5 F L 12/27/23 06:48 Pulse 67 12/27/23 06:48 Resp 16 12/27/23 06:48 BP 84/52 12/27/23 06:48 Pulse Ox 95 12/21/23 15:56 FiO2 Intake & Output 12/26/23 12/27/23 12/27/23 18:59 06:59 18:59 Weight 109 kg Patient Condition at Discharge: Stable Plan - Discharge Summary Discharge Rx Participant: No New Discharge Prescriptions: No Action Divalproex ER [Depakote ER] 500 mg PO HS 30 Days tab.er.24h Naltrexone HCl [Revia] 50 mg PO DAILY 30 Days tab haloperidoL [Haldol] 10 mg PO HS 30 Days tab Paliperidone IM [Invega Sustenna] 234 mg IM Q28D #1 ml Apixaban [Eliquis] 5 mg PO BID tab Nicotine 14Mg/24Hr Patch [Habitrol] 1 patch TRANSDERM DAILY patch Famotidine [Pepcid] 20 mg PO DAILY #30 tablet Benztropine Mesylate [Cogentin] 1 mg PO DAILY Venlafaxine HCl ER [Effexor XR] 75 mg PO DAILY 30 Days #30 cap Desvenlafaxine Succinate [Pristiq ER] 50 mg PO DAILY tab Sulfamethox-Tmp 800-160Mg [Bactrim DS 800-160 mg] 1 tab PO Q12HR 10 Days #20 tab Discharge Medication List Divalproex ER [Depakote ER] 500 mg PO HS 30 Days tab.er.24h 09/06/20 [Rx] Naltrexone HCl [Revia] 50 mg PO DAILY 30 Days tab 09/06/20 [Rx] Paliperidone IM [Invega Sustenna] 234 mg IM Q28D #1 ml 09/06/20 [Rx] haloperidoL [Haldol] 10 mg PO HS 30 Days tab 09/06/20 [Rx] Benztropine Mesylate [Cogentin] 1 mg PO DAILY 12/12/23 [History] Venlafaxine HCl ER [Effexor XR] 75 mg PO DAILY 30 Days #30 cap 12/12/23 [Rx] Apixaban [Eliquis] 5 mg PO BID tab 12/20/23 [Rx] Desvenlafaxine Succinate [Pristiq ER] 50 mg PO DAILY tab 12/20/23 [Rx] Famotidine [Pepcid] 20 mg PO DAILY #30 tablet 12/20/23 [Rx] Nicotine 14Mg/24Hr Patch [Habitrol] 1 patch TRANSDERM DAILY patch 12/20/23 [Rx] Sulfamethox-Tmp 800-160Mg [Bactrim DS 800-160 mg] 1 tab PO Q12HR 10 Days #20 tab 12/20/23 [Rx] Activity/Diet/Wound Care/Special Instructions: Avoid the use of street drugs and alcohol. Take all medications as prescribed. When you are in need of refills on your medications, please contact your medical provider and/or outpatient psychiatrist/provider to have this done. Please go to your scheduled outpatient appointment for aftercare treatment. If symptoms return or become worse, call the crisis line at and/or go to the nearest emergency room for evaluation. National Suicide Hotline 988.
[2023-12-27] MEDS: diphenhydrAMINE 25 MG CAP PO PRN (12:27)
[2023-12-30] MEDS ORDERED: PALIPERIDONE IM 234 MG/1.5 ML SYG IM SCH (09:00)
== END 2023-12-27 13:30 | disposition home or self-care (01) | DRG 750 ==
LOC: 3MHU 15:08
PROVIDERS: ADMIT Psychiatry & Neurology Psychiatry; ATTEND Psychiatry & Neurology Psychiatry
DX: F25.0 Schizoaffective disorder, bipolar type (principal); E66.9 Obesity, unspecified; Z68.38 Body mass index [BMI] 38.0-38.9, adult; F10.10 Alcohol abuse, uncomplicated; F12.10 Cannabis abuse, uncomplicated; F17.210 Nicotine dependence, cigarettes, uncomplicated; F41.9 Anxiety disorder, unspecified; F70 Mild intellectual disabilities; I80.8 Phlebitis and thrombophlebitis of other sites; L03.113 Cellulitis of right upper limb; T43.4X2 Poisoning by butyrophenone and thiothixene neuroleptics, intentional self-harm; Z79.01 Long term (current) use of anticoagulants; Z79.899 Other long term (current) drug therapy; Z86.14 Personal history of Methicillin resistant Staphylococcus aureus infection; Z91.51 Personal history of suicidal behavior; Z28.311 Partially vaccinated for COVID-19; Z28.21 Immunization not carried out because of patient refusal